=== PATIENT | female | born 2000 | race Caucasian/White ===

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

== ENCOUNTER 2022-07-09 21:12 | Emergency (ER) | payer MEDICAID, SELFPAY ==
--- NOTE | ~2022-07-09 | US_ITS ---
EXAMINATION: US OBSTETRICAL ULTRASOUND CLINICAL INFORMATION: Nausea/vomiting, COMPARISON: TECHNIQUE: Sonographic evaluation of the pelvis was performed transabdominally. FINDINGS: The uterus measures 9.5 x 7.9 x 8.5 cm. There is a single intrauterine gestational sac with visible yolk sac, embryo/fetus, and cardiac activity. There is no significant subchorionic hemorrhage or hematoma. HR: 179 beats per minute. CRL (crown rump length): 3.7 cm (10 weeks 5 days +/- 4 days). FLORENCE (estimated date of delivery): 01/30/2023 +/- 4 days. MATERNAL ADNEXA: The right maternal ovary measures 2.7 x 1.5 x 1.6 and appears unremarkable. The left maternal ovary measures 4.2 x 2.1 x 1.7 and appears unremarkable. There is no significant maternal adnexal mass. Trace pelvic free fluid noted. US/US OB <= 14 weeks fetus IMPRESSION: 1. Single intrauterine gestation with ultrasound gestational age of 10 weeks 5 days +/- 4 days. 2. Estimated date of delivery is 01/30/2023 +/- 4 days. 3. Trace pelvic free fluid.
[2022-07-09 21:45] VITALS: BP 119/76; PULSE 89; RESP 18; TEMP 36.2; O2SAT 99; BMI 40.0
--- NOTE | 2022-07-09 22:11 | MHC.EDTECH ---
pt blood drawn ,covid and flu swab collected and sent to lab .
[2022-07-09 22:12] LABS: MANUAL DIFF FLAG NO
[2022-07-09 22:16] LABS: Basophils Percent Auto 0.3 % (0-2); Eosinophils Absolute Auto 0.1 X10*3/uL (0.0-0.4); Eosinophils Percent Auto 1.1 % (0-4); Hematocrit 34.7 % (37.0-47.0); Hemoglobin 11.2 g/dl (12.0-16.0); Imm Gran Abs Auto 0.04 X10*3/uL (0.00-0.03); Imm Gran Pct Auto 0.3 % (0.0-0.4); Lymphocytes Absolute Auto 2.3 X10*3/uL (1.2-4.9); Lymphocytes Percent Auto 18.9 % (20-40); Mean Corpuscular HGB Conc 32.3 g/dl (31.0-35.0); Mean Corpuscular Hemoglobin 21.7 pg (27.0-33.0); Mean Corpuscular Volume 67.4 fL (80.0-98.0); Mean Platelet Volume 10.8 fL (9.4-12.3); Monocytes Absolute Auto 0.8 X10*3/uL (0.1-1.2); Monocytes Percent Auto 6.1 % (2-11); Neutrophils Absolute Auto 9.1 x10*3/uL (2.0-8.3); Neutrophils Percent Auto 73.3 % (45-73); Platelet Count 303 X10*3/uL (160-400); Red Blood Count 5.15 X10*6/uL (4.20-5.50); Red Cell Distribution Width 19.6 % (11.0-16.0); White Blood Count 12.4 X10*3/uL (4.8-10.8)
[2022-07-09 22:21] VITALS: O2SAT 100
[2022-07-09 22:36] LABS: Alanine Aminotransferase 15 U/L (0-31); Alkaline Phosphatase 58 U/L (39-117); Anion Gap 14 (12-20); Aspartate Amino Transferase 14 U/L (5-31); Bilirubin Total 0.4 mg/dL (0.0-1.0); Blood Urea Nitrogen 8 mg/dL (9-16); Calcium 9.4 mg/dL (8.4-10.2); Carbon Dioxide 22 mmol/L (22-29); Chloride 106 mmol/L (96-108); Creatinine Clr Calc Pharmacy 115.6; Estimated Glomerular Filt Rate > 60; Glucose Random 98 mg/dL (60-115); Potassium 4.2 mmol/L (3.3-5.1); Sodium 138 mmol/L (135-145); Total Protein 7.2 g/dL (6.5-8.0)
[2022-07-09 22:46] LABS: COVID-19 Test Negative (Negative); IDNOW Serial# 16C4AD1C; IDNOW Serial# BCCEAD1C; Influenza A Negative (Negative); Influenza B2 Negative (Negative)
[2022-07-09] MEDS: ondansetron HCL 4 MG/2 ML VIAL IVPUSH (22:49)
[2022-07-09] MEDS: 0.9 % Sodium Chloride 1,000 ML 999 ML IV (22:49)
[2022-07-09 22:55] LABS: HCG Quantitative 48602 mIU/mL
--- NOTE | 2022-07-09 23:28 | ED_ITS ---
HPI - Nausea/Vomiting/Diarrhea General Chief complaint: Syncope Stated complaint: Vomiting blood/headache/3 mos preg Time Seen by Provider: 07/09/22 22:16 Source: patient Mode of arrival: ambulatory History of Present Illness HPI Narrative: 22-year-old female without significant past medical history who presents reporting that she is 3 months and is currently being followed through the [facility] and is due to have her ultrasound on 07/14. Patient states that for the past few days she has had a ?pounding headache? with nausea and vomiting and states that the Zofran does not help and that she has tried to take 1-325 mg tablet of acetaminophen. Patient also reports taking Excedrin. Related Data Previous Rx's Medication Instructions Recorded ibuprofen 400 mg tablet 400 mg PO Q6H PRN pain #20 tabs 08/11/20 nitrofurantoin 100 mg PO Q12H 7 days #14 caps 07/10/22 monohydrate/macrocrystals 100 mg capsule (Macrobid) Allergies Allergy/AdvReac Type Severity Reaction Status Date / Time No Known Allergies Allergy Verified 08/11/20 00:35 Review of Systems Review of Systems: Pertinent positives and negatives as stated in HPI PMFSH Past Medical History Source: nursing notes reviewed Medical History No known health problems Social History Social History Alcohol intake: never Patient Tobacco Use Status: Never used Tobacco Smoked in Last 30 Days: No Use of substances other than those prescribed or required for medical reasons: No Advance Directives: No Advance Directives Information Provided: Yes Patient : Yes Physical Exam Vital Signs: Vital Signs: Last Vital Signs Temp 97.2 F 07/09/22 21:45 Pulse 89 07/09/22 21:45 Resp 18 07/09/22 21:45 BP 119/76 07/09/22 21:45 Pulse Ox 100 07/09/22 22:21 O2 Del Method 07/09/22 22:21 BMI result Body Mass Index 40.0 VITAL SIGNS: Reviewed. GENERAL: Well developed, well nourished, in no acute distress. HEAD: Normocephalic/atraumatic EYES: PERRLA, EOMI LUNGS: Normal breath sounds. No adventitious sounds or accessory muscle use. SpO2<100> CARDIOVASCULAR: Regular rate and rhythm without noted murmurs ABDOMEN: Soft, non-tender, non-distended with bowel sounds. MUSCULOSKELETAL: No tenderness, deformities, or effusions noted on gross inspection. EXTREMITIES: No cyanosis, clubbing or edema. SKIN: Inspection of the skin reveals no rashes NEUROLOGIC: Alert and oriented x 4. Strength and sensation to light touch were grossly intact x 4. Medications Administered Discontinued Medications Generic Name Dose Route Start Last Admin Trade Name Sudha PRN Reason Stop Dose Admin Acetaminophen 975 mg 07/09/22 23:28 07/09/22 23:58 Acetaminophen 325 Mg Tablet PO 07/09/22 23:29 975 mg ONCE ONE Administration Sodium Chloride 1,000 mls @ 999 mls/hr 07/09/22 22:30 07/09/22 22:49 Ns IV 07/09/22 23:30 999 mls/hr .Q1H1M AUTUMN Administration Ondansetron HCl 4 mg 07/09/22 22:16 07/09/22 22:49 Ondansetron Hcl 4 Mg/2 Ml Vial IVPUSH 07/09/22 22:17 4 mg ONCE ONE Administration Medical Decision Making Medical Decision Making [facility] Narrative: 22-year-old female who is and complains of headache, no evidence of hypertension and on review investigations there is no evidence liver enzyme derangements there are no noted edematous extremities and there are no visual changes. Viral testing is negative in a patient appears well and in no acute distress. Suspect a possible underlying UTI although she denies any urinary s ymptoms. Will proceed with OB ultrasound. Patient received antinausea medication, IV fluids. 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 To was reinforced and informed that she needed to call her lumber straightened in the morning. On re-evaluation, patient is feeling much better. Differential Diagnosis Differential Diagnoses: The differential diagnosis associated with the presentation includes Please see the discussion above Lab Data [facility] Lab Attestation statement: I reviewed the patient's lab results. Please see the discussion above 07/09/22 22:07 07/09/22 22:07 Labs: Lab Results 07/09/22 07/09/22 07/09/22 Range/Units 22:07 22:07 22:07 WBC 12.4 H (4.8-10.8) X10*3/uL RBC 5.15 (4.20-5.50) X10*6/uL Hgb 11.2 L (12.0-16.0) g/dl Hct 34.7 L (37.0-47.0) % MCV 67.4 L (80.0-98.0) fL MCH 21.7 L (27.0-33.0) pg MCHC 32.3 (31.0-35.0) g/dl RDW 19.6 H (11.0-16.0) % Plt Count 303 (160-400) X10*3/uL MPV 10.8 (9.4-12.3) fL Immature Gran % (Auto) 0.3 (0.0-0.4) % Neut % (Auto) 73.3 H (45-73) % Lymph % (Auto) 18.9 L (20-40) % Lucas % (Auto) 6.1 (2-11) % Eos % (Auto) 1.1 (0-4) % Baso % (Auto) 0.3 (0-2) % Lymph # (Auto) 2.3 (1.2-4.9) X10*3/uL Lucas # (Auto) 0.8 (0.1-1.2) X10*3/uL Eos # (Auto) 0.1 (0.0-0.4) X10*3/uL Baso # (Auto) 0.0 (0.0-0.2) X10*3/uL Abs Immat Gran (auto) 0.04 H (0.00-0.03) X10*3/uL Absolute Neuts (auto) 9.1 H (2.0-8.3) x10*3/uL Absolute Nucleated RBC 0.000 (0.0-0.012) X10*3/uL Nucleated RBC % (auto) 0.0 (0.0-0.2) /100WBC Sodium 138 (135-145) mmol/L Potassium 4.2 (3.3-5.1) mmol/L Chloride 106 (96-108) mmol/L Carbon Dioxide 22 (22-29) mmol/L Anion Gap 14 (12-20) BUN 8 L (9-16) mg/dL Creatinine 0.79 (0.5-1.4) mg/dL Estim Creat Clear Calc 115.6 Estimated GFR > 60 Random Glucose 98 (60-115) mg/dL Calcium 9.4 (8.4-10.2) mg/dL Total Bilirubin 0.4 (0.0-1.0) mg/dL AST 14 (5-31) U/L ALT 15 (0-31) U/L Alkaline Phosphatase 58 (39-117) U/L Total Protein 7.2 (6.5-8.0) g/dL Albumin 4.0 (3.5-5.0) g/dL Beta HCG, Quant 29284 mIU/mL Urine Color Urine Appearance Urine pH (5.0-9.0) Ur Specific [place] (1.005-1.025) Urine Protein (Neg-Trace) mg/dL Urine Glucose (UA) (Negative) mg/dL Urine Ketones (Negative) mg/dL Urine Blood (Negative) Urine Nitrite (Negative) Ur Leukocyte Esterase (Negative) Urine RBC (0-2) /HPF Urine WBC (0-5) /HPF Ur Squamous Epith Cells (0-2) /HPF Urine Bacteria (None Seen) Hyaline Casts (0-2) /LPF COVID-19 (NAHUN) (Negative) COVID-19 Clin Com Influenza Type A (SHAWN) Negative (Negative) Influenza Type B (SHAWN) Negative (Negative) Influenza A & B Note See Note 07/09/22 07/09/22 Range/Units 22:07 23:55 WBC (4.8-10.8) X10*3/uL RBC (4.20-5.50) X10*6/uL Hgb (12.0-16.0) g/dl Hct (37.0-47.0) % MCV (80.0-98.0) fL MCH (27.0-33.0) pg MCHC (31.0-35.0) g/dl RDW (11.0-16.0) % Plt Count (160-400) X10*3/uL MPV (9.4-12.3) fL Immature Gran % (Auto) (0.0-0.4) % Neut % (Auto) (45-73) % Lymph % (Auto) (20-40) % Lucas % (Auto) (2-11) % Eos % (Auto) (0-4) % Baso % (Auto) (0-2) % Lymph # (Auto) (1.2-4.9) X10*3/uL Lucas # (Auto) (0.1-1.2) X10*3/uL Eos # (Auto) (0.0-0.4) X10*3/uL Baso # (Auto) (0.0-0.2) X10*3/uL Abs Immat Gran (auto) (0.00-0.03) X10*3/uL Absolute Neuts (auto) (2.0-8.3) x10*3/uL Absolute Nucleated RBC (0.0-0.012) X10*3/uL Nucleated RBC % (auto) (0.0-0.2) /100WBC Sodium (135-145) mmol/L Potassium (3.3-5.1) mmol/L Chloride (96-108) mmol/L Carbon Dioxide (22-29) mmol/L Anion Gap (12-20) BUN (9-16) mg/dL Creatinine (0.5-1.4) mg/dL Estim Creat Clear Calc Estimated GFR Random Glucose (60-115) mg/dL Calcium (8.4-10.2) mg/dL Total Bilirubin (0.0-1.0) mg/dL AST (5-31) U/L ALT (0-31) U/L Alkaline Phosphatase (39-117) U/L Total Protein (6.5-8.0) g/dL Albumin (3.5-5.0) g/dL Beta HCG, Quant mIU/mL Urine Color Yellow Urine Appearance Cloudy Urine pH 6.0 (5.0-9.0) Ur Specific [place] 1.015 (1.005-1.025) Urine Protein Negative (Neg-Trace) mg/dL Urine Glucose (UA) Negative (Negative) mg/dL Urine Ketones 15 (Negative) mg/dL Urine Blood Negative (Negative) Urine Nitrite Negative (Negative) Ur Leukocyte Esterase Small (1+) H (Negative) Urine RBC 0-2 (0-2) /HPF Urine WBC 6-10 H (0-5) /HPF Ur Squamous Epith Cells 11-20 (0-2) /HPF Urine Bacteria 2+ (None Seen) Hyaline Casts 0-2 (0-2) /LPF COVID-19 (NAHUN) Negative (Negative) COVID-19 Clin Com See Note Influenza Type A (SHAWN) (Negative) Influenza Type B (SHAWN) (Negative) Influenza A & B Note Radiology Impression Radiologist Impression: My interpretation is in agreement with radiology's impression of the imaging study. External Record Review External record reviewed: Outpatient record and Prior outpatient labs Critical Care Time Critical Care Time Critical Care Time: Yes Total Critical Care Time: 30 Attestation: I personally attest to this time spent taking care of the patient. Discharge Plan Discharge Clinical Impression: , Dehydration, UTI (urinary tract infection) Patient Disposition: Home, Self-Care Instructions: (ED), Dehydration (ED), Urinary Tract Infection in (ED) Additional Instructions: 1. Continue to take vitamins, increase fluid hydration especially with water. 2. Complete the entire course of antibiotics as ordered. You have been prescribed an antinausea medication and should be taken as prescribed. 3. You need to call the office of your lumber straightened tomorrow and let them know that you were seen in the emergency room Return to the ER for any worsening symptoms. Prescriptions: New nitrofurantoin monohyd/m-cryst [Macrobid] 100 mg capsule 100 mg PO Q12H 7 Days Qty: 14 0RF Rx Instructions: must administer with a meal/food No Action ibuprofen 400 mg tablet 400 mg PO Q6H PRN (Reason: pain) Qty: 20 0RF Referrals: Saadia Guido FNP [Primary Care Provider] -
[2022-07-09] MEDS: Acetaminophen 325 MG TABLET 975 MG PO (23:58)
[2022-07-10 00:15] LABS: Appearance Urine Cloudy; Color Urine Yellow; Glucose Urine UA Negative (Negative); Leukocyte Esterase Urine Small (1+) (Negative); Nitrite Urine Negative (Negative); Specific Gravity - Urine 1.015 (1.005-1.025); UMIC TRIGGER UACC YES; Urine Blood Negative (Negative); Urine Ketones 15 mg/dL (Negative); Urine Protein Negative (Neg-Trace)
[2022-07-10 00:20] LABS: Bacteria Urine 2+ (None Seen); Hyaline Casts Urine 0-2 /LPF (0-2); RBC Urine 0-2 /HPF (0-2); UACC Culture Trigger YES
[2022-07-10 00:28] VITALS: BP 126/71; PULSE 71; RESP 14; TEMP 36.5; O2SAT 100
[2022-07-10 00:29] VITALS: BP 128/63; PULSE 67
[2022-07-10 00:30] VITALS: BP 139/81; PULSE 68
[2022-07-10 00:31] VITALS: BP 117/55; PULSE 73
[2022-07-10] MEDS: Nitrofurantoin Monohyd/M-Cryst 100 MG CAPSULE PO (01:02)
== END 2022-07-10 01:10 | disposition home or self-care (01) ==
PROVIDERS: Emergency Provider Student in an Organized Health Care Education/Training Program; PCP Registered Nurse
DX: O23.41 Unspecified infection of urinary tract in pregnancy, first trimester (principal); R55 Syncope and collapse; N39.0 Urinary tract infection, site not specified; Z3A.12 12 weeks gestation of pregnancy; Z20.822 Contact with and (suspected) exposure to COVID-19; Z20.828 Contact with and (suspected) exposure to other viral communicable diseases; Z79.899 Other long term (current) drug therapy
CPT/HCPCS: 36415; 76801; 80053; 81001; 84702; 85025; 87086; 87502; 87635; 99284; 99285; J2405

== ENCOUNTER 2022-09-23 18:51 | Emergency (ER) | payer MEDICAID, SELFPAY ==
[2022-09-23 19:07] VITALS: BP 145/70; PULSE 110; RESP 18; TEMP 36.6; O2SAT 100; BMI 39.6
--- NOTE | 2022-09-23 19:11 | ED.GENADULT ---
HPI - General Adult General Chief complaint: Fever Stated complaint: fever/tonsils hurt/ Source: patient, RN notes reviewed and old records reviewed Mode of arrival: ambulatory Limitations: no limitations History of Present Illness HPI narrative: 22-year-old female presents for evaluation of sore throat. She reports her symptoms started yesterday She reports associated fevers. She is able to swallow but states it is painful to swallow Patient reports that she is approximately 21 weeks . No other complaints or concerns at this time Related Data Previous Rx's Medication Instructions Recorded ibuprofen 400 mg tablet 400 mg PO Q6H PRN pain #20 tabs 08/11/20 nitrofurantoin 100 mg PO Q12H 7 days #14 caps 07/10/22 monohydrate/macrocrystals 100 mg capsule (Macrobid) Allergies Allergy/AdvReac Type Severity Reaction Status Date / Time No Known Allergies Allergy Verified 08/11/20 00:35 Review of Systems Constitutional: Constitutional: Reports chills, Reports fever(s) and Denies headache(s) ENT: Denies headache(s) and Reports sore throat Cardiovascular: Cardiovascular: Denies dyspnea Respiratory: Respiratory: Reports cough and Denies dyspnea Gastrointestinal: Gastrointestinal: Denies abdominal pain, Denies nausea and Denies vomiting Neurologic: Denies headache(s) [facility] Past Medical History Medical History No known health problems Social History Social History Alcohol intake: never Patient Tobacco Use Status: Never used Tobacco Physical Exam ED Vital Signs: Vital Signs - 24 hr 09/23/22 19:07 Temperature 98 F Pulse Rate 110 H Respiratory Rate 18 Blood Pressure 145/70 H Pulse Oximetry 100 Oxygen Delivery Method Room Air BMI result Body Mass Index 39.6 Const General: healthy appearing, comfortable, no acute distress, alert and awake Nutritional Appearance: well nourished Orientation/consciousness: patient oriented x3 HENMT Other: Mildly erythematous oropharynx without exudates. No tonsillar hypertrophy, no evidence of peritonsillar abscess. Head: Yes normocephalic and Yes atraumatic Resp Effort & Inspection: normal respiratory effort, able to speak in complete sentences, no audible wheezes and not labored Auscultation: clear to auscultation bilaterally Cardio Rate: regular rate Rhythm: regular rhythm Skin General skin exam: no rashes or lesions noted and elasticity normal Neuro General: patient oriented x3 Cranial nerves: Yes Bilaterally intact EOM present Cognition (Neuro): normal cognition Extrem Other: Moving all extremities well without any obvious deformities Course Course Course Narrative: 22 year old female who is 21 weeks presents for evaluation of sore throat and fever that started yesterday. Oropharynx is erythematous without exudates. No peritonsillar abscess. Will get rapid strep test. Medical Decision Making Medical Decision Making [facility] Narrative: A strep test was ordered as the patient is . This strep test was negative, therefore the etiology is likely viral. The patient will have symptomatic treatment. This was discussed with her Differential Diagnosis Pharyngitis Viral syndrome Strep pharyngitis Mononucleosis Lab Data Labs: Lab Results 09/23/22 Range/Units 19:11 S. pyogenes GrpA SHAWN Negative (Negative) Discharge Plan Discharge Clinical Impression: Pharyngitis Patient Disposition: Home, Self-Care Instructions: Pharyngitis (ED) Additional Instructions: Your strep test was negative. Your symptoms are likely caused by a virus. You may use Tylenol for your pain. You may also use salt water gargles. You may use [id number] Chloraseptic spray to help with the sore throat Prescriptions: No Action ibuprofen 400 mg tablet 400 mg PO Q6H PRN (Reason: pain) Qty: 20 0RF nitrofurantoin monohyd/m-cryst [Macrobid] 100 mg capsule 100 mg PO Q12H 7 Days Qty: 14 0RF Rx Instructions: must administer with a meal/food Stand Alone Forms: Work/School Release
[2022-09-23 19:34] LABS: IDNOW Serial# 6674DD1D; Strep A Nucleic Acid Negative (Negative)
== END 2022-09-23 20:24 | disposition home or self-care (01) ==
LOC: HO.ED 20:22
PROVIDERS: Physician Assistant; Emergency Provider Internal Medicine; PCP Registered Nurse
DX: O26.892 Other specified pregnancy related conditions, second trimester (principal); R50.9 Fever, unspecified; J02.9 Acute pharyngitis, unspecified; Z3A.21 21 weeks gestation of pregnancy
CPT/HCPCS: 87651; 99282; 99283

== ENCOUNTER 2022-10-04 20:49 | Emergency (ER) | payer MEDICAID, SELFPAY ==
[2022-10-04 21:05] VITALS: BP 136/85; PULSE 102; RESP 18; TEMP 36.6; O2SAT 99; BMI 41.0
--- NOTE | 2022-10-04 21:50 | ED_ITS ---
HPI - General Adult General Chief complaint: Dental/Oral Stated complaint: tonsils are swollen, here recently for same issue Time Seen by Provider: 10/04/22 21:50 Source: patient Mode of arrival: ambulatory Limitations: no limitations History of Present Illness HPI narrative: This is a 22-year-old female without significant medical history currently 26 weeks presenting to the emergency department for evaluation of sore throat, fatigue, malaise, dry cough for the past few weeks, patient tells me that since 09/23/2022 she has been having discomfort in her throat and just feeling unwell. She tells me she was seen urine discharged home without any medications. She reports her throat hurts particularly when she swallows she says when she looks in the mirror with she thinks her tonsils are red and swo llen. She reports subjective fevers and chills. Denies chest pain, shortness of breath, nausea, vomiting, abdominal pain, headache, vision changes, dizziness, weakness, vaginal bleeding or discharge. Related Data Previous Rx's Medication Instructions Recorded ibuprofen 400 mg tablet 400 mg PO Q6H PRN pain #20 tabs 08/11/20 nitrofurantoin 100 mg PO Q12H 7 days #14 caps 07/10/22 monohydrate/macrocrystals 100 mg capsule (Macrobid) clindamycin HCl 300 mg capsule 300 mg PO TID 10 days #30 caps 10/04/22 prednisone 20 mg tablet 40 mg PO DAILY 5 days #10 tabs 10/04/22 Allergies Allergy/AdvReac Type Severity Reaction Status Date / Time No Known Allergies Allergy Verified 08/11/20 00:35 Review of Systems Review of Systems: Constitutional : No Weight loss, + Fever, + Chills, + Fatigue, + Malaise ENT/Mouth : + sore throat, No Rhinorrhea Eyes: No Eye Pain, No Swelling, No Redness Cardiovascular : No Chest Pain, No SOB, No Dyspnea on Exertion, No Orthopnea, No Edema, No Palpitations Respiratory : No Cough, No Sputum, No Wheezing Gastrointestinal : No Nausea, No Vomiting, No Diarrhea, No Constipation, No abdominal Pain, No Hematochezia, No Melena Genitourinary : No Dysuria, No Urinary Frequency, No Hematuria, Musculoskeletal : No joint pain, No Myalgias, No Joint Swelling Skin : No Skin Lesions, No rash Neuro : No Weakness, No Numbness, No Dizziness, No Headache Psych : No Anxiety/Panic, No Depression All other systems reviewed and are negative Yes all other systems are reviewed and are negative [facility] Past Medical History Attestation statement: The following information was validated with the patient. Source: old records reviewed and nursing notes reviewed Medical History No known health problems Social History Social History Alcohol intake: never Patient Tobacco Use Status: Never used Tobacco Advance Directives: No Advance Directives Information Provided: Yes Physical Exam ED Vital Signs: Vital Signs - 24 hr 10/04/22 21:05 Temperature 98 F Pulse Rate 102 H Respiratory Rate 18 Blood Pressure 136/85 Pulse Oximetry 99 Oxygen Delivery Method Room Air BMI result Body Mass Index 41.0 vss Appearance: Alert.? Oriented X3.? No acute distress.? Head: Normocephalic, atraumatic, no step-offs or deformities Eyes: Pupils equal, round and reactive to light.? ENT: Bilateral tonsils appear erythematous, w/ some edema, no exudate. Uvula midline. + halitosis. Unable to visualize any retropharyngeal or peritonsillar abscess. Patient speaking in full sentences controlling secretions well. No palpable lymphadenopathy. Neck: Normal inspection.? Neck supple.? CVS: Normal heart rate and rhythm.? Pulses normal.? Respiratory: No respiratory distress.? Breath sounds normal.? Abdomen: Soft and nontender.? Skin: Skin warm and dry.? Normal skin color.? Normal skin turgor.? Extremities: No lower extremity edema.? No calf ttp. 5/5 strength to bilateral upper and lower extremities Neuro: Oriented X 3.? No motor deficit.? No sensory deficit. CN 2-12 intact Course Reevaluation(s) Reevaluation #1: Strep negative. [place] pending. Patient reports she was recently on amoxicillin for tooth extraction and this did not seem to help requesting a different antibiotic, discuss this with my attending who tells me that clindamycin is a good option as patient is . Will discharge with clindamycin and prednisone as I do have high suspicion for strep pharyngitis. Educated patient on diagnosis and treatment plan, answered all question, patient verbalizes understanding. At this time patient will be discharged home, advised to return with new or worsening symptoms. Educated on worrisome signs and symptoms and when to return. At this time I feel comfortable discharge home. Time: 22:01 Reevaluation #2: I did explain to patient that a potential side effect/ BB warning of clindamycin is C.diff I explained to her if diarrhea occurs she should seek medical attention immediately. Time: 22:04 Medical Decision Making Medical Decision Making [facility] Narrative: 773 22-year-old female presents with sore throat, fatigue, malaise, subjective fevers and chills, dry cough since 09/23/2022. Physical exam significant for Bilateral tonsils appear erythematous, w/ some edema, no exudate. + halitosis. Uvula midline. Unable to visualize any retropharyngeal or peritonsillar abscess. Patient speaking in full sentences co ntrolling secretions well. No palpable lymphadenopathy. Concerns for possible strep pharyngitis versus mononucleosis. Other differentials include viral illness. Lung sounds clear, unlikely that this is pneumonia. I do not suspect CHF, PE, ACS on this patient. No signs of retropharyngeal, peritonsillar abscess or epiglottitis. No signs of respiratory distress or airway compromise Plan viral testing. Differential Diagnosis Differential Diagnoses: The differential diagnosis associated with the presentation includes Concerns for possible strep pharyngitis versus mononucleosis. Other differentials include viral illness. Lung sounds clear, unlikely that this is pneumonia. I do not suspect CHF, PE, ACS on this patient. No signs of retropharyngeal, peritonsillar abscess or epiglottitis.No signs of respiratory distress or airway compromise Admission/Observation Consideration of admission/observation: Escalation of care including admission/observation considered Not indicated Lab Data [facility] Lab Attestation statement: I reviewed the patient's lab results. Labs: Lab Results 10/04/22 Range/Units 21:41 S. pyogenes GrpA SHAWN Negative (Negative) Core Measures AMI core measures followed: Yes Measure exclusions: not indicated Attestation Attending Attestation: No indication for chest x-ray wrists sounds clear, patient is saturating well on room air. Patient also risks outweigh benefits. Also no evidence of retropharyngeal, peritonsillar abscess no need for CT soft tissue neck to rule out abscess. Critical Care Time Critical Care Time Critical Care Time: No Discharge Plan Discharge Clinical Impression: Pharyngitis, URI (upper respiratory infection) Patient Disposition: Home, Self-Care Instructions: Pharyngitis (ED), Upper Respiratory Infection (DC) Additional Instructions: Take your medications as prescribed. If you were prescribed antibiotics today, it is important that you take your medication to their entirety, do not skip any doses, do not finish them early. Follow-up with your primary care provider this week. Return to the emergency department with new or worsening symptoms. Such as fevers, chills, chest pain, shortness of breath, nausea, vomiting, dizziness, headache, vision changes, lethargy In case of emergency call 911 As we discussed clindamycin has a black box warning of potential to cause C diff a type of infectious diarrhea if you get diarrhea please discontinue this medication and seek medical attention immediately. Prescriptions: New clindamycin HCl 300 mg capsule 300 mg PO TID 10 Days Qty: 30 0RF prednisone 20 mg tablet 40 mg PO DAILY 5 Days Qty: 10 0RF No Action ibuprofen 400 mg tablet 400 mg PO Q6H PRN (Reason: pain) Qty: 20 0RF nitrofurantoin monohyd/m-cryst [Macrobid] 100 mg capsule 100 mg PO Q12H 7 Days Qty: 14 0RF Rx Instructions: must administer with a meal/food Referrals: Saadia Guido FNP [Primary Care Provider] - 2 days Stand Alone Forms: Work/School Release
[2022-10-04 21:55] LABS: IDNOW Serial# 08D9AD1C; Strep A Nucleic Acid Negative (Negative)
[2022-10-04 23:01] LABS: Monotest Negative (Negative)
== END 2022-10-04 22:18 | disposition home or self-care (01) ==
PROVIDERS: Physician Assistant; Emergency Provider Internal Medicine; PCP Registered Nurse
DX: O98.512 Other viral diseases complicating pregnancy, second trimester (principal); J06.9 Acute upper respiratory infection, unspecified; J02.9 Acute pharyngitis, unspecified; Z3A.26 26 weeks gestation of pregnancy
CPT/HCPCS: 36415; 86308; 87651; 99282; 99283

== ENCOUNTER 2023-09-10 14:01 | Outpatient (REF) | payer MEDICAID, SELFPAY ==
[2023-09-10 16:37] LABS: Estimated Average Glucose 108 mg/dL; Hemoglobin A1c % 5.4 % (<6.0)
[2023-09-10 16:56] LABS: Red Cell Distribution Width 22.5 % (11.0-16.0)
[2023-09-10 16:58] LABS: Hematocrit 30.9 % (37.0-47.0); Hemoglobin 8.8 g/dl (12.0-16.0); Mean Corpuscular HGB Conc 28.5 g/dl (31.0-35.0); Mean Corpuscular Hemoglobin 16.4 pg (27.0-33.0); Platelet Count 351 X10*3/uL (160-400); Red Blood Count 5.38 X10*6/uL (4.20-5.50); White Blood Count 10.5 X10*3/uL (4.8-10.8)
[2023-09-10 17:14] LABS: Mean Corpuscular Volume 57.4 fL (80.0-98.0); PLT ABN DIST 1
[2023-09-10 17:19] LABS: Alanine Aminotransferase 10 U/L (0-31); Albumin Level 3.9 g/dL (3.5-5.0); Alkaline Phosphatase 77 U/L (39-117); Anion Gap 13 (12-20); Aspartate Amino Transferase 13 U/L (5-31); Bilirubin Total 0.3 mg/dL (0.0-1.0); Blood Urea Nitrogen 10 mg/dL (9-16); Calcium 9.3 mg/dL (8.4-10.2); Carbon Dioxide 23 mmol/L (22-29); Chloride 106 mmol/L (96-108); Cholesterol 148 mg/dL (<200); Estimated Glomerular Filt Rate > 60; Glucose Random 103 mg/dL (60-115); HDL Cholesterol 42 mg/dL (>40); Iron 17 mcg/dL (30-160); LDL Cholesterol Calculated 76 mg/dL (<100); Percent Iron Saturation 5 % (15-50); Potassium 4.1 mmol/L (3.3-5.1); Sodium 138 mmol/L (135-145); Total Iron Binding Capacity 376 mcg/dL (228-428); Total Protein 7.7 g/dL (6.5-8.0); Triglycerides 153 mg/dL (<150); Unsaturated Iron Binding 359 ug/dL
[2023-09-10 17:25] LABS: Ferritin 9 ng/mL (10-122); TSH reflex Free T4 1.27 uIU/mL (0.32-4.0); Vitamin D 25-OH Total 17.2 ng/mL (>30)
[2023-09-10 18:27] LABS: CT PCR NOT DETECTED (Not Detect.); NG PCR NOT DETECTED (Not Detect.)
[2023-09-11 08:53] LABS: Syphilis Screen Nonreactive (Nonreactive)
[2023-09-11 09:13] LABS: HBS Num1 0.57 mIU/mL (0-7.99); HBc Num1 0.09 S/CO (0.00-0.79); HBsAGNum1 0.51 S/CO (0.00-0.99); HIV AB/AG Nonreactive (Nonreactive); HIV Num 1 0.05 S/CO (0.00-0.99); Hepatitis B Core Antibody Nonreactive (Nonreactive); Hepatitis B Surface Antigen Negative (Negative); ~HepC Num1 0.16 S/CO (0.00-0.79); ~Hepatitis B Surface Antibody NONREACTIVE (Nonreactive); ~Hepatitis C Antibody Nonreactive (Nonreactive)
[2023-09-13 08:58] LABS: TSpotTB Invalid (Negative)
[2023-09-14 14:58] LABS: Hematocrit 31.2 % (35.0-45.0); Hemoglobin 8.8 g/dL (11.7-15.5); MCH 16.5 pg (27.0-33.0); MCV 58.4 fL (80.0-100.0); RBC 5.34 Million/uL (3.80-5.10); RDW 21.9 % (11.0-15.0)
== END 2023-09-10 14:02 | disposition home or self-care (01) ==
LOC: HO.HHCL 14:01
PROVIDERS: Visit Provider Student in an Organized Health Care Education/Training Program
DX: Z00.00 Encounter for general adult medical examination without abnormal findings (principal); D50.9 Iron deficiency anemia, unspecified
CPT/HCPCS: 0353U; 36415; 80053; 80061; 82306; 82728; 83020; 83036; 83540; 84443; 85014; 85018; 85027; 85041; 86481; 86704; 86706; 86780; 86803; 87340; 87389

== ENCOUNTER 2023-09-13 10:22 | Outpatient (REF) | payer MEDICAID, SELFPAY ==
[2023-09-16 00:23] LABS: TSpotTB Invalid (Negative)
== END 2023-09-13 10:23 | disposition home or self-care (01) ==
LOC: HO.HHCL 10:22
PROVIDERS: Visit Provider Student in an Organized Health Care Education/Training Program
DX: Z11.1 Encounter for screening for respiratory tuberculosis (principal)
CPT/HCPCS: 36415; 86481

== ENCOUNTER 2023-11-30 21:50 | Inpatient (IN) | payer MEDICAID, SELFPAY ==
--- NOTE | ~2023-11-30 | US_ITS ---
EXAMINATION: US PELVIS CLINICAL INFORMATION: Pelvic inflammatory disease. COMPARISON: CT imaging of the abdomen and pelvis from 11/30/2023. TECHNIQUE: Ultrasound of the pelvis is performed using both transabdominal and transvaginal transducers along with Doppler. Transvaginal imaging is performed due to inadequate visualization transabdominally. FINDINGS: The anteflexed, anteverted uterus has normal contour and echotexture. On the transabdominal images, the uterus measures approximately 9.7 x 3.7 x 5 cm (cervix to fundus x AP x transverse dimension). No uterine leiomyoma. The endometrial has normal echotexture and measures up to 0.5 cm AP. There is no endometrial fluid. The ovaries are seen on both transabdominal and transvaginal imaging. On the transabdominal images, the right ovary is 2.8 x 2 x 3.1 cm, volume of 9 mL and the left ovary is 3.8 x 2.4 x 2.8 cm, volume of 13.3 mL. Note that is difficult to acquire an accurate measurement of the right ovarian size on the transvaginal images. Normal sized follicles are present within each ovary. Color Doppler images show grossly normal arterial and venous flow within the ovaries. There is no evidence of an adnexal mass or abscess. Small, physiologic amount of simple appearing free fluid is present in the posterior cul-de-sac. US/US pelvic and transvaginal IMPRESSION: No acute sonographic abnormality in the pelvis. No evidence of adnexal abscess. No ovarian torsion. Small amount of simple-appearing free fluid is present in the posterior cul-de-sac.
--- NOTE | ~2023-11-30 | CT_ITS ---
EXAMINATION: CT ABDOMEN AND PELVIS WITH CONTRAST CLINICAL INFORMATION: Pelvic pain. COMPARISON: None available. TECHNIQUE: Multidetector volumetric images were obtained from the superior aspect of the liver through the pubic symphysis following administration 85 mL of Omnipaque 350 intravenous contrast. Sagittal and coronal reformatted images were obtained on the technologist's workstation. Oral contrast: No This CT examination was performed using dose optimization techniques as appropriate, variously including the following: *Automated exposure control *Adjustment of mA and/or kV according to patient size (this includes techniques or standardized protocols for targeted exams where dose is matched to indication/reason for exam; i.e. extremities or head) *Use of iterative reconstruction technique DLP: 1003 mGy-cm FINDINGS: LUNG BASES: The visualized lung bases are unremarkable. LIVER, GALLBLADDER, AND BILIARY TREE: The liver is normal in size, shape, and attenuation. No focal hepatic lesion or biliary ductal dilatation is present. The gallbladder is unremarkable with no evidence of radiopaque gallstones, gallbladder wall thickening, or obvious pericholecystic inflammatory changes. PANCREAS: Unremarkable. SPLEEN: Unremarkable. ADRENAL GLANDS: Unremarkable. KIDNEYS AND URETERS: The kidneys are normal in size, shape, and attenuation. No hydronephrosis, hydroureter, or calculi seen. No perinephric stranding. BLADDER: Unremarkable. GASTROINTESTINAL TRACT: The small and large bowel are unremarkable. The appendix is not seen. ABDOMINAL WALL: No significant hernia is appreciated. LYMPH NODES: Normal. VASCULAR: The pelvic viscera are unremarkable. There is mild infiltrative change along the distal left colon associated with some fatty densities. PELVIC VISCERA: Pelvic structures are unremarkable. There is a small amount of free fluid within the pelvis OSSEOUS STRUCTURES: Unremarkable. CT/CT abdomen pelvis w IV con IMPRESSION: 1. There is mild infiltrative change along the distal left colon associated with some fatty densities. This may represent epiploic appendagitis. A pelvic inflammatory process also a possibility. 2. There is a small amount of free fluid within the pelvis which may be physiologic. Fleischner guidelines were followed.
[2023-11-30 22:23] VITALS: BP 123/74; PULSE 99; RESP 16; TEMP 36.7; O2SAT 100; BMI 49.1
--- OUTSIDE RECORDS SUMMARY | 2023-11-30 22:38 | XMS_ITS | Continuity of Care Document ---
Author Organization [facility] Address [address] [place] [id number]- Care Team Providers Care Agricultural Extension Specialist Name Role Phone Saadia Guido NP Primary Care Physician [phone] Encounter [facility] Date(s): 08/21/22 - 09/21/22 [facility] [address] [address]- Attending Physician: Not on Staff, Attending MD Referring Physician: Edda Christianson CNM Allergies, Adverse Reactions, Alerts No Known Allergies Immunizations Given and Recorded Vaccine Date Status Refusal Reason SARS-CoV-2 (COVID-19) mRNA-1273 vaccine 07/27/21 R ecorded SARS-CoV-2 (COVID-19) mRNA-1273 vaccine 10/03/20 R ecorded Meningococcal Conjugate Vaccine 07/29/19 Recorded Meningococcal Conjugate Vaccine 07/07/14 Recorded influenza virus vaccine, inactivated 07/29/19 Elton rded Human Papillomavirus Vaccine 12/14/15 Recorded Human Papillomavirus Vaccine 07/07/14 Recorded Human Papillomavirus Vaccine 10/09/12 Recorded Hepatitis A Pediatric Vaccine 12/14/15 Recorded Hepatitis A Pediatric Vaccine 07/07/14 Recorded tetanus/diphtheria/pertussis, acel(Tdap) 07/07/14 Recorded Varicella Virus Vaccine 12/27/06 Recorded Varicella Virus Vaccine 06/02/03 Recorded Poliovirus Vaccine, Inactivated 12/27/06 Recorded Poliovirus Vaccine, Inactivated 01/27/03 Recorded Poliovirus Vaccine, Inactivated 02 Recorded Poliovirus Vaccine, Inactivated 02 Recorded Measles/Mumps/Rubella Virus Vaccine 12/27/06 Recor ded Measles/Mumps/Rubella Virus Vaccine 06/02/03 Recor ded hepatitis B pediatric vaccine 02 Recorded hepatitis B pediatric vaccine 02 Recorded hepatitis B pediatric vaccine 02 Recorded Medications aspirin 81 mg oral delayed release tablet 162 mg, 2, tablet, By Mouth, Daily, # 90 tablet, Refills 3, Tot. Refills 3, Maintenance, 07/25/22 10:07:00 EDT, Route to Pharmacy Electronically, [facility], Partial fill upon patient request if the prescription is for a schedule I... Start Date: 07/25/22 Status: Ordered ferrous sulfate 325 mg oral enteric coated tablet See Instructions, Take one tablet By Mouth every other day. Take with vitamin C to help absorption,# 45 tablet, Refills 4, Tot. Refills 4, Maintenance, 07/25/22 10:08:00 EDT, Instructions Replace Required Details, Route to Pharmacy Electronically, Ho... Start Date: 07/25/22 Status: Ordered Fioricet oral capsule 1 capsule, By Mouth, Every 4 hours, PRN as needed, May increase to 2 tablets q4hrs if pain unrelieved by 1 tablet. not to exceed 6 capsules/day. not to exceed 4000 mg acetaminophen per day. Use sparingly, # 30 capsule, 0 Refills, Maintenance, 07/29... Start Date: 07/29/22 Status: Ordered PNV Select oral tablet 1 tablet, By Mouth, Daily, Please prescribe PNVs that are covered by pt's insurance., # 30 tablet, 11 Refills, Maintenance, 06/19/22 10:25:00 EST, [facility], Partial fill upon patient request if the prescription is for a schedule... Start Date: 06/19/22 Stop Date: 06/14/23 Status: Ordered Unisom 25 mg oral tablet 1 tablet = 25 mg, By Mouth, Daily, PRN Insomnia, # 30 tablet, 0 Refills, Maintenance, 08/21/22 14:10:00 EDT, Tablet, [facility]/pharmacy #[id number], Partial fill upon patient request if the prescription is for aschedule II opioid drug., 153, cm, 08/21/22 13:54:0... Start Date: 08/21/22 Status: Ordered Vitamin B6 Daily, 0 Refills, Maintenance, 07/25/22 9:43:00 EDT, Partial fill upon patient request if the prescription is for a schedule II opioid drug. Start Date: 07/25/22 Status: Ordered Problem List Condition Confirmation Course Effective Dates Status Health St atus Informant Anxiety Confirmed Active History of depression Confirmed Active Insomnia Confirmed Active Migraine Confirmed Active Severe obesity Confirmed Active Social History Social History Type Response Smoking Status Never (less than 100 in lifetime) entered on: 06/29/22 Sex Patient Care team information Care Team Personnel Name: Saadia Guido NP Position: Reference Physician Member Role: PCP Address: Address: [address] [place] [address]- [place] Care Team Related Persons Name: LIBRADO HERNANDEZ Address: home [address] [place] [address] Name: DEWAYNE HERNANDEZ Address: [address] [place] [address] Name: ASNTY PEARSON Address: home [address] [place] [address] Name: SOL LACKEY Address: home [address] [place] [address]
--- OUTSIDE RECORDS SUMMARY | 2023-11-30 22:38 | XMS_ITS | Continuity of Care Document ---
Author Organization [facility] Address [address] [place] [address]- Care Team Providers Care Orthodontic Technician Name Role Phone Saadia Guido NP Primary Care Physician Encounter [facility] Date(s): 07/10/22 - 08/09/22 [facility] [address] [address]- Allergies, Adverse Reactions, Alerts No Known Allergies Medications aspirin 81 mg oral delayed release tablet 162 mg, 2, tablet, By Mouth, Daily, # 90 tablet, Refills 3, Tot. Refills 3, Maintenance, 07/25/22 10:07:00 EDT, Route to Pharmacy Electronically, [facility], Partial fill upon patient request [...] 30 tablet, 11 Refills, Maintenance, 06/19/22 10:25:00 [facility], [facility], Partial fill upon patient request if the prescription is for a schedule... Start Date: 06/19/22 Stop Date: 06/14/23 Status: Ordered Unisom = 25 mg, By Mouth, Daily, 0 Refills, Maintenance, 07/25/22 9:42:00 EDT, Partial fill upon patient request if the prescription is for a schedule II opioid drug. Start Date: 07/25/22 Status: Ordered Vitamin B6 Daily, 0 Refills, [...] Reference Physician Member Role: PCP Address: Address: [address] [place] [address]- [place] Care Team Related Persons Name: LIBRADO HERNANDEZ Address: [address] [place] [address] Name: DEWAYNE HERNANDEZ Address: [address] [place] [address] Name: SANTY PEARSON Address: [address] [place] [address] Name: SOL LACKEY Address: [address] [place] [address]
--- OUTSIDE RECORDS SUMMARY | 2023-11-30 22:38 | XMS_ITS | Continuity of Care Document ---
Author Organization [facility] Address [address] [place] [address]- Care Team Providers Care Pediatric Psychologist Name Role Phone Saadia Guido NP Primary Care Physician Encounter [facility] Date(s): 07/26/22 - 08/25/22 [facility] [address] [address]- Allergies, Adverse Reactions, Alerts No Known Allergies [...] 07/25/22 10:07:00 EDT, Route to Pharmacy Electronically, [facility], Partial fill upon patient request if [...] tablet, 11 Refills, Maintenance, 06/19/22 10:25:00 EST, [facility], Partial fill upon patient request if the prescription is for a schedule... Start Date: 06/19/22 Stop Date: 06/14/23 Status: Ordered Unisom 25 mg oral tablet 1 tablet = 25 mg, By Mouth, Daily, PRN Insomnia, # 30 tablet, 0 Refills, Maintenance, 08/21/22 14:10:00 EDT, Tablet, [facility]/pharmacy #[id number], Partial fill upon [...] Reference Physician Member Role: PCP Address: Address: [address] [place] [address]- [place] Care Team Related Persons Name: LIBRADO HERNANDEZ Address: home [address] [place] [address] Name: DEWAYNE HERNANDEZ Address: [address] [place] [address] Name: SANTY PEARSON Address: [address] [place] [address] Name: SOL LACKEY Address: home [address] [place] [address]
--- OUTSIDE RECORDS SUMMARY | 2023-11-30 22:38 | XMS_ITS | Continuity of Care Document ---
Author Organization [facility] Address [address] [place] [address]- Care Team Providers Care Consumer Marketing Specialist Name Role Phone Saadia Guido NP Primary Care Physician [phone] Encounter [facility] Date(s): 02/19/23 - 03/21/23 [facility] [address] [place] [id number] Allergies, Adverse Reactions, Alerts No Known Allergies Immunizations Given and Recorded Vaccine Date Status Refusal Reason tetanus/diphtheria/pertussis, acel(Tdap) 12/29/22 Given tetanus/diphtheria/pertussis, acel(Tdap) 07/07/14 Recorded SARS-CoV-2 (COVID-19) mRNA-1273 vaccine 07/27/21 R ecorded SARS-CoV-2 (COVID-19) mRNA-1273 vaccine 10/03/20 R ecorded Meningococcal Conjugate Vaccine 07/29/19 Recorded Meningococcal Conjugate Vaccine 07/07/14 Recorded influenza virus vaccine, inactivated 07/29/19 Elton rded Human Papillomavirus Vaccine 12/14/15 Recorded Human Papillomavirus Vaccine 07/07/14 Recorded Human Papillomavirus Vaccine 10/09/12 Recorded Hepatitis A Pediatric Vaccine 12/14/15 Recorded Hepatitis A Pediatric Vaccine 07/07/14 Recorded Varicella Virus Vaccine 12/27/06 Recorded Varicella Virus Vaccine 06/02/03 Recorded Poliovirus Vaccine, Inactivated 12/27/06 Recorded Poliovirus Vaccine, Inactivated 01/27/03 Recorded Poliovirus Vaccine, Inactivated 02 Recorded Poliovirus Vaccine, Inactivated 02 Recorded Measles/Mumps/Rubella Virus Vaccine 12/27/06 Recor ded Measles/Mumps/Rubella Virus Vaccine 06/02/03 Recor ded hepatitis B pediatric vaccine 02 Recorded hepatitis B pediatric vaccine 02 Recorded hepatitis B pediatric vaccine 02 Recorded Medications ferrous sulfate 325 mg oral enteric coated tablet See Instructions, Take one tablet By Mouth every other day. Take with vitamin C to help absorption,# 45 tablet, Refills 4, Tot. Refills 4, Maintenance, 03/12/23 13:42:00 EDT, Instructions Replace Required Details, Route to Pharmacy Electronically, Ho... Start Date: 03/12/23 Status: Ordered ibuprofen 800 mg oral tablet 800 mg, 1, tablet, By Mouth, Every 6 hours, # 9 tablet, Refills 0, Tot. Refills 0, Maintenance, 03/12/23 13:43:00 EDT, Route to Pharmacy Electronically, [facility], Partial fill upon patient request if the prescription is for a chris... Start Date: 03/12/23 Status: Ordered Vitamin C 250 mg oral tablet, chewable 1 tablet = 250 mg, Chew, Daily, every other day with iron supplement, # 45 tablet, 0 Refills, Maintenance, 03/12/23 13:44:00 EDT, Chew Tablet, [facility], Partial fill upon patient request if the prescription is for a schedule II o... Start Date: 03/12/23 Status: Ordered Problem List Condition Confirmation Course Effective Dates Status Health St atus Informant Anxiety Confirmed Active History of depression Confirmed Active Migraine Confirmed Active care following delivery Confirmed Active Gestational HTN Confirmed Active Severe obesity Confirmed Active Social History Social History Type Response Smoking Status Never (less than 100 in lifetime) entered on: 06/29/22 Sex Patient Care team information Care Team Personnel Name: Saadia Guido NP Position: Reference Physician Member Role: PCP Address: Address: [address] [place] [address]- Care Team Related Persons Name: LIBRADO HERNANDEZ Address: [address] [place] [address] Name: DEWAYNE HERNANDEZ Address: [address] [place], [place] Name: SANTY PEARSON Address: home [address] [place], [place] Name: NEIDA LACKEY Address: [id number] Address: [address] [place] [address] Name: SOL LACKEY Address: [address] [place] [address] Name: HORTENSIA LACKEY
--- OUTSIDE RECORDS SUMMARY | 2023-11-30 22:38 | XMS_ITS | Continuity of Care Document ---
Author Organization [facility] Address [address] [place] [address]- Care Team Providers Care Truss Builder Name Role Phone Saadia Guido NP Primary Care Physician [phone] [facility]23 - 08/19/23 [facility] [address] [address] Attending Physician: Rebeca Lopez Admitting Physician: Rebeca Lopez Referring Physician: AdmtrRebeca Allergies, Adverse Reactions, Alerts No Known Allergies [...] Vaccine, Inactivated 02 Recorded Measles/Mumps/Rubella Virus Vaccine 8/16/07 Recor ded Measles/Mumps/Rubella Virus Vaccine 06/02/03 Recor [...] 03/12/23 13:43:00 EDT, Route to Pharmacy Electronically, [facility], Partial fill upon patient request if the prescription is for a chris... Start Date: 03/12/23 Status: Ordered Mircette oral tablet 1 tablet, By Mouth, Daily, for heavy menstrual bleeding: take 3 tablets a day for 3 days, then 2 tablets a day for 2 days, then 1 tablet per day and continue 1 tablet daily for second pack, # 2 pack/packet, 0 Refills, Maintenance, 04/16/23 16:53:00 ES... Start Date: 04/16/23 Status: Ordered Vitamin C 250 mg oral tablet, chewable 1 tablet = 250 mg, Chew, Daily, every other day with iron supplement, # 45 tablet, 0 Refills, Maintenance, 03/12/23 13:44:00 EDT, Chew Tablet, [facility], Partial fill upon patient request if [...] Physician Member Role: PCP Address: Address: [address] [place] [address]- Care Team Related Persons Name: LIBRADO HERNANDEZ Address: home [address] [place] [address] Name: DEWAYNE HERNANDEZ Address: [address] [place] [address] Name: SANTY PEARSON Address: home [address] [place] [address] Name: NEIDA LACKEY Address: [address] Address: home [address] [place] [address] [place] Name: SOL LACKEY Address: home [address] [place] [address] Name: HORTENSIA LACKEY
--- OUTSIDE RECORDS SUMMARY | 2023-11-30 22:38 | XMS_ITS | Continuity of Care Document ---
Author Organization [facility] Ayden [facility] [facility] Address [address] [facility], 4t [place] [address]- Care Team Providers Care Director Of Strategic Sourcing Name Role Phone Saadia Guido NP Primary Care Physician Encounter [facility] Date(s): 09/18/22 - 10/18/22 [facility] Laiabhijit MorganAP[facility] [address], 4th [place] [address]- Attending Physician: Rebeca Lopez Admitting Physician: AdmRebeca aranda Referring Physician: AdmtrRebeca Allergies, Adverse Reactions, Alerts [...] hepatitis B pediatric vaccine 02 Recorded Medications acetaminophen/butalbital/caffeine 325 mg-50 mg-40 mg oral tablet 1 tablet, By Mouth, Every 4 hours, PRN NEEDED, MAY INCREASE TO 2 TABLETS EVERY 4 HOURS IF PAIN IS NOT RELIEVED BY 1 TABLET. USE SPARINGLY. DO NOT EXCEED 6 TABLETS PER DAY OR 4,000 MG OF acetaminophen PER DAY, # 10 tablet, 0 Refills, Maintenance, 05... Start Date: 10/11/22 Status: Ordered aspirin 81 mg oral delayed release tablet 162 mg, 2, tablet, By Mouth, Daily, # 90 tablet, Refills 3, Tot. Refills 3, Maintenance, 07/25/22 10:07:00 EDT, Route to Pharmacy Electronically, [facility], Partial fill upon patient request [...] Electronically, Ho... Start Date: 07/25/22 Status: Ordered PNV Select oral tablet 1 tablet, By Mouth, Daily, Please prescribe PNVs that are covered by pt's insurance., # 30 tablet, 11 Refills, Maintenance, 06/19/22 10:25:00 EST, [facility], Partial fill upon patient request if the prescription is for a schedule... Start Date: 06/19/22 Stop Date: 06/14/23 Status: Ordered Unisom 25 mg oral tablet 1 tablet = 25 mg, By Mouth, Daily, PRN Insomnia, # 30 tablet, 0 Refills, Maintenance, 08/21/22 14:10:00 EDT, Tablet, [facility]/pharmacy #[id number], Partial fill upon patient request if the [...] Reference Physician Member Role: PCP Address: Address: [address] [place] [address]- [place] Care Team Related Persons Name: LIBRADO HERNANDEZ Address: home [address] [place] [address] Name: DEWAYNE HERNANDEZ Address: [address] [place] [address] Name: SANTY PEARSON Address: home [address] [place] [address] Name: SOL LACKEY Address: home [address] [place] [address]
--- OUTSIDE RECORDS SUMMARY | 2023-11-30 22:38 | XMS_ITS | Continuity of Care Document ---
Author Organization [facility] Address [address] [address]- Care Team Providers Care Family Practice Physician Assistant Name Role Phone Saadia Guido NP Primary Care Physician [phone] [facility] 12/29/22 - [facility]/04/23 [facility] [address] [address]- Attending Physician: Tammy Ramirez CNM Admitting Physician: Tammy Ramirez CNM Referring Physician: Kortney Nuñez CNM Allergies, Adverse Reactions, Alerts No Known [...] hepatitis B pediatric vaccine 02 Recorded Medications acetaminophen 500 mg oral tablet 2 tablet = 1,000 mg, By Mouth, Every 6 hours, PRN as needed for pain, , 90 day supply notindicated., # 50 tablet, 0 Refills, Maintenance, 01/30/23 6:53:00 EDT, Tablet, [facility], Partial fill upon patient request if the... Start Date: 01/30/23 Status: Ordered acetaminophen/butalbital/caffeine 325 mg-50 mg-40 mg oral tablet 1 tablet, By Mouth, Every 4 hours, PRN NEEDED, MAY INCREASE TO 2 TABLETS EVERY 4 HOURS IF PAIN IS NOT RELIEVED BY 1 TABLET. USE SPARINGLY. DO NOT EXCEED 6 TABLETS PER DAY OR 4,000 MG OF acetaminophen PER DAY, # 10 tablet, 0 Refills, Maintenance, 09... Start Date: 02/08/23 Status: Ordered aspirin 81 mg oral delayed release tablet 162 mg, 2, tablet, By Mouth, Daily, # 90 tablet, Refills 3, Tot. Refills 3, Maintenance, 07/25/22 10:07:00 EDT, Route to Pharmacy Electronically, [facility], Partial fill upon patient request if [...] Electronically, Ho... Start Date: 07/25/22 Status: Ordered ibuprofen 600 mg oral tablet 600 mg, 1, tablet, By Mouth, 4 times a day, PRN, , 90 day supply not indicated., # 40 tablet, Refills 0, Tot. Refills 0, Maintenance, for pain, 01/30/23 6:54:00 EDT, Route to Pharmacy Electronically, [facility], Partial f... Start Date: 01/30/23 Status: Ordered mupirocin 2% topical ointment 1 application, Topically, 3 times a day, # 15 Gm, 0 Refills, Maintenance, 01/09/23 17:32:00 EDT, Ointment, [facility], Partial fill upon patient request if the prescription is fora schedule II opioid drug., 1 application Topically... Start Date: 01/09/23 Status: Ordered oxyCODONE 5 mg oral tablet 5 mg, 1, tablet, By Mouth, Every 6 hours, PRN, , 90 day supply not indicated., # 10 tablet, Refills 0, Tot. Refills 0, Maintenance, for pain, 01/30/23 6:54:00 EDT, Route to Pharmacy Electronically, [facility], Partial kelsy... Start Date: 01/30/23 Status: Ordered PNV Select oral tablet 1 tablet, By Mouth, Daily, for 30 days, Please prescribe PNVs that are covered by pt's insurance., # 30 tablet, 11 Refills, Hard Stop 06/14/23 10:25:00 EST, 06/19/22 10:25:00 EST, [facility], Partial fill upon patient request if th... Start Date: 06/19/22 Stop Date: 06/14/23 Status: Ordered PNV Select oral tablet 1 tablet, By Mouth, Daily, Please prescribe PNVs that are covered by pt's insurance., # 30 tablet, 11 Refills, Maintenance, 06/14/23 10:25:00 EST, [facility], Partial fill upon patient request if the prescription is for a schedule... Start Date: 06/14/23 Stop Date: 06/08/24 Status: Ordered senna - oral tablet 2 tablet, By Mouth, Daily at bedtime, PRN for constipation, , 90 day supply not indicated., # 60 tablet, 0 Refills, Maintenance, 01/30/23 6:54:00 EDT, Tablet, [facility], Partial fill upon patient request if the prescript... Start Date: 01/30/23 Status: Ordered Unisom 25 mg oral tablet 1 tablet = 25 mg, By Mouth, Daily, PRN Insomnia, # 30 tablet, 0 Refills, Maintenance, 08/21/22 14:10:00 EDT, Tablet, [id number], Partial fill upon patient request if [...] delivery Confirmed Active Gestational HTN Confirmed Active Social History Social History Type Response Smoking Status Never (less than 100 in lifetime) entered on: 06/29/22 Sex Patient Care team information Care Team Personnel Name: Saadia Guido NP Position: Reference Physician Member Role: PCP Address: Address: [address] [place] [address]- Care Team Related Persons Name: LIBRADO HERNANDEZ Address: [address] [place] [address] Name: DEWAYNE HERNANDEZ Address: [address] [place] [address] Name: SANTY PEARSON Address: [address] [place] [address] Name: NEIDA LACKEY Address: [address] Address: [address] [place] [address] Name: SOL LACKEY Address: [address] [place] [address] Name: HORTENSIA LACKEY
--- OUTSIDE RECORDS SUMMARY | 2023-11-30 22:38 | XMS_ITS | Continuity of Care Document ---
Author Organization [facility] Address [address] [place] [address]- Care Team Providers Care Ship Rigger Name Role Phone Saadia Guido NP Primary Care Physician [facility] Date[facility]s): 07/25/22 - 08/24/22 [facility] [address] [address]- Allergies, Adverse Reactions, Alerts No Known Allergies [...] 07/25/22 10:07:00 EDT, Route to Pharmacy Electronically, [facility], Partial fill upon patient request if [...] tablet, 11 Refills, Maintenance, 06/19/22 10:25:00 EST, [facility], Partial fill upon patient request if the prescription is for a schedule... Start Date: 06/19/22 Stop Date: 06/14/23 Status: Ordered Unisom 25 mg oral tablet 1 tablet = 25 mg, By Mouth, Daily, PRN Insomnia, # 30 tablet, 0 Refills, Maintenance, 08/21/22 14:10:00 EDT, Tablet, [facility]/pharmacy #[id number], Partial fill upon patient request if [...] Reference Physician Member Role: PCP Address: Address: [address] [place] [address]- [place] Care Team Related Persons Name: LIBRADO HERNANDEZ Address: home [address] [place] [address] Name: DEWAYNE HERNANDEZ Address: [address] [place] [address] Name: SANTY PEARSON Address: [address] [place] [address] Name: SOL LACKEY Address: [address] [place] [address]
--- OUTSIDE RECORDS SUMMARY | 2023-11-30 22:38 | XMS_ITS | Continuity of Care Document ---
Author Organization [facility] Ayden [employer] [facility] Address [address] [place] [address], [address] [place] [address]- Care Team Providers Care Back Winder Name Role Phone Hay VOGT, Saadia Primary Care Physician Encounter [facility] Date(s): 07/25/22 - 08/01/22 [facility] [address] [facility], 4th [place] [address]- Attending Physician: Kenya Noble MD Referring Physician: Britt Bateman CNM Allergies, Adverse Reactions, Alerts No Known Allergies Medications aspirin 81 mg oral delayed release tablet 162 mg, 2, tablet, By Mouth, Daily, # 90 tablet, Refills 3, Tot. Refills 3, Maintenance, 07/25/22 10:07:00 EDT, Route to Pharmacy Electronically, [facility], Partial fill upon patient request [...] tablet, 11 Refills, Maintenance, 06/19/22 10:25:00 EST, [facility], Partial fill upon patient request [...] 100 in lifetime) entered on: 06/29/22 Sex Note * Event Display: PDC Nuchal Transluscency * Event Display: PDC Nuchal Transluscency Authored Date: [id number] OBSTETRICS REPORT PATIENT INFO: CMRN: [id number] BMRN: [id number] : [birth year] (22 yrs)(F) Name: CHAZ LACKEY Visit Date: 07/25/2022 10:10 am PERFORMED BY: Performed By: Tiffani Cabrera RDMS Attending: Paola Mohan MD Referred By: JUNIE Bateman CNM Location: [address] INDICATIONS: M - BMI O99.21_ E66.01 First Trimester NT Screening Z36.82 VITAL SIGNS: Weight (lb): 241 Height: 5' BMI: 47.06 EVALUATION: Num Of Fetuses: 1 Gest. Sac: Seen in the intrauterine cavity Yolk Sac: Not visualized Pole: Visualized Heart Rate(bpm): 160 Cardiac Activity: Present Presentation: Variable Placenta: Posterior Amniotic Fluid ABRAHAM FV: Within normal limits BIOMETRY: GESTATIONAL AGE: LMP: 12w 6d Date: 04/26/22 [place]: 01/31/23 Best: 12w 6d Det. By: LMP (04/26/22) [place]: 01/31/23 1ST TRIMESTER GENETIC SONOGRAM SCREENING: CRL: 67.7 mm G.Age: 13w 0d [place]: 01/30/23 Nuc Trans: 1.2 mm ANATOMY: Choroid Plexus: SEEN Heart: SEEN Stomach: NOT WELL SEEN Abdominal Wall: SEEN Bladder: SEEN Upper Extremities: SEEN Lower Extremities: SEEN CERVIX UTERUS ADNEXA: Cervix Appears closed Adnexa Not well seen. COMMENTS: The exam was limited due to maternal habitus. The nuchal translucency portion of the first trimester screen was done, and the patient was sent to the lab for the biochemical markers portion of the test. The results should be sent by the lab to your office. Paola Mohan MD Electronically Signed Final Report 07/25/2022 12:16 pm * Event Display: PDC Nuchal Transluscency Authored Date: [id number] Please click on pdf link to open report Patient Care team information Care Team Personnel Name: Saadia Guido NP Position: Reference Physician Member Role: PCP Address: Address: [address] [place] [address]- Care Team Related Persons Name: LIBRADO HERNANDEZ Address: home [address] [place] [address] Name: DEWAYNE HERNANDEZ Address: [address] [place] [address] Name: SANTY PEARSON Address: [address] [place] [address] Name: SOL LACKEY Address: home [address] [place] [address]
--- OUTSIDE RECORDS SUMMARY | 2023-11-30 22:38 | XMS_ITS | Continuity of Care Document ---
Author Organization [facility] Address [address] [address]- Care Team Providers Care Information Systems Professor Name Role Phone Saadia Guido NP Primary Care Physician [facility]): 06/14/23 - 07/25/23 [facility] [address] [address]- Attending Physician: Erica Walker MD Admitting Physician: Erica Walker MD Referring Physician: Saadia Guido NP Allergies, Adverse Reactions, Alerts No Known Allergies [...] 03/12/23 13:43:00 EDT, Route to Pharmacy Electronically, [facility], Partial fill upon patient request [...] Refills, Maintenance, 03/12/23 13:44:00 EDT, Chew Tablet, [facility], Partial fill upon patient request [...] Physician Member Role: PCP Address: Address: [address] [place], [place] [address] Care Team Related Persons Name: LIBRADO HERNANDEZ Address: [address] [place] [address] Name: DEWAYNE HERNANDEZ Address: [address] [place] [address] Name: SANTY PEARSON Address: home [address] [place] [address] Name: NEIDA LACKEY Address: [address] Address: [address] [place] [address] [place] Name: SOL LACKEY Address: [address] [place] [address] Name: HORTENSIA LACKEY
--- OUTSIDE RECORDS SUMMARY | 2023-11-30 22:38 | XMS_ITS | Continuity of Care Document ---
Author Organization [facility] Address [address] [address]- Care Team Providers Care Community Sports Coordinator Name Role Phone Saadia Guido NP Primary Care Physician [facility]s): 11/23/22 - 01/11/23 [facility] [address] [address]- Attending Physician: Not on Staff, Attending MD Referring Physician: Alicia Poe CNM Allergies, Adverse Reactions, Alerts No Known [...] OF acetaminophen PER DAY, # 10 tablet, 1 Refills, Maintenance, 08... Start Date: 12/29/22 Status: Ordered aspirin 81 mg oral delayed release tablet 162 mg, 2, tablet, By Mouth, Daily, # 90 tablet, Refills 3, Tot. Refills 3, Maintenance, 07/25/22 10:07:00 EDT, Route to Pharmacy Electronically, [facility], Partial fill upon patient request if [...] Electronically, Ho... Start Date: 07/25/22 Status: Ordered mupirocin 2% topical ointment 1 application, Topically, 3 times a day, # 15 Gm, 0 Refills, Maintenance, 01/09/23 17:32:00 EDT, Ointment, [facility], Partial fill upon patient request if the prescription is fora schedule II opioid drug., 1 application Topically... Start Date: 01/09/23 Status: Ordered PNV Select oral tablet 1 tablet, By Mouth, Daily, for 30 days, Please prescribe PNVs that are covered by pt's insurance., # 30 tablet, 11 Refills, Hard Stop 06/14/23 10:25:00 EST, 06/19/22 10:25:00 EST, [facility], Partial fill upon patient request if th... Start Date: 06/19/22 Stop Date: 06/14/23 Status: Ordered PNV Select oral tablet 1 tablet, By Mouth, Daily, Please prescribe PNVs that are covered by pt's insurance., # 30 tablet, 11 Refills, Maintenance, 06/14/23 10:25:00 EST, [facility], Partial fill upon patient request if the prescription is for a schedule... Start Date: 06/14/23 Stop Date: 06/08/24 Status: Ordered Unisom 25 mg oral tablet [...] Effective Dates Status Health St atus Informant Abnormal glucose tolerance test Confirmed Active Anemia Confirmed Active Anemia in Confirmed Active Anxiety Confirmed Active Hip pain, left Confirmed Active History of inadequate care Confirmed Active History of depression Confirmed Active Insomnia Confirmed Active Migraine Confirmed Active Obesity in Confirmed Active Confirmed Active Severe obesity Confirmed Active Social History Social History Type Response Smoking Status Never (less than 100 in lifetime) entered on: 06/29/22 Sex Patient Care team information Care Team Personnel Name: Saadia Guido NP Position: Reference Physician Member Role: PCP Address: Address: [address] [place] [address]- Care Team Related Persons Name: LIBRADO HERNANDEZ Address: home [address] [place], [place] Name: DEWAYNE HERNANDEZ Address: [address] [place], [place] Name: SANTY PEARSON Address: [address] [place], [place] Name: SOL LACKEY Address: [address] [place], [place]
--- OUTSIDE RECORDS SUMMARY | 2023-11-30 22:38 | XMS_ITS | Continuity of Care Document ---
Author Organization [facility] Address [address] [place] [address]- Care Team Providers Care Final Inspector Movement Assembly Name Role Phone Saadia Guido NP Primary Care Physician [facility]s): 01/18/23 - 02/17/23 [facility] [address] [place] [address]- Allergies, Adverse Reactions, Alerts No Known Allergies [...] 0 Refills, Maintenance, 01/30/23 6:53:00 EDT, Tablet, [facility], Partial fill upon patient request if [...] 07/25/22 10:07:00 EDT, Route to Pharmacy Electronically, [facility], Partial fill upon patient request if [...] 01/30/23 6:54:00 EDT, Route to Pharmacy Electronically, [facility], Partial f... Start Date: 01/30/23 Status: Ordered mupirocin 2% topical ointment 1 application, Topically, 3 times a day, # 15 Gm, 0 Refills, Maintenance, 01/09/23 17:32:00 EDT, Ointment, [facility], Partial fill upon patient request if the prescription is fora schedule II opioid drug., 1 application Topically... Start Date: 01/09/23 Status: Ordered oxyCODONE 5 mg oral tablet 5 mg, 1, tablet, By Mouth, Every 6 hours, PRN, , 90 day supply not indicated., # 10 tablet, Refills 0, Tot. Refills 0, Maintenance, for pain, 01/30/23 6:54:00 EDT, Route to Pharmacy Electronically, [facility], Partial kelsy... Start Date: 01/30/23 Status: Ordered PNV Select oral tablet 1 tablet, By Mouth, Daily, for 30 days, Please prescribe PNVs that are covered by pt's insurance., # 30 tablet, 11 Refills, Hard Stop 06/14/23 10:25:00 EST, 06/19/22 10:25:00 EST, [facility], Partial fill upon patient request if th... Start Date: 06/19/22 Stop Date: 06/14/23 Status: Ordered PNV Select oral tablet 1 tablet, By Mouth, Daily, Please prescribe PNVs that are covered by pt's insurance., # 30 tablet, 11 Refills, Maintenance, 06/14/23 10:25:00 EST, [facility], Partial fill upon patient request if the prescription is for a schedule... Start Date: 06/14/23 Stop Date: 06/08/24 Status: Ordered senna - oral tablet 2 tablet, By Mouth, Daily at bedtime, PRN for constipation, , 90 day supply not indicated., # 60 tablet, 0 Refills, Maintenance, 01/30/23 6:54:00 EDT, Tablet, [facility], Partial fill upon patient request if the prescript... Start Date: 01/30/23 Status: Ordered Unisom 25 mg oral tablet 1 tablet = 25 mg, By Mouth, Daily, PRN Insomnia, # 30 tablet, 0 Refills, Maintenance, 08/21/22 14:10:00 EDT, Tablet, [facility]/pharmacy #[id number], Partial fill upon patient request if the [...] Reference Physician Member Role: PCP Address: Address: [address] [place] [address]- Care Team Related Persons Name: LIBRADO HERNANDEZ Address: [address] [place] [address] Name: DEWAYNE HERNANDEZ Address: [address] [place] [address] Name: SANTY PEARSON Address: [address] [place] [address] Name: NEIDA LACKEY Address: [address] Address: [address] [place] [address] Name: SOL LACKEY Address: [address] [place] [address] Name: HORTENSIA LACKEY
--- OUTSIDE RECORDS SUMMARY | 2023-11-30 22:38 | XMS_ITS | Continuity of Care Document ---
Author Organization [facility] Address [address] [place] [address]- Care Team Providers Care Expedition Supervisor Name Role Phone Saadia Guido NP Primary Care Physician [phone] [facility]): 08[facility]31[facility]22 - 09/30/22 [facility] [address] [address]- Allergies, Adverse Reactions, Alerts No Known Allergies [...] 07/25/22 10:07:00 EDT, Route to Pharmacy Electronically, [facility], Partial fill upon patient request [...] tablet, 11 Refills, Maintenance, 06/19/22 10:25:00 EST, [facility], Partial fill upon patient request if the prescription is for a schedule... Start Date: 06/19/22 Stop Date: 06/14/23 Status: Ordered Unisom 25 mg oral tablet 1 tablet = 25 mg, By Mouth, Daily, PRN Insomnia, # 30 tablet, 0 Refills, Maintenance, 08/21/22 14:10:00 EDT, Tablet, [facility]acy #[id number], Partial fill upon patient request if [...] Reference Physician Member Role: PCP Address: Address: [address] [place] [address]- Care Team Related Persons Name: LIBRADO HERNANDEZ Address: [address] [place] [address] Name: DEWAYNE HERNANDEZ Address: [address] [place] [address] Name: SANTY PEARSON Address: [address] [place] [address] Name: SOL LACKEY Address: [address] [place] [address]
--- OUTSIDE RECORDS SUMMARY | 2023-11-30 22:38 | XMS_ITS | Continuity of Care Document ---
Author Organization [facility] Address [address] [place] [address]- Care Team Providers Care [employer] Social Worker Name Role Phone Saadia Guido NP Primary Care Physician [facility]): 03[facility]12[facility]23 - 04/26/23 [facility] [address] [address]- Attending Physician: Not on Staff, Attending MD Referring Physician: Stella Go CNM Allergies, Adverse Reactions, Alerts No Known [...] 03/12/23 13:43:00 EDT, Route to Pharmacy Electronically, [facility], Partial fill upon patient request [...] Refills, Maintenance, 03/12/23 13:44:00 EDT, Chew Tablet, [facility], Partial fill upon patient request [...] Reference Physician Member Role: PCP Address: Address: [address] [place] [address]- Care Team Related Persons Name: LIBRADO HERNANDEZ Address: home [address] [place] [address] Name: DEWAYNE HERNANDEZ Address: home [address] [place] [address] Name: SANTY PEARSON Address: home [address] [place] [address] Name: NEIDA LACKEY Address: [id number] Address: home [address] [place] [address] Name: SOL LACKEY Address: home [address] [place] [address] Name: HORTENSIA LACKEY
--- OUTSIDE RECORDS SUMMARY | 2023-11-30 22:38 | XMS_ITS | Continuity of Care Document ---
Author Organization [facility] Address [address] [place] [address]- Care Team Providers Care Supervisor Residential Name Role Phone Saadia Guido NP Primary Care Physician [facility]): 10/26/22 - 12/09/22 [facility] [address] [address]- Attending Physician: Not on Staff, Attending MD [...] 07/25/22 10:07:00 EDT, Route to Pharmacy Electronically, [facility], Partial fill upon patient request [...] tablet, 11 Refills, Maintenance, 06/19/22 10:25:00 EST, [facility], Partial fill upon patient request if the prescription is for a schedule... Start Date: 06/19/22 Stop Date: 06/14/23 Status: Ordered Unisom 25 mg oral tablet 1 tablet = 25 mg, By Mouth, Daily, PRN Insomnia, # 30 tablet, 0 Refills, Maintenance, 08/21/22 14:10:00 EDT, Tablet, [facility] #[id number], Partial fill upon patient request if the [...] Reference Physician Member Role: PCP Address: Address: [address] [place] [address]- Care Team Related Persons Name: LIBRADO HERNANDEZ Address: home [address] [place] [address] Name: DEWAYNE HERNANDEZ Address: [address] [place] [address] Name: SANTY PEARSON Address: home [address] [place] [id number] Name: SOL LACKEY Address: home [address] [place] [address]
--- OUTSIDE RECORDS SUMMARY | 2023-11-30 22:38 | XMS_ITS | Continuity of Care Document ---
Author Organization [facility] Address [address] [address]- Care Team Providers Care Bible Worker Name Role Phone Saadia Guido NP Primary Care Physician [phone] [facility]s): 06/13/23 - 07/13/23 [facility] [address] [address] Allergies, Adverse Reactions, Alerts No Known [...] 03/12/23 13:43:00 EDT, Route to Pharmacy Electronically, [facility], Partial fill upon patient request [...] Refills, Maintenance, 03/12/23 13:44:00 EDT, Chew Tablet, [facility], Partial fill upon patient request [...] Reference Physician Member Role: PCP Address: Address: [address] [place] [address]- Care Team Related Persons Name: LIBRADO HERNANDEZ Address: home [address] [place] [address] Name: DEWAYNE HERNANDEZ Address: home [address] [place] [address] Name: SANTY PEARSON Address: home [address] [place] [address] Name: NEIDA LACKEY Address: [address] Address: home [address] [place] [address] Name: SOL LACKEY Address: home [address] [place] [address] Name: HORTENSIA LACKEY
--- OUTSIDE RECORDS SUMMARY | 2023-11-30 22:38 | XMS_ITS | Continuity of Care Document ---
Author Organization [facility] Address [address] [place] [address]- Care Team Providers Care Slasher Name Role Phone Saadia Guido NP Primary Care Physician [phone] [facility]): 01/29/23 - 03/07/23 [facility] [address] [address]- Attending Physician: Not on Staff, Attending MD Referring Physician: Jason MORGAN, Sandie Ochoa Head Allergies, Adverse Reactions, Alerts No Known Allergies [...] 0 Refills, Maintenance, 01/30/23 6:53:00 EDT, Tablet, [facility], Partial fill upon [...] 07/25/22 10:07:00 EDT, Route to Pharmacy Electronically, [facility], Partial fill upon [...] 01/30/23 6:54:00 EDT, Route to Pharmacy Electronically, [facility], Partial f... Start Date: 01/30/23 Status: Ordered mupirocin 2% topical ointment 1 application, Topically, 3 times a day, # 15 Gm, 0 Refills, Maintenance, 01/09/23 17:32:00 EDT, Ointment, [facility], Partial fill upon [...] 01/30/23 6:54:00 EDT, Route to Pharmacy Electronically, [facility], Partial kelsy... Start Date: 01/30/23 Status: Ordered PNV Select oral tablet 1 tablet, By Mouth, Daily, for 30 days, Please prescribe PNVs that are covered by pt's insurance., # 30 tablet, 11 Refills, Hard Stop 06/14/23 10:25:00 EST, 06/19/22 10:25:00 EST, [facility], Partial fill upon patient request if th... Start Date: 06/19/22 Stop Date: 06/14/23 Status: Ordered PNV Select oral tablet 1 tablet, By Mouth, Daily, Please prescribe PNVs that are covered by pt's insurance., # 30 tablet, 11 Refills, Maintenance, 06/14/23 10:25:00 EST, [facility], Partial fill upon patient request if the prescription is for a schedule... Start Date: 06/14/23 Stop Date: 06/08/24 Status: Ordered senna - oral tablet 2 tablet, By Mouth, Daily at bedtime, PRN for constipation, , 90 day supply not indicated., # 60 tablet, 0 Refills, Maintenance, 01/30/23 6:54:00 EDT, Tablet, [facility], Partial fill upon patient request if the prescript... Start Date: 01/30/23 Status: Ordered Unisom 25 mg oral tablet 1 tablet = 25 mg, By Mouth, Daily, PRN Insomnia, # 30 tablet, 0 Refills, Maintenance, 08/21/22 14:10:00 EDT, Tablet, [id number], Partial fill upon patient request if the [...] Physician Member Role: PCP Address: Address: [address] [place] [address]- Care Team Related Persons Name: LIBRADO HERNANDEZ Address: home [address] [place] [address] Name: DEWAYNE HERNANDEZ Address: [address] [place] [address] Name: SANTY PEARSON Address: home [address] [place] [address] Name: NEIDA LACKEY Address: [address] Address: home [address] [place] [address] Name: SOL LACKEY Address: [address] [place] [address] Name: HORTENSIA LACKEY
--- OUTSIDE RECORDS SUMMARY | 2023-11-30 22:38 | XMS_ITS | Continuity of Care Document ---
Author Organization [facility] Address [address] [place] [address]- Care Team Providers Care Collator Name Role Phone Saadia Guido NP Primary Care Physician [facility] 02/07/23 - 03/09/23 [facility] [address] [place] [address] Allergies, Adverse Reactions, Alerts No Known Allergies [...] 0 Refills, Maintenance, 01/30/23 6:53:00 EDT, Tablet, [facility], Partial fill upon patient request [...] 07/25/22 10:07:00 EDT, Route to Pharmacy Electronically, [facility], Partial fill upon patient request [...] 01/30/23 6:54:00 EDT, Route to Pharmacy Electronically, [facility], Partial f... Start Date: 01/30/23 Status: Ordered mupirocin 2% topical ointment 1 application, Topically, 3 times a day, # 15 Gm, 0 Refills, Maintenance, 01/09/23 17:32:00 EDT, Ointment, [facility], Partial fill upon patient request if the prescription is fora schedule II opioid drug., 1 application Topically... Start Date: 01/09/23 Status: Ordered oxyCODONE 5 mg oral tablet 5 mg, 1, tablet, By Mouth, Every 6 hours, PRN, , 90 day supply not indicated., # 10 tablet, Refills 0, Tot. Refills 0, Maintenance, for pain, 01/30/23 6:54:00 EDT, Route to Pharmacy Electronically, [facility], Partial kelsy... Start Date: 01/30/23 Status: Ordered PNV Select oral tablet 1 tablet, By Mouth, Daily, for 30 days, Please prescribe PNVs that are covered by pt's insurance., # 30 tablet, 11 Refills, Hard Stop 06/14/23 10:25:00 EST, 06/19/22 10:25:00 EST, [facility], Partial fill upon patient request if th... Start Date: 06/19/22 Stop Date: 06/14/23 Status: Ordered PNV Select oral tablet 1 tablet, By Mouth, Daily, Please prescribe PNVs that are covered by pt's insurance., # 30 tablet, 11 Refills, Maintenance, 06/14/23 10:25:00 EST, [facility], Partial fill upon patient request if the prescription is for a schedule... Start Date: 06/14/23 Stop Date: 06/08/24 Status: Ordered senna - oral tablet 2 tablet, By Mouth, Daily at bedtime, PRN for constipation, , 90 day supply not indicated., # 60 tablet, 0 Refills, Maintenance, 01/30/23 6:54:00 EDT, Tablet, [facility], Partial fill upon patient request if the prescript... Start Date: 01/30/23 Status: Ordered Unisom 25 mg oral tablet 1 tablet = 25 mg, By Mouth, Daily, PRN Insomnia, # 30 tablet, 0 Refills, Maintenance, 08/21/22 14:10:00 EDT, Tablet, [facility]/pharm[facility] #[id number], Partial fill upon patient request if the [...] Reference Physician Member Role: PCP Address: Address: [address] [place] [address]- Care Team Related Persons Name: LIBRADO HERNANDEZ Address: [address] [place] [address] Name: DEWAYNE HERNANDEZ Address: [address] [place] [address] Name: SANTY PEARSON Address: [address] [place] [address] Name: NEIDA LACKEY Address: [address] Address: [address] [place] [address] Name: SOL LACKEY Address: [address] [place] [address] Name: HORTENSIA LACKEY
--- OUTSIDE RECORDS SUMMARY | 2023-11-30 22:38 | XMS_ITS | Continuity of Care Document ---
Author Organization [facility] ter Address [address] [place] [id number] Care Team Providers Care Documentation Supervisor Name Role Phone Saadia Guido NP Primary Care Physician Encounter [facility] Date(s): 01/26/23 - 01/30/[address] [id number] Discharge Disposition: A-D/C Home Attending Physician: Lia Kramer MD Admitting Physician: Lia Kramer MD Referring Physician: Lia Kramer MD Allergies, Adverse Reactions, Alerts No Known Allergies [...] 0 Refills, Maintenance, 01/30/23 6:53:00 EDT, Tablet, [facility], Partial fill upon patient request if the... Start Date: 01/30/23 Status: Ordered Acetaminophen Tablet 650 mg, Tablet, By Mouth, (1-3), may give 325mg per patient preference and re- dose with 325mg within 4 hours, if needed. Patient should only receive a total of 650mg of Acetaminophen every 4 hours., 01/30/23 10:00:00 EDT Start Date: 01/30/23 Stop Date: 01/30/23 Status: Completed acetaminophen/butalbital/caffeine 325 mg-50 mg-40 mg oral tablet 1 tablet, By Mouth, Every 4 hours, PRN NEEDED, MAY INCREASE TO 2 TABLETS EVERY 4 HOURS IF PAIN IS NOT RELIEVED BY 1 TABLET. USE SPARINGLY. DO NOT EXCEED 6 TABLETS PER DAY OR 4,000 MG OF acetaminophen PER DAY, # 10 tablet, 0 Refills, Maintenance, ... Start Date: 01/22/23 Status: Ordered aspirin 81 mg oral delayed release tablet 162 mg, 2, tablet, By Mouth, Daily, # 90 tablet, Refills 3, Tot. Refills 3, Maintenance, 07/25/22 10:07:00 EDT, Route to Pharmacy Electronically, [facility], Partial fill upon patient request [...] 01/30/23 6:54:00 EDT, Route to Pharmacy Electronically, [facility], Partial f... Start Date: 01/30/23 Status: Ordered Ibuprofen Tablet 800 mg, Tablet, By Mouth, (4-6), may give 400mg per patient preference and re- dose with 400mg within 8 hours, if needed. Patient should only receive a total of 800mg of Ibuprofen every 8 hours., 01/29/23 23:00:00 EDT Start Date: 01/29/23 Stop Date: 01/30/23 Status: Completed mupirocin 2% topical ointment 1 application, Topically, 3 times a day, # 15 Gm, 0 Refills, Maintenance, 01/09/23 17:32:00 EDT, Ointment, [facility], Partial fill upon patient request if the prescription is fora schedule II opioid drug., 1 application Topically... Start Date: 01/09/23 Status: Ordered oxyCODONE 5 mg oral tablet 5 mg, 1, tablet, By Mouth, Every 6 hours, PRN, , 90 day supply not indicated., # 10 tablet, Refills 0, Tot. Refills 0, Maintenance, for pain, 01/30/23 6:54:00 EDT, Route to Pharmacy Electronically, [facility], Partial kelsy... Start Date: 01/30/23 Status: Ordered PNV Select oral tablet 1 tablet, By Mouth, Daily, for 30 days, Please prescribe PNVs that are covered by pt's insurance., # 30 tablet, 11 Refills, Hard Stop 06/14/23 10:25:00 EST, 06/19/22 10:25:00 EST, [facility], Partial fill upon patient request if th... Start Date: 06/19/22 Stop Date: 06/14/23 Status: Ordered PNV Select oral tablet 1 tablet, By Mouth, Daily, Please prescribe PNVs that are covered by pt's insurance., # 30 tablet, 11 Refills, Maintenance, 06/14/23 10:25:00 EST, [facility], Partial fill upon patient request if the prescription is for a schedule... Start Date: 06/14/23 Stop Date: 06/08/24 Status: Ordered senna - oral tablet 2 tablet, By Mouth, Daily at bedtime, PRN for constipation, , 90 day supply not indicated., # 60 tablet, 0 Refills, Maintenance, 01/30/23 6:54:00 EDT, Tablet, [facility], Partial fill upon patient request if the prescript... Start Date: 01/30/23 Status: Ordered Unisom 25 mg oral tablet 1 tablet = 25 mg, By Mouth, Daily, PRN Insomnia, # 30 tablet, 0 Refills, Maintenance, 08/21/22 14:10:00 EDT, Tablet, [facility]/pharmacy #[id number], Partial fill upon patient request [...] delivery Confirmed Active Gestational HTN Confirmed Active Procedures Procedure Date Related Diagnosis Body Site Status delivery only; 01/28/23 C ompleted Vital Signs Most recent to oldest [Reference Range]: 1 2 3 Height 153 cm (01/30/23 9:16 AM) 153 cm (01/30/23 4:09 AM) 153 cm (01/30/23 12:04 AM) Weight 111.8 kg (01/26/23 6:40 PM) Oxygen Saturation [94-100 %] 99 % (01/30/23 9:16 AM) 100 % (01/30/23 4:09 AM) 98 % (01/30/23 12:04 AM) Pulse Rate [55-90 bpm] 86 bpm (01/30/23 9:16 AM) 82 bpm (01/30/23 4:09 AM) 94 bpm *H* (01/30/23 12:04 AM) Body Mass Index [18.5-24.99 kg/m2] 47.76 kg/m2 *>HHI* (01/26/23 6:40 PM) Blood Pressure [90-138/55-84 mm Hg] 126/70mm Hg (01/30/23 9:16 AM) 118/59mm Hg (01/30/23 4:09 AM) 107/72mm Hg (01/30/23 12:04 AM) Respiratory Rate [16-30 br/min] 18 br/min (01/30/23 11:12 AM) 16 br/min (01/30/23 9:16 AM) 18 br/min (01/30/23 6:20 AM) Temperature [96.8-100.4 DegF] 97.8 DegF (01/30/23 9:16 AM) 97.6 DegF (01/30/23 4:09 AM) 97.9 DegF (01/30/23 12:04 AM) Mode of Delivery (Oxygen) Room air (01/30/23 9:16 AM) Room air (01/30/23 4:09 AM) Room air (01/30/23 12:04 AM) Blood pressure sites Arm, right (01/30/23 9:16 AM) Arm, left (01/30/23 4:09 AM) Arm, right (01/30/23 12:04 AM) Temperature Route Oral (01/30/23 9:16 AM) Oral (01/30/23 4:09 AM) Oral (01/30/23 12:04 AM) Dry Weight 111.8 kg (01/26/23 6:40 PM) Social History Social History Type Response Smoking Status Never (less than 100 in lifetime) entered on: 06/29/22 Sex History and physical note * Dee Acevedo CNM: PERFORM Event Display: History and Physical Hospital Authored Date: [id number] Patient: ??CHAZ LACKEY ? Age:??22 Years?Sex:??Female?:??2000?? OB Reason for Admission OB Reason for Admission Reason for admission: Induction of labor Reason for Induction: Gestational hypertension LMP/EGA/FLORENCE Gestational Age (EGA) and FLORENCE? * Note: EGA calculated as of 01/26/2023 ?? FLORENCE:??02/01/2023?EGA*:??39 weeks 1 day ? History?(0,0,0,0)?Method:??Last Menstrual Period??(04/27/2022) History of Present Illness 22 year old at 39w1d sent from the office with mild range blood pressure elevation and a headache. She has a history of migraines with a few exacerbations this . Headaches are mostly well managed by Fioricet, but this headache has not gone away with usual dosing. Headache 6/10 when Tylenol given She denies any visual changes or RUQ pain Good movement Review of Systems General: No fevers or chills Neuro: Headache as in HPI, no visual changes CV: No chest pain Pulmonary: no shortness of breath GI: No N/V or RUQ pain : No leaking fluid or bleeding Ext: No swelling, or redness of the legs Physical Exam Vitals & Measurements HR:??118??(Monitored)?? RR:??19?? BP:??124/66?? SpO2:??100%?? Constitutional?? Appearance: Normal affect.? Heart Normal. RRR. Lungs Normal. CTA Lymphatic?? Lymphatic: Normal exam. ? Skin?? Skin: Normal exam. ? Neurological/Psychiatric?? Orientation: Time, Place, Person. ? Affect: Normal. ? No headaches, no visual disturbances Abdomen/GI?? gravid - 39 week size Not Tender. ? No Masses. ? Gynecologic?? External Genitalia: no lesions Urethral meatus: Normal exam. ? Urethra: normal to palpation.? Vagina: Normal exam, normal support, no lesions, no discharge.? OB Assessment Baby A Baseline:140 Baseline Description:Normal, 110-160 bpm Baseline Variability:Moderate variability Accelerations:Present 2 or more Deceleration:None Activity:Present Assessment/Plan Encounter for induction of labor (Z34.90):??Admission for induction of labor based on new diagnosisof gHTN Overall reassuring maternal and status Plan SVE upon arrival on Pod C cEFM PPH risk medium Pain management: undecided Support: FOB and her mother Team aware of new diagnosis, current headache and plan for admission ?? Gestational HTN (O13.9):??Meets criteria today with mild range BP elevations 4 hours apart TPCR and baseline HELLP labs pending One isolated severe range BP Headache in setting of hx of migraine. Not alleviated by Fioricet, pending response to Tylenol. ?? Anemia in (O99.019):??Admission H/H 9.5/31.0 PPH Risk Medium given BMI ?? History of depression (Z86.59):??No current medication or therapy No exacerbation in Be aware for increased risk ?? History of inadequate care (O09.30):??UDS in negative Transportation issues ?? Migraine (G43.909):??Few exacerbations in Well controlled with Fioricet Headache on admission not alleviated by Fioricet at home Tylenol 975mg given Plan Benadryl/Reglan if not improved ?? Obesity in (O99.210):??Pre BMI 40 TWG 18# Current BMI 52 PPH Risk Medium ?? OB History History?(0,0,0,0)?No previous pregnancies history have been recorded Labs Labs Labs & Tests Antibody Screen: Negative (07/10/22) Blood Type: B Positive (07/10/22) Chlamydia Trachomatis Amplified Probe: NEGATIVE (12/29/22) Creatinine-Blood: 0.7 mg/dL (01/26/23) Down Syndrome Age Risk FTS: Age Risk: (07/25/22) Down Syndrome Scrn Risk FTS: Screening Risk: (07/25/22) Glucose 3hr Gest Vic, +120 minutes: 143 mg/dL (01/03/23) Glucose 3hr Gest Vic, +180 minutes: 108 mg/dL (01/03/23) Glucose 3hr Gest Vic, +60 minutes: 168 mg/dL (01/03/23) Glucose 50 Gm, +60 Minutes:??141 mg/dL??High (12/12/22) Glucose Tolerance, Fasting:??98 mg/dL??High (01/03/23) Hct:??31 %??Low (01/26/23) Hepatitis C Ab: NEGATIVE (07/10/22) Hgb:??9.5 Gm/dL??Low (01/26/23) HIV 4th Generation Ab-Ag Result: NEGATIVE (07/10/22) RPR Titer Result: NOT INDICATED (12/12/22) Rubella IgG Ab: POSITIVE (07/10/22) Syphilis Screen by MABEL: NEGATIVE (12/12/22) Trisomy 18 Scrn Risk FTS: Screening Risk: (07/25/22) Urine Culture: Urine Culture (07/25/22) Problem List Active Active Problem List Anemia: (Medical) Anemia in : (Medical) Anxiety: (Medical) History of depression: (Medical) History of inadequate care: (Medical) Migraine: (Medical) Obesity in : (Medical) : (Obstetric) (04/27/22) : (Medical) Severe obesity: (Medical) Procedure/Surgical History Laparoscopic appendectomy: 10/15/11 Home Medications Acetaminophen/Butalbital/Caffeine: 1 tablet, By Mouth, Every 4 hours, PRN ( NEEDED), MAY INCREASETO 2 TABLETS EVERY 4 HOURS IF PAIN IS NOT RELIEVED BY 1 TABLET. USE SPARINGLY. DO NOT EXCEED 6 TABLETS PER DAY OR 4,000 MG OF acetaminophen PER DAY Aspirin: 162 mg = 2 tablet, By Mouth, Daily Doxylamine: 25 mg = 1 tablet, By Mouth, Daily, PRN (Insomnia) Ferrous Sulfate: See Instructions, Take one tablet By Mouth every other day. Take with vitamin C tohelp absorption Multivitamin, : 1 tablet, By Mouth, Daily, Please prescribe PNVs that are covered by pt's insurance. Multivitamin, : 1 tablet, By Mouth, Daily, Please prescribe PNVs that are covered by pt's insurance. Mupirocin Topical: 1 application, Topically, 3 times a day Pyridoxine: Daily Allergies NKA Social History Alcohol Use: Never. Electronic Cigarette/Vaping Electronic Cigarette Use: Never. Employment/School Status: Employed, Student. 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 Exercise Self assessment: Good condition. Home/Environment Living situation: Home/Independent. Lives with: Father, Mother, Siblings. Other: 3 dogs. Nutrition/Health Diet: Regular. Sexual Sexually involved in last 6 months: Yes. Gender identity: Identifies as female. Self described orientation: Straight or heterosexual. Preferred pronoun: She/her. Substance Abuse Use: Past. Type: Marijuana. Tobacco Use: Never (less than 100 in lifetime). Family History Mother: Migraine Sister: Cancer of colon Mat. Grandmother: Diabetes mellitus Plan OB Plan Circumcision Plan: None (01/26/23) Contraceptives: Nexplanon (01/26/23) Feeding Plan: Breast milk & Formula (01/26/23) Labor Coping Mechanisms: Epidural (01/26/23) Patient Requests: It's a girlHer mom and FOB in labor (01/26/23) Lab Results Test Name Test Result Date/Time Hgb 9.5 Gm/dL 01/26/2023 13:55 EDT Hct 31.0 % 01/26/2023 13:55 EDT Platelet Count 252 k/mm3 01/26/2023 13:55 EDT GBS PCR Result Not detected 12/29/2022 16:08 EDT Hospital Progress note * Gaby Sandy RN: PERFORM, SIGN, VERIFY Event Display: Progress Note Hospital Authored Date: [id number] Patient: CHAZ LACKEY Age: 22 years Sex: Female : 2000 Associated Diagnoses: None Author: Gaby Sandy RN Patient discharged home. Discharge instructions given, patient verbalized understanding. * Gaby Sandy RN: PERFORM, SIGN, VERIFY Event Display: Progress Note Hospital Authored Date: [id number] Patient: CHAZ LACKEY Age: 22 years Sex: Female : 2000 Associated Diagnoses: None Author: Gaby Sandy RN Patient 2 days s/p c/s. Abdomen soft. Patient voiding, passing gas, BM 01/29. Fundus firm, -1. Mild flow. Incision well approximated, no drainage noted, steri strips in place. Anticipating d/c Findings Problem Related to Alteration in Comfort : Alteration in Comfort/new 01/30/2023 7:00 EDT Alteration in Comfort Related to Other: s/p c/s Goals & Outcomes: Comfort Pt will report acceptable level of comfort & pain control, Pt will state importance of adhering to pain strategy regime, Pt will demonstrate necessary skills to manage pain, Non-verbal indicators will indicate comfort/pain control Interventions Implemented: Comfort Assess pain using appropriate pain scale/tools, Assess aggravating factors & prevent them accordingly, Assess alleviating factors & promote them accordingly BH Goals/Interventions, Comfort Yes Comfort, Problem Start 01/29/2023 9:53 Reviewed plan with, Comfort Patient Patient Progression, Comfort Pt progressing according to plan Comfort, Problem Ongoing Yes . * Sandie Gomez CNM Head: PERFORM Event Display: Progress Note Hospital Authored Date: [id number] Patient: ??CHAZ LACKEY ? Age:??22 Years?Sex:??Female?:??2000?? Subjective In to see Chaz on POD #2. She is in good spirits, and so happy labor and delivery are over! Expresses gratitude for the care she received while here and states?? I'm so happy I came here, you guystake really good care of me .??Thrilled with baby [address], can't believe how small she is. Pain is well-controlled with Tylenol and Motrin, has only rarely needed oxycodone. Moving around well, learning to care for baby. Tried a few times, but feels like baby wasn't getting much to eat, and had always planned to feed with breast milk and formula. Thinks she will probably just do formula, and feels good about this. Very excited to get her Nexplanon inserted this morning, calling it my new best friend . Has had one in the past and was happy with it once she got unscheduled bleeding under control with COCs. Planning to go home today and will have support from her mom, BELKIS Love, and her sister. Review of Systems Risk Assessment Delivered??01/28/2023 ?? Post-insertion counseling Reviewed reasons to call back?? Patient encouraged to continue annual gyne exams. ?? Implant removal and??insertion consent documentation We discussed the procedure. ??Patient counseled regarding insertion process, application of soap, administration of anesthetic, and post-procedure care. ??Pt aware that the implant is a method of contraception (Tier 1) with <1% risk of . Pt is aware of the risks of insertion including infection at the site of insertion, bleeding, damage to surrounding structures, and difficulty in jp danny. ??Pt is also aware that this method will change her bleeding pattern. ??Pt understands that approximately 20% of people become amenorrheic, the remaining will have regular menses or irregular bleeding. Pt understands that in 20% of women this irregular bleeding does not go away and is the mostcommon reason for early removal of the device. ??Pt understands we recommend waiting at least 3-6 months after insertion before removing it for irregular bleeding as often this will become better or resolve over this time period. ??Pt understands that arm soreness and bruising at the insertion siteis common and usually resolves within 7 days. ??Pt understands to still use condoms for STI prevention. ??Pt understands she can request removal at any time. ??Pt understands that device lasts for??5years??according to the most recent research studies on extended use of the device.??Pt is NOT any medications that would interfere with contraceptive effectiveness. Physical Exam Vitals & Measurements T:??97.6?F?? HR:??82??(Peripheral)?? RR:??18?? BP:??118/59?? SpO2:??100%?? HT:??153??cm?? WT:??111.8??kg?? BMI:??47.76?? The site of insertion was marked 8-10 cm medial to the epicondyle and at least 3cm below the bicipital groove according to the updated newcomer hostess guidelines. The site was prepped with betadine, and5cc 1% lidocaine with epinephrine and??sodium bicarb??was injected along the planned insertion path. ?? The implant device was confirmed to be within the trocar.?? It was inserted sub- dermally as per newcomer hostess's instruction using the recently created incision from removal. ?? After insertion, implant was palpated by provider and patient.? The area was hemostatic Band-Aid applied, followed by pressure dressing.?? Pt instructed to leave??Band-Aid in place x48 hours without getting it wet. Pressure dressing may remain in place up to 24 hours.? Lot: [id number] Exp: 09/2024 Assessment/Plan Nexplanon insertion (Z30.017):? Pt tolerated procedure well. Warning signs to report reviewed, as well as anticipatory guidance ?? care following delivery (Z39.2):? Medical care per OB team; discharge planned for today F/u appointments scheduled with [facility] ?? OB Summary : 1 . Baby A - Weight: 3.152 kg Baby A - Date, Time of : 01/28/23 21:32:00 Baby A - Gender: Female Baby A - Complications: Suspected infection EGA at Documented Date, Time: 39W 3D Weight at Delivery Baby A - Delivery Type: , low transverse Delivery Complications: None OB History History?(0,0,0,0)?No previous pregnancies history have been recorded Active Problem List Active Problem List Anxiety: (Medical) Gestational HTN: (Medical) History of depression: (Medical) Migraine: (Medical) care following delivery: (Medical) : (Obstetric) (04/27/22) Home Medications Acetaminophen: 1,000 mg = 2 tablet, By Mouth, Every 6 hours, PRN (as needed for pain), , 90 day supply not indicated. Acetaminophen/Butalbital/Caffeine: 1 tablet, By Mouth, Every 4 hours, PRN ( NEEDED), MAY INCREASETO 2 TABLETS EVERY 4 HOURS IF PAIN IS NOT RELIEVED BY 1 TABLET. USE SPARINGLY. DO NOT EXCEED 6 TABLETS PER DAY OR 4,000 MG OF acetaminophen PER DAY Aspirin: 162 mg = 2 tablet, By Mouth, Daily Doxylamine: 25 mg = 1 tablet, By Mouth, Daily, PRN (Insomnia) Ferrous Sulfate: See Instructions, Take one tablet By Mouth every other day. Take with vitamin C tohelp absorption Ibuprofen: 600 mg = 1 tablet, By Mouth, 4 times a day, PRN (for pain), , 90 day supply not indicated. Multivitamin, : 1 tablet, By Mouth, Daily, Please prescribe PNVs that are covered by pt's insurance. Multivitamin, : 1 tablet, By Mouth, Daily, Please prescribe PNVs that are covered by pt's insurance. Mupirocin Topical: 1 application, Topically, 3 times a day Oxycodone: 5 mg = 1 tablet, By Mouth, Every 6 hours, PRN (for pain), , 90 day supply not indicated. Pyridoxine: Daily Senna: 2 tablet, By Mouth, Daily at bedtime, PRN (for constipation), , 90 day supply not indicated. Medications Medications (21) Active SCHEDULED: (8) Acetaminophen 325 mg Tablet (acetaminophen 325 mg oral tablet) ??975 mg, By Mouth, Every 6 hours Acetaminophen 325 mg Tablet (Acetaminophen Tablet) ??650 mg, By Mouth, Every 4 hours Ampicillin 2 Gm Inj (Ampicillin IVPB) ??2 Gm, IVPB, Every 6 hours Docusate Sodium 100 mg Capsule (Docusate Sodium Capsule) ??100 mg 1 capsule, By Mouth, 2 times a day Etonogestrel 68 mg Implant (Nexplanon 68mg SQ Implant) ??68 mg 1 each, Intradermal, weight caller to Procedure Famotidine 20 mg Tablet (Famotidine Tablet) ??20 mg, By Mouth, 2 times a day Gentamicin 40mg/mL IVPB (Gentamicin PETER IVPB) ??360 mg 9 mL, IVPB, Every 24 hours Ibuprofen 800 mg Tablet (Ibuprofen Tablet) ??800 mg, By Mouth, Every 8 hours CONTINUOUS: (2) Lactated Ringers (1000 mL) Cont IV 1,000 mL (LR 1,000 mL) ??1,000 mL, IV Infusion, 50 mL/hr Lactated Ringers (1000 mL) Cont IV 1,000 mL (Lactated Ringers 1,000 mL) ??1,000 mL, IV Infusion, 125 mL/hr PRN: (11) Acetaminophen 325 mg Tablet (Tylenol 325 mg oral tablet) ??975 mg, By Mouth, Every 6 hours Acetaminophen 325 mg Tablet (Acetaminophen Tablet) ??650 mg, By Mouth, Once diphenhydrAMINE 25 mg Tablet (DiphenhydrAMINE Tablet) ??25 mg, By Mouth, Every 4 hours diphenhydrAMINE 50 mg/mL Inj (DiphenhydrAMINE Inj) ??25 mg 0.5 mL, IV Push, Once Metoclopramide 5 mg/mL Inj (2 mL) (Metoclopramide Inj) ??10 mg, IV Push, Every 6 hours nalOXONE ??400mcg/mL Inj (nalOXONE Inj) ??0.1 mg 0.25 mL, IV Push Slowly, Every 15 minutes Ondansetron 2mg/mL Inj (2mL Vial) (Zofran Inj) ??4 mg, IV Push, Every 6 hours Ondansetron 2mg/mL Inj (2mL Vial) (Ondansetron Inj) ??4 mg, IV Push, Once Ondansetron 2mg/mL Inj (2mL Vial) (Ondansetron Inj) ??4 mg, IV Push Slowly, Once OxyCODONE 5 mg IR Tablet (OxyCODONE IR Tablet) ??5 mg, By Mouth, Every 3 hours Simethicone 80 mg Chewable Tablet (Simethicone Tablet) ??80 mg, Chew, 3 times a day Note * Dilcia Barker RN: PERFORM Event Display: Care Team Progress Note Authored Date: [id number] Patient: ??CHAZ LACKEY ? Age:??22 Years?Sex:??Female?:??2000?? Subjective Chaz tells me that she could like to bottle feed formula. She does not want to pump to provide breast milk. Assessment/Plan Mom was given support in her decision and given basic education to monitor her breast for milk progression and given basics education to prevent her milk from coming in if she were to notice this. OB Summary : 1 . Baby A - Weight: 3.152 kg Baby A - Date, Time of : 01/28/23 21:32:00 Baby A - Gender: Female Baby A - Complications: Suspected infection EGA at Documented Date, Time: 39W 3D Weight at Delivery Baby A - Delivery Type: , low transverse Delivery Complications: None OB History History?(0,0,0,0)?No previous pregnancies history have been recorded Active Problem List Active Problem List Anxiety: (Medical) Gestational HTN: (Medical) History of depression: (Medical) Migraine: (Medical) care following delivery: (Medical) : (Obstetric) (04/27/22) Home Medications Acetaminophen: 1,000 mg = 2 tablet, By Mouth, Every 6 hours, PRN (as needed for pain), , 90 day supply not indicated. Acetaminophen/Butalbital/Caffeine: 1 tablet, By Mouth, Every 4 hours, PRN ( NEEDED), MAY INCREASETO 2 TABLETS EVERY 4 HOURS IF PAIN IS NOT RELIEVED BY 1 TABLET. USE SPARINGLY. DO NOT EXCEED 6 TABLETS PER DAY OR 4,000 MG OF acetaminophen PER DAY Aspirin: 162 mg = 2 tablet, By Mouth, Daily Doxylamine: 25 mg = 1 tablet, By Mouth, Daily, PRN (Insomnia) Ferrous Sulfate: See Instructions, Take one tablet By Mouth every other day. Take with vitamin C tohelp absorption Ibuprofen: 600 mg = 1 tablet, By Mouth, 4 times a day, PRN (for pain), , 90 day supply not indicated. Multivitamin, : 1 tablet, By Mouth, Daily, Please prescribe PNVs that are covered by pt's insurance. Multivitamin, : 1 tablet, By Mouth, Daily, Please prescribe PNVs that are covered by pt's insurance. Mupirocin Topical: 1 application, Topically, 3 times a day Oxycodone: 5 mg = 1 tablet, By Mouth, Every 6 hours, PRN (for pain), , 90 day supply not indicated. Pyridoxine: Daily Senna: 2 tablet, By Mouth, Daily at bedtime, PRN (for constipation), , 90 day supply not indicated. Medications Medications (21) Active SCHEDULED: (8) Acetaminophen 325 mg Tablet (acetaminophen 325 mg oral tablet) ??975 mg, By Mouth, Every 6 hours Acetaminophen 325 mg Tablet (Acetaminophen Tablet) ??650 mg, By Mouth, Every 4 hours Ampicillin 2 Gm Inj (Ampicillin IVPB) ??2 Gm, IVPB, Every 6 hours Docusate Sodium 100 mg Capsule (Docusate Sodium Capsule) ??100 mg 1 capsule, By Mouth, 2 times a day Etonogestrel 68 mg Implant (Nexplanon 68mg SQ Implant) ??68 mg 1 each, Intradermal, weight caller to Procedure Famotidine 20 mg Tablet (Famotidine Tablet) ??20 mg, By Mouth, 2 times a day Gentamicin 40mg/mL IVPB (Gentamicin PETER IVPB) ??360 mg 9 mL, IVPB, Every 24 hours Ibuprofen 800 mg Tablet (Ibuprofen Tablet) ??800 mg, By Mouth, Every 8 hours CONTINUOUS: (2) Lactated Ringers (1000 mL) Cont IV 1,000 mL (LR 1,000 mL) ??1,000 mL, IV Infusion, 50 mL/hr Lactated Ringers (1000 mL) Cont IV 1,000 mL (Lactated Ringers 1,000 mL) ??1,000 mL, IV Infusion, 125 mL/hr PRN: (11) Acetaminophen 325 mg Tablet (Tylenol 325 mg oral tablet) ??975 mg, By Mouth, Every 6 hours Acetaminophen 325 mg Tablet (Acetaminophen Tablet) ??650 mg, By Mouth, Once diphenhydrAMINE 25 mg Tablet (DiphenhydrAMINE Tablet) ??25 mg, By Mouth, Every 4 hours diphenhydrAMINE 50 mg/mL Inj (DiphenhydrAMINE Inj) ??25 mg 0.5 mL, IV Push, Once Metoclopramide 5 mg/mL Inj (2 mL) (Metoclopramide Inj) ??10 mg, IV Push, Every 6 hours nalOXONE ??400mcg/mL Inj (nalOXONE Inj) ??0.1 mg 0.25 mL, IV Push Slowly, Every 15 minutes Ondansetron 2mg/mL Inj (2mL Vial) (Zofran Inj) ??4 mg, IV Push, Every 6 hours Ondansetron 2mg/mL Inj (2mL Vial) (Ondansetron Inj) ??4 mg, IV Push, Once Ondansetron 2mg/mL Inj (2mL Vial) (Ondansetron Inj) ??4 mg, IV Push Slowly, Once OxyCODONE 5 mg IR Tablet (OxyCODONE IR Tablet) ??5 mg, By Mouth, Every 3 hours Simethicone 80 mg Chewable Tablet (Simethicone Tablet) ??80 mg, Chew, 3 times a day * Gaby Sandy RN: PERFORM Event Display: Discharge/Transfer Note Hospital Authored Date: [id number] Nursing Discharge Note Entered On: 01/30/2023 12:59 EDT Performed On: 01/30/2023 12:59 EDT by Gaby Sandy RN Nursing Discharge Note 2 Discharge Time : 01/30/2023 12:59 EDT Discharge Level of Care at Discharge : Home/Residential/Foster Care Patient Left Unit Via : Ambulatory Patient Accompanied Off Unit with : Significant other DC Instructions Provided & Signed by Pt : Yes Patient Understands D/C Instructions : Yes Verbalized Understanding of D/C Plan By : Patient Patient Instructions Discharge Signed : Yes Did Pt have Specialty Bed or Wound Vac : No Gaby Sandy RN - 01/30/2023 12:59 EDT * Teresa French MD: PERFORM, MODIFY Event Display: Discharge/Transfer Note Hospital Authored Date: [id number] Patient: ??CHAZ LACKEY ? Age:??22 Years?Sex:??Female?:??2000?? Admit Date Admission Date: 01/26/2023 Discharge Date 01/30/2023 OB Reason for Admission OB Reason for Admission Reason for admission: Induction of labor Reason for Induction: Gestational hypertension [facility] Chaz is a 22 year old [id number] at 39 weeks 3 days for induction of labor for category 2 heart rate tracing. She went on to elect for a section, in the setting of suspected intra-amniotic infection.??She??is now s/p primary section on 01/28. She has been afebrile since delivery. ?? Patient is feeling well and would like to be discharged today. States her pain is well controlled with routine medications. Her lochia is light. She is ambulating, voiding spontaneously s/p soria, tolerating regular diet and passing flatus. She has no concerns at this time. ?? Discussed self care, and depression. Patient was counseled on warning signs for calling or returning to care including but not limited to fever of 100.4 or greater, heavy vaginal bleeding, foul-smelling vaginal discharge, difficulty or burning with urination, nausea and vomiting with inability to tolerate food, pain not controlled by medications, shortness of breath or chest pain, and depression. Patient verbalized understanding.?? Objective/Physical Exam on Day of Discharge Vitals & Measurements T:??97.6?F?? HR:??82??(Peripheral)?? RR:??20?? BP:??118/59?? SpO2:??100%?? HT:??153??cm?? WT:??111.8??kg?? BMI:??47.76?? Constitutional: No acute distress, resting comfortably. Respiratory: Normal work of breathing. Abdomen/GI: Soft, non-distended, no guarding, no rebound tenderness. Fundus firm at umbilicus with mild tenderness. Low transverse incision covered with steri strips, appears clean, dry and intact. Gynecologic: Minimal lochia. Extremities: No calf tenderness or edema. Skin: No rash or jaundice. Neurological/Psychiatric: Mood and affect congruent and stable. Assessment/Plan/Discharge Diagnosis Assessment:??Chaz is a 22 year old [id number] at 39 weeks 3 days for induction of labor for category 2 heart rate tracing. She went on to elect for a section, in the setting of suspected intra-amniotic infection.??She??is now s/p primary section on 01/28. She has been afebr ile since delivery.??She is meeting post-op milestones. Nexplanon placed this morning by CATHY Gomez. Appropriate for discharge home at this time. ?? Gestational HTN (O13.9):? HELLP labs wnl normotensive overnight (x) discharge with babyscripts ?? Chorioamnionitis (O41.1290):? s/p Ampicillin and Gentamicin in labor Received Clindamycin intraoperatively s/p 1??additional dose of Gentamicin and Clindamycin Afebrile since delivery ?? History of depression (Z86.59):? No current medication or therapy No exacerbation in Be aware for increased risk ?? History of inadequate care (O09.30):? UDS in negative Transportation issues ?? care following delivery (Z39.2):? Continue routine & postoperative care Pain Management: continue Ibuprofen & Tylenol, oxy as needed (x) Rx on discharge Incision: remove pressure dressing Infant feeding: breast and formula Soria: removed, voiding spontaneously VTE prophylaxis: SCDs while in bed, encourage ambulation Contraception: plans for Nexplanon (x) Follow-up: routine with [facility] ?? Future Appointments Sunday 1:00 PM EDT ?? Where: [facility] [place] [address]- Status: Pending Sunday 1:10 PM EDT ?? With: Dee Acevedo CNM Where: [facility] [address] [address]- Status: Pending Sunday 10:40 AM EDT ?? With: Lima Velez CNM Where: [facility] [address] [address]- Status: Pending Sunday 1:10 PM EDT ?? With: Stella Go CNM Where: [facility] [address] [address]- Status: Pending Delivery Summary Delivery Summary Maternal Information ??Labor Information ?Baby A ?Labor Onset Methods: ??Induced ?Induction Methods: ??Amniotomy, Cervical Soria Inpatient, Misoprostol, Pitocin ??Delivery Information ?Gestational Age at Delivery: ??39W 3D ?Anesthesia OB: ??Epidural ??01/28/23 19:36:50, Epidural ??01/28/23 19:36:50, Epidural ??01/28/23 19:36:50, Epidural ??01/27/23 13:11:04 ?Delivery Complications: ??None ?Blood Loss - Quantitative: ??976 mL (Modified) ? Baby A ??Delivery Information ?Delivery Type: ??, low transverse ?Reason for : ??Elective primary (Modified) ? Priority: ??Non scheduled ?Decision for : ??01/28/23 18:34:00 ?Incision Time for : ??01/28/23 21:27:00 ?Decision to Incision time: ??173 min ?Date, Time of : ??01/28/23 21:32:00 ?Delayed Cord Clamping: ??Yes ?Placenta Delivery Date/Time: ??01/28/23 21:35:00 ?Placenta Delivery Method: ??Expressed ?Placenta Appearance: ??Normal ?Placenta to Pathology: ??Yes ??Care Team ?Time NICU Team Called: ??01/28/23 21:32:00 ??Labor Information ?ROM Date, Time: ??01/28/23 03:40:00 ?ROM to Delivery Total Time: ??1072 min ?3rd Stage, Length of Labor: ??3 min ? monitoring: ??External monitor ?? Information ? Outcome: ??Live ? Position: ??Left occiput posterior ? Weight: ??3.152 kg ? Score 1 minute: ??8 ? Score 5 minute: ??9 ? Score 10 minute: ??9 ?Transferred To: ?? Care area with Family ?Umbilical Cord Description: ??3 vessel cord ? Complications: ??None ?Gender: ??Female ? Discharge Medications ???Acetaminophen (acetaminophen 500 mg oral tablet)???Acetaminophen/Butalbital/Caffeine (acetaminophen/butalbital/caffeine 325 mg-50 mg-40 mg oral tablet)???Aspirin (aspirin 81 mg oral delayed release tablet)???Doxylamine (Unisom 25 mg oral tablet)???Ferrous Sulfate (ferrous sulfate 325 mg oral enteric coated tablet)???Ibuprofen (ibuprofen 600 mg oral tablet)???Multivitamin, (PNV Select oral tablet)???Multivitamin, (PNV Select oral tablet)???Mupirocin Topical (mupirocin 2% topical ointment)???Oxycodone (oxyCODONE 5 mg oral tablet)???Pyridoxine (Vitamin B6)???Senna (senna - oral tablet) Immunizations during Hospitalization Vaccine Date Status tetanus/diphtheria/pertussis, acel(Tdap) 12/29/2022 Given SARS-CoV-2 (COVID-19) mRNA-1273 vaccine 07/27/2021 Recorded SARS-CoV-2 (COVID-19) mRNA-1273 vaccine 10/03/2020 Recorded Meningococcal Conjugate Vaccine 07/29/2019 Recorded influenza virus vaccine, inactivated 07/29/2019 Recorded Human Papillomavirus Vaccine 12/14/2015 Recorded Hepatitis A Pediatric Vaccine 12/14/2015 Recorded Meningococcal Conjugate Vaccine 07/07/2014 Recorded Human Papillomavirus Vaccine 07/07/2014 Recorded Hepatitis A Pediatric Vaccine 07/07/2014 Recorded tetanus/diphtheria/pertussis, acel(Tdap) 07/07/2014 Recorded Human Papillomavirus Vaccine 10/09/2012 Recorded Varicella Virus Vaccine 12/27/2006 Recorded Poliovirus Vaccine, Inactivated 12/27/2006 Recorded Measles/Mumps/Rubella Virus Vaccine 12/27/2006 Recorded Varicella Virus Vaccine 06/02/2003 Recorded Measles/Mumps/Rubella Virus Vaccine 06/02/2003 Recorded Poliovirus Vaccine, Inactivated 01/27/2003 Recorded hepatitis B pediatric vaccine 2002 Recorded Poliovirus Vaccine, Inactivated 2002 Recorded Poliovirus Vaccine, Inactivated 2002 Recorded hepatitis B pediatric vaccine 2002 Recorded hepatitis B pediatric vaccine 2002 Recorded Feeding Method Feeding Method: (01/28/23 22:45:00) Patient Instructions Discharge:??Home ?? Please call the office with any concerns including:?? Heavy vaginal bleeding?? Fever of 100.4 or greater Foul-smelling vaginal discharge Difficulty or burning with urination Nausea and vomiting with inability to tolerate food Pain not controlled by the medications listed below Shortness of breath or chest pain. Swelling of the extremities. ?? General Instructions: - Avoid lifting anything 15 lbs or greater until cleared by doctor. - Limit stairs to once per day the first day. - Stairs are OK but avoid multiple trips/ skipping steps and go slowly. - Walk as often as you are able. - Do not put anything in the vagina. No intercourse, tampons, or douching - Continue using stool softeners as needed??(examples: colace/docusate, senna, miralax) - Shower as usual, do NOT scrub incision. Avoid tubs / soaking / pools. - Remove steri strips 5-7 days after surgery if they have not fallen off on their own. ?? Pain Control Instructions: Continue Tylenol and ibuprofen scheduled and only take opiates as prescribed??for breakthrough painin the first few days after you get home.??You may fill less than the prescribed amount, and you should store them in a safe location in a childproof prescription bottle.??Any unused opiates should be returned to a prescription drop-box, such as the one at the [facility]. No one other than you should take your opiates, and you should not use them for anything other than your postoperative pain. You should not drive while taking opiates. ?? Please call the office with pain that is not controlled with this regimen. ?? Thank you for allowing us to be part of your care team. * Jn COOPER [OB], Trisha R: PERFORM Event Display: Discharge/Transfer Note Hospital Authored Date: [id number] ?Attending Attestation:??I have seen and evaluated this patient. ??I have discussed the caseand its management with the resident and agree with the findings and plan as documented above in the resident???s note. ? * Gaby Sandy RN: PERFORM Event Display: Patient Education/Instruction Authored Date: Inpatient Adult Discharge Instructions [address] [address] Name: CHAZ LACKEY : 2000 Visit: 01/26/2023 16:24:00 Current Date: 01/30/2023 12:27 Account: [id number] Inpatient Adult Discharge Instructions We would like to thank you for allowing us to assist you with your healthcare needs. The following includes patient education materials and information regarding your injury/illness. Our entire staffstrives to provide an excellent experience for our patients and their families. PLEASE ENSURE YOU FOLLOW-UP PER THE INSTRUCTIONS BELOW! ?? YOUR OPINION IS IMPORTANT TO US! Please complete the survey you may receive by mail or email. Your feedback will be used to make improvements to the healthcare experiences of our patients and their families. Surveys are administered by [employer]. ?? If further treatment with your primary care physician or another doctor is recommended, it is important for you to keep the appointment. Call your primary care physician or return to the Emergency Department immediately if your condition worsens, fails to improve, or new symptoms develop. If you need to find a doctor, you can call [facility] Link for a referral at [phone] or toll free at [phone]) or log in to [email or web address] ?? [facility], in keeping with [facility] guidance, no longer requires face masks for staff, patientsor visitors in most situations. Similiar to time spent indoors at other locations, there is the chance that you were exposed to repiratory viruses during your time with us (such as flu or COVID-19). If you develop symptoms concerning for a viral respiratory infection, please seek testing (and treatment if indicated) from your medical provider or home test kit. ?? You can view and manage your care through the patient portal or by using a health care destiny of your choosing. [employer] is a website that allows you to securely view your medical information including your hospital discharge summary, office visit summaries, medications and follow-up visits. You can also request appointments, renew medications, and request access to your medical information using a health care destiny of your choosing, or just ask a question. You can enroll at [email or web address] or register during your next office visit. You have been discharged from [facility], Patient Care Unit: WIN2. If you have any questions regarding these instructions after you leave, please call us and we will be happy to assist you. [facility] Your Care Team Attending Physician Jonathan COOPER, Carlos; Lia Kramer MD Consulting Providers Bradley CASTILLO, Luz Discharging Providers Gillian COOPER, Teresa Reason for Admission Induction of labor Your Diagnosis History of depression Migraine Gestational HTN care following delivery Nexplanon insertion Tests Performed Below is a partial list of the tests performed during your hospitalization. You may have had other tests and procedures not included in this list. Please discuss all test results with your provider. ALT AST CBC COVID-19 (2019 Novel Coronavirus) PCR?-- Results Pending -- Creatinine Hepatitis B Surface Antigen Urine Protein/Creatinine Ratio You will be contacted within 72 hours with your results. Primary Care Provider Saadia Guido NP Advance Directive Health Care Proxy on File Yes - Health Care Proxy Discharge Vitals Temperature: 97.8 DegF Height: 153 cm Pulse Rate: 86 bpm Weight: 111.8 kg Respiratory Rate: 18 br/min Body Mass Index:??47.76 kg/m2??Critical Systolic Blood Pressure: 126 mm Hg Body surface area: 2.18 Diastolic Blood Pressure: 70 mm Hg ?? Oxygen Saturation: 99 % ?? Studies Pending All tests and labs ordered during this hospital stay have been completed unless listed below. Please discuss all pending results with your provider listed above in these instructions. ?? COVID-19 (2019 Novel Coronavirus) PCR Hold Lavender Tube (BB) Pathology Tissue Request () Type and Screen, Use Hold Lavender What to do next Instructions From Your Doctor Discharge:??Home ?? Please call the office with any concerns including:?? Heavy vaginal bleeding?? Fever of 100.4 or greater Foul-smelling vaginal discharge Difficulty or burning with urination Nausea and vomiting with inability to tolerate food Pain not controlled by the medications listed below Shortness of breath or chest pain. Swelling of the extremities. ?? General Instructions: - Avoid lifting anything 15 lbs or greater until cleared by doctor. - Limit stairs to once per day the first day. - Stairs are OK but avoid multiple trips/ skipping steps and go slowly. - Walk as often as you are able. - Do not put anything in the vagina. No intercourse, tampons, or douching - Continue using stool softeners as needed??(examples: colace/docusate, senna, miralax) - Shower as usual, do NOT scrub incision. Avoid tubs / soaking / pools. - Remove steri strips 5-7 days after surgery if they have not fallen off on their own. ?? Pain Control Instructions: Continue Tylenol and ibuprofen scheduled and only take opiates as prescribed??for breakthrough painin the first few days after you get home.??You may fill less than the prescribed amount, and you should store them in a safe location in a childproof prescription bottle.??Any unused opiates should be returned to a prescription drop-box, such as the one at the [facility]. No one other than you should take your opiates, and you should not use them for anything other than your postoperative pain. You should not drive while taking opiates. ?? Please call the office with pain that is not controlled with this regimen. ?? Thank you for allowing us to be part of your care team. Discharge Orders Scheduled Follow-Up Appointments Sunday 1:00 PM EDT ?? Where: [facility] [address] [address]- Status: Pending Sunday 1:10 PM EDT ?? With: Dee Acevedo CNM Where: [facility] [address] [address]- Status: Pending Sunday 10:40 AM EDT ?? With: Lima Velez CNM Where: [facility] [address] [address]- Status: Pending Sunday 1:10 PM EDT ?? With: Stella Go CNM Where: [facility] [address] [address]- Status: Pending You Need to Schedule the Following Appointments Follow Up with??Keep your scheduled appointments Discharge Medications CHAZ LACKEY :2000 Visit Date:01/26/2023 Medications: Please continue your medications until treatment is completed or stopped by your provider. Medications not listed below should be discontinued. Discuss any questions related to medications with your provider. What How Much When Instructions Next Dose New Acetaminophen (acetaminophen 500 mg oral tablet) 2 tab(s) Oral Every 6 hours as needed for as needed for pain , 90 day supply not indicated. ?? Pickup at [facility] today 4pm New Ibuprofen (ibuprofen 600 mg oral tablet) 1 tab(s) Oral 4 times a day as needed for for pain , 90 day supply not indicated. ?? Pickup at [facility] today 2pm New Oxycodone (oxyCODONE 5 mg oral tablet) 1 tab(s) Oral Every 6 hours as needed for for pain , 90 day supply not indicated. ?? Pickup at [facility] anytime New Senna (senna - oral tablet) 2 tab(s) Oral Daily at Bedtime as needed for for constipation , 90 day supply not indicated. ?? Pickup at [facility] today 9pm Unchanged Acetaminophen/ Butalbital/ Caffeine (acetaminophen/ butalbital/ caffeine 325 mg-50 mg-40 mg oral tablet) 1 tab(s) Oral Every 4 hours as needed for NEEDED MAY INCREASE TO 2 TABLETS EVERY 4 HOURS IF PAIN IS NOT RELIEVED BY 1 TABLET. USE SPARINGLY. DO NOT EXCEED 6 TABLETS PER DAY OR 4,000 MG OF acetaminophen PER DAY ?? Unchanged Aspirin (aspirin 81 mg oral delayed release tablet) 2 tab(s) Oral Daily Unchanged Doxylamine (Unisom 25 mg oral tablet) 1 tab(s) Oral Daily as needed for Insomnia Unchanged Ferrous Sulfate (ferrous sulfate 325 mg oral enteric coated tablet) See instructions Take one tablet By Mouth every other day. Take with vitamin C to help absorption ?? Unchanged Multivitamin, (PNV Select oral tablet) 1 tab(s) Oral Daily Duration: 30 Days Please prescribe PNVs that are covered by pt's insurance. ?? Unchanged Multivitamin, (PNV Select oral tablet) 1 tab(s) Oral Daily Duration: 30 Days Please prescribe PNVs that are covered by pt's insurance. ?? Unchanged Mupirocin Topical (mupirocin 2% topical ointment) 1 destiny Topically 3 times a day Unchanged Pyridoxine (Vitamin B6) Daily Pharmacy Information [facility]: [address] [place] [address] [phone] Test Results Below is a partial list of the most recent Laboratory test results done prior to this discharge. You may have had other tests and procedures not included in this list. Please discuss all test resultswith your provider. Antibody Screen - Negative (01/26/2023) Blood Type - B Positive (01/26/2023) Est Creatinine Clearance - 93.18 mL/min (01/26/2023) RBC Available - RE (01/28/2023) RBC Unit ID - [id number] (01/28/2023) ALT (01/26/2023) ???ALT (SGPT) - 10 units/L AST (01/26/2023) ???AST (SGOT) - 15 units/L CBC (01/26/2023) ???WBC - 11.4 k/mm3???RBC - 4.88 m/mm3???Hgb - 9.5 Gm/dL???Hct - 31.0 %???MCV - 63.5 femtoliters???MCH - 19.5 pg???MCHC - 30.6 g/dL???Platelet Count - 252 k/mm3???RDW-SD - 43.4 femtoliters???MPV - NOT MEASURED???Nucleated RBC (Automated) - 0.0 #/100 WBC'S???Abs. NRBC - 0.0 k/mm3 Creatinine (01/26/2023) ???Creatinine-Blood - 0.7 mg/dL???Estimated GFR Creatinine - 129 ML/MIN/1.73 M2 Hepatitis B Surface Antigen (01/29/2023) ???Hepatitis B Surface Antigen - NEGATIVE Urine Protein/Creatinine Ratio (01/26/2023) ???Protein, Total Urine Random - 11 mg/dL???TP/Cr Ratio - 0.10???Creatinine, Urine - 103.4 mg/dL Allergies (NKA means No Known Allergies) NKA Problems Active Problems??(6) Anxiety?? Gestational HTN?? History of depression?? Migraine?? care following delivery? Education Materials Below is the list of Educational Leaflet Providered with your Discharge Instructions. Valuables and Belongings I fully understand and agree that [facility] accepts no responsibility for all my personal property including clothing, toilet articles, radios, jewelry, dentures, hearing aids, rings, money, or any other property that is in my possession or is brought to me after admission. I understand certain valuables may be placed in a hospital safe for a short period of time. I understand that the hospital is not liable for loss or damage due to accident, fire, or other natural occurrence while said property is in the safe. I accept full responsibility for any personal property that I keep with me, and will not hold the hospital responsible in case of loss or disappearance. I acknowledge that i have been encouraged to send valuables and belongings home. ?? Date for Pt to Sign Valuables/Belongings: 01/26/23 18:55:00 ?? Other Discharge Information ? Pulmonary Rehab Status?? Pulmonary Rehab Discharge Status?? Respiratory Rate: 18 br/min ? Common Emergency Awareness Tips IS IT A STROKE? Act FAST and Check for these signs: FACE Does the face look uneven? ARM Does one arm drift down? SPEECH Does their speech sound strange? TIME Call at any sign of stroke ?? Heart Attack Signs Chest discomfort: Most heart attacks involve discomfort in the center of the chest and lasts more than a few minutes, or goes away and comes back. It can feel like uncomfortable pressure, squeezing, fullness or pain. Discomfort in upper body: Symptoms can include pain or discomfort in one or both arms, back, neck, jaw or stomach. Shortness of breath: With or without discomfort. Other signs: Breaking out in a cold sweat, nausea, or lightheaded. Remember, MINUTES DO MATTER. If you experience any of these heart attack warning signs, call to get immediate medical attention! ?? Smoking can increase your chances of developing chronic health problems and can cause harmful effects to other family members in your house. If you smoke, you are strongly encouraged to quit. Please call [employer] at [phone] or 8-229-184-EPDCLZ (2021) or log in to [email or web address] for referrals to smoking cessation programs. ?? 406 Suicide & Crisis Lifeline is available 04/12 if you or someone you know needs to find a reason to keep living. By calling 908 you'll be connected to a skilled, trained counselor at a crisis center in your area. INPATIENT DISCHARGE INSTRUCTIONS SIGNATURE PAGE CHAZ LACKEY Location:[facility] Registration Date and Time:01/26/2023 16:24 EDT Primary Care Physician: Saadia Guido NP, Attending Physician: Nia COOPER, Lia Dejesus, Jonathan COOPER, Carlos, I CHAZ LACKEY, have received the above patient education materials/instructions and have verbalized understanding. If ambulance or transport services are being used I further acknowledge being given a choice of service. ?? If you need to contact me, please call me at this number: . Patient/Vehicle Damage Appraiser Name: Patient/Vehicle Damage Appraiser Signature: Relationship to Patient: Witness Name/Signature: Date: * Gaby Sandy RN: PERFORM, SIGN, VERIFY Event Display: Patient Education Handout Authored Date: [id number] * Gaby Sandy RN: PERFORM Event Display: Patient Education Leaflets Authored Date: [id number] [facility]- Discharge Instructions ?? 209 Discharge Care Instructions for the New Mom and Baby Please take a few moments to read through these helpful instructions before you leave the hospital.?? Your nurse will be glad to answer any questions you may have.?? You can also find this and more information throughout the purple Becoming a Family booklet, [facility] New Beginnings Guide and the Consultation Services Guide given to you after the of your baby.?? You may also phone our nurses stations if you have further questions.?? [facility]:?? First Floor ([phone]), Second Floor ([phone]).?? Please call your provider if you have any questions or concerns?? before your next appointment. For ongoing support please ???Like?? us on our Facebook page ???[facility] New Beginnings?? andsign up for our email newsletter at [email or web address].?? News and information will besent to you until your baby???s third birthday. Instructions for the New Mother Activity: For the next 2 weeks at home ??? no heavy lifting, avoid unnecessary stair climbing, and no driving(especially if you are taking medicine that may make you sleepy or feel that you are sleep deprived).?? For the next 4-6 weeks - no tampons, no douches, no sexual intercourse. Use your alfonso bottle to rinse your perineum until your vaginal flow stops.?? If you have stitches in your bottom, they generally dissolve within 7-10 days.?? Apply Tucks/witch frida pads until your soreness subsides.?? Use your bathroom at home every 3 to 4 hours, rinse, and change your pads. Warm showers feel great on achy muscles, sore backs and sore bottoms. Exercise: Walking is the best form of exercise.?? Wait until your follow up appointment with your provider in4-6 weeks before engaging in more strenuous activity. Diet: Drink plenty of fluids to avoid constipation and to help support your recovery. Eat plenty of iron rich foods such as red meat, iron fortified cereals like Total and Cream of Wheat, raisins, prunes, greens and spinach.?? These will help to build your blood count back up as all women lose some blood after delivery.?? Also add foods rich in Vitamin C such as strawberries, oranges, papayas, kale and north peppers. Continue to take your vitamins if you are .?? If you are not follow the instructions of your provider.?? If you were prescribed iron supplements such as ferrous sulfate, it is important to continue these until your doctor or welding production supervisor tells you to stop. Breast Care for Nursing Mothers: Wear a comfortable fitting, supportive nursing bra.?? An underwire bra is not recommended. Express drops of breast milk and rub over your nipples and areola (brown area) before and after each feeding to protect and heal sensitive skin and then air dry your nipples.?? If you are experiencing any soreness, you may purchase nipple cream such as TenderCare or Lansinoh.?? Use it in the following manner:?? finish your feeding or pumping session, self-express colostrum onto your nipple and air dry, apply the nipple cream to the nipple and areola.?? Use only small amounts for best results. If you are having difficulty getting the baby to latch onto the breast due to swelling of the areola, try applying pressure with your fingers for a couple of minutes above and below your nipple and walk your fingers outward softening the area and pushing the swelling away.?? This technique is knownas reverse pressure softening.?? For demonstrations of this and other techniques such as the Latty Hand Expression technique, please refer to the resources section of the Consultation Services Guide that you received from services. When your milk first comes in, usually within 3 to 5 days after delivery, you may experience engorgement.?? Your breasts may become swollen and very tender.?? Cold compresses work great to help with discomfort and reduce swelling. It will get better in a couple of days.?? Continue to nurse your baby frequently.?? Call [facility]???s Consultation Service at [phone], press 1 to schedule an outpatient appointment or press 3 and a senior erp consultant will return your call that day or the next if you call after 3pm. Breast Care for Bottle Feeding Mothers: Engorgement may occur within the first week after delivery.?? Your breasts may become hard and verytender.?? A cool compress of cleaned raw green cabbage leaves applied to the breast and changed as leaves wilt has been proven helpful for many women.?? Ice packs or frozen bags of peas also work nicely to ease the discomfort.?? The soreness will only last a couple of days. Keep your back turned to the water while showering to decrease breast stimulation. Wear a snug fitting bra such as a sports bra. Incision Care Following Tubal or Section: You may shower as directed by your doctor or welding production supervisor.?? Pat your incision dry with a clean towel.??You will not need a bandage after the first day. Call your doctor or welding production supervisor with any signs of infection such as a hard, hot swollen tender incision, especially if the skin around the incision looks pink or red.?? Yellow drainage with an odor may also be a sign of infection to report. Call your doctor or welding production supervisor if the incision begins to separate. If you have steri-strips on the incision, they will likely fall off in the first week.?? If they have not fallen off by 10 days after delivery, you may remove them. Control: Your doctor or welding production supervisor will discuss control methods with you when you are discharged from thespital or at your checkup.?? Be sure to let your provider know if you are . You had a Paragard IUD placed on .?? This control method is effective for 10 years. You had a Liletta placed on .?? This control method is effective for up to 5 years. You had a Nexplanon placed on .?? This control method is effective for up to 3 years. You received a Depo Provera injection on .?? This control method is effective as longas you repeat it every 3 months.?? Schedule your next dose before . You have a prescription for control pills .?? It is important to take a pill everyday at around the same time of day for effective control protection.?? Pain Management: Cramping after is common and increases in strength with each baby you have.?? If you experience painful cramps, and have no allergies to acetaminophen (Tylenol) or ibuprofen (Motrin), you may continue to take these medications as you did in the hospital.?? Ibuprofen is also helpful with back aches following epidurals, perineal pain following a vaginal delivery, and moderate incisional pain after a section or a tubal ligation.?? If you experience gas distention, especially after surgery, you may take an over the counter medication called simethicone.?? Take these chewable tablets 4 times a day as needed and directed on the package.?? Keep moving.?? Walking or rocking in a chair, will help to move the gas along.?? Mayito tea made with heated mayito gerhard (instead of water) and a tea bag, stirred to dissolve carbonation (bubbles) is a helpful drink to soothe a gassy stomach. Warning Signs of a Problem to Notify Your Doctor or Maint Mechanic of: Heavy vaginal bleeding ??? which is soaking a pad every hour with bright red blood. Passing blood clots the size of an egg or larger. An incision that is not healing. A temperature greater than or equal to 100.4 especially if accompanied by any of the following symptoms ??? painful, frequent urination; extreme back or flank pain; lower belly pain with a foul smellto your vaginal flow; a red hard hot area on your breast.?? Severe headache that does not go away after taking acetaminophen or ibuprofen.?? A headache that changes your vision, including seeing spots or blurring. Right sided upper abdominal pain along the rib cage area. Pain in your legs that is warm and tender to the touch. depression signs may include ??? loss of interest in your baby, weepiness, difficulty focusing, weight loss with no appetite, exhaustion, feeling overwhelmed or anxious, feelings of despair, or thoughts of harming yourself or your baby.?? These symptoms are important and should be discussed with your doctor or welding production supervisor. depression may develop over a period of time and needs prompt medical attention.?? Do not suffer in silence.?? In both the Becoming a Family booklet and [facility] there is a screening tool used to identify women at risk, called the Wever Scale which you have taken in the office prior to delivery and again during your hospital s trinh.?? Three to four weeks after your delivery, and before your check with your provider, take this test and share your results with your provider.?? Be sure to mention any score of 10 or more.?? Many women, and even some partners, may experience the ???baby blues?? .?? This is a state of feeling overwhelmed and weepy.?? Discomfort from childbirth, hormonal changes, exhaustion, changes to your body and lifestyle are a few of the things that contribute to the highs and lows new parents go through.?? Don???t be afraid to ask your partner or family and friends for some help at home so you can get some rest and a few minutes to yourself.?? The blues will quickly pass. Personal Safety: Every person has the right to feel safe at home and live free from physical or emotional harm.?? Ifyou have suffered mental or physical abuse at home, you are not alone.?? There is help.?? Please call HOTLINE or the [facility] Program at [phone]. CARE Bathing: Give your baby a sponge bath until the cord falls off in about 1-3 weeks.?? It is not necessary to bathe your baby every day, usually every few days is sufficient. ??Keep the cord area dry.?? Some baby girls will have a small bloody vaginal discharge. No need to worry as this is normal. It is not necessary to use lotions on the baby???s skin.?? Powders and oils are not recommended.?? Babies often get rash on their skin which comes and goes quickly and does not require any special care.?? Diaper rash can be treated with a zinc oxide preparation such as Desitin or Balmex diaper cream. Circumcision Care: Your nurse will teach you how to care for your baby???s circumcision depending on the type of circumcision your doctor or welding production supervisor performed.?? Most circumcisions require A&D ointment for about 4-5 days.?? Be generous with the amount of A&D used as this will prevent the diaper from sticking when you go to change it. If a plastibell circumcision was done, the plastic ring around the penis will fall off in a week orso. Diapers: After the 1st??few days, the baby will start wetting more often.?? A breast fed baby will wet about6-8 times a day once mom???s milk comes in ??? usually day 4 or 5.?? This is a good sign that the baby is getting plenty to eat.?? You may notice an orangey-pink stain in the diaper which is normal for the first few days. The baby???s first bowel movements are sticky, black and tarry.?? As the baby starts to feed more often over the next couple of days, the stool will change to a seedy yellowish green color and eventually a loose mustard like stool for a breast fed baby and a more formed yellow stool for a bottle fed baby. your Baby: ??Congratulations on deciding to breastfeed your baby! You are providing your baby with the most nourishing food source on the planet, your breast milk.?? Cues such as rooting, suckling, licking and fussing may be telling you that your baby is ready to eat ??? and it is time to offer your breasts. The first weeks following the are a time for you and your baby to learn.?? The baby may be sleepy the first day after with 8 to 12 attempts ??? including 2 to 4 good feedings.?? Over the next couple of days the baby will become more wakeful, feed 8 to 12 times a day and have more wet and poopy diapers.?? Cluster feeding, especially during the evening/night time, is normal. ?? Listen for swallowing sounds and watch the baby as they become more relaxed at the breast ??? both good signs that the baby is getting a good amount of milk.?? Refrain from smoking or eating edible marijuana while you are . Even though marijuana is legal in the state of [place],??it is harmful for your baby.??It stays in breast milk for along period of time and THC can be found in the baby's urine for up to 3 weeks. Second hand smoke can also increase the risk??of Sudden Infant Syndrome / SIDS. ?? Nursing is wonderful but many moms and babies have some degree of difficulty with at first. Don???t give up!?? There are many resources available to help you overcome these temporary problems. Your prescription clerk wants to hear from you if you are having difficulties and can offermany helpful suggestions.?? Some offices have consultants on staff. [facility]???s Consultation Service is available 7 days a week, 8am to 3pm at [phone].?? Press 1 to schedule an outpatient appointment.?? Press 3 to leave a message for the telesales consultant, a senior erp consultant will return your call that day or the next if you call after 3pm. Support Groups ??? [facility] offers free gatherings for moms and babies weekly.?? All groups meet at the [facility]???s 2nd??floor, typically in the [facility] Conference Room, Sunday???s 1 to 2 pm.?? [employer] is a worldwide organization with local community support, mother to mother support.?? Information can be found at https://www.lllusa.org Formula Feeding your Baby: Formula fed babies should eat every 3 to 4 hours.?? Look for cues that your baby is ready ??? such as rooting and sucking, licking and fussing.?? At the baby???s stomach is small and may take 10-15ml of formula.?? Over the next few days the baby will become more wakeful and feed more frequently, gradually increasing the amounts of formula taken at a feeding.?? Your prescription clerk will provideinstructions on how to increase the amount.?? Refer to packaging for formula preparation directions, depending on the type of formula you purchase ??? powder, concentrate or ready to feed. Infant Safety: ALWAYS REMEMBER - BACK TO SLEEP! Babies sleep safest on their backs.?? Every sleep.?? Every time.?? Every nap. Babies need a firm sleep surface with a tight fitting bottom sheet.?? NO loose bedding.?? NO pillows.?? NO bumper pads or rolls.?? NO heavy or fluffy blankets. NO stuffed toys. It is not safe for your baby to sleep in your bed, in a chair, or on a sofa.?? Your baby should notsleep with you or anyone else. Car Seat: Always place your baby in a rear facing car seat in the backseat of the car. Car seat inserts that come with the car seat can be used as they are crash tested with the seat.?? You should not buy additional inserts.?? Dress the baby in a weather appropriate outfit.?? Avoid bulky clothing such as snowsuits or jackets as the baby may squirm in the seat, loosening the shoulder straps and come out of the top of the harness if you need to brake hard or are in an accident.?? Once the baby issecured in the seat you can cover your little one with a blanket if needed.?? If your baby was bornprematurely, follow the directions given to you.?? If you have not already done so, check to make sure your car seat is installed correctly. Check with your local Fire and Police Department to see if they offer car seat inspections at a location close to you. Babies Can Move: ?? Never leave your baby unattended on any surface, raised or flat, or while bathing.?? They can squirm, fall or hurt themselves.?? Always fasten the safety belt when using an infantseat or swing ??? as they may lean forward and fall. Good Handwashing is the number one way you can protect the baby from too?? many germs and prevent infection.?? When family and friends visit ask that they wash their hands before holding your baby.??Also avoid crowds the first month of your baby???s life to protect from colds and flus. Shaking a baby out of frustration can cause severe and lasting damage, even to a baby.?? If you feel you are becoming angry or overwhelmed, place the baby in a safe place and walk away.?? Call a friend or family member.?? If they are not able to offer immediate help call the Parental Stress Hotline at?? , an anonymous 04/12 source of help. Warning Signs to notify your prescription clerk of: Most babies develop a small amount of jaundice (a yellowish skin color) in the face and upper chest, by about 3 days of age.?? If the yellow color extends below the baby???s belly or if the baby is very sleepy and not feeding well, call your prescription clerk. A rectal temperature of 100.4F as it could be a sign of infection. Projectile vomiting that continues with each feeding could indicate reflux or a problem with the formula. Extreme sleepiness or very fussy. Cold symptoms with nasal stuffiness, especially if the baby is having difficulty feeding. Constipation with hard stools. Blue or dusky color, call 911. If Your Baby Needs to Remain in the Hospital: Please leave your baby???s ID bracelets on if your baby needs to remain in the hospital after you are discharged home. The phone number to NICU is [phone]. The phone number to [facility] is [phone]. The phone number to [facility] is [phone]. moms should pump every 2-3 hours or 8-12 times in 24 hours.?? If unable to place the baby to breast, if you are having difficulty getting the baby to latch on, or if the baby remains inthe hospital after you are discharged ??? bring the pumped milk to the hospital, labeled with name,date and time.?? Carry it in a small cooler or diaper bag with an ice pack and bring it the next time you visit your baby.?? Consultation Services is available if you need to rent or purchase a pump or products.?? Call and leave a message at [phone] ??? press 3 and a senior erp consultant will return your call that day or the next if you call after 3pm. ? * Gaby Sandy RN: PERFORM Event Display: Patient Education Leaflets Authored Date: [id number] Hyperbilirubinemia in a ?? [id number] Hyperbilirubinemia in the What is hyperbilirubinemia in a ? Hyperbilirubinemia happens when there is too much bilirubin in your baby???s blood. Bilirubin is made by the breakdown of red blood cells. It???s hard for babies to get rid of bilirubin??at first. It can build up in their blood, tissues, and fluids. Bilirubin has a color. It makes a baby???s skin, eyes, and other tissues??turn yellow (jaundice). Jaundice may first appear when your baby is born. Or it may also show up any time after . How to say it [id number] ? What causes hyperbilirubinemia in a ? During , the placenta removes bilirubin from your baby???s blood. When a baby is born, thebaby's liver takes over this job. Your baby may have too much bilirubin for many reasons. Physiologic jaundice During the first few days of life, babies aren???t able to get rid of much bilirubin. This??normal??type of jaundice happens as a response to a baby???s reduced ability to remove bilirubin.??But it may be hard at first to tell if jaundice is being caused by another problem. ?? Suboptimal intake jaundice Some??babies don???t feed well at first. This is common in breastfed babies, especially if it is the parent's first time . Not feeding well makes your baby dehydrated. It also causes your baby to urinate less. This makes bilirubin build up in your baby???s body. Babies born between 34 to 36 weeks of are more likely to get this problem. These babies often don???t have the coordination and strength to breastfeed well. But this condition is also common in??early-term newborns??(37 to 38 weeks).??It can also happen in any newborns who have had a difficult start, especially if they were from their parent and unable to feed often. It usually gets better once a baby learns how to breastfeed well. ?? Breastmilk jaundice About 1 in 50 breastfed babies get jaundiced for a prolonged period of time. This happens later in??their first week of life. It peaks at about 2 weeks of age. It can last 3 to 12 weeks.??It is not dangerous, but tests may need to be done to rule out other problems that are dangerous. This issue may be caused by a substance in breastmilk. This substance may increase how much bilirubin the baby's body can reabsorb. ?? Jaundice from hemolysis If your baby has Rh or ABO incompatibility, they may get this type of jaundice. This condition refers to hemolytic diseases of the caused by a baby having a different blood type from the parent. This issue can also be from having too many broken down red blood cells from a condition like an infection. Or it may be caused by rare problems where the red blood cells are more fragile than normal.??Hemolysis is the word for the process in which the red blood??cells??break down and release bilirubin. ?? Jaundice caused by poor liver function Jaundice can happen if your baby???s liver doesn???t work well. This may be because of an infectionor other factors.??The liver is the part of the body most responsible for getting rid of bilirubin.A problem with the liver can cause higher levels of bilirubin. ? Which newborns are at risk for hyperbilirubinemia? About 3 in 50 full-term newborns become jaundiced. So do 4 in 5 premature babies. Babies born to a parent with diabetes or Rh disease are more likely to have this condition. Babies who underwent a difficult birthing process that resulted in significant bruising or bleeding under the scalp arealso at risk for hyperbilirubinemia. ?? What are the symptoms of hyperbilirubinemia in a ? Symptoms can occur a bit differently in each child. They can include: ??? Yellowing of your baby???s skin and the whites of their eyes. This often starts on a baby???s face and moves down their body. ??? Poor feeding ??? Lack of energy The symptoms of this health problem may be similar to symptoms of other conditions. Make sure your child sees a healthcare provider for a diagnosis. ?? How is hyperbilirubinemia in a diagnosed? The timing of when your child???s jaundice first starts matters. It may help their healthcare provider make a diagnosis. ??? First 24 hours. This type of jaundice is often serious. Your child will likely need treatment right away. ??? Second or third day. ??This is often physiologic jaundice. Sometimes it can be a moreserious type of jaundice. It's important to be sure the baby is getting enough milk at this point. ??? Toward the end of the first week. This type of jaundice may be from??breastmilk jaundice but maybe due to??an infection??or other rare, serious problems. ??? In the second week.??This is often caused by breastmilk jaundice??but may be caused by rare liver problems. Your child???s healthcare provider may do these tests to confirm the diagnosis: ??? Direct and indirect bilirubin levels. These levels show if bilirubin is bound with other substances by your child???s liver. Normal physiologic jaundice has indirect bilirubin. Jaundice due to more serious problems can have high levels of either type of bilirubin. ??? Red blood cell counts ??? Blood type and testing for Rh incompatibility (Alen test) ?? How is hyperbilirubinemia in a treated? Treatment will depend on your child???s symptoms, age, and general health. It will also depend on how bad the condition is. Phototherapy Bilirubin absorbs light. High bilirubin levels often decrease when a baby is put under special bluespectrum lights. This is called phototherapy. Your child may get this treatment in the day and night. It may take several hours for it to start working. During light treatment, your baby???s eyes will be protected. Your baby???s healthcare provider will check your baby???s temperature. They will also test your baby???s bilirubin levels. This will tell if phototherapy is working. ?? Fiber optic blanket A fiber optic blanket is another form of phototherapy. The blanket is usually put under your baby. It may be used alone or with regular phototherapy. ?? Exchange transfusion This??treatment??removes your baby???s blood that has a high bilirubin level. It replaces it with fresh blood that has a normal bilirubin level. This raises your baby???s red blood cell count. It also lowers their bilirubin level.??During the procedure,??your baby will switch between giving and getting small amounts of blood. This will be done through a vein or artery??in the baby's umbilical cord.??It is only done in an intensive care nursery when bilirubin levels are extremely high. Your babymay need to have this procedure again if their bilirubin levels stay high. ?? Feeding with breastmilk The [place] [employer] says that you should keep a baby with jaundice.??If your baby has not been getting enough milk at the breast,??you may need to supplement with pumped breastmilk or formula. ?? Treating any underlying cause of the condition This may include treating an infection. ? What are possible complications of hyperbilirubinemia in a ? High levels of bilirubin can travel to your baby???s brain. This can cause seizures and brain damage. This is called kernicterus. ?? What can I do to prevent hyperbilirubinemia in my ? This condition can???t really be prevented??except in the case of suboptimal intake jaundice.??Feedings should start within the first hour of life and continue at least every 2 or 3 hours, or sooner if the baby shows signs of wanting to eat.??The more premature??the baby, the more likely they are to need supplements of expressed milk or formula at first.??For all babies, diagnosing jaundice earlyand getting treatment right away are wagner. This can stop your baby???s bilirubin levels from rising to dangerous levels. ?? Wagner points about hyperbilirubinemia in the ??? Hyperbilirubinemia happens when there is toomuch bilirubin in your baby???s blood. ??? About 3 in 5 full-term newborns and 4 in 5 premature babies become jaundiced. ??? The most common symptom is yellowing of your baby???s skin and the whites of their eyes. ??? The timing of when your child???s jaundice first starts matters. It can help their healthcare provider make a diagnosis. ??? Make sure you feed your baby early and often. ??? Diagnosing jaundice early and getting treatment right away are wagner. This can stop your child???s bilirubinfrom rising to dangerous levels. ?? Next steps Tips to help you get the most from a visit to your child???s healthcare provider: ??? The name of the test or procedure ??? The reason your child is having the test or procedure ??? What results to expect and what they mean ??? The risks and benefits of the test or procedure ??? When and where yourchild is to have the test or procedure ??? Who will do the procedure and what that person???s qualifications are ??? What would happen if your child did not have the test or procedure ??? Any alternative tests or procedures to think about ??? When and how you will get the results ??? Who to call after the test or procedure if you have questions or your child has problems ??? How much you will have to pay for the test or procedure ?? Last Reviewed Date: 2022 ?? The [employer]. All rights reserved. This information is not intended as a substitute for professional medical care. Always follow your healthcare professional's instructions. ?? * Mj GRIMES, Dilcia: PERFORM Event Display: Care Team Progress Note Authored Date: Patient: ??CHAZ LACKEY ? Age:??22 Years?Sex:??Female?:??2000?? Subjective Mom says she has been charging her home pump here because she decided she would like to pump to give breast milk that way because the baby would not latch and she has gotten about 60 ml of formula a few times and has been sleeping. Assessment/Plan ?? Gave Chaz a symphony pump to use while she is inpatient and explained the difference in pumps, and educated that her home pump parts are not sterile out of the box, and should not be used until they are sterilized. She was educated on how to support a milk supply when exclusively pumping and wasencouraged to begin pumping as soon as possible and maintain a consistent pumping schedule. ?? She did not want to pump while I was there consulting, as she had a visitor. She was encouraged to call if needing help with the pump after she was explained how to use it. ? Symphony pump use demonstrated.?Initiation/maintenance mode explained.?Educated on: Frequency and duration of pumping Hands on pumping Adding hand expression to increase milk yield Correct flange size Cleaning of pump parts Labeling of breast milk Milk storage Transport of breast milk. Flange size not yet evaluated. ? OB Summary : 1 . Baby A - Weight: 3.152 kg Baby A - Date, Time of : 01/28/23 21:32:00 Baby A - Gender: Female Baby A - Complications: Suspected infection EGA at Documented Date, Time: 39W 3D Weight at Delivery Baby A - Delivery Type: , low transverse Delivery Complications: None OB History History?(0,0,0,0)?No previous pregnancies history have been recorded Active Problem List Active Problem List Anemia in : (Medical) Anxiety: (Medical) Encounter for induction of labor: (Medical) Gestational HTN: (Medical) History of depression: (Medical) History of inadequate care: (Medical) Maternal fever affecting labor: (Medical) Migraine: (Medical) Obesity in : (Medical) : (Obstetric) (04/27/22) : (Medical) Home Medications Acetaminophen/Butalbital/Caffeine: 1 tablet, By Mouth, Every 4 hours, PRN ( NEEDED), MAY INCREASETO 2 TABLETS EVERY 4 HOURS IF PAIN IS NOT RELIEVED BY 1 TABLET. USE SPARINGLY. DO NOT EXCEED 6 TABLETS PER DAY OR 4,000 MG OF acetaminophen PER DAY Aspirin: 162 mg = 2 tablet, By Mouth, Daily Doxylamine: 25 mg = 1 tablet, By Mouth, Daily, PRN (Insomnia) Ferrous Sulfate: See Instructions, Take one tablet By Mouth every other day. Take with vitamin C tohelp absorption Multivitamin, : 1 tablet, By Mouth, Daily, Please prescribe PNVs that are covered by pt's insurance. Multivitamin, : 1 tablet, By Mouth, Daily, Please prescribe PNVs that are covered by pt's insurance. Mupirocin Topical: 1 application, Topically, 3 times a day Pyridoxine: Daily Medications Medications (24) Active SCHEDULED: (9) Acetaminophen 325 mg Tablet (acetaminophen 325 mg oral tablet) ??975 mg, By Mouth, Every 6 hours Acetaminophen 325 mg Tablet (Acetaminophen Tablet) ??650 mg, By Mouth, Every 4 hours Ampicillin 2 Gm Inj (Ampicillin IVPB) ??2 Gm, IVPB, Every 6 hours Docusate Sodium 100 mg Capsule (Docusate Sodium Capsule) ??100 mg 1 capsule, By Mouth, 2 times a day Famotidine 20 mg Tablet (Famotidine Tablet) ??20 mg, By Mouth, 2 times a day Gentamicin 40mg/mL IVPB (Gentamicin PETER IVPB) ??360 mg 9 mL, IVPB, Every 24 hours Gentamicin 40mg/mL IVPB (Gentamicin PETER IVPB) ??360 mg 9 mL, IVPB, Once Ibuprofen 800 mg Tablet (Ibuprofen Tablet) ??800 mg, By Mouth, Every 8 hours Ketorolac 30 mg/mL Inj (Ketorolac Inj) ??15 mg 0.5 mL, IV Push Slowly, Every 6 hours CONTINUOUS: (2) Lactated Ringers (1000 mL) Cont IV 1,000 mL (LR 1,000 mL) ??1,000 mL, IV Infusion, 50 mL/hr Lactated Ringers (1000 mL) Cont IV 1,000 mL (Lactated Ringers 1,000 mL) ??1,000 mL, IV Infusion, 125 mL/hr PRN: (13) Acetaminophen 325 mg Tablet (Tylenol 325 mg oral tablet) ??975 mg, By Mouth, Every 6 hours Acetaminophen 325 mg Tablet (Acetaminophen Tablet) ??650 mg, By Mouth, Once diphenhydrAMINE 25 mg Tablet (DiphenhydrAMINE Tablet) ??25 mg, By Mouth, Every 4 hours diphenhydrAMINE 50 mg/mL Inj (DiphenhydrAMINE Inj) ??25 mg 0.5 mL, IV Push, Once Metoclopramide 5 mg/mL Inj (2 mL) (Metoclopramide Inj) ??10 mg, IV Push, Every 6 hours nalOXONE ??400mcg/mL Inj (nalOXONE Inj) ??0.1 mg 0.25 mL, IV Push Slowly, Every 15 minutes Ondansetron 2mg/mL Inj (2mL Vial) (Zofran Inj) ??4 mg, IV Push, Every 6 hours Ondansetron 2mg/mL Inj (2mL Vial) (Ondansetron Inj) ??4 mg, IV Push, Once Ondansetron 2mg/mL Inj (2mL Vial) (Ondansetron Inj) ??4 mg, IV Push Slowly, Once OxyCODONE 5 mg IR Tablet (OxyCODONE IR Tablet) ??5 mg, By Mouth, Every 3 hours OxyCODONE 5 mg IR Tablet (OxyCODONE IR Tablet) ??10 mg, By Mouth, Every 3 hours OxyCODONE 5 mg IR Tablet (OxyCODONE IR Tablet) ??5 mg, By Mouth, Every 3 hours Simethicone 80 mg Chewable Tablet (Simethicone Tablet) ??80 mg, Chew, 3 times a day Patient Care team information Care Team Personnel Name: Saadia Guido NP Position: Reference Physician Member Role: PCP Address: Address: [address] [place] [address]- Name: Gaby Sandy RN Position: S OB RN Member Role: Patient Care Provider Care Team Related Persons Name: SHIMA HERNANDEZLIAN Address: home [address] [place] [address] Name: DEWAYNE HERNANDEZ Address: home [address] [place] [address] Name: SANTY PEARSON Address: home [address] [place] [address] Name: DARYA MORMISBAH GIRL Address: [address] Address: home [address] [place] [address] [place] Name: SOL LACKEY Address: home [address] [place] [address] Name: HORTENSIA LACKEY
--- OUTSIDE RECORDS SUMMARY | 2023-11-30 22:38 | XMS_ITS | Continuity of Care Document ---
Author Organization [facility] Address [address] [place] [address]- Care Team Providers Care Pneumatic Press Hand Name Role Phone Aftab Chahal MD Primary Care Physician Encounter [facility] Date(s): 06/22/22 - 07/22/22 [facility] and [address] [address]- Allergies, Adverse Reactions, Alerts No Known Allergies Medications PNV Select oral tablet 1 tablet, By Mouth, Daily, Please prescribe PNVs that are covered by pt's insurance., # 30 tablet, 11 Refills, Maintenance, 06/19/22 10:25:00 [facility], Partial fill upon patient request if the prescription is for a schedule... Start Date: 06/19/22 Stop Date: 06/14/23 Status: Ordered Problem List Condition Confirmation Course Effective Dates Status Health St [facility] Informant Anxiety Confirmed Active History of depression Confirmed Active Insomnia Confirmed Active Migraine Confirmed Active Severe obesity Confirmed Active Social History Social History Type Response Smoking Status Never (less than 100 in lifetime) entered on: 06/29/22 Sex Patient Care team information Care Team Personnel Name: Aftab Chahal MD Position: [facility] Outreach Member Role: PCP Address: Address: [address] [place] [address]- Care Team Related Persons Name: LIBRADO HERNANDEZ Address: home [address] [place] [address] Name: DEWAYNE HERNANDEZ Address: home [address] [place] [address] Name: SANTY PEARSON Address: home [address] [place] [address] Name: SOL LACKEY Address: home [address] [place], [place]
--- OUTSIDE RECORDS SUMMARY | 2023-11-30 22:38 | XMS_ITS | Continuity of Care Document ---
Author Organization [facility] Address [address] [place] [address]- Care Team Providers Care Professional Driver Name Role Phone Saadia Guido NP Primary Care Physician [facility]23 - 04/13/23 [facility] [address] [place] [address]- Allergies, Adverse Reactions, Alerts No Known Allergies [...] 03/12/23 13:43:00 EDT, Route to Pharmacy Electronically, [facility], Partial fill upon patient request if the prescription is for a chris... Start Date: 03/12/23 Status: Ordered Vitamin C 250 mg oral tablet, chewable 1 tablet = 250 mg, Chew, Daily, every other day with iron supplement, # 45 tablet, 0 Refills, Maintenance, 03/12/23 13:44:00 EDT, Chew Tablet, [facility], Partial fill upon patient [...] Physician Member Role: PCP Address: Address: [address] [place] [address]- Care Team Related Persons Name: LIBRADO HERNANDEZ Address: home [address] [place], [place] Name: DEWAYNE HERNANDEZ Address: [address] [place] Name: SANTY PEARSON Address: home [address] [place], [place] Name: NEIDA LACKEY Address: [id number] Address: home [address] [place], [place] Name: SOL LACKEY Address: home [address] [place] [address] Name: HORTENSIA LACKEY
--- OUTSIDE RECORDS SUMMARY | 2023-11-30 22:38 | XMS_ITS | Continuity of Care Document ---
Author Organization [facility] Address [address] [address]- Care Team Providers Care Distributor Publications Name Role Phone Saadia Guido NP Primary Care Physician [facility] 04/21/23 - 08/19/23 [facility] [address] [address]- Attending Physician: Not on Staff, Attending MD Admitting Physician: Tammy Ramirez CNM Referring Physician: Not on Staff, Referring MD Allergies, Adverse Reactions, Alerts No Known [...] 03/12/23 13:43:00 EDT, Route to Pharmacy Electronically, [facility], Partial fill upon patient request [...] Refills, Maintenance, 03/12/23 13:44:00 EDT, Chew Tablet, [facility], Partial fill upon patient request [...] Physician Member Role: PCP Address: Address: [address] [place], [place] [address] Care Team Related Persons Name: LIBRADO HERNANDEZ Address: home [address] [place] [address] Name: DEWAYNE HERNANDEZ Address: home [address] [place] [address] Name: SANTY PEARSON Address: home [address] [place] [address] Name: NEIDA LACKEY Address: [address] Address: home [address] [place] [address] [place] Name: SOL LACKEY Address: home [address] [place] [address] Name: HORTENSIA LACKEY
--- OUTSIDE RECORDS SUMMARY | 2023-11-30 22:38 | XMS_ITS | Continuity of Care Document ---
Author Organization [facility] Address [address] [place] [address]- Care Team Providers Care Sql Engineer Name Role Phone Saadia Guido NP Primary Care Physician [facility]): 12/29/22 - 03/11/23 [facility] [address] [address]- Attending Physician: Not on Staff, Attending MD Referring Physician: Kortney Nuñez CNM Allergies, Adverse [...] 0 Refills, Maintenance, 01/30/23 6:53:00 EDT, Tablet, [facility], Partial fill upon patient [...] 07/25/22 10:07:00 EDT, Route to Pharmacy Electronically, [facility], Partial fill upon patient [...] 01/30/23 6:54:00 EDT, Route to Pharmacy Electronically, [facility], Partial f... Start Date: 01/30/23 Status: Ordered mupirocin 2% topical ointment 1 application, Topically, 3 times a day, # 15 Gm, 0 Refills, Maintenance, 01/09/23 17:32:00 EDT, Ointment, [facility], Partial fill upon patient [...] 01/30/23 6:54:00 EDT, Route to Pharmacy Electronically, [facility], Partial kelsy... Start Date: 01/30/23 Status: Ordered PNV Select oral tablet 1 tablet, By Mouth, Daily, for 30 days, Please prescribe PNVs that are covered by pt's insurance., # 30 tablet, 11 Refills, Hard Stop 06/14/23 10:25:00 EST, 06/19/22 10:25:00 EST, [facility], Partial fill upon patient request if th... Start Date: 06/19/22 Stop Date: 06/14/23 Status: Ordered PNV Select oral tablet 1 tablet, By Mouth, Daily, Please prescribe PNVs that are covered by pt's insurance., # 30 tablet, 11 Refills, Maintenance, 06/14/23 10:25:00 EST, [facility], Partial fill upon patient request if the prescription is for a schedule... Start Date: 06/14/23 Stop Date: 06/08/24 Status: Ordered senna - oral tablet 2 tablet, By Mouth, Daily at bedtime, PRN for constipation, , 90 day supply not indicated., # 60 tablet, 0 Refills, Maintenance, 01/30/23 6:54:00 EDT, Tablet, [facility], Partial fill upon patient request if the prescript... Start Date: 01/30/23 Status: Ordered Unisom 25 mg oral tablet 1 tablet = 25 mg, By Mouth, Daily, PRN Insomnia, # 30 tablet, 0 Refills, Maintenance, 08/21/22 14:10:00 EDT, Tablet, [id number], Partial fill upon patient request if the [...] Reference Physician Member Role: PCP Address: Address: [address] [place] [address]- Care Team Related Persons Name: LIBRADO HERNANDEZ Address: home [address] [place] [address] Name: DEWAYNE HERNANDEZ Address: home [address] [place] [address] Name: SANTY PEARSON Address: home [address] [place] [address] Name: NEIDA LACKEY Address: [address] Address: home [address] [place] [address] Name: SOL LACKEY Address: home [address] [place] [address] Name: HORTENSIA LACKEY
--- OUTSIDE RECORDS SUMMARY | 2023-11-30 22:39 | XMS_ITS | Continuity of Care Document ---
Author Organization [facility] Address [address] [place] [address]- Care Team Providers Care Automotive Parts Counter Assistant Name Role Phone Saadia Guido NP Primary Care Physician [facility] 10[facility]25[facility]22 - [facility] [address] [address]- Allergies, Adverse Reactions, Alerts No Known Allergies [...] 07/25/22 10:07:00 EDT, Route to Pharmacy Electronically, [facility], Partial fill upon patient request [...] tablet, 11 Refills, Maintenance, 06/19/22 10:25:00 EST, [facility], Partial fill upon patient request if the prescription is for a schedule... Start Date: 06/19/22 Stop Date: 06/14/23 Status: Ordered Unisom 25 mg oral tablet 1 tablet = 25 mg, By Mouth, Daily, PRN Insomnia, # 30 tablet, 0 Refills, Maintenance, 08/21/22 14:10:00 EDT, Tablet, [id number], Partial fill upon patient [...] Reference Physician Member Role: PCP Address: Address: [address] [place] [address]- Care Team Related Persons Name: LIBRADO HERNANDEZ Address: home [address] [place] [address] Name: DEWAYNE HERNANDEZ Address: [address] [place] [address] Name: SANTY PEARSON Address: [address] [place] [address] Name: SOL LACKEY Address: home [address] [place] [address]
--- OUTSIDE RECORDS SUMMARY | 2023-11-30 22:39 | XMS_ITS | Continuity of Care Document ---
Author Organization [facility] [employer] [facility] Address [address] [facility] [place] [address]- Care Team Providers Care Bulb Brander Name Role Phone Hay VOGT, Saadia Primary Care Physician Encounter [facility] Date(s): 01/11/23 - 01/18/23 [facility] [employer] [employer] [facility] [address] [facility], 4th [place] [address]- Attending Physician: Kenya Noble MD Referring Physician: Kortney Nuñez CNM Allergies, [...] 07/25/22 10:07:00 EDT, Route to Pharmacy Electronically, [facility], Partial fill upon patient request [...] 0 Refills, Maintenance, 01/09/23 17:32:00 EDT, Ointment, [facility], Partial fill upon patient request if the prescription is fora schedule II opioid drug., 1 application Topically... Start Date: 01/09/23 Status: Ordered PNV Select oral tablet 1 tablet, By Mouth, Daily, for 30 days, Please prescribe PNVs that are covered by pt's insurance., # 30 tablet, 11 Refills, Hard Stop 06/14/23 10:25:00 EST, 06/19/22 10:25:00 EST, [facility], Partial fill upon patient request if th... Start Date: 06/19/22 Stop Date: 06/14/23 Status: Ordered PNV Select oral tablet 1 tablet, By Mouth, Daily, Please prescribe PNVs that are covered by pt's insurance., # 30 tablet, 11 Refills, Maintenance, 06/14/23 10:25:00 EST, [facility], Partial fill upon patient request if the prescription is for a schedule... Start Date: 06/14/23 Stop Date: 06/08/24 Status: Ordered Unisom 25 mg oral tablet 1 tablet = 25 mg, By Mouth, Daily, PRN Insomnia, # 30 tablet, 0 Refills, Maintenance, 08/21/22 14:10:00 EDT, Tablet, [id number], Partial fill upon patient request if [...] 100 in lifetime) entered on: 06/29/22 Sex Radiology * Event Display: PDC Follow up Growth * Event Display: PDC Follow up Growth Authored Date: [id number] OBSTETRICS REPORT PATIENT INFO: CMRN: [id number] BMRN: [id number] : [birth year] (22 yrs)(F) Name: CHAZ LACKEY Visit Date: 01/11/2023 10:51 am PERFORMED BY: Performed By: Tiffani Cabrera RDMS Attending: Trisha Howard MD Referred By: Kortney Nuñez CNM Location: [address] INDICATIONS: History of inadequate care O09.30 M - BMI O99.21_ E66.01 VITAL SIGNS: Height: 5' EVALUATION: Num Of Fetuses: 1 Heart Rate(bpm): 135 Cardiac Activity: Present Presentation: Cephalic Placenta: Posterior Amniotic Fluid ABRAHAM FV: Within normal limits ABRAHAM Sum(cm) Largest Pocket(cm) 19.1 6.7 RUQ(cm) RLQ(cm) LUQ(cm) LLQ(cm) 4 4.5 6.7 3.9 BIOMETRY: BPD: 86.7 mm G.Age: 35w 0d 12 % HC: 333.7 mm G.Age: 38w 1d 49 % AC: 319.8 mm G.Age: 35w 6d 29 % FL: 71.7 mm G.Age: 36w 5d 38 % CI: 68.89 % 70 - 86 FL/HC: 21.5 % 20.8 - 22.6 HC/AC: 1.04 0.92 - 1.05 FL/BPD: 82.7 % - 87 FL/AC: 22.4 % 20 - 24 Est. FW: 2889 gm 6 lb 6 oz 33 % GESTATIONAL AGE: LMP: 37w 1d Date: 04/26/22 [place]: 01/31/23 / Today: 36w 3d [place]: 02/05/23 Best: 37w 1d Det. By: LMP (04/26/22) [place]: 01/31/23 CERVIX UTERUS ADNEXA: Cervix Not well seen COMMENTS: The estimated weight is within normal limits. Trisha Howard MD Electronically Signed Final Report 01/11/2023 11:04 am * Event Display: PDC Follow up Growth Authored Date: [id number] Please click on pdf link to open report Patient Care team information Care Team Personnel Name: Saadia Guido NP Position: Reference Physician Member Role: PCP Address: Address: [address] [place] [address]- [place] Care Team Related Persons Name: LIBRADO HERNANDEZ Address: home [address] [place] [address] Name: DEWAYNE HERNANDEZ Address: [address] [place] [address] Name: SANTY PEARSON Address: home [address] [place] [address] Name: SOL LACKEY Address: home [address] [place] [address]
--- OUTSIDE RECORDS SUMMARY | 2023-11-30 22:39 | XMS_ITS | Continuity of Care Document ---
Author Organization [facility] Address [address] [place] [address]- Care Team Providers Care Adult Secondary Education Instructor Name Role Phone Saadia Guido NP Primary Care Physician [phone] [facility] 08[facility]23[facility]22 - [facility]26/22 [facility] [address] [address]- Attending Physician: Not on Staff, Attending MD [...] 07/25/22 10:07:00 EDT, Route to Pharmacy Electronically, [facility], Partial fill upon patient request [...] tablet, 11 Refills, Maintenance, 06/19/22 10:25:00 EST, [facility], Partial fill upon patient request if the prescription is for a schedule... Start Date: 06/19/22 Stop Date: 06/14/23 Status: Ordered Unisom 25 mg oral tablet 1 tablet = 25 mg, By Mouth, Daily, PRN Insomnia, # 30 tablet, 0 Refills, Maintenance, 08/21/22 14:10:00 EDT, Tablet, [facility] #[id number], Partial fill upon patient request if the [...] Reference Physician Member Role: PCP Address: Address: [address] [place] [address]- Care Team Related Persons Name: LIBRADO HERNANDEZ Address: home [address] [place] [address] Name: DEWAYNE HERNANDEZ Address: [address] [place] [address] Name: SANTY PEARSON Address: home [address] [place] [id number] Name: SOL LACKEY Address: home [address] [place] [address]
--- OUTSIDE RECORDS SUMMARY | 2023-11-30 22:39 | XMS_ITS | Continuity of Care Document ---
Author Organization [facility] Address [address] [place] [address]- Care Team Providers Care Candy Feeder Name Role Phone Saadia Guido NP Primary Care Physician [facility]22 - 01/21/23 [facility] [address] [place] [address]- Allergies, Adverse Reactions, Alerts No Known Allergies [...] 30 tablet, 11 Refills, Maintenance, 06/14/23 10:25:00 [facility], [facility], Partial fill upon [...] Physician Member Role: PCP Address: Address: [address] [place] [address]- Care Team Related Persons Name: LIBRADO HERNANDEZ Address: home [address] [place], [place] Name: DEWAYNE HERNANDEZ Address: [address] [place] [address] Name: SANTY PEARSON Address: home [address] [place] [address] Name: SOL LACKEY Address: [address] [place] [address]
--- OUTSIDE RECORDS SUMMARY | 2023-11-30 22:39 | XMS_ITS | Continuity of Care Document ---
Author Organization [facility] Address [address] [place] [address]- Care Team Providers Care Parent Educator Name Role Phone Saadia Guido NP Primary Care Physician [facility] Date(s): 04/16/23 - 05/16/23 [facility] [address] [place] [id number] Allergies, Adverse Reactions, Alerts No [...] 03/12/23 13:43:00 EDT, Route to Pharmacy Electronically, [facility], Partial fill upon patient [...] Refills, Maintenance, 03/12/23 13:44:00 EDT, Chew Tablet, [facility], Partial fill upon patient [...] Physician Member Role: PCP Address: Address: [address] [place] [address]- Care Team Related Persons Name: LIBRADO HERNANDEZ Address: home [address] [place] [address] Name: DEWAYNE HERNANDEZ Address: [address] [place] [address] Name: SANTY PEARSON Address: home [address] [place] [address] Name: NEIDA LACKEY Address: [address] Address: home [address] [place] [address] [place] Name: SOL LACKEY Address: [address] [place] [address] Name: HORTENSIA LACKEY
--- OUTSIDE RECORDS SUMMARY | 2023-11-30 22:39 | XMS_ITS | Continuity of Care Document ---
Author Organization [facility] Address [address] [place] [address]- Care Team Providers Care [employer] Scout Name Role Phone Saadia Guido NP Primary Care Physician [facility]s): 12/29/22 - 01/28/23 [facility] [address] [place] [address]- Allergies, Adverse Reactions, Alerts No Known Allergies [...] tablet, 0 Refills, Maintenance, 09... Start Date: 01/22/23 Status: Ordered aspirin 81 mg oral delayed release tablet 162 mg, 2, tablet, By Mouth, Daily, # 90 tablet, Refills 3, Tot. Refills 3, Maintenance, 07/25/22 10:07:00 EDT, Route to Pharmacy Electronically, [facility], Partial fill upon patient request [...] 0 Refills, Maintenance, 01/09/23 17:32:00 EDT, Ointment, [facility], Partial fill upon patient request if the prescription is fora schedule II opioid drug., 1 application Topically... Start Date: 01/09/23 Status: Ordered PNV Select oral tablet 1 tablet, By Mouth, Daily, for 30 days, Please prescribe PNVs that are covered by pt's insurance., # 30 tablet, 11 Refills, Hard Stop 06/14/23 10:25:00 EST, 06/19/22 10:25:00 EST, [facility], Partial fill upon patient request if th... Start Date: 06/19/22 Stop Date: 06/14/23 Status: Ordered PNV Select oral tablet 1 tablet, By Mouth, Daily, Please prescribe PNVs that are covered by pt's insurance., # 30 tablet, 11 Refills, Maintenance, 06/14/23 10:25:00 [facility], [facility], Partial fill upon patient request [...] Effective Dates Status Health St atus Informant Anemia in Confirmed Active Anxiety Confirmed Active History of inadequate care Confirmed Active History of depression Confirmed Active Maternal fever affecting labor Confirmed Active Migraine Confirmed Active Obesity in Confirmed Active Encounter for induction of labor Confirmed Active Confirmed Active Gestational HTN Confirmed Active Social History Social History Type Response Smoking Status Never (less than 100 in lifetime) entered on: 06/29/22 Sex Patient Care team information Care Team Personnel Name: Saadia Guido NP Position: Reference Physician Member Role: PCP Address: Address: [address] [place] [address]- Care Team Related Persons Name: LIBRADO HERNANDEZ Address: [address] [place] [address] Name: DEWAYNE HERNANDEZ Address: [address] [place] [address] Name: SANTY PEARSON Address: [address] [place] [address] Name: CHAZ LACKEY GIRL Address: [address] Address: [address] [place] [address] Name: SOL LACKEY Address: [address] [place] [address]
--- OUTSIDE RECORDS SUMMARY | 2023-11-30 22:39 | XMS_ITS | Continuity of Care Document ---
Author Organization [facility] Address [address] [place] [address]- Care Team Providers Care Regional Office Coordinator Name Role Phone Saadia Guido NP Primary Care Physician [facility] 01/29/23 - 03/02/23 [facility] [address] [address]- Attending Physician: Not on Staff, Attending MD [...] 0 Refills, Maintenance, 01/30/23 6:53:00 EDT, Tablet, [facility], Partial fill upon patient [...] 07/25/22 10:07:00 EDT, Route to Pharmacy Electronically, [facility], Partial fill upon patient [...] 01/30/23 6:54:00 EDT, Route to Pharmacy Electronically, [facility], Partial f... Start Date: 01/30/23 Status: Ordered mupirocin 2% topical ointment 1 application, Topically, 3 times a day, # 15 Gm, 0 Refills, Maintenance, 01/09/23 17:32:00 EDT, Ointment, [facility], Partial fill upon patient [...] 01/30/23 6:54:00 EDT, Route to Pharmacy Electronically, [facility], Partial kelsy... Start Date: 01/30/23 Status: Ordered PNV Select oral tablet 1 tablet, By Mouth, Daily, for 30 days, Please prescribe PNVs that are covered by pt's insurance., # 30 tablet, 11 Refills, Hard Stop 06/14/23 10:25:00 EST, 06/19/22 10:25:00 EST, [facility], Partial fill upon patient request if th... Start Date: 06/19/22 Stop Date: 06/14/23 Status: Ordered PNV Select oral tablet 1 tablet, By Mouth, Daily, Please prescribe PNVs that are covered by pt's insurance., # 30 tablet, 11 Refills, Maintenance, 06/14/23 10:25:00 EST, [facility], Partial fill upon patient request if the prescription is for a schedule... Start Date: 06/14/23 Stop Date: 06/08/24 Status: Ordered senna - oral tablet 2 tablet, By Mouth, Daily at bedtime, PRN for constipation, , 90 day supply not indicated., # 60 tablet, 0 Refills, Maintenance, 01/30/23 6:54:00 EDT, Tablet, [facility], Partial fill upon patient request if the prescript... Start Date: 01/30/23 Status: Ordered Unisom 25 mg oral tablet 1 tablet = 25 mg, By Mouth, Daily, PRN Insomnia, # 30 tablet, 0 Refills, Maintenance, 08/21/22 14:10:00 EDT, Tablet, [id number], Partial fill upon patient request if the [...] Reference Physician Member Role: PCP Address: Address: [address] [place] [address]- Care Team Related Persons Name: LIBRADO HERNANDEZ Address: [address] [place] [address] Name: DEWAYNE HERNANDEZ Address: home [address] [place] [address] Name: SANTY PEARSON Address: [address] [place] [address] Name: NEIDA LACKEY Address: [address] Address: [address] [place] [address] Name: SOL LACKEY Address: [address] [place] [address] Name: HORTENSIA LACKEY
--- OUTSIDE RECORDS SUMMARY | 2023-11-30 22:39 | XMS_ITS | Continuity of Care Document ---
Author Organization [facility] Address [address] [place] [address], [address] [place] [address]- Care Team Providers Care Securities And Real Estate Director Name Role Phone Saadia Guido NP Primary Care Physician [phone] Encounter [facility] Date(s): 09/18/22 - 09/25/22 [facility] [address] [facility], [address] [place] [address]- Attending Physician: Edda Christianson CNM Allergies, Adverse Reactions, [...] 07/25/22 10:07:00 EDT, Route to Pharmacy Electronically, [facility], Partial fill upon patient request [...] tablet, 11 Refills, Maintenance, 06/19/22 10:25:00 EST, [facility], Partial fill upon patient request if the prescription is for a schedule... Start Date: 06/19/22 Stop Date: 06/14/23 Status: Ordered Unisom 25 mg oral tablet 1 tablet = 25 mg, By Mouth, Daily, PRN Insomnia, # 30 tablet, 0 Refills, Maintenance, 08/21/22 14:10:00 EDT, Tablet, [id number], Partial fill upon patient request [...] on: 06/29/22 Sex Radiology * Event Display: [facility] Detailed Anatomy Survey, Lvl 2 * Event Display: [facility] Detailed Anatomy Survey, Lvl 2 Authored Date: [id number] OBSTETRICS REPORT PATIENT INFO: CMRN: [id number] BMRN: [id number] : [birth year] (22 yrs)(F) Name: CHAZ LACKEY Visit Date: 09/18/2022 08:29 am PERFORMED BY: Performed By: Betsy Harding [facility] Attending: Trisha Howard MD Referred By: JUNIE Christianson CNM Location: [address] INDICATIONS: Obesity in O99.210 VITAL SIGNS: Height: 5' EVALUATION: Num Of Fetuses: 1 Heart Rate(bpm): 155 Cardiac Activity: Present Presentation: Cephalic Placenta: Posterior P. Cord Insertion: Normal Amniotic Fluid ABRAHAM FV: Within normal limits BIOMETRY: BPD: 47.7 mm G.Age: 20w 3d HC: 174.3 mm G.Age: 20w 0d AC: 139.7 mm G.Age: 19w 3d FL: 34.9 mm G.Age: 21w 0d HUM: 32.4 mm G.Age: 20w 6d CER: 20.6 mm G.Age: 19w 4d NFT: 3.7 mm LV: 5.8 mm CM: 4.8 mm CI: 75.33 % 70 - 86 FL/HC: 20.0 % 15.9 - 20.3 HC/AC: 1.25 1.06 - 1.25 FL/BPD: 73.2 % FL/AC: 25.0 % 20 - 24 Est. FW: 334 gm 0 lb 12 oz GESTATIONAL AGE: LMP: 20w 5d Date: 04/26/22 FOLRENCE: 01/31/23 U/S Today: 20w 2d FLORENCE: 02/03/23 Best: 20w 5d Det. By: LMP (04/26/22) FLORENCE: 01/31/23 TARGETED ANATOMY: Central Nervous System Calvarium/Cranial V.: No anomalies seen Intracranial Helen: No anomalies seen Cavum: No anomalies seen Lateral Ventricles: No anomalies seen Choroid Plexus: No anomalies seen Cereb./Vermis: No anomalies seen Cisterna Magna: No anomalies seen Midline Falx: No anomalies seen Spine Cervical: No anomalies seen Thoracic: No anomalies seen Lumbar: No anomalies seen Sacral: No anomalies seen Head/Neck Lips: Intact upper lip Neck: No anomalies seen Nuchal Fold: No anomalies seen Palate: No anomalies seen Profile: No anomalies seen Orbits/Eyes: Both lenses seen Thorax Lungs: No anomalies seen 4 Chamber View: No anomalies seen Cardiac Rhythm: No anomalies seen Rt Outflow Tract: No anomalies seen Lt Outflow Tract: Echogenic focus Aortic Arch: No anomalies seen Ductal Arch: No anomalies seen SVC: No anomalies seen Cardiac [place]: No anomalies seen Diaphragm: No anomalies seen 3 Vessel View: No anomalies seen IVC: No anomalies seen Abdomen Ventral Wall: No anomalies seen Cord Insertion: No anomalies seen (into placenta) Stomach: No anomalies seen Liver: No anomalies seen Lt Kidney: No anomalies seen Rt Kidney: No anomalies seen Bladder: No anomalies seen Bowel: No anomalies seen Extremities Lt Humerus: No anomalies seen Rt Humerus: No anomalies seen Lt Forearm: No anomalies seen Rt Forearm: No anomalies seen Lt Hand: No anomalies seen Rt Hand: No anomalies seen Lt Femur: No anomalies seen Rt Femur: No anomalies seen Lt Lower Leg: No anomalies seen Rt Lower Leg: No anomalies seen Lt Foot: No anomalies seen Rt Foot: No anomalies seen Other Umbilical Cord: 3-vessel CERVIX UTERUS ADNEXA: Cervix Length: 4.4 cm. Appears closed Adnexa No anomalies noted COMMENTS: The exam was limited due to maternal habitus. The patient had a low-risk genetic screen (Trisomy 21 risk <1:10,000) An echogenic focus seen in left cardiac ventricle. This aneuploidy marker is seen in about 3-4% of all studies and has a weak association with chromosomal anomalies. No cardiac structure anomalies seen on standard anatomical survey. Otherwise, unremarkable anatomy as noted above. Due to this ultrasound being performed off site I was not able to head counselor the patient personally on the above findings nor the limits of aneuploidy detection with ultrasound. National recommendations for this finding include detailed anatomy survey (Level II - done today) and offering genetic screening if not previously done (already done, low risk). In the setting of low risk screening and when isolated, this is a normal variant and no follow up is required. Trisha Howard MD Electronically Signed Final Report 09/18/2022 10:30 am * Event Display: [facility] Detailed Anatomy Survey, Lvl 2 Authored Date: Please click on pdf link to open report Patient Care team information Care Team Personnel Name: Saadia Guido NP Position: Reference Physician Member Role: PCP Address: Address: [address] [place] [address]- [place] Care Team Related Persons Name: LIBRADO HERNANDEZ Address: [address] [place] [address] Name: DEWAYNE HERNANDEZ Address: [address] [place] [address] Name: SANTY PEARSON Address: [address] [place] [address] Name: SOL LACKEY Address: [address] [place] [address]
--- OUTSIDE RECORDS SUMMARY | 2023-11-30 22:39 | XMS_ITS | Continuity of Care Document ---
Author Organization [facility] Address [address] [place] [address]- Care Team Providers Care Knitted Garment Finisher Name Role Phone Saadia Guido NP Primary Care Physician [phone] [facility] 09/15/22 - 10/15/22 [facility] [address] [address] Allergies, Adverse Reactions, Alerts No [...] 07/25/22 10:07:00 EDT, Route to Pharmacy Electronically, [facility], Partial fill upon patient [...] tablet, 11 Refills, Maintenance, 06/19/22 10:25:00 EST, [facility], Partial fill upon patient request if the prescription is for a schedule... Start Date: 06/19/22 Stop Date: 06/14/23 Status: Ordered Unisom 25 mg oral tablet 1 tablet = 25 mg, By Mouth, Daily, PRN Insomnia, # 30 tablet, 0 Refills, Maintenance, 08/21/22 14:10:00 EDT, Tablet, [facility] #[id number], Partial fill upon patient request [...] Reference Physician Member Role: PCP Address: Address: [address] [place] [address]- Care Team Related Persons Name: LIBRADO HERNANDEZ Address: [address] [place] [address] Name: DEWAYNE HERNANDEZ Address: [address] [place] [address] Name: SANTY PEARSON Address: [address] [place] [address] Name: SOL LACKEY Address: [address] [place] [address]
--- OUTSIDE RECORDS SUMMARY | 2023-11-30 22:39 | XMS_ITS | Continuity of Care Document ---
Author Organization [facility] Address [address] [facility], [address] [place] [address]- Care Team Providers Care Supervisor Phosphatic Fertilizer Name Role Phone Saadia Guido NP Primary Care Physician [place] [facility] [place]s): 01/11/23 - 02[facility]10[facility] [address] [facility], [address] [place], [place] [address] Attending Physician: Rebeca Lopez Admitting Physician: AdmRebeca [...] 0 Refills, Maintenance, 01/30/23 6:53:00 EDT, Tablet, [facility], Partial fill upon patient [...] 07/25/22 10:07:00 EDT, Route to Pharmacy Electronically, [facility], Partial fill upon patient [...] 01/30/23 6:54:00 EDT, Route to Pharmacy Electronically, [facility], Partial f... Start Date: 01/30/23 Status: Ordered mupirocin 2% topical ointment 1 application, Topically, 3 times a day, # 15 Gm, 0 Refills, Maintenance, 01/09/23 17:32:00 EDT, Ointment, [facility], Partial fill upon patient [...] 01/30/23 6:54:00 EDT, Route to Pharmacy Electronically, [facility], Partial kelsy... Start Date: 01/30/23 Status: Ordered PNV Select oral tablet 1 tablet, By Mouth, Daily, for 30 days, Please prescribe PNVs that are covered by pt's insurance., # 30 tablet, 11 Refills, Hard Stop 06/14/23 10:25:00 EST, 06/19/22 10:25:00 EST, [facility], Partial fill upon patient request if th... Start Date: 06/19/22 Stop Date: 06/14/23 Status: Ordered PNV Select oral tablet 1 tablet, By Mouth, Daily, Please prescribe PNVs that are covered by pt's insurance., # 30 tablet, 11 Refills, Maintenance, 06/14/23 10:25:00 EST, [facility], Partial fill upon patient request if the prescription is for a schedule... Start Date: 06/14/23 Stop Date: 06/08/24 Status: Ordered senna - oral tablet 2 tablet, By Mouth, Daily at bedtime, PRN for constipation, , 90 day supply not indicated., # 60 tablet, 0 Refills, Maintenance, 01/30/23 6:54:00 EDT, Tablet, [facility], Partial fill upon patient [...] Reference Physician Member Role: PCP Address: Address: [address] [place] [address]- Care Team Related Persons Name: LIBRADO HERNANDEZ Address: [address] [place] [address] Name: DEWAYNE HERNANDEZ Address: [address] [place] [address] Name: SANTY PEARSON Address: [address] [place] [address] Name: NEIDA LACKEY Address: [address] Address: [address] [place] [address] Name: SOL LACKEY Address: [address] [place] [address] Name: HORTENSIA LACKEY
--- OUTSIDE RECORDS SUMMARY | 2023-11-30 22:39 | XMS_ITS | Continuity of Care Document ---
Author Organization [facility] Address [address] [address]- Care Team Providers Care Dope Worker Name Role Phone Tirso COOPER, Aftab Perez Primary Care Physician Encounter [facility] Date(s): 06/15/22 - 07/15/22 [facility] [address] [address] Allergies, Adverse Reactions, Alerts No Known Allergies Medications doxylamine 25 mg oral tablet 0.5 tablet = 12.5 mg, By Mouth, Daily at bedtime, PRN Nausea & Vomiting, for 30 days, # 30 tablet, 0 Refills, Acute 07/22/22 19:07:00 EST, 06/22/22 19:07:00 EST, Tablet, [facility], Partial fill upon patient request if the prescrip... Start Date: 06/22/22 Stop Date: 07/22/22 Status: Ordered PNV Select oral tablet 1 tablet, By Mouth, Daily, Please prescribe PNVs that are covered by pt's insurance., # 30 tablet, 11 Refills, Maintenance, 06/19/22 10:25:00 EST, [facility], Partial fill upon patient request if the prescription is for a schedule... Start Date: 06/19/22 Stop Date: 06/14/23 Status: Ordered pyridoxine 25 mg oral tablet 1 tablet = 25 mg, By Mouth, 3 times a day, PRN Nausea & Vomiting, for 30 days, # 90 tablet, 0 Refills, Acute 07/22/22 19:07:00 EST, 06/22/22 19:07:00 EST, Tablet, [facility], Partial fill upon patient request if the prescription is... Start Date: 06/22/22 Stop Date: 07/22/22 Status: Ordered Problem List Condition Confirmation Course Effective Dates Status Health St atus Informant Anxiety Confirmed Active History of depression Confirmed Active Insomnia Confirmed Active Migraine Confirmed Active Severe obesity Confirmed Active Social History Social History Type Response Smoking Status Never (less than 100 in lifetime) entered on: 06/29/22 Sex Patient Care team information Care Team Personnel Name: Aftab Chahal MD Position: [facility] Outreach Member Role: PCP Address: Address: [address] [place] [address]- Care Team Related Persons Name: LIBRADO HERNANDEZ Address: [address] [place] [address] Name: DEWAYNE HERNANDEZ Address: [address] [place] [address] Name: SANTY PEARSON Address: [address] [place] [address] Name: SOL LACKEY Address: [address] [place] [address]
--- OUTSIDE RECORDS SUMMARY | 2023-11-30 22:39 | XMS_ITS | Continuity of Care Document ---
Author Organization [facility] ter Address [address] [place] [id number]- Care Team Providers Care Reactor Operator Name Role Phone Aftab Chahal MD Primary Care Physician Encounter [facility] Date(s): 07/10/22 - 07/11/[address] [address] Discharge Disposition: A-D/C Home Attending Physician: Angeli Bearden MD Admitting Physician: Angeli Bearden MD Referring Physician: Angeli Bearden MD Allergies, Adverse Reactions, Alerts No Known Allergies Medications doxylamine 25 mg oral tablet 0.5 tablet = 12.5 mg, By Mouth, Daily at bedtime, PRN Nausea & Vomiting, for 30 days, # 30 tablet, 0 Refills, Acute 07/22/22 19:07:00 EST, 06/22/22 19:07:00 EST, Tablet, [facility], Partial fill upon patient request if the prescrip... Start Date: 06/22/22 Stop Date: 07/22/22 Status: Ordered PNV Select oral tablet 1 tablet, By Mouth, Daily, Please prescribe PNVs that are covered by pt's insurance., # 30 tablet, 11 Refills, Maintenance, 06/19/22 10:25:00 EST, [facility], Partial fill upon patient request if the prescription is for a schedule... Start Date: 06/19/22 Stop Date: 06/14/23 Status: Ordered pyridoxine 25 mg oral tablet 1 tablet = 25 mg, By Mouth, 3 times a day, PRN Nausea & Vomiting, for 30 days, # 90 tablet, 0 Refills, Acute 07/22/22 19:07:00 EST, 06/22/22 19:07:00 EST, Tablet, [facility], Partial fill upon patient request if the prescription is... Start Date: 06/22/22 Stop Date: 07/22/22 Status: Ordered Tylenol 325 mg oral tablet 975 mg, Tablet, By Mouth, Every 6 hours, PRN for Headache, Routine, 07/10/22 22:58:00 EST Start Date: 07/10/22 Stop Date: 07/11/22 Status: Discontinued Problem List Condition Confirmation Course Effective Dates Status Health St atus Informant Anxiety Confirmed Active History of depression Confirmed Active Insomnia Confirmed Active Migraine Confirmed Active Severe obesity Confirmed Active Vital Signs Most recent to oldest [Reference Range]: 1 2 3 Oxygen Saturation [94-100 %] 100 % (07/10/22 11:12 PM) 100 % (07/10/22 6:03 PM) Blood Pressure [90-138/55-84 mm Hg] 115/56mm Hg (07/10/22 11:12 PM) 125/67mm Hg (07/10/22 6:03 PM) Respiratory Rate [16-30 br/min] 18 br/min (07/10/22 11:34 PM) 18 br/min (07/10/22 11:12 PM) 18 br/min (07/10/22 6:03 PM) Temperature [96.8-100.4 DegF] 97.9 DegF (07/10/22 11:12 PM) 98.1 DegF (07/10/22 6:03 PM) Mode of Delivery (Oxygen) Room air (07/10/22 11:12 PM) Room air (07/10/22 6:03 PM) Blood pressure sites Arm, right (07/10/22 11:12 PM) Arm, right (07/10/22 6:03 PM) Temperature Route Oral (07/10/22 11:12 PM) Oral (07/10/22 6:03 PM) Dry Weight 110.2 kg (07/10/22 6:03 PM) Dry Weight Obtained Via Standing scale (07/10/22 6:03 PM) Social History Social History Type Response Smoking Status Never (less than 100 in lifetime) entered on: 06/29/22 Sex History and physical note * Dee Acevedo CNM: PERFORM Event Display: History and Physical Hospital Authored Date: [id number] Patient: ??CHAZ LACKEY ? Age:??22 Years?Sex:??Female?:??2000?? OB Reason for Admission OB Reason for Admission?? No qualifying data available. LMP/EGA/FLORENCE Gestational Age (EGA) and FLORENCE? * Note: EGA calculated as of 07/11/2022 ?? FLORENCE:??02/01/2023?EGA*:??10 weeks 5 days ? History?(0,0,0,0)?Method:??Last Menstrual Period??(04/27/2022) History of Present Illness 22yo woman at 10w5d by LMP reports nausea, vomiting and headache for 5 days. She reports she was seen in [place] ED last night and had IUP confirmed. She reports she was given IV hydration and told she had a UTI but she has not picked antibiotics up. She denies any urinary symptoms No bleeding or discharge Biggest concern is headache Review of Systems Constitutional?? Headache No Fever. ? Urinary?? Negative. ? No Hematuria. ? No Dysuria. ? No Urinary urgency. ? No Urinary frequency. ? Gynecology?? Symptoms: No vaginal discharge, no itching, no genital lesion, no malodor? Gastrointestinal?? Nausea and vomiting as in HPI No Abdominal pain. ? Psychiatric?? Negative. ? Physical Exam Vitals & Measurements T:??97.9?F ?? HR:??67(Monitored)?? RR:??18?? BP:??115/56?? SpO2:??100%?? Constitutional?? Appearance: Normal affect.? Heart Normal. RRR. Lungs Normal. CTA Lymphatic?? Lymphatic: Normal exam. ? Skin?? Skin: Normal exam. ? Neurological/Psychiatric?? Orientation: Time, Place, Person. ? Affect: Normal. ? No headaches, no visual disturbances Abdomen/GI?? Not Tender. ? No Masses. ? Gynecologic?? Deferred Assessment/Plan Headache in (O26.899):??First trimester Normotensive Resolved with IV hydration,??acetaminophen,??IV Reglan and IV Benadryl ?? Nausea and vomiting in (O21.9):??No vomiting in [facility] Trace ketones Improved same regime given for headache Encouraged to continue doxyalamine and pyridoxine regime at home Comfort measures reviewed ? Has US and New OB visit scheduled 07/25 with [facility] OB History History?(0,0,0,0)?No previous pregnancies history have been recorded Labs Labs Labs & Tests Antibody Screen: Negative (07/10/22) Blood Type: B Positive (07/10/22) Hct:??33.3 %??Low (07/10/22) Hgb:??10.5 Gm/dL??Low (07/10/22) Problem List Active Active Problem List Anxiety: (Medical) History of depression: (Medical) Insomnia: (Medical) Migraine: (Medical) : (Obstetric) (04/27/22) Severe obesity: (Medical) Procedure/Surgical History Laparoscopic appendectomy: 10/15/11 Home Medications Doxylamine: 12.5 mg = 0.5 tablet, By Mouth, Daily at bedtime, PRN (Nausea & Vomiting) Multivitamin, : 1 tablet, By Mouth, Daily, Please prescribe PNVs that are covered by pt's insurance. Pyridoxine: 25 mg = 1 tablet, By Mouth, 3 times a day, PRN (Nausea & Vomiting) Allergies NKA Social History Alcohol Use: Never., 06/29/2022 Use: Never., 03/31/2022 Electronic Cigarette/Vaping Electronic Cigarette Use: Never., 06/29/2022 Electronic Cigarette Use: Never., 03/31/2022 Employment/School Status: Employed, Student. 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 Lives with: Father, Mother, Siblings. Other: 3 dogs., 06/29/2022 Nutrition/Health Diet: Regular., 06/29/2022 Sexual Sexually involved in last 6 months: Yes. Gender identity: Identifies as female. Self described orientation: Straight or heterosexual. Preferred pronoun: She/her., 06/29/2022 Substance Abuse Use: Past. Type: Marijuana., 06/29/2022 Use: Current. Type: Marijuana., 03/31/2022 Tobacco Use: Never (less than 100 in lifetime)., 06/29/2022 Use: Never (less than 100 in lifetime)., 03/31/2022 Family History Mother: Migraine Sister: Cancer of colon Mat. Grandmother: Diabetes mellitus Plan No Data Found Lab Results Test Name Test Result Date/TimeHgb 10.5 Gm/dL (Low) 07/10/2022 20:21 EST Hct 33.3 % (Low) 07/10/2022 20:21 EST Platelet Count 302 k/mm3 07/10/2022 20:21 EST Nitrite, Urine NEGATIVE 07/10/2022 23:15 EST Leukocyte, Urine NEGATIVE 07/10/2022 23:15 EST Note * Luz Arevalo RN: PERFORM Event Display: Discharge/Transfer Note Hospital Authored Date: [id number] Nursing Discharge Note Entered On: 07/11/2022 0:59 EST Performed On: 07/11/2022 0:58 EST by Luz Arevalo RN Nursing Discharge Note 2 Discharge Time : 07/11/2022 0:55 EST Discharge Level of Care at Discharge : Home/Correction/Foster Care Patient Left Unit Via : Ambulatory Patient Accompanied Off Unit with : Significant other DC Instructions Provided & Signed by Pt : Yes Patient Understands D/C Instructions : Yes Patient Instructions Discharge Signed : Yes Did Pt have Specialty Bed or Wound Vac : No Luz Arevalo RN - 07/11/2022 0:58 EST * Event Display: Discharge/Transfer Note Hospital Authored Date: [id number] * Luz Arevalo RN: PERFORM Event Display: Patient Education/Instruction Authored Date: [id number] Inpatient Adult Discharge Instructions [address] [address] Name: CHAZ LACKEY : 2000 Visit: 07/10/2022 16:49:00 Current Date: 07/11/2022 00:43 Account: [id number] Inpatient Adult Discharge Instructions We would like [...] and their families. Surveys are administered by [employer] ?? If further treatment with your primary care physician or another doctor is recommended, it is important for you to keep the appointment. Call your primary care physician or return to the Emergency Department immediately if your condition worsens, fails to improve, or new symptoms develop. If you need to find a doctor, you can call [facility] indeni for a referral at [phone] or toll free at [phone] or log in to [email or web address].. ?? You can view and manage your care through the patient portal or by using a health care destiny of your choosing. [email or web address] is a website that allows you to securely view your medical information including your hospital discharge summary, office visit summaries, medications and follow-up visits. You can also request appointments, renew medications, and request access to your medical information using a health care destiny of your choosing, or just ask a question. You can enroll at [email or web address] or register during your next office visit. You have been discharged from [facility], Patient Care Unit: [facility]. If you have any questions regarding these instructions after you leave, please call us and we will be happy to assist you. [facility] Your Care Team Attending Physician Angeli Bearden MD Mary Tests Performed Below is a partial list of the tests performed during your hospitalization. You may have had other tests and procedures not included in this list. Please discuss all test results with your provider. CBC Complete Urinalysis Type and Screen Urine Culture?-- Results Pending -- ? You will be contacted within 72 hours with your results. Primary Care Provider Tirso COOPER, Aftab Chris Advance Directive Health Care Proxy on File No Discharge Vitals Temperature: 97.9 DegF Respiratory Rate: 18 br/min Systolic Blood Pressure: 115 mm Hg Diastolic Blood Pressure: 56 mm Hg Oxygen Saturation: 100 % Studies Pending All tests and labs ordered during this hospital stay have been completed unless listed below. Please discuss all pending results with your provider listed above in these instructions. ?? HIV Ab-Ag 4th Generation Hepatitis C Ab Rubella (Mongolian Measles) IgG Syphilis Testing formerly ordered as RPR Urine Culture What to do next Instructions From Your Doctor Discharge Orders Scheduled Follow-Up Appointments Sunday 10:00 AM EDT ?? With: Where: [facility] [employer] [address] [place] [id number]- Sunday 10:40 AM EDT ?? With: Britt Bateman CNM Where: [facility] [address] [place] [address]- You Need to Schedule the Following Appointments Follow Up with??Please follow up as scheduled for routine OB visit When?? Discharge Medications CHAZ LACKEY :2000 Visit Date:07/10/2022 Medications: Please continue your medications until treatment is completed or stopped by your provider. Medications not listed below should be discontinued. Discuss any questions related to medications with your provider. What How Much When Instructions Next Dose Unchanged Doxylamine (doxylamine 25 mg oral tablet) 0.5 tab(s) Oral Daily at Bedtime as needed for Nausea & Vomiting Duration: 30 Days Unchanged Ibuprofen (ibuprofen 400 mg oral tablet) 1 tab(s) Oral Every 6 hours as needed for as needed for fever Unchanged Multivitamin, (PNV Select oral tablet) 1 tab(s) Oral Daily Duration: 30 Days Please prescribe PNVs that are covered by pt's insurance. ?? Unchanged Pyridoxine (pyridoxine 25 mg oral tablet) 1 tab(s) Oral 3 times a day as needed for Nausea & Vomiting Duration: 30 Days Test Results Below is a partial list of the most recent Laboratory test results done prior to this discharge. You may have had other tests and procedures not included in this list. Please discuss all test resultswith your provider. CBC (07/10/2022) ???WBC - 9.6 k/mm3???RBC - 4.83 m/mm3???Hgb - 10.5 Gm/dL???Hct - 33.3 %???MCV - 68.9 femtoliters???MCH - 21.7 pg???MCHC - 31.5 g/dL???Platelet Count - 302 k/mm3???RDW-SD - 47.1 femtoliters???MPV - NOT MEASURED???Nucleated RBC (Automated) - 0.0 #/100 WBC'S???Abs. NRBC - 0.0 k/mm3 Complete Urinalysis (07/10/2022) ???Appear/Color, Urine - LIGHT YELLOW???Specific [place], Urine - 1.010???pH, Urine - 6.0???Albumin, Urine - NEGATIVE???Glucose, Urine - NEGATIVE???Ketones, Urine - NEGATIVE???Bilirubin, Urine - NEGATIVE???Hemoglobin, Urine - NEGATIVE???Nitrite, Urine - NEGATIVE???Leukocyte, Urine - NEGATIVE???Urobi linogen - NORMAL???WBC's, Urine - 2 /HPF???RBC's, Urine - 2 /HPF???Squamous Epith - 3 /HPF???Mucus - SLIGHT Type and Screen (07/10/2022) ???Blood Type - B Positive???Antibody Screen - Negative Allergies (NKA means No Known Allergies) NKA Problems Active Problems??(6) Anxiety?? History of depression?? Insomnia?? Migraine? Severe obesity?? Education Materials Below is the list of Educational Leaflet Providered with your Discharge Instructions. Migraine Headache?? Common Discomforts During ?? Comfort Tips During ?? Adapting to : First Trimester?? Valuables and Belongings I fully understand and agree that [facility] accepts no responsibility for all my personal [...] encouraged to send valuables and belongings home. ? Other Discharge Information ? Pulmonary Rehab Status?? [...] are strongly encouraged to quit. Please call [employer] [facility] Link at [phone] or [phone]) or log in to [email or web address] for referrals to smoking cessation programs. ?? The National Suicide Prevention Hotline is available 04/12 if you or someone you know needs to find a reason to keep living. By calling 2-714-431-talk (3858) you'll be connected to a skilled, trained counselor at a crisis center in your area. INPATIENT DISCHARGE INSTRUCTIONS SIGNATURE PAGE CHAZ LACKEY [facility]:[id number] Location:[facility] Registration Date and Time:07/10/2022 16:49 EST Primary Care Physician: Aftab Chahal MD, I CHAZ LACKEY, have received the above patient education materials/instructions and have verbalized understanding. If ambulance or transport services are being used I further acknowledge being given a choice of service. ?? If you need to contact me, please call me at this number: . Patient/Firmware Architect Name: Patient/Firmware Architect Signature: Relationship to Patient: Witness Name/Signature: Date: * Luz Arevalo RN: PERFORM, SIGN, VERIFY Event Display: Patient Education Handout Authored Date: [id number] * Luz Arevalo RN: PERFORM Event Display: Patient Education Leaflets Authored Date: [id number] Migraine Headache ?? [id number] Migraine Headache A migraine headache is an often severe type of headache. It's different from other types of headaches in that symptoms other than pain occur with it. For instance, a classic migraine headache means visual symptoms (or aura) such as flashes of light, blind spots, or other vision changes, warn you a headache is coming on. Nausea and vomiting, lightheadedness, sensitivity to light or sound, and other visual disturbances are common migraine symptoms.??The pain may last from a few hours to several days. It's not clear why migraines occur, but certain factors called triggers can raise the risk of having a migraine attack.??A migraine may be triggered by emotional stress??or depression, or by hormone changes during the menstrual cycle. Other triggers include certain control pills, overuse of migraine medicines, alcohol or caffeine, and foods with tyramine, such as aged cheese and wine. Eyestrain, weather changes, missed meals,??or too little or too much sleep can also trigger a migraine. Home care Follow these tips when taking care of yourself at home: ??? Don???t drive yourself home if you weregiven pain medicine for your headache or are having visual symptoms. Instead, have someone else drive you home. Try to sleep when you get home. You should feel much better when you wake up. ??? Cold can help ease migraine symptoms. Put an ice pack wrapped in a thin towel on your forehead or at the base of your skull. Put heat on the back of your neck to help ease any neck spasm. ??? Drink only clear liquids or eat a light diet until your symptoms get better. This will help you prevent nausea and vomiting. ?? How to prevent migraines Pay attention to what seems to trigger your headache. Try to stay away from the triggers when you can. If you have headaches often, consider keeping a headache diary. In it, write down what you were doing, feeling, or eating in the hours before each headache. Show this to your healthcare provider to help find the cause of your headaches. If stress seems to be a trigger for your headaches, figure out what is causing stress in your life.Learn new ways to handle your stress. Ideas include regular exercise, biofeedback, self-hypnosis, yoga, and meditation. Talk with your provider to find out more information about managing stress. Many books and digital media are also available on this subject. Tyramine is a substance found in many foods. It can trigger a migraine in some people. These foods contain tyramine: ??? Chocolate ??? Yogurt ??? All cheeses, but especially aged cheeses ??? Smoked or pickled fish and meat, including wilkerson, caviar, bologna, pepperoni, and salami ??? Liver ??? Avocados ??? Bananas??? Figs ??? Raisins ??? Red wine Try staying away from these foods for 1 to 2 months to see if you have fewer headaches. ?? How to treat future headaches ??? Take time out at the first sign of a headache, if possible. Find a quiet, dark, comfortable place to sit or lie down. Let yourself relax or sleep. ??? Put an ice pack wrapped in a thin towel on your forehead or on the area of greatest pain. A heating pad and massage may help if you are having a muscle spasm and tightness in your neck. ??? If you have been prescribed a medicine to stop a migraine headache, use this at the first warning sign of the headache for best results. First signs may be an aura or pain. ??? If you have been prescribed a medicine to prevent the headaches, it's important to take the medicine as directed. Many of these medicines may take a few weeks to start preventing headaches, so it's important to not give up on them right away. If you continue to have just as many headaches after taking these medicines for a while, talk with your healthcare provider to see if the dose needs to be changed or if a different medicine is advised. ??? If you need to take medicine often for your migraine, talk with your provider about other ways to prevent your headaches. ?? Follow-up care Follow up with your healthcare provider, or as advised. Talk with your provider if you have frequent headaches. They can figure out a treatment plan. Ask if you can have medicine to take at home the next time you get a bad headache. This may keep you from having to visit the emergency department inthe future. You may need to see a headache specialist (neurologist) if you continue to have headache s. ?? When to get medical care Call your healthcare provider right away??if any of these occur: ??? Your head pain gets worse, or doesn???t get better within 24 hours ??? You can???t keep liquids down (repeated vomiting) ??? Pain in your sinuses, ears, or throat ??? Fever of 100.4?? F (38?? C) or higher, or as advised by your provider ??? Stiff neck ??? Extreme drowsiness, confusion, or fainting ??? Dizziness, or dizziness with spinning sensation (vertigo) ??? Weakness or trouble feeling in an arm or leg, or on one side of your face ??? Trouble talking or seeing ?? Last Reviewed Date: 2021 ?? The [employer]. All rights reserved. This information is not intended as a substitute for professional medical care. Always follow your healthcare professional's instructions. ?? * Luz Arevalo RN: PERFORM Event Display: Patient Education Leaflets Authored Date: [id number] Common Discomforts During ?? [id number] Common Discomforts During Symptoms of discomfort due to vary from person to person. Below are some common discomforts. But each [id number] may have different symptoms or none at all: ??? Nausea and vomiting. Abouthalf of all people have nausea and sometimes vomiting in the first trimester. This is alsocalled morning sickness. That's because symptoms are most severe in the morning. Some people may have nausea and vomiting throughout the .??Morning sickness may be due to the changes in hormone levels during . Morning sickness seems to be??made worse??by stress, traveling, and certain foods, like spicy or fatty foods. Eating small meals several times a day may help lessen the symptoms. A diet high in protein and complex carbohydrates (like whole-wheat bread, pasta, bananas, and green, leafy vegetables) may also help reduce the severity of the nausea. If vomiting is severe, causing you to lose fluids and weight, it may??be a sign of??a condition called hyperemesis gravidarum. Hyperemesis can lead to dehydration and may need a hospital stay for intravenous fluids and nutrition. Call your healthcare provider or kiss setter hand if you are having constant or severe nausea and vomiting. ??? Fatigue. As the body works overtime to provide a nourishing environment for the fetus, it is no wonder a person often feels tired. In the first trimester, their blood volume and other fluids increase as their body adjusts to the . Sometimes anemia is the underlying cause of the fatigue. Anemia is a drop in the ability of red blood cells to carry oxygen. It is often due to low iron levels. A simple blood test done at a visit will check for anemia. ??? Hemorrhoids. Hemorrhoids are common in late . That's because of the increased pressure on the rectum and perineum, the increased blood volume, and the increased likelihood of becoming constipated as the progresses. Preventing constipation and straining may help to prevent hemorrhoids. Always check with your healthcare provider or kiss setter hand before using any medicine to treat this condition.??? Varicose veins. Varicose veins???swollen, purple veins???are common in the legs and around the vaginal opening during late . In most cases, varicose veins are caused by the increased pressure on the legs and the pelvic veins. It is also caused by the increased blood volume. ??? Heartburn and indigestion. Heartburn and indigestion is caused by pressure on the intestines and stomach (which, in turn, pushes stomach contents back up into the esophagus). It can be prevented or reduced by eating smaller meals throughout the day and by not lying down shortly after eating. ??? Bleeding gums. Gums may become more spongy as blood flow increases during . This causes them to bleedeasily. A person should continue to take care of her teeth and gums and go to the dentist for regular checkups. This symptom usually disappears after . ??? Pica. Pica is a rare craving to eat substances other than food, like dirt, dede, or coal. The craving may be a sign of a nutritional deficiency. ??? Swelling or fluid retention. Mild swelling is common during . But se apolinar swelling that??lasts may??be a sign of??preeclampsia (abnormal condition marked by high blood pressure). Lying on the left side, elevating the legs, and wearing support hose and comfortable shoes may help to relieve the swelling. Be sure to notify your??healthcare provider??or kiss setter hand about sudden swelling, especially in the hands or face, or rapid weight gain. ??? Skin changes. Because of changes in hormone levels, including hormones that stimulate pigmentation of the skin, brown, blotchypatches may??happen on the face, forehead, or cheeks. This is often called the mask of , or chloasma. It often disappears soon after delivery. Using sunscreen when outside can reduce the amount of darkening that happens.?? Pigmentation may also increase in the skin surrounding the nipples,called the areola. A dark line??also often appears down the middle of the stomach. Freckles may darken, and moles may grow. ??? Stretch nickerson. Pinkish stretch nickerson may appear on the stomach, breasts, thighs, or buttocks. Stretch nickerson are generally caused by a rapid increase in weight. The nickerson us ually fade after . ??? Yeast infections. Due to hormone changes and increased vaginal discharge, also called leukorrhea, a person is more prone to yeast infections. Yeast infectionscause a thick, whitish discharge from the vagina and itching. Yeast infections are highly treatable. Always talk with your healthcare provider or kiss setter hand before taking any medicine for this condition.? Congested or bloody nose. During , the lining of the respiratory tract receives more blood, often making it more congested. This congestion can also cause stuffiness in the nose or nosebleeds. Small blood vessels in the nose are also easily damaged due to the increased blood volume, causing nosebleeds. ??? Constipation. Increased pressure from the on the rectum and intestines can interfere with digestion and bowel movements. Hormone changes may also slow down the food being processed by the body. Increasing fluids, exercising regularly, and increasing the fiber in your diet are some of the ways to prevent constipation. Always check with your healthcare provider or kiss setter hand before taking any medicine for this condition.? Backache. As a person's weight increases, their balance changes. Their center of gravity is pulled forward,??straining the back. Pelvic joints that begin to loosen in preparation for childbirth also contribute to this back strain. Correct posture and correct lifting methods throughout the can help reduce the strain on the back.??? Dizziness. Dizziness during is a common symptom. It may be caused by: o Low blood pressure due to the uterus compressing major arteries o Low blood sugar o Low iron o Quickly moving from a sitting position to a standing position o Dehydration To prevent injury from falling during episodes of dizziness, a person should stand up slowly and hold on to the welch and other stable structures for support and balance. ??? Headaches. Hormonal changes may be the cause of headaches during , especially during the first trimester. Rest, correct nutrition, and adequate fluidintake may help??ease headache symptoms. Always talk with your healthcare provider or kiss setter hand??before taking any medicine for this condition. If you have a severe headache or a headache that does notgo away, call your healthcare provider. It may be a sign of preeclampsia.?? Last Reviewed Date: 2022 ?? [employer]. All rights reserved. This information is not intended as a substitute for professional medical care. Always follow your healthcare professional's instructions. ?? * Luz Arevalo RN: PERFORM Event Display: Patient Education Leaflets Authored Date: [id number] Comfort Tips During ?? 89842 Comfort Tips During can bring discomfort of different kinds. Below are tips for ways to feel better.??Talk with your??healthcare provider before using pain-relieving medicine at any time during your . First trimester tips Easing nausea ??? Get up slowly. Eat a few unsalted crackers before you get out of bed. ??? Avoid smells that bother you. ??? Eat small,??bland, low-fat, high-protein meals at frequent intervals. ??? Sip on water,weak??tea, or clear soft drinks, like mayito gerhard.??Eat ice chips. ??? Try taking vitamin B6. Coping with fatigue ??? Take catnaps when you can. ??? Get regular exercise. ??? Accept help from others. ??? Practice good sleep habits, like going to bed and getting up at the same time each day. Use your bed only forsleep and sex. Calming mood swings ??? Talk about your feelings with others, including other mothers. ??? Limit sugar, chocolate, and caffeine. ??? Eat a healthy diet. Don???t skip meals. ??? Get regular exercise. Soothing headaches ??? Get fresh air and exercise. ??? Relax and get enough rest. ??? Check with your healthcare provider before taking any pain medicines. ?? Second trimester tips ??? To limit ankle swelling, sit with your feet raised or wear support hose. ??? If you have pain in your groin and stomach??(round ligament pain), don't make sudden twisting movements with your body. ??? For leg cramps, flexing your foot often brings immediate relief. Also try massaging your calf in long, downward strokes, or stretching your legs before going to bed. Get enough exercise and wear shoes with flexible soles. Eat foods rich in calcium. ?? Third trimester tips Reducing heartburn ??? Eat small, light meals throughout the day rather than 3 large ones. ??? Sleep with your upper body raised 6 inches. Don???t lie down until 2 hours after you eat. ??? Don't eat greasy, fried, or spicy foods. ??? Don't have citrus fruits or juices. Treating constipation ??? Eat foods high in fiber, such as whole-grain foods, and fresh fruit and vegetables). ??? Drink plenty of water. ??? Get regular exercise. ??? Ask about your healthcare provider about medicines that have docusate or psyllium. Taking care of your breasts ??? Don't use harsh soaps or alcohol, which can make your skin too dry. ??? Wear nursing bras. Theyprovide more support than regular bras and can be used after if you breastfeed. Getting a good night???s sleep ??? Take a warm shower before bed. ??? Sleep on a firm mattress. ???Lie on your side with 1 leg crossed over the other. ??? Use pillows to support your arms, legs, andbelly. ?? Last Reviewed Date: 2019 ?? 0868-8100 [employer]. All rights reserved. This information is not intended as a substitute for professional medical care. Always follow your healthcare professional's instructions. ?? Patient Care team information Care Team Personnel Name: Aftab Chahal MD Position: [facility] Outreach Member Role: PCP Address: Address: [address] [place] [address]- Care Team Related Persons Name: LIBRADO HERNANDEZ Address: home [address] [place] [address] Name: DEWAYNE HERNANDEZ Address: home [address] [place] [address] Name: SANTY PEARSON Address: home [address] [place] [address] Name: SOL LACKEY Address: home [address] [place] [address]
--- OUTSIDE RECORDS SUMMARY | 2023-11-30 22:39 | XMS_ITS | Continuity of Care Document ---
Author Organization 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, Partial fill upon patient [...] 07/25/22 10:07:00 EDT, Route to Pharmacy Electronically, [facility], Partial fill upon patient [...] 01/30/23 6:54:00 EDT, Route to Pharmacy Electronically, [facility], Partial f... Start Date: 01/30/23 Status: Ordered mupirocin 2% topical ointment 1 application, Topically, 3 times a day, # 15 Gm, 0 Refills, Maintenance, 01/09/23 17:32:00 EDT, Ointment, [facility], Partial fill upon patient [...] 01/30/23 6:54:00 EDT, Route to Pharmacy Electronically, [facility], Partial kelsy... Start Date: 01/30/23 Status: Ordered PNV Select oral tablet 1 tablet, By Mouth, Daily, for 30 days, Please prescribe PNVs that are covered by pt's insurance., # 30 tablet, 11 Refills, Hard Stop 06/14/23 10:25:00 EST, 06/19/22 10:25:00 EST, [facility], Partial fill upon patient request if th... Start Date: 06/19/22 Stop Date: 06/14/23 Status: Ordered PNV Select oral tablet 1 tablet, By Mouth, Daily, Please prescribe PNVs that are covered by pt's insurance., # 30 tablet, 11 Refills, Maintenance, 06/14/23 10:25:00 EST, [facility], Partial fill upon patient request if the prescription is for a schedule... Start Date: 06/14/23 Stop Date: 06/08/24 Status: Ordered senna - oral tablet 2 tablet, By Mouth, Daily at bedtime, PRN for constipation, , 90 day supply not indicated., # 60 tablet, 0 Refills, Maintenance, 01/30/23 6:54:00 EDT, Tablet, [facility], Partial fill upon patient request if the prescript... Start Date: 01/30/23 Status: Ordered Unisom 25 mg oral tablet 1 tablet = 25 mg, By Mouth, Daily, PRN Insomnia, # 30 tablet, 0 Refills, Maintenance, 08/21/22 14:10:00 EDT, Tablet, [facility]/pharmacy #[id number], Partial fill upon patient request if the [...] Physician Member Role: PCP Address: Address: [address] [place] [address]- Care Team Related Persons Name: LIBRADO HERNANDEZ Address: home [address] [place] [address] Name: DEWAYNE HERNANDEZ Address: home [address] [place] [address] Name: SANTY PEARSON Address: home [address] [place] [address] Name: NEIDA LACKEY Address: [id number] Address: [address] Name: SOL LACKEY Address: [address] [place] [address] Name: HORTENSIA LACKEY
--- OUTSIDE RECORDS SUMMARY | 2023-11-30 22:39 | XMS_ITS | Continuity of Care Document ---
Author Organization [facility] Address [address] [place] [address]- Care Team Providers Care Iron Guardrail Installer Name Role Phone Saadia Guido NP Primary Care Physician [phone] [facility] 02[facility]23 - [facility]03[facility] [address] [place] [address] Allergies, Adverse Reactions, Alerts No Known Allergies [...] Refills, Maintenance, 01/30/23 6:53:00 EDT, Tablet, [facility], Partial fill upon patient request [...] 10:07:00 EDT, Route to Pharmacy Electronically, [facility], Partial fill upon patient request [...] 6:54:00 EDT, Route to Pharmacy Electronically, [facility], Partial f... Start Date: 01/30/23 Status: Ordered mupirocin 2% topical ointment 1 application, Topically, 3 times a day, # 15 Gm, 0 Refills, Maintenance, 01/09/23 17:32:00 EDT, Ointment, [facility], Partial fill upon patient request [...] 6:54:00 EDT, Route to Pharmacy Electronically, [facility], Partial kelsy... Start Date: 01/30/23 Status: Ordered PNV Select oral tablet 1 tablet, By Mouth, Daily, for 30 days, Please prescribe PNVs that are covered by pt's insurance., # 30 tablet, 11 Refills, Hard Stop 06/14/23 10:25:00 EST, 06/19/22 10:25:00 EST, [facility], Partial fill upon patient request if th... Start Date: 06/19/22 Stop Date: 06/14/23 Status: Ordered PNV Select oral tablet 1 tablet, By Mouth, Daily, Please prescribe PNVs that are covered by pt's insurance., # 30 tablet, 11 Refills, Maintenance, 06/14/23 10:25:00 EST, [facility], Partial fill upon patient request if the prescription is for a schedule... Start Date: 06/14/23 Stop Date: 06/08/24 Status: Ordered senna - oral tablet 2 tablet, By Mouth, Daily at bedtime, PRN for constipation, , 90 day supply not indicated., # 60 tablet, 0 Refills, Maintenance, 01/30/23 6:54:00 EDT, Tablet, [facility], Partial fill upon patient request if the prescript... Start Date: 01/30/23 Status: Ordered Unisom 25 mg oral tablet 1 tablet = 25 mg, By Mouth, Daily, PRN Insomnia, # 30 tablet, 0 Refills, Maintenance, 08/21/22 14:10:00 EDT, Tablet, [facility]/pharmacy #[id number], Partial fill upon patient request if the [...] Reference Physician Member Role: PCP Address: Address: [address] [place] [address]- Care Team Related Persons Name: LIBRADO HERNANDEZ Address: home [address] [place] [address] Name: DEWAYNE HERNANDEZ Address: home [address] [place] [address] Name: SANTY PEARSON Address: home [address] [place] [address] Name: NEIDA LACKEY Address: [id number] Address: home [address] [place] [address] Name: SOL LACKEY Address: home [address] [place] [address] Name: HORTENSIA LACKEY
--- OUTSIDE RECORDS SUMMARY | 2023-11-30 22:39 | XMS_ITS | Continuity of Care Document ---
Author Organization [facility] Address [address] [place] [address]- Care Team Providers Care Night Time Nanny Name Role Phone Saadia Guido NP Primary Care Physician [phone] [facility] 01[facility]29[facility]23 - [facility]21/[facility] [address] [address]- Attending Physician: Not on Staff, Attending MD [...] 03/12/23 13:43:00 EDT, Route to Pharmacy Electronically, [facility], Partial fill upon patient request if the prescription is for a chris... Start Date: 03/12/23 Status: Ordered Vitamin C 250 mg oral tablet, chewable 1 tablet = 250 mg, Chew, Daily, every other day with iron supplement, # 45 tablet, 0 Refills, Maintenance, 03/12/23 13:44:00 EDT, Chew Tablet, [facility], Partial fill upon patient request [...] Reference Physician Member Role: PCP Address: Address: [address] [place] [address]- [place] Care Team Related Persons Name: LIBRADO HERNANDEZ Address: home [address] [place], [place] Name: DEWAYNE HERNANDEZ Address: home [address] [place], [place] Name: SANTY PEARSON Address: home [address] [place] [address] Name: NEIDA LACKEY Address: [id number] Address: home [address] [place] [address] [place] Name: SOL LACKEY Address: home [address] [place] [address] Name: HORTENSIA LACKEY
--- OUTSIDE RECORDS SUMMARY | 2023-11-30 22:39 | XMS_ITS | Continuity of Care Document ---
Author Organization [facility] Address [address] [place] [address]- Care Team Providers Care Paper Baler Name Role Phone Saadia Guido NP Primary Care Physician [facility] 08/14/22 - 09/13/22 [facility] and [facility] [address] [address] Allergies, Adverse Reactions, Alerts No Known [...] 07/25/22 10:07:00 EDT, Route to Pharmacy Electronically, [facility], Partial fill upon patient request [...] tablet, 11 Refills, Maintenance, 06/19/22 10:25:00 EST, [facility], Partial fill upon patient request if the prescription is for a schedule... Start Date: 06/19/22 Stop Date: 06/14/23 Status: Ordered Unisom 25 mg oral tablet 1 tablet = 25 mg, By Mouth, Daily, PRN Insomnia, # 30 tablet, 0 Refills, Maintenance, 08/21/22 14:10:00 EDT, Tablet, [facility]/pharmacy #[id number], Partial fill upon patient [...] Reference Physician Member Role: PCP Address: Address: [address] [place] [address]- [place] Care Team Related Persons Name: LIBRADO HERNANDEZ Address: [address] [place] [address] Name: DEWAYNE HERNANDEZ Address: [address] [place] [address] Name: SANTY PEARSON Address: home [address] [place] [address] Name: SOL LACKEY Address: home [address] [place] [address]
--- OUTSIDE RECORDS SUMMARY | 2023-11-30 22:39 | XMS_ITS | Continuity of Care Document ---
Author Organization [facility] Address [address] [place] [address]- Care Team Providers Care Interior Design Coordinator Name Role Phone Saadia Guido NP Primary Care Physician [facility]): 09/27/22 - 11/24/22 [facility] [address] [address]- Attending Physician: Not on Staff, Attending MD Referring Physician: Saadia Guido NP Allergies, [...] 07/25/22 10:07:00 EDT, Route to Pharmacy Electronically, [facility], Partial fill upon patient [...] tablet, 11 Refills, Maintenance, 06/19/22 10:25:00 EST, [facility], Partial fill upon patient request if the prescription is for a schedule... Start Date: 06/19/22 Stop Date: 06/14/23 Status: Ordered Unisom 25 mg oral tablet 1 tablet = 25 mg, By Mouth, Daily, PRN Insomnia, # 30 tablet, 0 Refills, Maintenance, 08/21/22 14:10:00 EDT, Tablet, [facility]/pharmacy #[id number], Partial fill upon patient request if the [...] Reference Physician Member Role: PCP Address: Address: [address] [place] [address]- Care Team Related Persons Name: LIBRADO HERNANDEZ Address: home [address] [place] [address] Name: DEWAYNE HERNANDEZ Address: [address] [place] [address] Name: SANTY PEARSON Address: [address] [place] [address] Name: SOL LACKEY Address: home [address] [place] [address]
--- OUTSIDE RECORDS SUMMARY | 2023-11-30 22:39 | XMS_ITS | Continuity of Care Document ---
Author Organization [facility] Address [address] [place] [address]- Care Team Providers Care Solar Sales Representative Name Role Phone Saadia Guido NP Primary Care Physician [facility]): 02/05/23 - 03/07/23 [facility] [address] [place] [address] Allergies, Adverse Reactions, Alerts No Known [...] 0 Refills, Maintenance, 01/30/23 6:53:00 EDT, Tablet, [facility], Partial fill upon patient request [...] 07/25/22 10:07:00 EDT, Route to Pharmacy Electronically, [facility], Partial fill upon patient request [...] 01/30/23 6:54:00 EDT, Route to Pharmacy Electronically, [facility], Partial f... Start Date: 01/30/23 Status: Ordered mupirocin 2% topical ointment 1 application, Topically, 3 times a day, # 15 Gm, 0 Refills, Maintenance, 01/09/23 17:32:00 EDT, Ointment, [facility], Partial fill upon patient request if the prescription is fora schedule II opioid drug., 1 application Topically... Start Date: 01/09/23 Status: Ordered oxyCODONE 5 mg oral tablet 5 mg, 1, tablet, By Mouth, Every 6 hours, PRN, , 90 day supply not indicated., # 10 tablet, Refills 0, Tot. Refills 0, Maintenance, for pain, 01/30/23 6:54:00 EDT, Route to Pharmacy Electronically, [facility], Partial kelsy... Start Date: 01/30/23 Status: Ordered PNV Select oral tablet 1 tablet, By Mouth, Daily, for 30 days, Please prescribe PNVs that are covered by pt's insurance., # 30 tablet, 11 Refills, Hard Stop 06/14/23 10:25:00 EST, 06/19/22 10:25:00 EST, [facility], Partial fill upon patient request if th... Start Date: 06/19/22 Stop Date: 06/14/23 Status: Ordered PNV Select oral tablet 1 tablet, By Mouth, Daily, Please prescribe PNVs that are covered by pt's insurance., # 30 tablet, 11 Refills, Maintenance, 06/14/23 10:25:00 EST, [facility], Partial fill upon patient request if the prescription is for a schedule... Start Date: 06/14/23 Stop Date: 06/08/24 Status: Ordered senna - oral tablet 2 tablet, By Mouth, Daily at bedtime, PRN for constipation, , 90 day supply not indicated., # 60 tablet, 0 Refills, Maintenance, 01/30/23 6:54:00 EDT, Tablet, [facility], Partial fill upon patient request if the prescript... Start Date: 01/30/23 Status: Ordered Unisom 25 mg oral tablet 1 tablet = 25 mg, By Mouth, Daily, PRN Insomnia, # 30 tablet, 0 Refills, Maintenance, 08/21/22 14:10:00 EDT, Tablet, [facility]/pharmacy #[id number], Partial fill upon patient request if the [...] Reference Physician Member Role: PCP Address: Address: [address] [place] [address]- Care Team Related Persons Name: LIBRADO HERNANDEZ Address: [address] [place] [address] Name: DEWAYNE HERNANDEZ Address: [address] [place] [address] Name: SANTY PEARSON Address: [address] [place] [address] Name: NEIDA LACKEY Address: [id number] Address: [address] [place] [address] Name: SOL LACKEY Address: [address] [place] [address] Name: HORTENSIA LACKEY
[2023-11-30 22:44] LABS: MANUAL DIFF FLAG NO
[2023-11-30 22:47] LABS: Appearance Urine Cloudy; Color Urine Yellow; Glucose Urine UA Negative (Negative); Leukocyte Esterase Urine Moderate (2+) (Negative); Nitrite Urine Negative (Negative); PH 5.5 (5.0-9.0); UMIC TRIGGER UACC YES; UPreg QC Valid YES; Urine Blood Large (3+) (Negative); Urine Ketones Negative (Negative); Urine Pregnancy NEGATIVE (NEGATIVE); Urine Protein Negative (Neg-Trace)
[2023-11-30 22:48] LABS: Basophils Absolute Auto 0.1 X10*3/uL (0.0-0.2); Basophils Percent Auto 0.3 % (0-2); Eosinophils Absolute Auto 0.2 X10*3/uL (0.0-0.4); Eosinophils Percent Auto 1.3 % (0-4); Hemoglobin 8.8 g/dl (12.0-16.0); Imm Gran Abs Auto 0.06 X10*3/uL (0.00-0.03); Imm Gran Pct Auto 0.4 % (0.0-0.4); Lymphocytes Absolute Auto 2.5 X10*3/uL (1.2-4.9); Lymphocytes Percent Auto 15.9 % (20-40); Mean Corpuscular HGB Conc 29.3 g/dl (31.0-35.0); Mean Corpuscular Hemoglobin 16.7 pg (27.0-33.0); Monocytes Absolute Auto 0.9 X10*3/uL (0.1-1.2); Monocytes Percent Auto 5.8 % (2-11); Neutrophils Absolute Auto 12.2 x10*3/uL (2.0-8.3); Neutrophils Percent Auto 76.3 % (45-73); Platelet Count 413 X10*3/uL (160-400); Red Blood Count 5.27 X10*6/uL (4.20-5.50)
[2023-11-30 22:52] LABS: Mean Corpuscular Volume 56.9 fL (80.0-98.0)
[2023-11-30 22:59] LABS: Bacteria Urine 1+ (None Seen); Hyaline Casts Urine 0-2 /LPF (0-2); RBC Urine 0-2 /HPF (0-2); UACC Culture Trigger YES; WBC Urine >50 /HPF (0-5)
[2023-11-30 23:03] LABS: Alanine Aminotransferase 12 U/L (0-31); Albumin Level 4.1 g/dL (3.5-5.0); Alkaline Phosphatase 81 U/L (39-117); Anion Gap 14 (12-20); Aspartate Amino Transferase 14 U/L (5-31); Bilirubin Total 0.5 mg/dL (0.0-1.0); Blood Urea Nitrogen 11 mg/dL (9-16); Calcium 9.2 mg/dL (8.4-10.2); Carbon Dioxide 21 mmol/L (22-29); Chloride 108 mmol/L (96-108); Creatinine Clr Calc Pharmacy 128.4; Estimated Glomerular Filt Rate > 60; Glucose Random 108 mg/dL (60-115); Potassium 4.2 mmol/L (3.3-5.1); Sodium 139 mmol/L (135-145)
--- NOTE | 2023-11-30 23:04 | ED.ABDPAIN ---
HPI - Abdominal Pain General Chief Complaint: Abdominal Pain Stated Complaint: Pain in stomach , Previous C section 10 lulu ago Time Seen by Provider: 11/30/23 23:04 Source: patient Mode of arrival: ambulatory Limitations: no limitations History of Present Illness ED Provider: SUSAN SOLER PA-C HPI narrative: 23-year-old female, , 10 months s/p c section, s/p appendectomy, presents to the ED today for evaluation of lower abdominal pain, nausea without vomiting and chills x3 days. Reports pain at her scar that has been constant since onset. Admits to nausea without vomiting along with vaginal bleeding which began 2 days ago. Initially heavy bleeding with small clots, now spotting. LMP 2 weeks ago. Denies chance of . States she is not sexually active. Denies concern for STDs. Denies fever, flank pain, dysuria, hematuria. Related Data Previous Rx's ?Medication ?Instructions ?Recorded ibuprofen 400 mg tablet 400 mg PO Q6H PRN pain #20 tabs 08/11/20 nitrofurantoin 100 mg PO Q12H 7 days #14 caps 07/10/22 monohydrate/macrocrystals 100 mg capsule (Macrobid) clindamycin HCl 300 mg capsule 300 mg PO TID 10 days #30 caps 10/04/22 prednisone 20 mg tablet 40 mg (2 x 20 mg) PO DAILY 5 days 10/04/22 #10 tabs Allergies Allergy/AdvReac Type Severity Reaction Status Date / Time No Known Allergies Allergy Verified 11/30/23 22:24 Review of Systems Review of Systems Constitutional: No fever, chills, fatigue, night sweats, weight changes ENT/Mouth: No ear pain, hearing loss, nasal congestion, sinus pain, rhinorrhea, sore throat Eyes: No eye pain, swelling, redness, vision changes, discharge Cardio: No chest pain, palpitations, CUNHA, orthopnea, peripheral edema Pulm: No SOB, cough, sputum, wheezing, dyspnea, hemoptysis GI: No nausea, vomiting, hematemesis, abdominal pain, diarrhea, constipation, hematochezia, melena : No irregular bleeding, dysuria, frequency, urgency, hesitancy, hematuria, flank pain, urinary flow changes, urinary incontinence or retention, +pelvic pain, +vaginal bleeding MSK: No back pain, neck pain, joint pain, myalgias Skin: No lesions, rashes Neuro: No weakness, numbness, paresthesias, LOC, dizziness, headache Psych: No anxiety/panic, depression, SI/HI, AH/VH All other systems reviewed and are negative. [facility], LATER [facility] Past Medical History Attestation statement: The following information was validated with the patient. Source: old records reviewed and nursing notes reviewed Medical History No known health problems Social History Social History Alcohol intake: never Patient Tobacco Use Status: Never used Tobacco Smoked in Last 30 Days: No Use of substances other than those prescribed or required for medical reasons: No Advance Directives: No Advance Directives Information Provided: No Do you have a plan to hurt others: No Plan Physical Exam ED Vital Signs: Vital Signs - 24 hr 11/30/23 22:23 11/30/23 23:22 11/30/23 23:50 Temperature 98.1 F 99.4 F Pulse Rate 99 86 Respiratory Rate 16 18 16 Blood Pressure 123/74 110/52 L Pulse Oximetry 100 99 Oxygen Delivery Method Room Air Room Air 12/01/23 00:22 12/01/23 01:04 Temperature Pulse Rate 71 Respiratory Rate 16 14 Blood Pressure Pulse Oximetry Oxygen Delivery Method BMI result Body Mass Index 49.1 Vital signs stable, afebrile Const Other: Patient uncomfortable appearing. General: cooperative, healthy appearing and no acute distress Orientation/consciousness: patient oriented x3 Limitations: no limitations [facility] Head: Yes normal to inspection, Yes No palpable skull fracture present, Yes normocephalic and Yes atraumatic Eyes General: appearance normal, both eyes and all related structures Pupils: Equal, round and reactive pupils present Neck Neck: Yes normal visual inspection, Yes full ROM and Yes no lymphadenopathy Resp Effort & Inspection: normal respiratory effort and able to speak in complete sentences Auscultation: clear to auscultation bilaterally Cardio Rate: regular rate Rhythm: regular rhythm GI Other: Obese abdomen, nondistended, soft, exquisitely tender to palpation of suprapubic region around scar. scar well healed. No surrounding erythema. No noted drainage. 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 External genitalia is normal in appearance without lesions, swelling, masses or tenderness. Vaginal canal is pink, moist, with blood and small amount of clots. Cervix is non-tender without lesions or erosions. Patient unable to tolerate bimanual exam due to pain. Neuro General: patient oriented x3 Cranial nerves: Yes Equal, round and reactive pupils present Course Course Course Narrative: 2336-- CBC showing leukocytosis to 16.8 with 12% bands. Hemoglobin 8.8, hematocrit 30. This appears to be around patient's baseline when compared to priors. Chemistry without acute electrolyte abnormality requiring intervention. Normal renal function. Normal liver function. Urine showing large amount of blood, negative nitrite, moderate amount of leukocyte esterase, over 50 WBCs, 3-5 squamous epithelial cells and 1+ bacteria. Urine negative. > patient receiving IV fluids and morphine for pain control > CT abdomen pending 128-- CT scan showing mild infiltrative change along distal left colon associated with some fatty densities which may represent epiploic appendagitis however pelvic inflammatory process is also a possibility. There is also free fluid within the pelvis which may be physiologic. > on re-evaluation, patient reports continued pain despite treatment with IV morphine and IV Dilaudid > I suspect pelvic inflammatory disease. IV ceftriaxone, doxy and Flagyl ordered for empiric treatment. Blood cultures ordered. Patient receiving IV fluids. > given patient's intractable pain secondary to suspected PID, I discussed case with hospitalist who has accepted patient for admission to medicine. Medical Decision Making Medical Decision Making [facility] Narrative: 23-year-old female, , 10 months s/p c section presents to the ED today for evaluation of lower abdominal pain, nausea without vomiting and chills x3 days. Vital signs stable, afebrile. She is nontoxic-appearing and in no acute distress. On exam, obese abdomen, nondistended, soft, exquisitely tender to palpation of suprapubic region around scar. scar well healed. No surrounding erythema. No noted drainage. External genitalia is normal in appearance without lesions, swelling, masses or tenderness. Vaginal canal is pink, moist, with blood and small amount of clots. Cervix is non-tender without lesions or erosions. Patient unable to tolerate bimanual exam due to pain. Differential diagnosis includes ovarian cyst, PID, pyelonephritis, UTI, TOA, IUP, ectopic Plan for labs, UA, CT/NG, BV, trich, CT abd/pelvis, IVF, pain control, and re-evaluation. Differential Diagnosis Differential Diagnoses: The differential diagnosis associated with the presentation includes as above. Admission/Observation Consideration of admission/observation: Escalation of care including admission/observation considered Patient to be admitted to medicine for treatment of intractable pain Consult Healthcare Provider Management of the patient was discussed with: Hospitalist (Dr. Stevens) Lab Data MDM Lab Attestation statement: I reviewed the patient's lab results. as above. 11/30/23 22:37 11/30/23 22:37 Labs: Lab Results 11/30/23 Range/Units 22:37 WBC 16.0 H (4.8-10.8) X10*3/uL RBC 5.27 (4.20-5.50) X10*6/uL Hgb 8.8 L (12.0-16.0) g/dl Hct 30.0 L (37.0-47.0) % MCV 56.9 L (80.0-98.0) fL MCH 16.7 L (27.0-33.0) pg MCHC 29.3 L (31.0-35.0) g/dl RDW 23.0 H (11.0-16.0) % Plt Count 413 H (160-400) X10*3/uL MPV TNP Immature Gran % (Auto) 0.4 (0.0-0.4) % Neut % (Auto) 76.3 H (45-73) % Lymph % (Auto) 15.9 L (20-40) % [place] % (Auto) 5.8 (2-11) % Eos % (Auto) 1.3 (0-4) % Baso % (Auto) 0.3 (0-2) % Lymph # (Auto) 2.5 (1.2-4.9) X10*3/uL [place] # (Auto) 0.9 (0.1-1.2) X10*3/uL Eos # (Auto) 0.2 (0.0-0.4) X10*3/uL Baso # (Auto) 0.1 (0.0-0.2) X10*3/uL Abs Immat Gran (auto) 0.06 H (0.00-0.03) X10*3/uL Absolute Neuts (auto) 12.2 H (2.0-8.3) x10*3/uL Absolute Nucleated RBC 0.000 (0.0-0.012) X10*3/uL Nucleated RBC % (auto) 0.0 (0.0-0.2) /100WBC Sodium 139 (135-145) mmol/L Potassium 4.2 (3.3-5.1) mmol/L Chloride 108 (96-108) mmol/L Carbon Dioxide 21 L (22-29) mmol/L Anion Gap 14 (12-20) BUN 11 (9-16) mg/dL Creatinine 0.83 (0.5-1.4) mg/dL Estim Creat Clear Calc 128.4 Estimated GFR > 60 Random Glucose 108 (60-115) mg/dL Calcium 9.2 (8.4-10.2) mg/dL Total Bilirubin 0.5 (0.0-1.0) mg/dL AST 14 (5-31) U/L ALT 12 (0-31) U/L Alkaline Phosphatase 81 (39-117) U/L Total Protein 8.0 (6.5-8.0) g/dL Albumin 4.1 (3.5-5.0) g/dL Urine Color Yellow Urine Appearance Cloudy Urine pH 5.5 (5.0-9.0) Ur Specific [place] 1.020 (1.005-1.025) Urine Protein Negative (Neg-Trace) mg/dL Urine Glucose (UA) Negative (Negative) mg/dL Urine Ketones Negative (Negative) mg/dL Urine Blood Large (3+) H (Negative) Urine Nitrite Negative (Negative) Ur Leukocyte Esterase Moderate (2+) H (Negative) Urine RBC 0-2 (0-2) /HPF Urine WBC >50 H (0-5) /HPF Ur Squamous Epith Cells 3-5 (0-2) /HPF Urine Bacteria 1+ (None Seen) Hyaline Casts 0-2 (0-2) /LPF Urine Test NEGATIVE (NEGATIVE) Independent Interpretation I performed an independent interpretation of an: CT Scan Interpretation: CT abdomen/pelvis with inflammatory changes noted to left colon, agree with radiologist's interpretation. Radiology Impression Discussion of test interpretation with radiology: I have reviewed the radiologist's reading. Radiologist Impression: EXAMINATION: CT ABDOMEN AND PELVIS WITH CONTRAST CLINICAL INFORMATION: Pelvic pain. COMPARISON: None available. TECHNIQUE: Multidetector volumetric images were obtained from the superior aspect of the liver through the pubic symphysis following administration 85 mL of Omnipaque 350 intravenous contrast. Sagittal and coronal reformatted images were obtained on the technologist's workstation. Oral contrast: No This CT examination was performed using dose optimization techniques as appropriate, variously including the following: *Automated exposure control *Adjustment of mA and/or kV according to patient size (this includes techniques or standardized protocols for targeted exams where dose is matched to indication/reason for exam; i.e. extremities or head) *Use of iterative reconstruction technique DLP: 1003 mGy-cm FINDINGS: LUNG BASES: The visualized lung bases are unremarkable. LIVER, GALLBLADDER, AND BILIARY TREE: The liver is normal in size, shape, and attenuation. No focal hepatic lesion or biliary ductal dilatation is present. The gallbladder is unremarkable with no evidence of radiopaque gallstones, gallbladder wall thickening, or obvious pericholecystic inflammatory changes. PANCREAS: Unremarkable. SPLEEN: Unremarkable. ADRENAL GLANDS: Unremarkable. KIDNEYS AND URETERS: The kidneys are normal in size, shape, and attenuation. No hydronephrosis, hydroureter, or calculi seen. No perinephric stranding. BLADDER: Unremarkable. GASTROINTESTINAL TRACT: The small and large bowel are unremarkable. The appendix is not seen. ABDOMINAL WALL: No significant hernia is appreciated. LYMPH NODES: Normal. VASCULAR: The pelvic viscera are unremarkable. There is mild infiltrative change along the distal left colon associated with some fatty densities. PELVIC VISCERA: Pelvic structures are unremarkable. There is a small amount of free fluid within the pelvis OSSEOUS STRUCTURES: Unremarkable. CT/CT abdomen pelvis w IV con IMPRESSION: 1. There is mild infiltrative change along the distal left colon associated with some fatty densities. This may represent epiploic appendagitis. A pelvic inflammatory process also a possibility. 2. There is a small amount of free fluid within the pelvis which may be physiologic. Fleischner guidelines were followed. External Record Review External record reviewed: Inpatient record Prescription Management I considered prescription management with: Pain Medication and Antibiotic (Ceftriaxone, doxy, Metronidazole) Social Determinants Patient?s care significantly limited by Social Determinants of Health including: Other Social Determinant of Health Medications Administered Generic Name Dose Route Start Last Admin Trade Name Sudha PRN Reason Stop Dose Admin Doxycycline Hyclate 100 mg/ 250 mls @ 166.67 mls/hr 12/01/23 00:24 12/01/23 01:11 Sodium Chloride IV 12/01/23 01:53 166.67 mls/hr ONCE ONE Administration Discontinued Medications Generic Name Dose Route Start Last Admin Trade Name Sudha PRN Reason Stop Dose Admin Hydromorphone HCl 0.5 mg 12/01/23 01:00 12/01/23 01:04 Hydromorphone Hcl 0.5 Mg/0.5 Ml Syringe IVPUSH 12/01/23 01:01 0.5 mg ONCE ONE Administration Protocol Sodium Chloride 1,000 mls @ 999 mls/hr 11/30/23 23:15 12/01/23 00:15 Ns IV 12/01/23 00:15 999 mls/hr .Q1H1M AUTUMN Administration Ceftriaxone Sodium 1 gm/ 50 mls @ 100 mls/hr 12/01/23 00:24 12/01/23 01:05 Sodium Chloride IV 12/01/23 00:53 100 mls/hr ONCE ONE Administration Metronidazole 500 mg in 100 mls @ 100 mls/hr 12/01/23 00:24 12/01/23 01:18 Flagyl IV 12/01/23 01:23 100 mls/hr ONCE ONE Administration Iohexol 85 ml 11/30/23 23:40 11/30/23 23:41 Iohexol 350 Mg/Ml 100 Ml Infus..Btl IV 11/30/23 23:41 85 ml ONCE ONE Administration Morphine Sulfate 4 mg 11/30/23 23:14 11/30/23 23:22 Morphine Sulfate 4 Mg/Ml Cartridge IVPUSH 11/30/23 23:15 4 mg ONCE ONE Administration Protocol Critical Care Time Critical Care Time Critical Care Time: Yes Total Critical Care Time: 42 Attestation: Critical care time in the amount of 42 minutes has been provided to the patient in terms of direct patient care, frequent reevaluation on IV morphine and dilaudid, consultation with hospitalist, review and interpretation of medical data and results, and management of potentially life-threatening conditions. This is all outside of any medical procedures. Discharge Plan Discharge Clinical Impression: Acute pelvic inflammatory disease, Intractable pain Patient Disposition: Admitted As Inpatient Print Language: American
[2023-11-30 23:22] VITALS: RESP 18
[2023-11-30] MEDS: Morphine Sulfate 4 MG/ML CARTRIDGE IVPUSH (23:22)
--- NOTE | 2023-11-30 23:25 | PC.NURSE ---
Pt ca&ox4, no signs of distress. Pt reporting 8/10 abd pain. Pt medicated per jul. Plan of care ongoing.
[2023-11-30] MEDS: iohexoL 350 MG/ML 100 ML INFUS..BTL 85 ML IV (23:41)
[2023-11-30 23:50] VITALS: BP 110/52; PULSE 86; RESP 16; TEMP 37.4; O2SAT 99
--- NOTE | 2023-11-30 23:53 | MHC.EDTECH ---
This pct set up and [employer] Provider during Patient Vaginal exam ,Sample collected and sent to lab ,0000 ,rounding and vitals taken ,Patient resting ,call north within Patient reach .
[2023-12-01] VITALS (10 sets, daily range): BP systolic 92–114; BP diastolic 45–62; PULSE 71–92; RESP 14–18; TEMP 36.1–37.2; O2SAT 98–100; BMI 49.1
[2023-12-01] MEDS: 0.9 % Sodium Chloride 1,000 ML 999 ML IV ×2 (00:15→06:34)
--- NOTE | 2023-12-01 00:54 | PC.NURSE ---
Pt ca&ox4, no signs of distress. Plan of care ongoing.
[2023-12-01] MEDS: HYDROmorphone HCl 0.5 MG/0.5 ML SYRINGE IVPUSH (01:04)
[2023-12-01] MEDS: cefTRIAXone sodium 1 GM in 0.9 % Sodium Chloride 50 ML IV (01:05)
[2023-12-01] MEDS: Doxycycline Hyclate 100 MG in 0.9 % Sodium Chloride 250 ML 166.67 MG IV ×3 (01:11→14:18)
[2023-12-01] MEDS: metroNIDAZOLE/NS 500 MG/100 ML PIGGYBACK 100 MG IV ×3 (01:18→16:17)
--- NOTE | 2023-12-01 01:42 | MHC.EDTECH ---
Both sets of blood culture drawn and sent to lab ,0200 vitals taken .NO apparent distress noted at this time ,Patient talking on the Phone ,Plan of care continue .
--- NOTE | 2023-12-01 02:02 | PM.IMHP ---
History of Present Illness Date of Service: 12/01/23 Chief Complaint: Abdominal Pain This is a 23-year-old female with no pertinent past medical history and not on prescription medications, past surgical history of admits ago and history of appendicectomy who presents to the emergency department for evaluation of abdominal pain. Patient states that she started having lower abdominal pain 2 days prior to presentation. Initially it was intermittent but progressed to be constant, nonradiating and without any relieving factors. Patient tried [id number] pain medications but no relief. No fever, chills. Admits nausea but no vomiting. She had a 10 months ago. Has been having intermittent bloody vaginal discharge. Denies dysuria but states it hurts when she uses the restroom. Her last menstrual cycle was 2 weeks ago. States she is not sexually active and no concern for STIs. No chest discomfort, palpitations, shortness breath, changes in bowel habits. In the emergency department, patient requiring multiple IV opioids for intractable pain and could not tolerate bimanual pelvic exam due to the pain. Imaging concerning for pelvic inflammatory process. Review of Systems Constitutional: Constitutional: Reports no additional constitutional complaints Cardiovascular: Cardiovascular: Reports no additional cardiovascular complaints Respiratory: Respiratory: Reports no additional respiratory complaints Gastrointestinal: Gastrointestinal: Reports abdominal pain and Reports nausea Musculoskeletal: Musculoskeletal: Reports no additional musculoskeletal complaints [facility] Medical History No known health problems Pertinent family history: No family history of early CAD Surgical History History of appendectomy History of Social History Alcohol intake: never Patient Tobacco Use Status: Never used Tobacco Smoked in Last 30 Days: No Use of substances other than those prescribed or required for medical reasons: No Advance Directives: No Advance Directives Information Provided: No Do you have a plan to hurt others: No Plan Meds Allergies Allergy/AdvReac Type Severity Reaction Status Date / Time No Known Allergies Allergy Verified 11/30/23 22:24 Physical Exam Vital Signs and Narrative: Vital Signs: Last Vital Signs Temp 98.8 F 12/01/23 01:39 Pulse 89 12/01/23 01:39 Resp 14 12/01/23 01:44 BP 104/55 L 12/01/23 01:39 Pulse Ox 99 12/01/23 01:39 O2 Del Method Room Air 12/01/23 01:39 BMI result Body Mass Index 49.1 Young female lying in bed in no distress Neck supple, no JVD Regular rate and rhythm, S1-S2 heard Regular breath sounds bilaterally, no wheezing or crackles appreciated Abdomen with tenderness to palpation of suprapubic region, no rigidity, no rebound tenderness Patient is awake, alert and oriented to self, place, time and person ; no focal motor deficit Psych: Normal mood No pedal edema Results Labs 11/30/23 22:37 11/30/23 22:37 Labs: Laboratory Results - last 24 hr 11/30/23 22:37 MCV 56.9 L MCH 16.7 L MCHC 29.3 L RDW 23.0 H Plt Count 413 H MPV TNP Immature Gran % (Auto) 0.4 Neut % (Auto) 76.3 H Lymph % (Auto) 15.9 L [place] % (Auto) 5.8 Eos % (Auto) 1.3 Baso % (Auto) 0.3 Lymph # (Auto) 2.5 [place] # (Auto) 0.9 Eos # (Auto) 0.2 Baso # (Auto) 0.1 Abs Immat Gran (auto) 0.06 H Absolute Neuts (auto) 12.2 H Absolute Nucleated RBC 0.000 Nucleated RBC % (auto) 0.0 Anion Gap 14 Estim Creat Clear Calc 128.4 Estimated GFR > 60 Random Glucose 108 Calcium 9.2 Total Bilirubin 0.5 AST 14 ALT 12 Alkaline Phosphatase 81 Total Protein 8.0 Albumin 4.1 Urine Color Yellow Urine Appearance Cloudy Urine pH 5.5 Ur Specific [place] 1.020 Urine Protein Negative Urine Glucose (UA) Negative Urine Ketones Negative Urine Blood Large (3+) H Urine Nitrite Negative Ur Leukocyte Esterase Moderate (2+) H Urine RBC 0-2 Urine WBC >50 H Ur Squamous Epith Cells 3-5 Urine Bacteria 1+ Hyaline Casts 0-2 Urine Test NEGATIVE Imaging Radiologist's Impressions: Impressions Abdomen/Pelvis CT 11/30/23 23:35 IMPRESSION: 1. There is mild infiltrative change along the distal left colon associated with some fatty densities. This may represent epiploic appendagitis. A pelvic inflammatory process also a possibility. 2. There is a small amount of free fluid within the pelvis which may be physiologic. Fleischner guidelines were followed. Assessment and Plan (1) Intractable pain: Status: Acute (2) Acute pelvic inflammatory disease: Status: Acute Plan This is a 23-year-old female with no pertinent past medical history and not on prescription medications, past surgical history of admits ago and history of appendicectomy who presents to the emergency department for evaluation of abdominal pain. #. Intractable abdominal pain, likely due to pelvic inflammatory disease: Will admit patient with empiric IV ceftriaxone, doxycycline and metronidazole. Leukocytosis present. Patient unable to tolerate bimanual pelvic exam by ER provider due to pain. Imaging concerning for pelvic inflammatory process. Consulting gynecology services. Analgesia p.r.n. Chlamydia/gonorrhea pending. Also urine with more than 50 WBC DVT prophylaxis: Lovenox Full code Admit as inpatient and will require two night minimum hospital stay for IV antibiotics (as above), which is not possible in a lesser acute setting. Specialist consult pending Quality Stroke Does the patient have a stroke diagnosis?: No VTE Prior VTE?: No VTE Risk Level:: Medical - moderate - high VTE Device Contraindication: Treatment Not Indicated VTE Drug Contraindication: N/A - Med Ordered
[2023-12-01] MEDS: Enoxaparin Sodium 40 MG/0.4 ML SYRINGE SUBCUT (03:00)
[2023-12-01 05:13] LABS: Basophils Percent Auto 0.3 % (0-2); Imm Gran Abs Auto 0.04 X10*3/uL (0.00-0.03); Imm Gran Pct Auto 0.3 % (0.0-0.4); MANUAL DIFF FLAG SCAN; Mean Corpuscular Hemoglobin 17.1 pg (27.0-33.0); Red Cell Distribution Width 22.5 % (11.0-16.0); SCAN SMEAR FLAG 1
[2023-12-01 05:15] LABS: Eosinophils Absolute Auto 0.2 X10*3/uL (0.0-0.4); Eosinophils Percent Auto 1.6 % (0-4); Hematocrit 25.6 % (37.0-47.0); Hemoglobin 7.7 g/dl (12.0-16.0); Lymphocytes Absolute Auto 3.1 X10*3/uL (1.2-4.9); Lymphocytes Percent Auto 25.7 % (20-40); Mean Corpuscular HGB Conc 30.1 g/dl (31.0-35.0); Monocytes Absolute Auto 0.8 X10*3/uL (0.1-1.2); Neutrophils Absolute Auto 7.8 x10*3/uL (2.0-8.3); Neutrophils Percent Auto 65.1 % (45-73); PLT ABN DIST 1; Platelet Count 325 X10*3/uL (160-400); Red Blood Count 4.49 X10*6/uL (4.20-5.50); White Blood Count 11.9 X10*3/uL (4.8-10.8)
[2023-12-01 05:24] LABS: Anion Gap 12 (12-20); Blood Urea Nitrogen 9 mg/dL (9-16); Calcium 8.6 mg/dL (8.4-10.2); Carbon Dioxide 22 mmol/L (22-29); Chloride 110 mmol/L (96-108); Creatinine Clr Calc Pharmacy 140.3; Estimated Glomerular Filt Rate > 60; Glucose Random 91 mg/dL (60-115); Potassium 3.7 mmol/L (3.3-5.1); Sodium 140 mmol/L (135-145)
[2023-12-01 05:34] LABS: SLIDE REVIEW VERIFIED
[2023-12-01 05:38] LABS: CT PCR NOT DETECTED (Not Detect.); NG PCR DETECTED (Not Detect.)
[2023-12-01] MEDS: Morphine Sulfate 4 MG/ML CARTRIDGE IVPUSH ×2 (06:02→17:21)
--- NOTE | 2023-12-01 06:05 | PC.NURSE ---
Pt reporting 7/10 abd pain. Pt medicated per mar. Plan of care ongoing.
--- NOTE | 2023-12-01 07:49 | P.CONOB_ITS ---
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 Review of the chart showed the followin23 year old female presented to the emergency department with abdominal pain for 2 days prior to presentation associated with intermittent vaginal bloody discharge, nausea with no vomiting, the pain was intermittent but progressed to be constant, it is nonradiating and without any relieving factors. The Patient tried [id number] pain medications but no relief, no associated fever, chills. Her last menstrual cycle was 2 weeks ago. In the emergency department, patient requiring multiple IV opioids for intractable pain and could not tolerate bimanual pelvic exam due to the pain. Urine test was negative. Gonorrhea positive, chlamydia negative, Trichomonas, BV panel and Keena are still pending. The patient was not seen nor examined per her request declining to see him a welfare specialist cc:: CC: Altagracia Castañeda NP OB PMF Past Medical History Medical History No known health problems Surgical History Surgical History History of appendectomy History of Social History Social History Alcohol intake: never Patient Tobacco Use Status: Never used Tobacco Meds Allergies Allergy/AdvReac Type Severity Reaction Status Date / Time No Known Allergies Allergy Verified 11/30/23 22:24 Active Medications: Current Medications Acetaminophen (Acetaminophen 325 Mg Tablet) 650 mg PO Q6H PRN PRN Reason: Pain, Mild (Pain Scale 1-3), fever or headache Calcium Carbonate (Calcium Carbonate 750 Mg Tab.Chew) 750 mg PO Q4H PRN PRN Reason: Heartburn Enoxaparin Sodium (Enoxaparin Sodium 40 Mg/0.4 Ml Syringe) 40 mg SUBCUT Q24H AUTUMN Last Admin: 12/01/23 03:00 Dose: 40 mg Ceftriaxone Sodium 1 gm/ (Sodium Chloride) 50 mls @ 100 mls/hr IV Q24H [facility]UM[facility] Doxycycline Hyclate 100 mg/ (Sodium Chloride) 250 mls @ 166.67 mls/hr IV Q12H [facility] Last Infusion: 12/01/23 05:00 Dose: Infused Metronidazole (Flagyl) 500 mg in 100 mls @ 100 mls/hr IV Q8H [facility]UM[employer] Magnesium Hydroxide (Milk Of Magnesia 30 Ml Oral.Susp) 30 ml PO DAILY PRN PRN Reason: Constipation Melatonin (Melatonin 3 Mg Tablet) 6 mg PO BEDTIME PRN PRN Reason: Insomnia Morphine Sulfate (Morphine Sulfate 4 Mg/Ml Cartridge) 4 mg IVPUSH Q4H PRN; Protocol PRN Reason: Pain, Severe (Pain Scale 7-10) Last Admin: 12/01/23 06:02 Dose: 4 mg Ondansetron HCl (Ondansetron Hcl 4 Mg/2 Ml Vial) 4 mg IVPUSH Q8H PRN PRN Reason: Nausea and Vomiting Sodium Chloride (0.9 % Sodium Chloride Flush 3 Ml Syringe) 3 ml IVFLUSH QSHIFT [facility] Home Medications ?Medication ?Instructions ?Recorded ?Confirmed ?Last Taken ?Type ascorbic acid (vitamin C) 250 mg 250 mg PO DAILY 12/01/23 12/01/23 Unknown History tablet cholecalciferol (vitamin D3) 50 50 mcg PO DAILY 12/01/23 12/01/23 Unknown History mcg (2,000 unit) tablet (Vitamin D3) ferrous sulfate 325 mg (65 mg 325 mg PO DAILY 12/01/23 12/01/23 Unknown History iron) tablet MACHINERY MECHANIC Physical Exam Vitals Vital signs: Temp Pulse Resp BP Pulse Ox O2 Del Method 97 F 92 16 112/62 100 Room Air 12/01/23 07:38 12/01/23 07:38 12/01/23 07:38 12/01/23 07:38 12/01/23 07:38 12/01/23 07:38 BMI result Body Mass Index 49.1 MACHINERY MECHANIC - Results Labs 12/01/23 05:01 12/01/23 05:01 Labs: Short CBC 11/30/23 12/01/23 Range/Units 22:37 05:01 WBC 16.0 H 11.9 H (4.8-10.8) X10*3/uL Hgb 8.8 L 7.7 L (12.0-16.0) g/dl Hct 30.0 L 25.6 L (37.0-47.0) % Plt Count 413 H 325 (160-400) X10*3/uL BMP 11/30/23 12/01/23 22:37 05:01 Sodium 139 140 Potassium 4.2 3.7 Chloride 108 110 H Carbon Dioxide 21 L 22 BUN 11 9 Creatinine 0.83 0.76 Calcium 9.2 8.6 D Liver Function 11/30/23 Range/Units 22:37 Total Bilirubin 0.5 (0.0-1.0) mg/dL AST 14 (5-31) U/L ALT 12 (0-31) U/L Alkaline Phosphatase 81 (39-117) U/L Albumin 4.1 (3.5-5.0) g/dL Urine 11/30/23 Range/Units 22:37 Urine Color Yellow Urine Appearance Cloudy Urine pH 5.5 (5.0-9.0) Ur Specific [place] 1.020 (1.005-1.025) Urine Protein Negative (Neg-Trace) mg/dL Urine Glucose (UA) Negative (Negative) mg/dL Urine Test NEGATIVE (NEGATIVE) Imaging CT scan - abdomen: Radiologist's impression: ITS Impressions Abdomen/Pelvis CT 11/30/23 23:35 IMPRESSION: 1. There is mild infiltrative change along the distal left colon associated with some fatty densities. This may represent epiploic appendagitis. A pelvic inflammatory process also a possibility. 2. There is a small amount of free fluid within the pelvis which may be physiologic. Fleischner guidelines were followed. Assessment and Plan (1) Acute pelvic inflammatory disease: Status: Acute GC /chlamydia taken, GC+/CT neg; BV panel, Keena and Trichomonas results pending. Recommend the following: Pelvic ultrasound to rule out TOA, STD screen to be ordered including HIV, hepatitis-B surface antigen, Hepatitis-C antibody and RPR, orders placed. Check pendning BV panel, Keena and Trichomonas and treat accordingly. Treat with CDC parenteral regimen, IV antibiotics with Ceftriaxone 1 g Q 24, doxycycline 100 mg p.o. or IV q.12, metronidazole 500 mg IV or p.o. q.12 till clinical improvement for 48-72 hours, then discharge home on doxycycline 100 mg p.o. b.i.d. with Flagyl 500 mg p.o. b.i.d. for a total of 14 days, to be followed up as an outpatient within 2 weeks. (2) Anemia: Status: Acute Recommend to check if the patient is having heavy menstrual cycles if so active vaginal bleeding history evaluated and possible treatment, will defer the management of the anemia to the hospitalists team. (3) Gonorrhea: Status: Acute the pt is on ceftriaxone. I spent a total of 20 minute reviewing the chart, communicating to the provider and documenting in the medical This note was generated with a voice recognition program. Some errors may have been overlooked during the review of this note. Sometimes these errors may affect the content or meaning of a given sentence.
--- NOTE | 2023-12-01 07:53 | PHA.MEDREC ---
Pharmacy Consult ? Medication Reconciliation Pharmacy has completed the medication reconciliation. Spoke to patient, med rec complete. Patient states she takes the vit c and iron daily even though instructions on pharmacy order state every other day.
[2023-12-01 08:21] LABS: Iron 13 mcg/dL (30-160); Percent Iron Saturation 4 % (15-50); Total Iron Binding Capacity 292 mcg/dL (228-428); Unsaturated Iron Binding 279 ug/dL
[2023-12-01 09:31] LABS: HIV AB/AG Nonreactive (Nonreactive); HIV Num 1 0.42 S/CO (0.00-0.99); Hepatitis B Surface Antigen Negative (Negative); Syphilis Screen Nonreactive (Nonreactive); ~HepC Num1 0.23 S/CO (0.00-0.79); ~Hepatitis C Antibody Nonreactive (Nonreactive)
[2023-12-01 09:36] LABS: Bacterial Vaginosis PCR POSITIVE (Negative); Candida Group PCR NOT DETECTED (Not Detect); Candida glab krusei PCR NOT DETECTED (Not Detect); Trichomonas vaginalis PCR NOT DETECTED (Not Detect)
[2023-12-01] MEDS: 0.9 % Sodium Chloride Flush 3 ML SYRINGE IVFLUSH ×2 (09:58→16:19)
--- NOTE | 2023-12-01 10:05 | PM.EVENT ---
Event Note Date of Service: 12/01/23 Event Note: This is a 23-year-old female with no pertinent past medical history and not on prescription medications, past surgical history of admits ago and history of appendicectomy who presents to the emergency department for evaluation of abdominal pain. Intractable abdominal pain with positive gonorrhea and bacterial vaginosis empiric IV ceftriaxone, doxycycline and metronidazole. 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 plan for o/p tx doxycycline 100 mg b.i.d. with Flagyl 500 mg b.i.d. for total 14 days and follow-up with bridge attacher in 2 weeks transvaginal us negative Acute on chronic iron deficiency anemia likely secondary to menorrhagia Patient reports soaking through at least 5 overnight pads every day during her periods, lasting at least 7 days iron 13/TIBC 292/%4 start iron supplement follow CBC should follow up with hematology o/p DVT prophylaxis: Lovenox Attending Dr. Root Full code Admit as inpatient and will require two night minimum hospital stay for IV antibiotics (as above), which is not possible in a lesser acute setting. Specialist consult pending Time Spent With Patient Time: Total time managing care of this patient today ____ minutes.
[2023-12-01] MEDS: Acetaminophen 325 MG TABLET 650 MG PO (10:09)
--- NOTE | 2023-12-01 10:54 | MHC.CM.PN ---
PT REPORTS SHE LIVES WITH HER AUNT AND IS INDEPENDENT WITH CARE SHE HAS NO DME AND NO HOME SERVICES, SHE DOES HAVE MENTAL HEALTH SERVICES PT DECLINES TO COMPLETE A HCP PCP: SANYA LUDWIG DCP: HOME NO SERVICES VIA SELF-TRANSPORT
[2023-12-01] MEDS: Ferrous Sulfate 324 MG TABLET.DR PO (11:07)
[2023-12-01] MEDS: ondansetron HCL 4 MG/2 ML VIAL IVPUSH (17:28)
[2023-12-02] MEDS: cefTRIAXone sodium 1 GM in 0.9 % Sodium Chloride 50 ML IV (00:04)
[2023-12-02] MEDS: Acetaminophen 325 MG TABLET 650 MG PO (00:11)
[2023-12-02] MEDS: metroNIDAZOLE/NS 500 MG/100 ML PIGGYBACK 100 MG IV ×2 (00:55→09:02)
[2023-12-02] MEDS: Doxycycline Hyclate 100 MG in 0.9 % Sodium Chloride 250 ML 166.67 MG IV (02:02)
[2023-12-02] MEDS: Enoxaparin Sodium 40 MG/0.4 ML SYRINGE SUBCUT (02:05)
[2023-12-02 03:21] VITALS: BP 122/73; PULSE 90; RESP 16; TEMP 36.3; O2SAT 99
[2023-12-02 07:06] LABS: Hemoglobin 7.8 g/dl (12.0-16.0)
[2023-12-02 07:08] LABS: Hematocrit 26.9 % (37.0-47.0); Mean Corpuscular Hemoglobin 16.8 pg (27.0-33.0); Platelet Count 340 X10*3/uL (160-400); Red Blood Count 4.64 X10*6/uL (4.20-5.50); Red Cell Distribution Width 22.6 % (11.0-16.0); White Blood Count 10.8 X10*3/uL (4.8-10.8)
[2023-12-02 07:17] VITALS: BP 152/70; PULSE 80; RESP 16; TEMP 36; O2SAT 97
[2023-12-02 07:18] LABS: PLT ABN DIST 1
--- NOTE | 2023-12-02 07:24 | PM.DS ---
DS: Providers Provider Date of Service: 12/02/23 Date of admission: 12/01/23 01:59 Primary care physician: Elaina Pan NP Consults: 12/01/23 02:33 Consult to Obstetrics / Gynecology Routine Consulting Provider: Jeison Gomes Reason for consultation: ?Pelvic inflammatory disease DS: Diagnosis Discharge Diagnosis (1) Acute pelvic inflammatory disease: Status: Acute (2) Anemia: Status: Acute (3) Gonorrhea: Status: Acute DS: Summary Hospital Course Hospital Course: History and physical as per admitting provider. This is a 23-year-old female with no pertinent past medical history and not on prescription medications, past surgical history of admits ago and history of appendicectomy who presents to the emergency department for evaluation of abdominal pain. Patient states that she started having lower abdominal pain 2 days prior to presentation. Initially it was intermittent but progressed to be constant, nonradiating and without any relieving factors. Patient tried [id number] pain medications but no relief. No fever, chills. Admits nausea but no vomiting. She had a 10 months ago. Has been having intermittent bloody vaginal discharge. Denies dysuria but states it hurts when she uses the restroom. Her last menstrual cycle was 2 weeks ago. States she is not sexually active and no concern for STIs. No chest discomfort, palpitations, shortness breath, changes in bowel habits. In the emergency department, patient requiring multiple IV opioids for intractable pain and could not tolerate bimanual pelvic exam due to the pain. Imaging concerning for pelvic inflammatory process. 23-year-old woman treated for abdominal pain likely secondary to STD, gonorrhea and bacterial vaginosis. Patient was started on doxycycline, Flagyl and ceftriaxone. Transvaginal ultrasound was negative for abscess or any other abnormality. She was seen by medical malpractice paralegal provider but declined because she wanted a female provider and there is not available at this time. Patient will be discharged with Cefuroxime, doxycycline and Flagyl for total of 14 days. She was told to report her diagnosis to her significant other or other sexual partners she has so they could obtain treatment. She was also treated for acute on chronic iron-deficiency anemia which may likely be secondary to menorrhagia. She reports soaking through at least 5 overnight pads every day during her periods lasting about 7 days. Her iron is 13/TIBC 292/% 4. She was started on iron supplementation which she takes daily. She did not require blood transfusion. She should follow-up with OBGYN or Hematology for further workup of this anemia. She should come back to the ER if she feels any dizziness, weakness or loss of consciousness. Time Attestation Discharge Coordination Time (in mins): 35 Quality: Safe Use of Opioids Does Pt have an Active Cancer Diagnosis on the Problem List?: No Quality: Stroke Does the patient have a stroke diagnosis?: No Physical Exam Vital Signs: Vital Signs: Last Vital Signs Temp 96.8 F 12/02/23 07:17 Pulse 80 12/02/23 07:17 Resp 16 12/02/23 07:17 BP 152/70 H 12/02/23 07:17 Pulse Ox 97 12/02/23 07:17 O2 Del Method Room Air 12/02/23 07:17 BMI result Body Mass Index 49.1 Appearing in no acute distress head is normocephalic atraumatic eyes pupils are PERRLA sclera is anicteric mouth throat mucous membranes are intact and moist neck is supple no lymphadenopathy, no JVD noted lung sounds are clear to auscultation heart regular rate rhythm, clear S1, S2 positive bowel sounds, abdomen is soft, nontender neuro patient is alert x3, no focal deficits DS: Data Data Completed and Pending Labs on day of discharge: Laboratory Results - last 24 hr 11/30/23 12/01/23 12/01/23 23:52 05:01 08:39 WBC RBC Hgb Hct MCV MCH MCHC RDW Plt Count MPV Absolute Nucleated RBC Nucleated RBC % (auto) Iron 13 L TIBC 292 % Saturation 4 L Unsat Iron Binding 279 T.pallidum Ab (EIA) Nonreactive Hep Bs Antigen Negative Hepatitis C Ab (EIA) Nonreactive HIV 1&2 Ab/P24 Ag 4thGn Nonreactive T. vaginalis (PCR) NOT DETECTED Bact Vaginosis (PCR) POSITIVE A C. krusei/glabrata (PCR) NOT DETECTED Keena group (PCR) NOT DETECTED 12/02/23 06:36 WBC 10.8 RBC 4.64 Hgb 7.8 L Hct 26.9 L MCV 58.0 L MCH 16.8 L MCHC 29.0 L RDW 22.6 H Plt Count 340 MPV Not Reportable Absolute Nucleated RBC 0.000 Nucleated RBC % (auto) 0.0 Iron TIBC % Saturation Unsat Iron Binding T.pallidum Ab (EIA) Hep Bs Antigen Hepatitis C Ab (EIA) HIV 1&2 Ab/P24 Ag 4thGn T. vaginalis (PCR) Bact Vaginosis (PCR) C. krusei/glabrata (PCR) Keena group (PCR) Preliminary micro results at discharge 12/01/23 01:37 Blood Culture - Preliminary Blood - Venous No growth after 24 hours. 12/01/23 01:32 Blood Culture - Preliminary Blood - Venous No growth after 24 hours. Discharge Plan Discharge Anticipated Discharge Date/Time: 12/02/23 07:24 Patient Disposition: Home, Self-Care Discharge Diagnosis: Intractable abdominal pain Gonorrhea Bacterial vaginosis Acute on chronic iron deficiency anemia Referrals: Erica Ayala MD [Physician] - None Elaina Pna NP [Primary Care Provider] - 1 Week Jeison Gomes MD [Physician] - None Discharge Medications: New doxycycline hyclate 100 mg tablet 100 mg PO BID Qty: 28 0RF metronidazole 500 mg tablet 500 mg PO BID Qty: 28 0RF cefuroxime axetil 500 mg tablet 500 mg PO BID 14 Days Qty: 28 0RF Continued cholecalciferol (vitamin D3) [Vitamin D3] 50 mcg (2,000 unit) Tablet 50 mcg PO DAILY ascorbic acid (vitamin C) 250 mg Tablet 250 mg PO DAILY ferrous sulfate 325 mg (65 mg iron) Tablet 325 mg PO DAILY Discharge Orders: Discharge Order (Routine); Ordered 12/02/23 Ordered By: Altagracia Castañeda Diet: Advance to usual diet Activity on Discharge: As tolerated Stand Alone Forms: Patient Portal Discharge page, Work/School Release Print Language: Slovak Care Plan Goals: Complete all treatment as prescribed Continue taking iron supplementation for anemia Health Concerns: Intractable abdominal pain Gonorrhea Bacterial vaginosis Acute on chronic iron deficiency anemia Plan of Treatment: Follow-up with primary care provider as needed Follow-up with OBGYN regarding iron-deficiency anemia likely secondary to menorrhagia Consider following up with a roller coaster operator for further evaluation of anemia Assessment: See discharge summary Discharge Date/Time: 12/02/23 12:02
[2023-12-02] MEDS: Ferrous Sulfate 324 MG TABLET.DR PO (09:01)
[2023-12-02] MEDS: 0.9 % Sodium Chloride Flush 3 ML SYRINGE IVFLUSH (09:05)
--- NOTE | 2023-12-02 11:12 | MHC.CM.PN ---
PT WILL DC HOME TODAY WITH NO SERVICES VIA SELF-TRANSPORT
== END 2023-12-02 12:02 | disposition home or self-care (01) | DRG 531 ==
LOC: HO.ED 12-01 01:33 → HO.EDOVER 12-01 02:05 → HO.S3 12-01 05:49
PROVIDERS: Obstetrics & Gynecology; Physician Assistant Medical; Admitting Provider Student in an Organized Health Care Education/Training Program; Emergency Provider Emergency Medicine; PCP Nurse Practitioner Primary Care; Visit Provider Nurse Practitioner Acute Care
DX: A54.24 Gonococcal female pelvic inflammatory disease (principal); D50.9 Iron deficiency anemia, unspecified; N76.0 Acute vaginitis; N92.0 Excessive and frequent menstruation with regular cycle; Z79.899 Other long term (current) drug therapy
CPT/HCPCS: 0352U; 36415; 74177; 76830; 76856; 80048; 80053; 81001; 81025; 83540; 85025; 85027; 86780; 86803; 87040; 87086; 87340; 87389; 87491; 87591; 96361; 96365; 96366; 96367; 96368; 96372; 96375; 96376; 99221; 99285; J0696; J1170; J1650; J1836; J2270; J2405; Q9967

== ENCOUNTER → 2023-12-01 01:59 | Outpatient (BNV) | payer MEDICAID, SELFPAY | PROVIDERS: Admitting Provider Student in an Organized Health Care Education/Training Program; Emergency Provider Emergency Medicine; PCP Nurse Practitioner Primary Care; Visit Provider Student in an Organized Health Care Education/Training Program | DX: N73.0 Acute parametritis and pelvic cellulitis (principal); R52 Pain, unspecified | CPT/HCPCS: 99222; 99239; 99499 ==

== ENCOUNTER → 2023-12-01 01:59 | Outpatient (BNV) | payer MEDICAID, SELFPAY | PROVIDERS: Admitting Provider Student in an Organized Health Care Education/Training Program; Emergency Provider Emergency Medicine; PCP Nurse Practitioner Primary Care; Visit Provider Obstetrics & Gynecology | DX: N73.0 Acute parametritis and pelvic cellulitis (principal); D64.9 Anemia, unspecified; A54.9 Gonococcal infection, unspecified | CPT/HCPCS: 99499 ==

== ENCOUNTER 2023-12-18 13:37 | Outpatient (AMB) | payer MEDICAID, SELFPAY ==
[2023-12-18 13:45] VITALS: BP 116/68; BMI 48.7
--- NOTE | 2023-12-18 13:45 | A.OFFVIS_ITS ---
Vital Signs 12/18/23 13:45 Height 5 ft 1 in Weight 258 lb BMI 48.7 BP 116/68 Intake Visit Reasons: PID follow up Double Corner Cutter Services: Double Corner Cutter Present Information Interpreted: clinical only Ore Charger: Ore Charger Present Allergies No Known Allergies Allergy (Verified 12/18/23 13:46) Medication List - Last Reconciled 12/18/23 by Kortney Zapata CNM ascorbic acid (vitamin C) 250 mg PO DAILY cholecalciferol (vitamin D3) (Vitamin D3) 50 mcg PO DAILY etonogestrel (Nexplanon) subdermal ferrous sulfate 325 mg PO DAILY Is last menstrual period known: Yes (Normally gets monthly, not too heavy,but her last 1 was heavy) Last menstrual period: 11/16/23 HPI HPI PID follow up: Details: Patient is here at the [facility] for an emergency room hospitalization follow-up visit. She was seen in the emergency room for severe abdominal pain at the end of November and was hospitalized for [address] she was treated as acute PID and gonorrhea was diagnosed she also took 2 weeks of the antibiotics and says she never missed a dose when she went home. She is now feeling much better she broke up with the father of her baby who when she told him about the gonorrhea, she says he told her it was her problem. 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 She says she has always been anemic and her is anemic and gets IV transfusions of iron from Dr. Anguiano and it runs in her family. She says she is very busy during the day and does not get a chance to eat and then eats dinner night. She has a Nexplanon in which was inserted at [facility] and she says it has made her gain a lot of weight She says she still gets her regular periods and they are normally not too heavy and okay though when she went to the hospital with pain she is having a lot of heavy bleeding as well. She says she is taking her iron twice a day and she is taking MiraLax so she does not get constipated She does not eat red meat and she does not really like the texture of eggs, But she likes vegetables. [facility] Medical History (Updated 12/18/23 @ 14:32 by Kortney Zapata CNM) Acute pelvic inflammatory disease No known health problems Surgical History (Updated 12/18/23 @ 14:28 by Kortney Zapata CNM) History of appendectomy History of Social History Household Members: Family Housing: Apartment Do you presently have visiting nurse or other home services: No Alcohol intake: never Patient Tobacco Use Status: Never used Tobacco service: No Female Reproductive History Menstrual Age of Menarche: 12 Duration of menses: 3-5 days Date of last menstrual period: 11/16/23 control method: none and implanted Total pregnancies: 1 Full term: 1 Physical Exam Vital Signs: Last Vital Signs BP 116/68 12/18/23 13:45 BMI result Body Mass Index 48.7 Other: Gentle speculum exam done patient was able to relax during the exam. Vagina pink and moist cervix appeared nulliparous pink smooth though difficult to visualize completely secondary to adipose and some guarding Cervix long close thick mobile nontender uterus difficult to palpate but nontender non enlarged adnexa nontender good tone w Kegel External Female Exam: normal external appearance Speculum Exam - Vagina: normal appearance of the vagina and normal vaginal discharge Speculum Exam - Cervix: normal appearance of the cervix Bimanual exam- vagina & uterus: normal bimanual exam, uterine size normal, consistency normal, uterine mobility normal, uterine shape normal and non-tender Bimanual Exam- Adnexa, other: normal adnexae, no masses and No adnexal tenderness Results Reviewed Results Reviewed: Name: Keke Jimenez Age/Sex: 23/F : 2000 Unit#: [id number] Attend Dr: Altagracia Castañeda NP Re12/01/23 Status: DIS IN Location: [facility] 387-1 Disch: 12/02/23 SPEC : [id number] BECKA: 12/02/23 STATUS: COMP REQ : [id number] RECD: 12/02/[address]: Altagracia Castañeda NP COMP: 12/02/23 ENTERED: 12/02/[address]: SANYA LUDWIG PATTERN PAINTER ORDERED: CBC No Diff Test Result Flag Reference WBC 10.8 4.8-10.8 X10*3/uL RBC 4.64 4.20-5.50 X10*6/uL HGB 7.8 L 12.0-16.0 g/dl HCT 26.9 L 37.0-47.0 % MCV 58.0 L 80.0-98.0 fL MCH 16.8 L 27.0-33.0 pg MCHC 29.0 L 31.0-35.0 g/dl RDW 22.6 H 11.0-16.0 % PLT 340 160-400 X10*3/uL NRBC Pct Auto 0.0 0.0-0.2 /100WBC NRBC Abs Auto 0.000 0.0-0.012 X10*3/uL UN: 12/18/23 1353 PAGE 1 [facility] [address] [place] [id number] Delivery Driver/Supervisor: Carlos Jarvis M.D. Specimen Inquiry Name: Keke Jimenez Age/Sex: 23/F : 2000 Unit#: [id number] Attend Dr: Altagracia Castañeda PATTERN PAINTER Re12/01/23 Status: DIS IN Location: [facility] 387-1 Disch: 12/02/23 SPEC : [id number] BECKA: 11/30/23 STATUS: COMP REQ : [id number] RECD: 12/01/23-[address]: Na Jacobs COMP: 12/01/2338 ENTERED: 11/30/[address]: SANYA LUDWIG PATTERN PAINTER ORDERED: CT NG by PCR QUERIES: CT NG Source: Vaginal Test Result Flag Reference CT PCR NOT DETECTED Not Detect. A not detected test result does not exclude the possibility of infection because test results can be affected by improper specimen collection, concurrent antibiotic therapy, or the number of organisms in the specimen which may be below the sensitivity of the test. As with many diagnostic tests, results from the Xpert CT/NG assay should be interpreted in conjunction with other laboratory and clinical data available to the clinician. Xpert CT/NG performance has not been evaluated in patients less than 14 years of age. The assay should not be used for the evaluation of suspected sexual abuse or for other medico-legal indications. Additional testing is recommended in any circumstance when false positive or false negative results could lead to adverse medical, social or psychological consequences. NG PCR DETECTED A Not Detect. As with many diagnostic tests, results from the Xpert CT/NG assay should be interpreted in conjunction with other laboratory and clinical data available to the clinici an. Xpert CT/NG performance has not been evaluated in patients less than 14 years of age. The assay should not be used for the evaluation of suspected sexual abuse or for other medico-legal indications. Additional testing is recommended in any circumstance when false positive or false negative results could lead to adverse medical, social or psychological consequences. These results must be reported by the ordering clinician or clinical facility to the [facility] as required by state law. Assessment & Plan Assessment & Plan (1) History of : Comment: States she had 3 day labor re counted many exams and providers, secondary to FHT issues, discharge day 3 Code(s): Z98.891 - History of uterine scar from previous surgery Category: Surgical (2) History of appendectomy: Code(s): Z90.49 - Acquired absence of other specified parts of digestive tract Category: Surgical (3) Gonorrhea: Code(s): A54.9 - Gonococcal infection, unspecified Category: Medical (4) Anemia: Comment: states mother has severe anemia as well and gets IV transfusions Code(s): D64.9 - Anemia, unspecified Category: Medical (5) Acute pelvic inflammatory disease: Comment: admitted via ER 12/01/23, see notes, rx'd for gonorrhea, Code(s): N73.0 - Acute parametritis and pelvic cellulitis Category: Medical (6) Uses control: Comment: Has Nexplanon that was inserted at [facility] after primary 11 months ago, getting regular periods has gained weight on it. Code(s): Z78.9 - Other specified health status Category: Social Hx (7) Cervical cancer screening: Comment: Discussed Pap smears; reschedul 1st Pap and annual this year... Code(s): Z12.4 - Encounter for screening for malignant neoplasm of cervix Category: Medical (8) Obesity, morbid, BMI 40.0-49.9: Code(s): E66.01 - Morbid (severe) obesity due to excess calories Category: Medical Plan Reviewed her hospital course reviewed how she is feeling so much better. Joanna sted blood work for screening for STIs possibly again in 3-6 months because of the gonorrhea. She is not planning to be with anybody at this time she is planning to work and take care of her [id number] and she is in school. I am placing a referral to Hematology because of her severe anemia. She is continuing on the iron b.i.d. with MiraLax She used to come to [facility], Dr. Aftab Chahal, and now she has a primary care provider here at [facility] as well Dr. Sanya ludwig, and she brings her baby here to Dr. Abdi. Reviewed that right now would not be a good time to decide what to do about the Nexplanon while it has contribute did probably to weight gain so it is working all day going to school being busy new mother and not eating regular healthy meals and only eating late at night. Discussed trying to eat healthier and discussed iron rich foods. She says she was given a list of iron rich foods from the hospital. We will see her later in this year for an annual exam and 1st Pap smear She tolerated pelvic exam very well once she relaxed. Orders: Referrals Hematology & Oncology Referral A54.9 - Gonococcal infection, unspecified, D64.9 - Anemia, unspecified Medications: Discontinued doxycycline hyclate Discontinued Reason: Patient Completed Course 100 mg PO BID 28 tabs 0RF metronidazole Discontinued Reason: Patient Completed Course 500 mg PO BID 28 tabs 0RF cefuroxime axetil Discontinued Reason: Patient Completed Course 500 mg PO BID 14 days 28 tabs 0RF Coding Level of Care Code New Pt Level 4 (41540) Diagnoses History of Z98.891 History of appendectomy Z90.49 Gonorrhea A54.9 Anemia D64.9 Acute pelvic inflammatory disease N73.0 Uses control Z78.9 Cervical cancer screening Z12.4 Obesity, morbid, BMI 40.0-49.9 E66.01
== END 2023-12-18 14:27 | disposition home or self-care (01) ==
LOC: HO.HWSM 13:37
PROVIDERS: PCP Nurse Practitioner Primary Care; Visit Provider Advanced Practice Midwife
DX: Z98.891 History of uterine scar from previous surgery (principal); Z90.49 Acquired absence of other specified parts of digestive tract; A54.9 Gonococcal infection, unspecified; D64.9 Anemia, unspecified; N73.0 Acute parametritis and pelvic cellulitis; Z78.9 Other specified health status; Z12.4 Encounter for screening for malignant neoplasm of cervix; E66.01 Morbid (severe) obesity due to excess calories
CPT/HCPCS: 99204

== ENCOUNTER 2023-12-18 13:37 | Outpatient (REF) | payer MEDICAID, SELFPAY ==
[2023-12-19 03:46] LABS: CT PCR NOT DETECTED (Not Detect.); NG PCR NOT DETECTED (Not Detect.)
[2023-12-19 11:30] LABS: Bacterial Vaginosis PCR NEGATIVE (Negative); Candida Group PCR DETECTED (Not Detect); Candida glab krusei PCR NOT DETECTED (Not Detect); Trichomonas vaginalis PCR NOT DETECTED (Not Detect)
== END 2023-12-18 13:38 | disposition home or self-care (01) ==
LOC: HO.LAB 13:37
PROVIDERS: PCP Nurse Practitioner Primary Care; Visit Provider Advanced Practice Midwife
DX: N89.8 Other specified noninflammatory disorders of vagina (principal); R10.2 Pelvic and perineal pain; A54.9 Gonococcal infection, unspecified; D64.9 Anemia, unspecified; N73.0 Acute parametritis and pelvic cellulitis; E66.01 Morbid (severe) obesity due to excess calories; Z90.49 Acquired absence of other specified parts of digestive tract; Z78.9 Other specified health status; Z98.891 History of uterine scar from previous surgery; Z20.2 Contact with and (suspected) exposure to infections with a predominantly sexual mode of transmission
CPT/HCPCS: 0352U; 87086; 87491; 87591; 99212

== ENCOUNTER 2024-02-05 07:58 | Emergency (ER) | payer MEDICAID, SELFPAY ==
--- NOTE | ~2024-02-05 | XR_ITS ---
EXAMINATION: XR CHEST CLINICAL INFORMATION: Cough, shortness of breath, patient states cough and shortness breath breath for a couple of days COMPARISON: None available. TECHNIQUE: 2 views of the chest were obtained. FINDINGS: Lung volumes are low. Cardiac silhouette is enlarged. There is no gross pneumothorax. No pleural effusion. No focal consolidation. XR/XR chest 2V IMPRESSION: Enlarged cardiac silhouette, although lung volumes are low, limiting evaluation. This study was presented today, February 05, 2024, for interpretation. Stat results provided at this time as requested by referring provider. Electronically signed by: Nancy Small MD 02/05/2024 10:18 AM EDT
[2024-02-05 08:24] VITALS: BP 122/74; PULSE 92; RESP 18; TEMP 36.9; O2SAT 99; BMI 49.4
--- NOTE | 2024-02-05 08:30 | ED_ITS ---
HPI - SOB/Dyspnea General Chief Complaint: Upper Respiratory Symptoms Stated Complaint: SOB, cough 2 weeks Time Seen by Provider: 02/05/24 08:29 Source: patient Mode of arrival: ambulatory Limitations: no limitations History of Present Illness ED Provider: Magdy Harding PA-C HPI Narrative: 23 yo female with history of anemia presents to the ER for evaluation of worsening cough for the last 2 weeks, now productive of yellow phlegm. She reports bilateral lower rib pain whenever she coughs. She also reports a headache and she started developing fevers up to 103 at home the last 2 or 3 da ys. She reports feeling fatigued, body aches, poor appetite. No known sick contacts. She is not taking any medications at home for symptoms. MD elicited complaint: cough Onset (ago): week(s) (2) Context: recent illness Timing: progressively worsening Severity: moderate Exacerbating factors: coughing Relieving factors: nothing Associated symptoms: fever, cough and chest congestion Treatment prior to arrival: none Related Data Home oxygen amount: none Home Medications ?Medication ?Instructions ?Recorded ?Confirmed ascorbic acid (vitamin C) 250 mg 250 mg PO DAILY 12/01/23 12/18/23 tablet cholecalciferol (vitamin D3) 50 50 mcg PO DAILY 12/01/23 12/18/23 mcg (2,000 unit) tablet (Vitamin D3) ferrous sulfate 325 mg (65 mg 325 mg PO DAILY 12/01/23 12/18/23 iron) tablet etonogestrel 68 mg subdermal subdermal 12/18/23 12/18/23 implant (Nexplanon) Previous Rx's ?Medication ?Instructions ?Recorded azithromycin 250 mg tablet See Rx Instructions PO .COMPLEX #6 02/05/24 (Zithromax Z-Eamon) tabs prednisone 20 mg tablet 40 mg (2 x 20 mg) PO DAILY #10 tabs 02/05/24 Allergies Allergy/AdvReac Type Severity Reaction Status Date / Time No Known Allergies Allergy Verified 02/05/24 08:26 Review of Systems Review of Systems: Yes all other systems are reviewed and are negative [facility] Past Medical History Medical History (Updated 02/05/24 @ 11:28 by PATRICK Goodwin) Acute pelvic inflammatory disease No known health problems Surgical History (Updated 12/18/23 @ 14:28 by Kortney Zapata CNM) History of appendectomy History of Social History Social History (Reviewed 12/18/23 @ 13:48 by Edouard Christine [facility]) Household Members: Family Housing: Apartment Do you presently have visiting nurse or other home services: No Alcohol intake: never Patient Tobacco Use Status: Never used Tobacco Advance Directives: No Advance Directives Information Provided: Yes service: No Physical Exam Vital Signs: Vital Signs: Last Vital Signs Temp 98.2 F 02/05/24 11:44 Pulse 76 02/05/24 11:44 Resp 16 02/05/24 11:44 BP 123/65 02/05/24 11:44 Pulse Ox 98 02/05/24 11:44 O2 Del Method Room Air 02/05/24 11:44 BMI result Body Mass Index 49.4 Appearance: Alert. Oriented X3. No acute distress, appears ill Head: normocephalic, atraumatic. Eyes: Pupils equal, round and reactive to light. ENT: Pharynx normal. No tonsillar swelling or exudate. Neck: Normal inspection. Neck supple. CVS: Normal heart rate and rhythm. Pulses normal. Respiratory: No respiratory distress. Breath sounds normal. Abdomen: Obese, Soft and nontender. +BS x4 Skin: Skin warm and dry. Normal skin color. Normal skin turgor. No rashes. Extremities: No lower extremity edema. No joint swelling. Neuro/psych: Oriented X 3. No motor deficit. No sensory deficit. CN II-XII intact. Normal speech and cognition. Medications Administered Discontinued Medications Generic Name Dose Route Start Last Admin Trade Name Freq PRN Reason Stop Dose Admin Guaifenesin/Codeine Phosphate 5 ml 02/05/24 08:34 02/05/24 09:19 Guaifen/Codeine Sf 200/20/10ml 10 Ml Liquid PO 02/05/24 08:35 5 ml ONCE ONE Administration Ibuprofen 600 mg 02/05/24 08:33 02/05/24 09:19 Ibuprofen 600 Mg Tablet PO 02/05/24 08:34 600 mg ONCE ONE Administration Medical Decision Making Medical Decision Making MDM Narrative: 23-year-old female with history of obesity, anemia presents to the ER for evaluation of shortness of breath, cough yellow phlegm and fevers up to 103 at home. She also reports shortness of breath, headache, body aches. She has rib pain from coughing. Her vital signs are stable her lungs are clear, slightly diminished at the bases. No respiratory distress. She is oxygenating well. She was tested for COVID, flu, RSV were all of which were negative. Her chest x-ray is clear. Given duration of symptoms and lung sounds, will treat for acute bronchitis with prednisone and azithromycin. Symptomatic care/supportive care was also discussed with the patient, [id number] recommendations made, stable for discharge home. Differential Diagnosis Differential Diagnoses: The differential diagnosis associated with the presentation includes strep, covid, flu, rsv, other viral syndrome, bronchitis, pneumonia, pericarditis, myocarditis Lab Data MDM Lab Attestation statement: I reviewed the patient's lab results. Negative viral studies Labs: Lab Results 02/05/24 Range/Units 08:26 Influenza Type A (PCR) NEGATIVE (Negative) Influenza Type B (PCR) NEGATIVE (Negative) RSV RNA Qual (PCR) NEGATIVE (Negative) SARS-CoV-2 RNA (RT-PCR) NEGATIVE (Negative) Independent Interpretation I performed an independent interpretation of an: Plain X-Ray Interpretation: Chest x-ray is clear without any focal infiltrate or effusion, mild cardiomegaly. reviewed by Dr. Schmidt as well, low suspicion for pericardial effusion Radiology Impression Discussion of test interpretation with radiology: I have reviewed the radiologist's reading. External Record Review External record reviewed: Outpatient record, Prior outpatient labs and Prior outpatient radiology Prescription Management I considered prescription management with: Pain Medication and Antibiotic Discharge Plan Discharge Clinical Impression: Bronchitis Patient Disposition: Home, Self-Care Instructions: Acute Bronchitis (ED) Additional Instructions: Your chest x-ray was normal. You tested negative for COVID, flu, RSV. Take the prescribed antibiotics as directed along with the prednisone to help with the inflammation in your lungs. Continue Tylenol and Motrin as needed for fevers. Rest and drink plenty of fluids. Recommend [id number] cough medicine and Mucinex. Follow-up with your doctor. If you develop new or worsening symptoms call 911 or come back to the ER for further evaluation. Prescriptions: New prednisone 20 mg tablet 40 mg PO DAILY Qty: 10 0RF azithromycin [Zithromax Z-Eamon] 250 mg tablet See Rx Instructions PO .COMPLEX Qty: 6 0RF Rx Instructions: take 500 mg today (day 1), then 250 mg for 4 days (days 2-5) No Action cholecalciferol (vitamin D3) [Vitamin D3] 50 mcg (2,000 unit) Tablet 50 mcg PO DAILY ascorbic acid (vitamin C) 250 mg Tablet 250 mg PO DAILY ferrous sulfate 325 mg (65 mg iron) Tablet 325 mg PO DAILY Nexplanon 68 mg implant subdermal Referrals: Elaina Pan, SENIOR SECURITY ENGINEER [Primary Care Provider] - Stand Alone Forms: Work/School Release Interventions: ED Discharge Assessment Last Done: 02/05/24 11:44 Discharge Date/Time: 02/05/24 11:45 Print Language: Chadian
[2024-02-05 09:08] LABS: Influenza A PCR NEGATIVE (Negative); Influenza B PCR NEGATIVE (Negative); Resp Syncy Virus RNA Qual PCR NEGATIVE (Negative); SARS COV2 PCR INHOUSE NEGATIVE (Negative)
[2024-02-05] MEDS: Ibuprofen 600 MG TABLET PO (09:19)
[2024-02-05] MEDS: guaiFEN/Codeine SF 200/20/10ML 10 ML LIQUID 5 ML PO (09:19)
[2024-02-05 11:44] VITALS: BP 123/65; PULSE 76; RESP 16; TEMP 36.8; O2SAT 98
== END 2024-02-05 11:45 | disposition home or self-care (01) ==
PROVIDERS: Emergency Provider Emergency Medicine; PCP Nurse Practitioner Primary Care
DX: J40 Bronchitis, not specified as acute or chronic (principal); R06.02 Shortness of breath; R05.9 Cough, unspecified; R07.81 Pleurodynia; Z03.818 Encounter for observation for suspected exposure to other biological agents ruled out; Z79.899 Other long term (current) drug therapy
CPT/HCPCS: 0241U; 71046; 99283

== ENCOUNTER → 2024-03-10 09:00 | Outpatient (BNV) | payer MEDICAID, SELFPAY | PROVIDERS: PCP Nurse Practitioner Primary Care; Visit Provider Internal Medicine Medical Oncology | DX: D50.9 Iron deficiency anemia, unspecified (principal) | CPT/HCPCS: 99214 ==

== ENCOUNTER 2024-04-01 10:13 | Outpatient (REF) | payer MEDICAID, SELFPAY ==
--- NOTE | ~2024-04-01 | IR_ITS ---
CLINICAL HISTORY: Poor IV access. Needs IV access for IV iron therapy PROCEDURES: 1. Real-time ultrasound-guided access into the right basilic vein after documentation of selected vessel patency, and permanent imaging storing in the patient record. 2. Placement of a 5 fr 40 cm, single lumen PASV PICC CLINICIANS: Jono Lee PA-C MEDICATIONS: -Lidocaine 1% 10 mL SQ. -Antibiotics: None. Complications: None. Estimated blood loss: <5 ml Specimens: None. Contrast: None. Fluoroscopy time: 0.8 min Procedure note: The procedure, risks, benefits, and alternatives were carefully explained to the patient and written informed consent was obtained. The patient was placed supine on the fluoroscopy table. A timeout was performed. The right arm was prepped and draped in usual sterile fashion. Using ultrasound and fluoroscopic guidance, venous access was achieved into the basilic vein with a micropuncture set. A peel-away sheath was advanced over the wire. The 0.018 inch wire was advanced into the right atrium. A 5 fr, 40 cm, single lumen PASV power PICC was advanced over the wire, with its tip in the the right atrium. The wire was removed. The catheter was tested and secured with a 3-0 Ethilon suture. A permanent ultrasound image and chest fluoroscopic image was saved to PACS. The patient was stable after the procedure and discharged home. FINDINGS: 1. Patent right basilic vein 2. Placement of a 5 fr 40 cm, single lumen PASV PICC IR/IR cvc insert peripheral IMPRESSION: Placement of a 5 fr 40 cm, single lumen PASV PICC PLAN: -The catheter may be used immediately. This procedure was performed by Jono Lee PA-C, and directly supervised by Dr. Parks Electronically signed by: Rm Perales MD 04/03/2024 03:04 PM [facility]
--- NOTE | 2024-04-02 12:42 | PM.PROC ---
Brief Operative Note Date of procedure: 04/01/24 Pre-op diagnosis: Poor iv acces. Needs 6-8 weeks of iron replacement therapy Post-op diagnosis: same Procedure: Right basilic 40 cm SL PASV PICC placed using US and FL. Tip at cavoatrial junction. Ok for use. No immediate complications.
== END 2024-04-01 10:14 | disposition home or self-care (01) ==
LOC: HO.RADIR 10:13
PROVIDERS: PCP Nurse Practitioner Primary Care; Visit Provider Internal Medicine Medical Oncology
DX: Z45.2 Encounter for adjustment and management of vascular access device (principal); D50.9 Iron deficiency anemia, unspecified
CPT/HCPCS: 36573; C1751; J2003

== ENCOUNTER → 2024-04-01 10:13 | Outpatient (BNV) | payer MEDICAID, SELFPAY | PROVIDERS: PCP Nurse Practitioner Primary Care; Visit Provider Physician Assistant Surgical | DX: D50.9 Iron deficiency anemia, unspecified (principal) | CPT/HCPCS: 36573 ==

== ENCOUNTER 2024-04-03 15:17 | Emergency (ER) | payer MEDICAID, SELFPAY ==
--- NOTE | ~2024-04-03 | US_ITS ---
EXAMINATION: US TRIPLEX UPPER EXTREMITY, RIGHT CLINICAL INFORMATION: PICC line. Pain. Question DVT. COMPARISON: None available. TECHNIQUE: Color-flow triplex imaging with spectral analysis and compression Doppler was performed on the right upper extremity. FINDINGS: The right internal jugular, subclavian, and axillary veins are patent and free of thrombus. The imaged segment of the right brachiocephalic vein is patent. Spectral doppler waveforms are normal. The brachial, basilic, cephalic, radial, and ulnar veins are patent and compressible. US/US venous duplex UE RT IMPRESSION: No evidence of deep venous thrombosis involving the right upper extremity. Electronically signed by: Say Persaud MD 04/03/2024 07:48 PM EST
--- NOTE | ~2024-04-03 | XR_ITS ---
EXAMINATION: XR CHEST CLINICAL INFORMATION: RIght sided chest pain COMPARISON: 02/05/2024 TECHNIQUE: Frontal view of the chest was obtained. FINDINGS: A right upper extremity PICC line extends to the cavoatrial junction. No significant abnormality is noted involving the heart, lungs, mediastinum, bony thorax or soft tissues. XR/XR chest 1V IMPRESSION: No acute disease Electronically signed by: Steve Hays MD 04/03/2024 06:52 PM EST
[2024-04-03 15:35] VITALS: BP 142/73; PULSE 92; RESP 18; TEMP 36.7; O2SAT 100; BMI 50.4
--- NOTE | 2024-04-03 16:08 | ED.GENADULT ---
HPI - General Adult General Chief complaint: General Medical Stated complaint: sent fr UC/pic line placed/need x-rays History of Present Illness HPI narrative: Patient left before completion of treatment by ED provider. Related Data Home Medications ?Medication ?Instructions ?Recorded ?Confirmed ferrous sulfate 325 mg (65 mg 325 mg PO BID 12/01/23 03/10/24 iron) tablet etonogestrel 68 mg subdermal subdermal 12/18/23 12/18/23 implant (Nexplanon) Allergies Allergy/AdvReac Type Severity Reaction Status Date / Time No Known Allergies Allergy Verified 04/03/24 15:37 [facility] Past Medical History Medical History (Updated 04/04/24 @ 10:44 by PATRICK Dumont) Acute pelvic inflammatory disease No known health problems Surgical History (Updated 03/10/24 @ 09:28 by Kermit Anguiano MD) History of appendectomy History of Social History Social History Household Members: Family Housing: Apartment Do you presently have visiting nurse or other home services: No Alcohol intake: never Patient Tobacco Use Status: Never used Tobacco Advance Directives: No Advance Directives Information Provided: Yes Do you have a plan to hurt others: No Plan service: No Physical Exam ED Vital Signs: Vital Signs - 24 hr 04/03/24 15:35 Temperature 98.0 F Pulse Rate 92 Respiratory Rate 18 Blood Pressure 142/73 H Pulse Oximetry 100 Oxygen Delivery Method Room Air BMI result Body Mass Index 50.4 Course Course Course Narrative: RME: 23-year-old female presents to ED for right-sided chest pain shortness of breath since having right arm PICC line placed. PICC line placed for iron infusions due to anemia. Slight ecchymosis around PICC line insertion. Labs EKG chest x-ray ordered. Discharge Plan Discharge Clinical Impression: Chest pain Patient Disposition: Left W/O Completing Treatment Prescriptions: No Action ferrous sulfate 325 mg (65 mg iron) Tablet 325 mg PO BID Nexplanon 68 mg implant subdermal Discharge Date/Time: 04/03/24 19:51
--- NOTE | 2024-04-03 16:10 | ECG_ITS ---
Test Reason : CHEST PAIN Blood Pressure : / mmHG Vent. Rate : 090 BPM Atrial Rate : 090 BPM P-R Int : 138 ms QRS Dur : 078 ms QT Int : 362 ms P-R-T Axes : -01 009 -07 degrees QTc Int : 442 ms Normal sinus rhythm Minimal voltage criteria for LVH, may be normal variant ( R in aVL ) Nonspecific T wave abnormality Abnormal ECG No previous ECGs available Referred By: Kana Tam Electronically Signed By:NANCY PEREZ MD
== END 2024-04-03 19:51 | disposition left against medical advice (07) ==
PROVIDERS: Emergency Provider Internal Medicine; PCP Nurse Practitioner Primary Care
DX: R07.89 Other chest pain (principal); R60.0 Localized edema; R94.31 Abnormal electrocardiogram [ECG] [EKG]
CPT/HCPCS: 71045; 93005; 93971; 99283; 99284

== ENCOUNTER → 2024-04-03 16:10 | Outpatient (BNV) | payer MEDICAID, SELFPAY | PROVIDERS: Emergency Provider Internal Medicine; PCP Nurse Practitioner Primary Care; Visit Provider Internal Medicine Cardiovascular Disease | DX: R94.31 Abnormal electrocardiogram [ECG] [EKG] (principal) | CPT/HCPCS: 93010 ==

== ENCOUNTER 2024-04-14 09:07 | Inpatient (IN) | payer MEDICAID, SELFPAY ==
--- NOTE | ~2024-04-14 | US_ITS ---
EXAMINATION: US TRIPLEX UPPER EXTREMITY, RIGHT CLINICAL INFORMATION: Right upper extremity swelling, history of PICC line COMPARISON: 04/03/2024 TECHNIQUE: Color-flow triplex imaging with spectral analysis and compression Doppler was performed on the right upper extremity. FINDINGS: The right internal jugular, subclavian, and axillary veins are patent and free of thrombus. The imaged segment of the right brachiocephalic vein is patent. Spectral doppler waveforms are normal. The brachial, basilic, cephalic, radial, and ulnar veins are patent and compressible. PICC line catheter within the lumen of the basilic vein, axillary vein and subclavian vein. No evidence of surrounding thrombus US/US venous duplex UE RT IMPRESSION: No evidence of deep venous thrombosis involving the right upper extremity. Electronically signed by: Mil Rehman MD 04/14/2024 01:15 PM [facility]
[2024-04-14 09:11] VITALS: BP 110/81; PULSE 98; RESP 16; TEMP 36.4; O2SAT 93; BMI 52.1
--- NOTE | 2024-04-14 10:04 | ED.GENADULT ---
HPI - General Adult General Chief complaint: General Medical Stated complaint: pic line leaking lump in arm Time Seen by Provider: 04/14/24 10:03 Source: patient Mode of arrival: ambulatory Limitations: no limitations History of Present Illness ED Provider: Missy Gutierres PA-C HPI narrative: 23-year-old female with a past medical history of pelvic inflammatory disease and anemia seen in the ED for concerns regarding discharge and discomfort near her PICC line. States it was placed on 04/02/2024 and symptoms began 2 days ago. Reporting erythema, firmness, discharge, warmth at the site of the PICC line and the surrounding area. Reports chills and shortness of breath but denies fever, chest pain, weakness, SALDIVAR, or any numbness/tingling of the extremities. Onset (ago): day(s) (2) Location: upper extremity Radiation: proximal Pain Consistency: constant Relieving factors: none Exacerbating factors: movement Associated symptoms: fever/chills (chills) and shortness of breath Related Data Home Medications ?Medication ?Instructions ?Recorded ?Confirmed No Known Home Meds 04/14/24 04/14/24 Allergies Allergy/AdvReac Type Severity Reaction Status Date / Time vancomycin AdvReac Unknown Flushing Verified 04/14/24 15:33 Review of Systems Review of Systems: Yes all other systems are reviewed and are negative Constitutional: Constitutional: Reports as per HPI, Reports no additional constitutional complaints, Reports chills, Denies fever(s), Denies headache(s), Denies lethargy and Denies night sweats Eyes: Eyes: Reports no additional eye complaints, Denies blurry vision, Denies change in vision, Denies diplopia, Denies eye discharge, Denies loss of vision and Denies eye pain ENT: Reports as per HPI, Reports Normal hearing present, Denies dysphagia, Denies dizziness, Denies headache(s), Denies hearing loss, Denies lip swelling and Denies epistaxis Cardiovascular: Cardiovascular: Reports no additional cardiovascular complaints, Denies chest pain, Denies lightheadedness, Denies Loss of Consciousness and Reports dyspnea Respiratory: Respiratory: Reports as per HPI, Reports no additional respiratory complaints, Denies cough, Denies hemoptysis, Denies pain on inspiration and Reports dyspnea Gastrointestinal: Gastrointestinal: Reports as per HPI, Reports no additional gastrointestinal complaints, Denies abdominal pain, Denies melena, Denies hematochezia, Denies change in bowel habits, Denies change in stool character and Denies dysphagia Genitourinary: Genitourinary: Denies hematuria, Denies urinary frequency, Denies dysuria, Denies urinary incontinence, Denies urinary hesitancy and Denies urinary urgency Musculoskeletal: Musculoskeletal: Reports no additional musculoskeletal complaints, Reports as per HPI, Denies numbness and Denies tingling Comments: brachial region of the right arm: erythema, warmth, tenderness at site of PICC line Integumentary/Breasts: Skin/Breast: Reports as per HPI Comments: brachial region of the right arm: erythema, warmth, tenderness at site of PICC line Neurologic: Reports as per HPI, Reports Normal hearing present, Denies dizziness, Denies headache(s), Denies loss of vision, Denies numbness and Denies tingling Psychiatric: Psychiatric: Reports no additional psychiatric complaints Endocrine: Endocrine: Reports no additional endocrine complaints Hematologic/Lymphatic: Hematologic/Lymphatic: Reports no additional hematologic/lymphatic complaints Allergic/Immunologic: Allergic/Immunologic: Reports no additional allergic/immunologic complaints and Denies lip swelling PMFSH Past Medical History Attestation statement: The following information was validated with the patient. Source: old records reviewed and nursing notes reviewed Medical History (Updated 04/14/24 @ 15:47 by PATRICK Goncalves) Obesity, morbid, BMI 40.0-49.9 Gonorrhea Anemia Uses control Cervical cancer screening Acute pelvic inflammatory disease No known health problems Surgical History (Updated 04/14/24 @ 15:47 by PATRICK Goncalves) History of History of appendectomy Social History Social History Household Members: Family Housing: Apartment Do you presently have visiting nurse or other home services: No Alcohol intake: current Alcohol intake frequency: holidays/special occasions only Patient Tobacco Use Status: Never used Tobacco Smoked in Last 30 Days: No Use of substances other than those prescribed or required for medical reasons: Yes Substance Use Type: Marijuana Substance Use Frequency: Daily Advance Directives: No Advance Directives Information Provided: No Patient : No service: No Physical Exam ED Vital Signs: Vital Signs - 24 hr 04/14/24 09:11 04/14/24 12:26 Temperature 97.5 F 98.2 F Pulse Rate 98 82 Respiratory Rate 16 20 Blood Pressure 110/81 151/91 H Pulse Oximetry 93 99 Oxygen Delivery Method Room Air Room Air BMI result Body Mass Index 52.1 Const General: cooperative, no acute distress, alert and awake Nutritional Appearance: well nourished Orientation/consciousness: patient oriented x3 Limitations: no limitations HENMT Head: Yes normal to inspection, Yes normocephalic and Yes atraumatic Ears: hearing grossly normal bilaterally and external ears normal General nose exam: Normal external nose present, no nasal discharge noted and no epistaxis Face and sinus: Yes normal facial exam, No abrasion and No laceration Mouth: Normal oral and palatal mucosa present, no drooling and no muffled voice Eyes General: appearance normal, both eyes and all related structures Periorbital: periorbital findings normal Eyelids: Yes eyelids normal Conjunctivae: conjunctivae normal Pupils: Equal, round and reactive pupils present EOM: EOMs intact bilaterally Neck Neck: Yes normal visual inspection, Yes full ROM and Yes no lymphadenopathy Chest Chest palpation & inspection: normal inspection of the chest Resp Effort & Inspection: normal respiratory effort, able to speak in complete sentences, no audible wheezes and no cough Auscultation: clear to auscultation bilaterally, no crackles, no rales, no rhonchi and no wheezes Cardio Rate: regular rate Rhythm: regular rhythm GI Inspection: Yes normal to inspection Skin Other: brachial region of the right arm: erythema, warmth, tenderness at site of PICC line Neuro General: patient oriented x3 and moves all extremities Cranial nerves: Yes Equal, round and reactive pupils present and Yes Normal hearing present Cognition (Neuro): normal cognition Extrem Other: General: Yes full ROM and Yes capillary refill normal Psych Appearance: grossly normal Mental Status: mental status grossly normal Affect: normal affect Attitude: cooperative Thought process: Normal thought process present Thought content: Normal thought content present Insight: Good insight present (Psych) Medications Administered Discontinued Medications Generic Name Dose Route Start Last Admin Trade Name Freq PRN Reason Stop Dose Admin Diphenhydramine HCl 50 mg 04/14/24 13:21 04/14/24 13:34 Diphenhydramine Hcl 50 Mg/Ml Vial IVPUSH 04/14/24 13:22 50 mg ONCE ONE Administration Piperacillin Sod/Tazobactam 50 mls @ 100 mls/hr 04/14/24 10:51 04/14/24 11:52 Sod 3.375 gm/ Sodium Chloride IV 04/14/24 11:20 Infused ONCE ONE Infusion Vancomycin HCl 2,000 mg in 500 mls @ 250 mls/hr 04/14/24 11:15 04/14/24 13:28 Vancomycin/Ns IV 04/14/24 13:14 0 mls/hr ONCE ONE Infusion Methylprednisolone Sodium Succinate 60 mg 04/14/24 13:21 04/14/24 13:34 Methylprednisolone Sod Succ 125 Mg/2 Ml Vial IVPUSH 04/14/24 13:22 60 mg ONCE ONE Administration Medical Decision Making Medical Decision Making MDM Narrative: Patient is a 23 year old assigned female at with a history of anemia requiring iron infusions for which she follows with Dr. Anguiano at [facility] presenting to the emergency department today with concerns of right PICC line infection. Patient's physical exam was as noted in the physical exam portion of this note. Patient's blood work showed an elevated WBC count of 11.5, ESR of 23, CRP of 1.34, and initial lactic of 2.1. Patient's RUE US showed no acute process. Patient's PICC line was obviously infected. PICC line was removed without incident and a routine culture of the site was obtained as well as the tip of the PICC catheter sent down to the lab for additional testing. Patient's clinical presentation is not consistent with sepsis (@1335). I spoke to the hospitalist team who agreed to admission. Patient was given IV vancomycin and zosyn. During her vancomycin infusion, she began to have itching present to her scalp. The infusion was stopped and the patient was given benadryl and solu-medrol. I also reported this incident to the admitting team. I explained my physical exam findings as well as all test results to the patient. I answered all questions asked by the patient. Patient verbalized agreement and understanding with this treatment plan and admission. Differential Diagnosis Differential Diagnoses: The differential diagnosis associated with the presentation includes PICC line infection Cellulitis Admission/Observation Consideration of admission/observation: Escalation of care including admission/observation considered Patient admitted. Consult Healthcare Provider Management of the patient was discussed with: Hospitalist (agreed to admission as noted in the MDM Rationale portion of this note.) Lab Data [facility] Lab Attestation statement: I reviewed the patient's lab results. My interpretation of these results are in the MDM Rationale portion of this note. 04/14/24 10:48 04/14/24 10:48 Labs: Lab Results 04/14/24 04/14/24 04/14/24 Range/Units 10:48 11:01 13:33 WBC 11.5 H (4.8-10.8) X10*3/uL RBC 5.37 (4.20-5.50) X10*6/uL Hgb 9.3 L (12.0-16.0) g/dl Hct 31.7 L (37.0-47.0) % MCV 59.0 L (80.0-98.0) fL MCH 17.3 L (27.0-33.0) pg MCHC 29.3 L (31.0-35.0) g/dl RDW 21.8 H (11.0-16.0) % Plt Count 351 (160-400) X10*3/uL MPV Not Reportable Immature Gran % (Auto) 0.3 (0.0-0.4) % Neut % (Auto) 62.6 (45-73) % Lymph % (Auto) 26.7 (20-40) % [place] % (Auto) 6.7 (2-11) % Eos % (Auto) 3.3 (0-4) % Baso % (Auto) 0.4 (0-2) % Lymph # (Auto) 3.1 (1.2-4.9) X10*3/uL [place] # (Auto) 0.8 (0.1-1.2) X10*3/uL Eos # (Auto) 0.4 (0.0-0.4) X10*3/uL Baso # (Auto) 0.1 (0.0-0.2) X10*3/uL Abs Immat Gran (auto) 0.03 (0.00-0.03) X10*3/uL Absolute Neuts (auto) 7.2 (2.0-8.3) x10*3/uL Absolute Nucleated RBC 0.000 (0.0-0.012) X10*3/uL Nucleated RBC % (auto) 0.0 (0.0-0.2) /100WBC ESR 23 H (0-20) MM/HR PT 13.0 H (10.9-12.4) SEC INR 1.1 (0.9-1.1) APTT 32.2 (26.0-36.8) SEC Sodium 138 (135-145) mmol/L Potassium 4.0 (3.3-5.1) mmol/L Chloride 106 (96-108) mmol/L Carbon Dioxide 27 (22-29) mmol/L Anion Gap 9 L (12-20) BUN 11 (9-16) mg/dL Creatinine 0.78 (0.5-1.4) mg/dL Estim Creat Clear Calc 136.3 Estimated GFR > 60 Random Glucose 94 (60-115) mg/dL Lactic Acid 2.1 H* (0.5-2.0) mmol/L Lactic Acid F/U @ 2Hr 1.4 (0.5-2.0) mmol/L Calcium 9.0 (8.4-10.2) mg/dL Magnesium 2.0 (1.6-2.6) mg/dL Total Bilirubin 0.4 (0.0-1.0) mg/dL AST 17 (5-31) U/L ALT 14 (0-31) U/L Alkaline Phosphatase 81 (39-117) U/L C-Reactive Protein 1.34 H (< or = 0.50) mg/dL Total Protein 7.6 (6.5-8.0) g/dL Albumin 3.8 (3.5-5.0) g/dL Independent Interpretation I performed an independent interpretation of an: Ultrasound Interpretation: My interpretation is in agreement with the radiologist's impression of this imaging study. EXAMINATION: US TRIPLEX UPPER EXTREMITY, RIGHT CLINICAL INFORMATION: Right upper extremity swelling, history of PICC line COMPARISON: 04/03/2024 TECHNIQUE: Color-flow triplex imaging with spectral analysis and compression. Doppler was performed on the right upper extremity. FINDINGS: The right internal jugular, subclavian, and axillary veins are patent and free of thrombus. The imaged segment of the right brachiocephalic vein is patent. Spectral doppler waveforms are normal. The brachial, basilic, cephalic, radial, and ulnar veins are patent and compressible. PICC line catheter within the lumen of the basilic vein, axillary vein and subclavian vein. No evidence of surrounding thrombus US/US venous duplex UE RT IMPRESSION: No evidence of deep venous thrombosis involving the right upper extremity. Electronically signed by: Mil Rehman MD 04/14/2024 01:15 PM [facility] Dictated By: Mil Rehman MD Signed By: Electronically signed by Mil Rehman MD 04/14/24 1315 Radiology Impression Discussion of test interpretation with radiology: I have reviewed the radiologist's reading. Critical Care Time Critical Care Time Critical Care Time: Yes Total Critical Care Time: 48 Attestation: I spent 48 minutes of Critical Care Time with this patient. This does not include time spent on separately reported billable procedures. Discharge Plan Discharge Clinical Impression: PICC line infection Patient Disposition: Admitted As Inpatient
[2024-04-14 10:53] LABS: MANUAL DIFF FLAG NO
[2024-04-14 10:57] LABS: Basophils Absolute Auto 0.1 X10*3/uL (0.0-0.2); Basophils Percent Auto 0.4 % (0-2); Eosinophils Absolute Auto 0.4 X10*3/uL (0.0-0.4); Eosinophils Percent Auto 3.3 % (0-4); Hematocrit 31.7 % (37.0-47.0); Hemoglobin 9.3 g/dl (12.0-16.0); Imm Gran Abs Auto 0.03 X10*3/uL (0.00-0.03); Imm Gran Pct Auto 0.3 % (0.0-0.4); Lymphocytes Absolute Auto 3.1 X10*3/uL (1.2-4.9); Lymphocytes Percent Auto 26.7 % (20-40); Mean Corpuscular HGB Conc 29.3 g/dl (31.0-35.0); Mean Corpuscular Hemoglobin 17.3 pg (27.0-33.0); Monocytes Absolute Auto 0.8 X10*3/uL (0.1-1.2); Monocytes Percent Auto 6.7 % (2-11); Neutrophils Absolute Auto 7.2 x10*3/uL (2.0-8.3); Neutrophils Percent Auto 62.6 % (45-73); Platelet Count 351 X10*3/uL (160-400); Red Blood Count 5.37 X10*6/uL (4.20-5.50); Red Cell Distribution Width 21.8 % (11.0-16.0); White Blood Count 11.5 X10*3/uL (4.8-10.8)
[2024-04-14 11:03] LABS: INTERNATIONAL NORM RATIO 1.1 (0.9-1.1)
[2024-04-14 11:06] LABS: Partial Thromboplastin Time 32.2 SEC (26.0-36.8)
[2024-04-14 11:14] LABS: Alanine Aminotransferase 14 U/L (0-31); Albumin Level 3.8 g/dL (3.5-5.0); Alkaline Phosphatase 81 U/L (39-117); Anion Gap 9 (12-20); Aspartate Amino Transferase 17 U/L (5-31); Bilirubin Total 0.4 mg/dL (0.0-1.0); Blood Urea Nitrogen 11 mg/dL (9-16); C Reactive Protein 1.34 mg/dL (< or = 0.50); Carbon Dioxide 27 mmol/L (22-29); Chloride 106 mmol/L (96-108); Creatinine Clr Calc Pharmacy 136.3; Estimated Glomerular Filt Rate > 60; Glucose Random 94 mg/dL (60-115); Sodium 138 mmol/L (135-145); Total Protein 7.6 g/dL (6.5-8.0)
[2024-04-14] MEDS: Piperacillin Sodium/Tazobactam 3.375 GM in 0.9 % Sodium Chloride 50 ML IV ×2 (11:18→22:02)
[2024-04-14 11:29] LABS: Lactic Acid 2.1 mmol/L (0.5-2.0)
[2024-04-14 11:35] LABS: Erythrocyte Sedimentation Rate 23 MM/HR (0-20)
[2024-04-14 12:26] VITALS: BP 151/91; PULSE 82; RESP 20; TEMP 36.8; O2SAT 99
[2024-04-14] MEDS: vancomycin/NS 2,000 MG/500 ML PLAST..BAG 250 MG IV (12:53)
[2024-04-14 13:04] LABS: Reflex Lactate? Lactic Acid Added
[2024-04-14] MEDS: methylPREDNISolone Sod Succ 125 MG/2 ML VIAL 60 MG IVPUSH (13:34)
[2024-04-14] MEDS: diphenhydrAMINE HCL 50 MG/ML VIAL IVPUSH (13:34)
[2024-04-14 14:02] LABS: ~Lactic Acid-LAB USE ONLY 1.4 mmol/L (0.5-2.0)
--- NOTE | 2024-04-14 14:03 | PHA.MEDREC ---
Addendum entered by Isabela Jennings RPh 04/14/24 15:20: Reviewed by [facility] Original Note: Pharmacy Consult ? Medication Reconciliation Pharmacy has completed the medication reconciliation. Patient states she is not on any home medications.
--- NOTE | 2024-04-14 15:08 | P.HPHOSP_ITS ---
History of Present Illness Date of Service: 04/14/24 Chief Complaint: redness, discharge, and pain at PICC line site 23 yo female with PMH of anemia who had a PICC line placed on 04/01 for IV iron supplementation who is presenting for redness, discharge and pain at the PICC line site. She denies any fever, chills, N/V, reports she has figured it would resolve on its own with time. The symptoms persisted so she came in to ED on 04/03 , however left AMA because she had her daughter. Decided to come back in today because the redness and pain had not resolved and felt it was looking infected due to having discharge and thought maybe it could be getting worse. Review of Systems 2 Constitutional: Comments: Reports overall fatigue, and weight gain but unsure amount- she relates this gain to her nexplanon implant, denies fever, chills, N/V/D. Reports fatigue but difficult to sleep. Eyes: Comments: denies changes to vision ENT: Comments: Endorses headache, denies changes to hearing, and denies vertigo, congestion, rhinorrhea, or sore throat. Cardiovascular: Comments: denies palpitations, lightheadedness, diaphoresis, orthopnea, edema, or CP Respiratory: Comments: Denies cough, sputum, hemoptysis, dyspnea, wheeze, or pleuritic pain Gastrointestinal: Comments: denies N/V/D, denies bowel changes or constipation, no changes to appetite, and denies any bleeding Genitourinary: Comments: denies any urinary changes or difficulties, denies frequency, urgency, retention, pain/burning, or hematuria Musculoskeletal: Comments: denies back pain, or swelling of any joints, denies any recent falls Integumentary/Breasts: Comments: denies any rashes, itching, dryness, color changes, wounds, denies any noted breast abnormalities Neurologic: Comments: Denies seizures, denies dizziness, syncope/fainting, numbness/tingling or tremors Psychiatric: Comments: reports chronic anxiety, and depression, denies any changes to memory Endocrine: Comments: denies temperature intolerances, sweating, polyuria/dipsia, or bleeding. Hematologic/Lymphatic: Comments: reports anemia Allergic/Immunologic: Comments: denies [facility] Medical History (Updated 04/14/24 @ 15:47 by PATRICK Goncalves) Obesity, morbid, BMI 40.0-49.9 Gonorrhea Anemia Uses control Cervical cancer screening Acute pelvic inflammatory disease No known health problems Date of last menstrual period: 01/13/24 Pertinent family history: mother: anemia, anxiety, depression sister: colon cancer, alive and in remission Surgical History (Updated 04/14/24 @ 15:47 by PATRICK Goncalves) History of History of appendectomy Social History Household Members: Family Housing: Apartment Do you presently have visiting nurse or other home services: No Alcohol intake: current Alcohol intake frequency: holidays/special occasions only Patient Tobacco Use Status: Never used Tobacco Smoked in Last 30 Days: No Use of substances other than those prescribed or required for medical reasons: Yes Substance Use Type: Marijuana Substance Use Frequency: Daily Advance Directives: No Advance Directives Information Provided: No Nutrition Risks: No Nutritional Risk Patient : No service: No Meds Allergies Allergy/AdvReac Type Severity Reaction Status Date / Time vancomycin AdvReac Unknown Flushing Verified 04/14/24 15:33 Home Medications ?Medication ?Instructions ?Recorded ?Confirmed ?Last Taken ?Type No Known Home Meds 04/14/24 04/14/24 Unknown History Physical Exam 2 Vital Signs and Narrative: Vital Signs: Last Vital Signs Temp 98.2 F 04/14/24 12:26 Pulse 82 04/14/24 12:26 Resp 20 04/14/24 12:26 BP 151/91 H 04/14/24 12:26 Pulse Ox 99 04/14/24 12:26 O2 Del Method Room Air 04/14/24 12:26 BMI result Body Mass Index 52.1 Const: General: cooperative, healthy appearing, no acute distress, well developed, alert and awake Nutritional Appearance: overweight O rientation/consciousness: patient oriented x3 Limitations: no limitations HEENT: Head: Yes normocephalic and Yes atraumatic Ears: hearing grossly normal bilaterally General nose exam: Normal external nose present Face and sinus: Yes normal facial exam Mouth: Normal oral and palatal mucosa present Eyes: General: appearance normal, both eyes and all related structures C onjunctivae: conjunctivae normal Sclerae: sclerae normal Pupils: Equal, round and reactive pupils present EOM: EOMs intact bilaterally Neck: Yes normal visual inspection, Yes full ROM and Yes no lymphadenopathy Resp: Effort & Inspection: normal respiratory effort and able to speak in complete sentences Auscultation: clear to auscultation bilaterally Cardio: Jugular venous distension: no JVD Rate: regular rate Rhythm: r egular rhythm Heart sounds: S1 normal heart sound present and S2 normal heart sound present GI: Inspection: Yes normal to inspection Palpation (GI): Soft to palpation Percussion: Yes normal to percussion Auscultation: normal bowel sounds : General: Yes no CVA tenderness Back/Spine/Pelvis: Back: no CVA tenderness Skin: General skin exam: no rashes or lesions noted, elasticity normal and turgor normal Hair: normal Nails: normal Neuro: General: patient oriented x3 Cranial nerves: Yes CN's II-XII intact bilaterally and Yes Equal, round and reactive pupils present Cognition (Neuro): normal cognition Gait exam (Neuro): Normal gait present Motor exam (neuro): 5/5 motor strength present throughout Extrem: General: Yes normal to inspection, Yes full ROM, Yes capillary refill normal, Yes no pedal edema, Yes no calf tenderness and Yes normal gait Psych: Appearance: grossly normal and well kempt Mental Status: mental status grossly normal Speech and movement: Normal speech and movement present Affect: normal affect Attitude: cooperative Thought process: Normal thought process present Results Labs 04/14/24 10:48 04/14/24 10:48 Labs: Laboratory Results - last 24 hr 04/14/24 04/14/24 04/14/24 10:48 11:01 13:33 MCV 59.0 L MCH 17.3 L MCHC 29.3 L RDW 21.8 H Plt Count 351 MPV Not Reportable Immature Gran % (Auto) 0.3 Neut % (Auto) 62.6 Lymph % (Auto) 26.7 [place] % (Auto) 6.7 Eos % (Auto) 3.3 Baso % (Auto) 0.4 Lymph # (Auto) 3.1 [place] # (Auto) 0.8 Eos # (Auto) 0.4 Baso # (Auto) 0.1 Abs Immat Gran (auto) 0.03 Absolute Neuts (auto) 7.2 Absolute Nucleated RBC 0.000 Nucleated RBC % (auto) 0.0 ESR 23 H PT 13.0 H INR 1.1 APTT 32.2 Anion Gap 9 L Estim Creat Clear Calc 136.3 Estimated GFR > 60 Random Glucose 94 Lactic Acid 2.1 H* Lactic Acid F/U @ 2Hr 1.4 Calcium 9.0 Magnesium 2.0 Total Bilirubin 0.4 AST 17 ALT 14 Alkaline Phosphatase 81 C-Reactive Protein 1.34 H Total Protein 7.6 Albumin 3.8 Imaging Radiologist's Impressions: Impressions Venous Duplex 04/14/24 11:54 IMPRESSION: No evidence of deep venous thrombosis involving the right upper extremity. Electronically signed by: Mil Rehman MD 04/14/2024 01:15 PM EST Assessment and Plan (1) PICC line infection: Status: Acute Plan 24 yo presenting with PICC line redness, discharge, and pain. PICC line placed on 04/01/24 for 6 weeks of IV iron. PICC line infection US, negative for DVT line removed, sent for culture empiric coverage with vanco and zosyn- will continue zosyn. vanco reaction, d/c'd & replaced with doxy 100mg IV BID Vancomycin reaction treated with iv solumedrol and benadryl in ED symptoms resolved Lactic acidosis no sepsis ? unknown resolved Iron deficiency Anemia followed by Dr Anguiano Hematology consult placed- ?iron infusions DVT prophylaxis with early ambulation CODE status: full Quality Stroke Does the patient have a stroke diagnosis?: No VTE Prior VTE?: No VTE Risk Level:: Medical - moderate - high VTE Device Contraindication: Treatment Not Indicated VTE Drug Contraindication: Treatment Not Indicated
[2024-04-14 16:50] VITALS: BP 116/59; PULSE 107; RESP 16; TEMP 36.6; O2SAT 98
[2024-04-14] MEDS: 0.9 % Sodium Chloride Flush 3 ML SYRINGE IVFLUSH (17:08)
[2024-04-14 20:48] VITALS: BP 117/70; PULSE 103; RESP 16; TEMP 36.1; O2SAT 97
--- NOTE | 2024-04-14 20:55 | PC.NURSE ---
Pt is calm but reporting anxiety. Does report baseline aNXIety when she is not with her child. Has a friend to talk to on phone. Is sipping water. Room darkened. Right upper arm dressing is CDI. NAD. awaits bed assignment and orders for Abx.
--- NOTE | 2024-04-14 22:28 | PHA.PROG ---
Admission Date/Time: April 14, 2024 15:10 Indication: Other - PICC line infection Weight in k kg Adjusted body weight in Kg: [place] body weight in Kg: Obesity Dosing Indication % IBW: BMI 52.1 Serum Creatinine - Last 168 Hours 04/14/24 10:48 Creatinine 0.78 Estimated CrCl and GFR - Last 168 Hours 04/14/24 10:48 Estim Creat Clear Calc 136.3 Estimated GFR > 60 Vancomycin Loading Dose: 2000mg X1 Current Vancomycin Dosing Regimen: 1250 mg Q12H Vancomycin Monitoring using AUC goal of 400 - 600 range with trough as surrogate marker: 512 Date and Time for next Vancomycin Level to be drawn: 04/15/24 @2100 Pharmacist Comments on Vancomycin Plan:pt had reaction to loading dose, provider aware, asked to order over double the usual time so times changed to reflect that. Predicted trough for dosin.2. Provider also supposed to order bendryl PRN prior to infusions. Left note on paper for RPh's to be aware. Vancomycin dosing will take advantage of [employer] as a clinical decision support tool that uses Bayesian modeling to calculate individual patient's pharmacokinetic parameters and forecast the patient's drug concentration time course with the target goal AUC 24 range of 400 - 600 mg/L/hr.
[2024-04-14 23:50] VITALS: BP 132/64; PULSE 100; RESP 16; TEMP 36.5; O2SAT 100
[2024-04-15] MEDS: diphenhydrAMINE HCL 50 MG/ML VIAL IVPUSH (01:31)
[2024-04-15] MEDS: vancomycin HCL 1,250 MG in 0.9 % Sodium Chloride 250 ML 83.33 MG IV ×2 (01:34→13:13)
[2024-04-15] MEDS: 0.9 % Sodium Chloride Flush 3 ML SYRINGE IVFLUSH ×2 (01:34→09:05)
[2024-04-15 04:06] VITALS: BP 109/63; PULSE 77; RESP 16; TEMP 36.8; O2SAT 98
[2024-04-15] MEDS: Piperacillin Sodium/Tazobactam 3.375 GM in 0.9 % Sodium Chloride 50 ML IV ×2 (04:51→09:28)
[2024-04-15 05:07] LABS: Basophils Percent Auto 0.1 % (0-2); Red Cell Distribution Width 21.5 % (11.0-16.0); SCAN SMEAR FLAG 1
[2024-04-15 05:10] LABS: Hemoglobin 8.7 g/dl (12.0-16.0); Imm Gran Abs Auto 0.08 X10*3/uL (0.00-0.03); Imm Gran Pct Auto 0.5 % (0.0-0.4); Lymphocytes Absolute Auto 1.8 X10*3/uL (1.2-4.9); Lymphocytes Percent Auto 10.6 % (20-40); MANUAL DIFF FLAG SCAN; Mean Corpuscular Volume 58.7 fL (80.0-98.0); Monocytes Absolute Auto 0.8 X10*3/uL (0.1-1.2); Monocytes Percent Auto 4.3 % (2-11); Neutrophils Absolute Auto 14.6 x10*3/uL (2.0-8.3); Neutrophils Percent Auto 84.5 % (45-73); PLT ABN DIST 1; Platelet Count 381 X10*3/uL (160-400); Red Blood Count 5.11 X10*6/uL (4.20-5.50); White Blood Count 17.3 X10*3/uL (4.8-10.8)
[2024-04-15 05:31] LABS: Anion Gap 12 (12-20); Blood Urea Nitrogen 10 mg/dL (9-16); Calcium 8.8 mg/dL (8.4-10.2); Carbon Dioxide 21 mmol/L (22-29); Chloride 109 mmol/L (96-108); Creatinine Clr Calc Pharmacy 143.7; Estimated Glomerular Filt Rate > 60; Glucose Random 135 mg/dL (60-115); Potassium 4.4 mmol/L (3.3-5.1); Sodium 138 mmol/L (135-145)
[2024-04-15 05:36] LABS: SLIDE REVIEW VERIFIED
[2024-04-15 06:25] VITALS: BP 118/72; PULSE 86; RESP 16; TEMP 37.2; O2SAT 97
--- NOTE | 2024-04-15 07:54 | PC.NURSE ---
report given to SYDNEY Fuentes in overflow.
--- NOTE | 2024-04-15 08:08 | P.CNHO_ITS ---
Subjective - Subjective Chief complaint: Consult for: 1. Anemia. 2. PICC line infection. Patient: known to practice within the last 3 years Consult date: 04/15/24 Requesting Physician: Altagracia Castañeda. Primary Care Provider: Elaina Pan NP Family Provider: Elaina Pan. Medical Summary: DIAGNOSIS: 1. PICC LINE EXIT SITE INFECTION. 2. ANEMIA. HPI - Consult Narrative Reason for consult: Consult for: Infected PICC line. Narrative: Keke Jimenez is a 23 year old lady, with a history of anemia. She had a PICC line placed on 04/01 for IV iron supplementation. She presented for redness, discharge and pain at the PICC line site. She denies any fever, chills, N/V. She felt it would resolve on its own with time. It didn't, so she came in to ED on 04/03 , but left AMA because she had her daughter. However came back in yesterday since the redness and pain had not resolved. It looked infected, since it started draining and thought it could be getting worse. Database: CBC: WBC 11.5, HGB 9.3, HCT 31.7, PLT 351. Ultrasound of the upper extremity: No evidence of deep venous thrombosis involving the right upper extremity. PAST MEDICAL HISTORY: 1. Pelvic inflammatory disease. SURGICAL HISTORY: 1. Appendicectomy. 2. . SOCIAL HISTORY: Denies smoking nor alcohol use. Review of Systems - Constitutional Reports system reviewed and no additional complaints, except as documented, Reports fatigue, Reports lack of energy, Denies fever(s), Denies malaise, Denies weight loss - Eyes Reports system reviewed and no additional complaints, except as documented - ENT Reports system reviewed and no additional complaints, except as documented - Cardiovascular Reports system reviewed and no additional complaints, except as documented - Respiratory Reports no additional respiratory complaints - Gastrointestinal Reports system reviewed and no additional complaints, except as documented - Genitourinary Reports no additional female genitourinary complaints - Musculoskeletal Reports system reviewed and no additional complaints, except as documented - Integumentary/Breasts Skin/Breast: Reports no additional skin complaints - Neurologic Reports as per HPI, Reports hearing normal, Denies dizziness, Denies headache(s), Denies loss of vision, Denies numbness, Denies tingling - Psychiatric Reports system reviewed and no additional complaints, except as documented - Endocrine Reports no additional endocrine complaints - Hematologic/Lymphatic Reports system reviewed and no additional complaints, except as documented - Allergic/Immunologic Reports system reviewed and no additional complaints, except as documented Oncology Screenings - ECOG Performance Status ECOG Performance Status: 0 [facility] Medical History: Medical History (Last Reviewed 04/15/24 @ 12:14 by Jennifer Curry MD) Acute pelvic inflammatory disease Anemia Cervical cancer screening Gonorrhea No known health problems Obesity, morbid, BMI 40.0-49.9 Uses control Functional capacity: independent ambulation Patient : No Surgical History: Surgical History (Last Reviewed 04/15/24 @ 12:14 by Jennifer Curry MD) History of appendectomy History of Social History: Social History (Last Reviewed 04/15/24 @ 12:14 by Jennifer Curry MD) Living Situation History: Household Members: Children Housing: House Do you presently have visiting nurse or other home services: No Tobacco History: Patient Tobacco Use Status: Never used Tobacco Substance Use History: Substance Use Type: Marijuana Occupation Assessmet: service: No Home Medications and Allergies Current Medications: Current Medications Acetaminophen (Acetaminophen 325 Mg Tablet) 650 mg PO Q6H PRN PRN Reason: Pain, Mild (Pain Scale 1-3), fever or headache Calcium Carbonate (Calcium Carbonate 750 Mg Tab.Chew) 750 mg PO Q4H PRN PRN Reason: Heartburn Piperacillin Sod/Tazobactam (Sod 3.375 gm/ Sodium Chloride) 50 mls @ 100 mls/hr IV Q6H [facility] Last Infusion: 04/15/24 07:09 Dose: Infused Vancomycin HCl 1,250 mg/ (Sodium Chloride) 250 mls @ 83.333 mls/hr IV Q12H [facility] Last Infusion: 04/15/24 04:55 Dose: Infused Magnesium Hydroxide (Milk Of Magnesia 30 Ml Oral.Susp) 30 ml PO DAILY PRN PRN Reason: Constipation Melatonin (Melatonin 3 Mg Tablet) 6 mg PO BEDTIME PRN PRN Reason: Insomnia Ondansetron HCl (Ondansetron Hcl 4 Mg/2 Ml Vial) 4 mg IVPUSH Q8H PRN PRN Reason: Nausea and Vomiting Pharmacy Consult (Consult Rx Vancomycin Dosing) 1 each MISCELLANE DAILY PRN PRN Reason: Consult order Sodium Chloride (0.9 % Sodium Chloride Flush 3 Ml Syringe) 3 ml IVFLUSH QSHIFT [facility] Last Admin: 04/15/24 01:34 Dose: 3 ml Allergies Allergy/AdvReac Type Severity Reaction Status Date / Time vancomycin AdvReac Unknown Flushing Verified 04/18/24 16:42 Physical Exam Vital signs: Vital Signs Temp 98.9 F 04/15/24 06:25 Pulse 86 04/15/24 06:25 Resp 16 04/15/24 06:25 BP 118/72 04/15/24 06:25 Pulse Ox 97 04/15/24 06:25 O2 Del Method Room Air 04/15/24 06:25 Intake & Output 04/14/24 04/15/24 04/15/24 18:59 06:59 18:59 Intake Total 195.833 / 495.833 300 / 495.833 50 / 50 Balance 195.833 / 495.833 300 / 495.833 50 / 50 Intake: Intake, IV Amount 195.833 / 495.833 300 / 495.833 50 / 50 Piperacillin Sodium/Tazobactam 50 / 100 50 / 100 50 / 50 3.375 gm In 0.9 % Sodium Chloride 50 ml @ 100 mls/hr IV Q6H [facility] Rx#:[id number] vancomycin HCL 1,250 mg In 0.9 250 / 250 % Sodium Chloride 250 ml @ 83. 333 mls/hr IV Q12H [facility] Rx#: [id number] vancomycin/NS 2,000 mg In 500 145.833 / 145.833 0 / 145.833 ml @ 250 mls/hr IV ONCE ONE Rx# :[id number] Other: Weight 121 kg Weight 121 kg - Constitutional Present: moderate distress - Routine HEENT Exam Head: Present: normal inspection, normocephalic Eye: Present: normal appearance ENT: Present: mucous membranes moist - Routine Neck Exam Present: supple - Routine Respiratory Exam Present: CTAB - Routine Cardiovascular Exam Cardiovascular: Present: S1, S2 - Routine Abdominal Exam Present: soft, nontender - Routine Extremities Exam Present: tenderness. Absent: nontender Comments: Redness and drainage from the PICC line site. Hem/Onc Consult Result - Labs CBC & Chem 7: 04/15/24 04:59 04/16/24 04:07 Labs: Short CBC 04/14/24 04/15/24 Range/Units 10:48 04:59 WBC 11.5 H 17.3 H (4.8-10.8) X10*3/uL Hgb 9.3 L 8.7 L (12.0-16.0) g/dl Hct 31.7 L 30.0 L (37.0-47.0) % Plt Count 351 381 (160-400) X10*3/uL BMP 04/14/24 04/15/24 10:48 04:59 Sodium 138 138 Potassium 4.0 4.4 Chloride 106 109 H Carbon Dioxide 27 21 L BUN 11 10 Creatinine 0.78 0.74 Calcium 9.0 8.8 Liver Function 04/14/24 Range/Units 10:48 Total Bilirubin 0.4 (0.0-1.0) mg/dL AST 17 (5-31) U/L ALT 14 (0-31) U/L Alkaline Phosphatase 81 (39-117) U/L Albumin 3.8 (3.5-5.0) g/dL Assessment and Plan Patient Active problem list reviewed?: Yes (1) PICC line infection Status: Resolved Assessment and plan: 23-year-old lady with a history of anemia. She had a PICC line placed to facilitate IV iron. Unfortunately that got infected. Patient finally came back in to have it checked. The PICC line has been pulled. She has been zamudio cultured. She has been started on IV antibiotics. Zosyn and initially, vancomycin. However developed a reaction to vanc so was switched to doxycycline. PLAN: To continue antibiotics till cultures come back. Will adjust according to the sensitivities. Can give the IV iron while she is here, to correct her anemia. Will give Venofer. Thank You for the consult, CC: Elaina Pan. - Time Spent With Patient Time Spent with Patient (in minutes): 30
--- NOTE | 2024-04-15 12:05 | P.CNID_ITS ---
History of Present Illness Data of Consult Service Date: 04/15/24 Requesting physician: Altagracia Castañeda Primary Care Provider: Elaina Pan NP HPI Reason for consult: right arm erythema She presents to ER 04/03 due to pain chest She had PICC line placed for IV iron infusions 2 days earlier She represents with pain and redness and swelling with chills. She has no DVT by report. She has staph aureus from PICC line tip which was removed. She has blood cultures pending. Review of Systems 2 Review of Systems: Yes all other systems are reviewed and are negative PMFSH Past Medical History Medical History Obesity, morbid, BMI 40.0-49.9 Gonorrhea Anemia Uses control Cervical cancer screening Acute pelvic inflammatory disease No known health problems Family History Family history: reviewed and not pertinent Surgical History Surgical History History of History of appendectomy Social History Social History Household Members: Family Housing: Apartment Do you presently have visiting nurse or other home services: No Alcohol intake: current Alcohol intake frequency: holidays/special occasions only Patient Tobacco Use Status: Never used Tobacco Smoked in Last 30 Days: No Use of substances other than those prescribed or required for medical reasons: Yes Substance Use Type: Marijuana Substance Use Frequency: Daily Advance Directives: No Advance Directives Information Provided: No Nutrition Risks: No Nutritional Risk Patient : No service: No Meds Allergies Allergy/AdvReac Type Severity Reaction Status Date / Time vancomycin AdvReac Unknown Flushing Verified 04/14/24 15:33 Active Medications: Current Medications Acetaminophen (Acetaminophen 325 Mg Tablet) 650 mg PO Q6H PRN PRN Reason: Pain, Mild (Pain Scale 1-3), fever or headache Calcium Carbonate (Calcium Carbonate 750 Mg Tab.Chew) 750 mg PO Q4H PRN PRN Reason: Heartburn Vancomycin HCl 1,250 mg/ (Sodium Chloride) 250 mls @ 83.333 mls/hr IV Q12H [facility] Last Infusion: 04/15/24 04:55 Dose: Infused Magnesium Hydroxide (Milk Of Magnesia 30 Ml Oral.Susp) 30 ml PO DAILY PRN PRN Reason: Constipation Melatonin (Melatonin 3 Mg Tablet) 6 mg PO BEDTIME PRN PRN Reason: Insomnia Ondansetron HCl (Ondansetron Hcl 4 Mg/2 Ml Vial) 4 mg IVPUSH Q8H PRN PRN Reason: Nausea and Vomiting Pharmacy Consult (Consult Rx Vancomycin Dosing) 1 each MISCELLANE DAILY PRN PRN Reason: Consult order Sodium Chloride (0.9 % Sodium Chloride Flush 3 Ml Syringe) 3 ml IVFLUSH QSHIFT [facility] Last Admin: 04/15/24 09:05 Dose: 3 ml Home Medications ?Medication ?Instructions ?Recorded ?Confirmed ?Last Taken ?Type No Known Home Meds 04/14/24 04/14/24 Unknown History Physical Exam 2 Vital Signs: Vital Signs: Last Vital Signs Temp 98.9 F 04/15/24 06:25 Pulse 86 04/15/24 06:25 Resp 16 04/15/24 06:25 BP 118/72 04/15/24 06:25 Pulse Ox 97 04/15/24 06:25 O2 Del Method Room Air 04/15/24 06:25 BMI result Body Mass Index 52.1 Const: General: cooperative HEENT: Head: Yes normal to inspection Face and sinus: Yes normal facial exam Mouth: Normal oral and palatal mucosa present Teeth and gingiva: d entition normal Eyes: General: appearance normal, both eyes and all related structures P upils: Equal, round and reactive pupils present Resp: Effort & Inspection: normal respiratory effort Cardio: Rate: regular rate Rhythm: regular rhythm GI: Palpation (GI): Soft to palpation and nontender : General: Yes no CVA tenderness Back/Spine/Pelvis: Back: no CVA tenderness Skin: General skin exam: no rashes or lesions noted Neuro: General: moves all extremities Cranial nerves: Yes Equal, round and reactive pupils present Extrem: Other: mild swelling RUE ,no spreading cellulitis Psych: Appearance: grossly normal Results Labs 04/15/24 04:59 04/15/24 04:59 Labs: Short CBC 04/15/24 Range/Units 04:59 WBC 17.3 H (4.8-10.8) X10*3/uL Hgb 8.7 L (12.0-16.0) g/dl Hct 30.0 L (37.0-47.0) % Plt Count 381 (160-400) X10*3/uL BMP 12/03/24 04:59 Sodium 138 Potassium 4.4 Chloride 109 H Carbon Dioxide 21 L BUN 10 Creatinine 0.74 Calcium 8.8 Microbiology Microbiology Results: Microbiology 04/14/24 13:00 Catheter Tip - Other Catheter Tip Culture - Preliminary Staphylococcus aureus 04/14/24 12:59 Arm Right Gram Stain - Final 04/14/24 12:59 Arm Right Routine Culture - Preliminary Staphylococcus aureus Assessment and Plan (1) PICC line infection: Status: Acute (2) Microcytic hypochromic anemia: Status: Acute Plan Since line tip staph aureus would give IV Vancomycin pending identity of staph. She reported scalp itch with first dose. Would stop piperacillin/tazobactam. Await blood cultures and if negative po antibiotic for 14 d based on staph sensitivity. Would ask Hematology if she can receive IV daily of infusion and not have PICC line since only gets infusion weekly.
[2024-04-15 13:42] VITALS: BP 119/54; PULSE 93; RESP 18; TEMP 36.2; O2SAT 97
--- NOTE | 2024-04-15 13:42 | PC.NURSE ---
had a conversation with TORIE Frias about pt's reaction to vanco yesterday. Vanco today is ordered at a slower rate. No benedryl ordered at this time. will cont to monitor for reaction symptoms
--- NOTE | 2024-04-15 13:49 | HO.PM.IMPN ---
Subjective Subjective Date of Service: 04/15/24 Review of Systems Follow up picc line infection no fever, chills, pain Physical Exam Vital Signs: Vital Signs: Last Vital Signs Temp 97.2 F 04/15/24 13:42 Pulse 93 04/15/24 13:42 Resp 18 04/15/24 13:42 BP 119/54 L 04/15/24 13:42 Pulse Ox 97 04/15/24 13:42 O2 Del Method Room Air 04/15/24 13:42 BMI result Body Mass Index 52.1 Appearing in no acute distress lung sounds are clear to auscultation heart regular rate rhythm, clear S1, S2 positive bowel sounds, abdomen is soft, nontender neuro patient is alert x3, no focal deficits Objective Data Active Medications Acetaminophen (Acetaminophen 325 Mg Tablet) 650 mg PO Q6H PRN PRN Reason: Pain, Mild (Pain Scale 1-3), fever or headache Calcium Carbonate (Calcium Carbonate 750 Mg Tab.Chew) 750 mg PO Q4H PRN PRN Reason: Heartburn Vancomycin HCl 1,250 mg/ (Sodium Chloride) 250 mls @ 83.333 mls/hr IV Q12H [facility] Last Admin: 04/15/24 13:13 Dose: 83.33 mls/hr Documented By: KIMBER Magnesium Hydroxide (Milk Of Magnesia 30 Ml Oral.Susp) 30 ml PO DAILY PRN PRN Reason: Constipation Melatonin (Melatonin 3 Mg Tablet) 6 mg PO BEDTIME PRN PRN Reason: Insomnia Ondansetron HCl (Ondansetron Hcl 4 Mg/2 Ml Vial) 4 mg IVPUSH Q8H PRN PRN Reason: Nausea and Vomiting Pharmacy Consult (Consult Rx Vancomycin Dosing) 1 each MISCELLANE DAILY PRN PRN Reason: Consult order Sodium Chloride (0.9 % Sodium Chloride Flush 3 Ml Syringe) 3 ml IVFLUSH QSHIFT [facility] Last Admin: 04/15/24 09:05 Dose: 3 ml Documented By: KIMBER Labs 04/15/24 04:59 04/15/24 04:59 Labs: Laboratory Results - last 24 hr 04/14/24 04/15/24 13:33 04:59 MCV 58.7 L MCH 17.0 L MCHC 29.0 L RDW 21.5 H Plt Count 381 MPV Not Reportable Immature Gran % (Auto) 0.5 H Neut % (Auto) 84.5 H Lymph % (Auto) 10.6 L [place] % (Auto) 4.3 Eos % (Auto) 0.0 Baso % (Auto) 0.1 Lymph # (Auto) 1.8 [place] # (Auto) 0.8 Eos # (Auto) 0.0 Baso # (Auto) 0.0 Abs Immat Gran (auto) 0.08 H Absolute Neuts (auto) 14.6 H Absolute Nucleated RBC 0.000 Nucleated RBC % (auto) 0.0 Smear Tech's Comments VERIFIED Anion Gap 12 Estim Creat Clear Calc 143.7 Estimated GFR > 60 Random Glucose 135 H Lactic Acid F/U @ 2Hr 1.4 Calcium 8.8 Microbiology Microbiology Results: Microbiology 04/14/24 11:01 Blood Culture - Preliminary Blood - Venous No growth after 24 hours. 04/14/24 10:48 Blood Culture - Preliminary Blood - Venous No growth after 24 hours. 04/14/24 13:00 Catheter Tip Culture - Preliminary Catheter Tip - Other Staphylococcus aureus 04/14/24 12:59 Gram Stain - Final Arm Right Routine Culture - Preliminary Staphylococcus aureus Assessment and Plan (1) PICC line infection: Status: Acute Plan 24 yo presenting with PICC line redness, discharge, and pain. PICC line placed on 04/01/24 for 6 weeks of IV iron. PICC line infection Catheter tip positive for Staphylococcus aureus US, negative for DVT empiric coverage with vanco ID following follow final cx Vancomycin reaction treated with iv solumedrol and benadryl in ED Patient had 2 g and was infused within less than 2 hours, likely reason for reaction symptoms resolved, continue vancomycin Lactic acidosis. Resolved no sepsis Iron deficiency Anemia followed by Dr Anguiano Iron infusion today DVT prophylaxis with early ambulation Attending Dr. Honeycutt CODE status: full Quality Stroke Does the patient have a stroke diagnosis?: No VTE Prior VTE?: No VTE Risk Level:: Medical - moderate - high VTE Device Contraindication: Treatment Not Indicated VTE Drug Contraindication: Treatment Not Indicated
--- NOTE | 2024-04-15 14:19 | P.CDIM_ITS ---
PROVIDER RESPONSE TEXT: To clarify, the appropriate diagnosis supported by the clinical indicators: Acute QUERY TEXT: PHYSICIAN'S DOCUMENTATION REQUEST Date of Query: 04/15/2024 10:45 AM EST Patient Name: CHAZ LACKEY Admit Date: 04/14/2024 Dear Altagracia Castañeda [employer], A review of the medical record indicates additional documentation may be needed. Please review below and update the documentation accordingly. Clinical Indicators: LA 2.1 Per H&P 04/14/24: Lactic acidosis no sepsis ? unknown resolved Clarify which of the following accurately represents the acuity of the lactic acidosis. Possible options might include: Acute Acute on chronic Compensated Chronic stable condition Remission Other (explain) Clinically unable to determine (explain) Thank you, Karina Lala RN Use of terms such as suspected, likely, concern for, or probable (associated with a specific diagnosi s that is being evaluated, monitored, or treated as if it exists) are acceptable and can be coded in the inpatient se tting, when documented at the time of discharge. Please use your independent medical judgment in providing your response. THIS QUERY IS PART OF THE PERMANENT MEDICAL RECORD
[2024-04-15 20:00] VITALS: BP 117/69; PULSE 82; RESP 18; TEMP 36.6; O2SAT 99
[2024-04-15 21:32] LABS: Vancomycin Random 13.3 mcg/mL (15-20)
[2024-04-15] MEDS: Melatonin 3 MG TABLET 6 MG PO (23:08)
[2024-04-16] MEDS: vancomycin HCL 1,250 MG in 0.9 % Sodium Chloride 250 ML 83.33 MG IV (00:52)
[2024-04-16] MEDS: 0.9 % Sodium Chloride Flush 3 ML SYRINGE IVFLUSH (00:53)
[2024-04-16 05:04] LABS: Estimated Glomerular Filt Rate > 60
[2024-04-16 06:00] VITALS: BP 114/64; PULSE 72; RESP 18; TEMP 36.7; O2SAT 97
--- NOTE | 2024-04-16 10:00 | PC.NURSE ---
patient has been resting quietly in over flow bed 2, alert and oriented x4, ambulatory, able to make needs known. patient picc line wound redressed, noted that wound has closed, no redness/swelling or dressing noted. patient denies pain.
[2024-04-16] MEDS: cephALEXin 500 MG CAPSULE PO (10:24)
[2024-04-16 10:37] VITALS: BP 124/78; PULSE 84; RESP 18; TEMP 36.9; O2SAT 96
--- NOTE | 2024-04-16 11:22 | PM.DS ---
DS: Providers Provider Date of Service: 04/16/24 Date of admission: 04/14/24 15:10 Date of discharge: 04/16/24 Primary care physician: Elaina Pan NP Consults: 04/14/24 15:18 Consult to Hematology / Oncology Routine Consulting [place] [facility] Reason for consultation: anemia, known to office 04/15/24 09:00 Consult to Infectious Diseases Routine Consulting Provider: [facility] Reason for consultation: catheter tip with staph aureus from picc line DS: Diagnosis Discharge Diagnosis (1) PICC line infection: Status: Acute DS: Summary Hospital Course Hospital Course: from initial hpi: 23 yo female with PMH of chronic iron deficiency anemia, morbid obesity, who had a PICC line placed on 04/01 for IV iron supplementation who is presenting for redness, discharge and pain at the PICC line site. She denies any fever, chills, N/V, reports she has figured it would resolve on its own with time. The symptoms persisted so she came in to ED on 04/03 , however left AMA because she had her daughter. Decided to come back in today because the redness and pain had not resolved and felt it was looking infected due to having discharge and thought maybe it could be getting worse. hospital course: Patient was admitted for cellulitis associated with infected PICC line. PICC line was removed and tip grew MSSA. Blood cultures were negative. Patient was treated with IV vancomycin. Was seen by infectious disease who recommended 2 weeks of p.o. antibiotics will be transitioned to Keflex 500 mg q.8. Cellulitis and pain resolved. For chronic iron deficiency anemia we will continue with IV iron infusions but will need intermittent IV placement as opposed to a PICC line. For morbid obesity weight loss recommended. Time Attestation Discharge Coordination Time (in mins): 33 Quality: Safe Use of Opioids Does Pt have an Active Cancer Diagnosis on the Problem List?: No Quality: Stroke Does the patient have a stroke diagnosis?: No Physical Exam Vital Signs: Vital Signs: Last Vital Signs Temp 98.5 F 04/16/24 10:37 Pulse 84 04/16/24 10:37 Resp 18 04/16/24 10:37 BP 124/78 04/16/24 10:37 Pulse Ox 96 04/16/24 10:37 O2 Del Method Room Air 04/16/24 10:37 BMI result Body Mass Index 52.1 General: AO X 3, no acute distress Resp: CTA bilateral, no accessory muscles used CVS: S1,S2,RRR GI: soft, non tender, non distended Neuro: motor grossly intact, alert Psych: appropriate affect, appropriate insight DS: Data Data Completed and Pending Labs on day of discharge: Laboratory Results - last 24 hr 04/15/24 04/16/24 21:09 04:07 Creatinine 0.77 Estim Creat Clear Calc 138.0 Estimated GFR > 60 Random Vancomycin 13.3 L Preliminary micro results at discharge 04/14/24 11:01 Blood Culture - Preliminary Blood - Venous No growth after 24 hours. 04/14/24 10:48 Blood Culture - Preliminary Blood - Venous No growth after 24 hours. Discharge Plan Discharge Anticipated Discharge Date/Time: 04/16/24 11:21 Patient Disposition: Home, Self-Care Discharge Diagnosis: picc infection, cellulitis Referrals: Elaina Pan, [employer] [Primary Care Provider] - 1 Week Discharge Medications: New cephalexin 500 mg Capsule 500 mg PO Q8H Qty: 36 0RF Discharge Orders: Discharge Order (Routine); Ordered 04/16/24 Ordered By: Gideon Dumont Diet: Advance to usual diet Activity on Discharge: As tolerated Stand Alone Forms: Patient Portal Discharge page Print Language: Yoruba Care Plan Goals: Manage infection Health Concerns: MSSA PICC line infection Plan of Treatment: Continue 12 more days of Keflex Follow-up with hematology for iron infusions Assessment: See above
--- NOTE | 2024-04-16 11:39 | MHC.CM.PN ---
PT DCD HOME SELF CARE PRIOR TO BEING SEEN BY CM
--- NOTE | 2024-04-16 11:44 | MHC.CM.PN ---
PT DD HOME SELF CARE
[2024-04-16 14:58] VITALS: BP 134/63; PULSE 86; RESP 18; TEMP 36.4; O2SAT 99
--- NOTE | 2024-04-16 15:12 | PC.NURSE ---
patient remains resting in bed, resp even and unlabored. patient has family at the bedside visiting. no signs fo acute distress
[2024-04-16 15:40] VITALS: BP 134/63; PULSE 86; RESP 18; TEMP 36.4; O2SAT 99
== END 2024-04-16 15:36 | disposition home or self-care (01) | DRG 721 ==
LOC: HO.ED 13:36 → HO.EDOVER 15:17
PROVIDERS: Internal Medicine; Physician Assistant Medical; Admitting Provider Nurse Practitioner Acute Care; Emergency Provider Emergency Medicine; PCP Nurse Practitioner Primary Care; Visit Provider Internal Medicine
DX: T80.212A Local infection due to central venous catheter, initial encounter (principal); E87.21 Acute metabolic acidosis; E66.01 Morbid (severe) obesity due to excess calories; L03.113 Cellulitis of right upper limb; D50.9 Iron deficiency anemia, unspecified; Z71.6 Tobacco abuse counseling; Z68.43 Body mass index [BMI] 50.0-59.9, adult; B95.61 Methicillin susceptible Staphylococcus aureus infection as the cause of diseases classified elsewhere
CPT/HCPCS: 36415; 80048; 80053; 80202; 82565; 83605; 83735; 85025; 85610; 85652; 85730; 86140; 87040; 87070; 87071; 87077; 87186; 87205; 93971; 99285; J1200; J1756; J2543; J2919; J3370; J3371

== ENCOUNTER → 2024-04-14 15:10 | Outpatient (BNV) | payer MEDICAID, SELFPAY | PROVIDERS: Admitting Provider Nurse Practitioner Acute Care; Emergency Provider Emergency Medicine; PCP Nurse Practitioner Primary Care; Visit Provider Nurse Practitioner Acute Care | DX: T80.219A Unspecified infection due to central venous catheter, initial encounter (principal) | CPT/HCPCS: 99223; 99232; 99239 ==

== ENCOUNTER → 2024-04-14 15:10 | Outpatient (BNV) | payer MEDICAID, SELFPAY | PROVIDERS: Admitting Provider Nurse Practitioner Acute Care; Emergency Provider Emergency Medicine; PCP Nurse Practitioner Primary Care; Visit Provider Internal Medicine Medical Oncology | DX: D64.9 Anemia, unspecified (principal) | CPT/HCPCS: 99222 ==

== ENCOUNTER → 2024-04-14 15:10 | Outpatient (BNV) | payer MEDICAID, SELFPAY | PROVIDERS: Admitting Provider Nurse Practitioner Acute Care; Emergency Provider Emergency Medicine; PCP Nurse Practitioner Primary Care; Visit Provider Internal Medicine | DX: T80.219A Unspecified infection due to central venous catheter, initial encounter (principal); D50.9 Iron deficiency anemia, unspecified | CPT/HCPCS: 99222 ==

== ENCOUNTER 2024-04-18 16:19 | Inpatient (IN) | payer MEDICAID, SELFPAY ==
--- NOTE | ~2024-04-18 | US_ITS ---
EXAMINATION: US TRIPLEX UPPER EXTREMITY, LEFT CLINICAL INFORMATION: MARCIANO swelling COMPARISON: None available. TECHNIQUE: Color-flow triplex imaging with spectral analysis and compression Doppler was performed on the left upper extremity. FINDINGS: The left internal jugular, subclavian, and axillary veins are patent and free of thrombus. The imaged segment of the left brachiocephalic vein is patent. Spectral doppler waveforms are normal. The brachial, basilic, cephalic, radial, and ulnar veins are patent and compressible. US/US venous duplex UE LT IMPRESSION: No evidence of deep venous thrombosis involving the left upper extremity. Electronically signed by: Jeanine Okeefe MD 04/18/2024 07:08 PM ANNA RP
[2024-04-18 16:38] VITALS: BP 148/92; PULSE 102; RESP 20; TEMP 37.3; O2SAT 100; BMI 50.3
--- NOTE | 2024-04-18 18:13 | ED_ITS ---
HPI - Skin/Abscess/Foreign Bdy General Chief complaint: Skin/Abscess/Foreign Body Stated complaint: L arm swelling, seen recently Time Seen by Provider: 04/18/24 21:24 History of Present Illness ED Provider: Roxana DORSEY narrative: The patient is a 23-year-old female. She has a history of chronic anemia. She also is significantly obese with a BMI of 50. This complicated iron infusions and so on April 01 last month she was given a PICC line in her right arm to help facilitate treatments of her anemia. Unfortunately she developed an infection in the right arm at the site of the PICC line and was hospitalized from April 14 through April 16. She had a wound culture sent and also a culture from the tip of the PICC line. Both of these cultures grew Staphylococcus aureus which was MSSA. She was discharged on cephalexin 500 mg q.i.d.. During the hospitalization the patient had had a left antecubital fossa IV. At the time that she was discharged from the hospital she had some pain near the left antecubital fossa. This is gotten worse and last night she had a temperature of 104 degrees. She has an area of redness under the left distal upper arm which is very tender. She came to the emergency department for evaluation of these problems. Related Data Previous Rx's ?Medication ?Instructions ?Recorded cephalexin 500 mg capsule 500 mg PO Q8H #36 caps 04/16/24 Allergies Allergy/AdvReac Type Severity Reaction Status Date / Time vancomycin AdvReac Unknown Flushing Verified 04/18/24 16:42 Review of Systems 2 Review of Systems: Yes all other systems are reviewed and are negative PMFSH Past Medical History Medical History Obesity, morbid, BMI 40.0-49.9 Gonorrhea Anemia Uses control Cervical cancer screening Acute pelvic inflammatory disease No known health problems Surgical History History of History of appendectomy Social History Social History Household Members: Family Housing: Apartment Do you presently have visiting nurse or other home services: No Alcohol intake: current Alcohol intake frequency: does not drink Patient Tobacco Use Status: Never used Tobacco Smoked in Last 30 Days: No Use of substances other than those prescribed or required for medical reasons: No Substance Use Type: Marijuana Advance Directives: No Advance Directives Information Provided: No service: No Physical Exam 2 Vital Signs: Vital Signs: Last Vital Signs Temp 98.7 F 04/18/24 23:32 Pulse 99 04/18/24 23:32 Resp 16 04/18/24 23:32 BP 113/59 L 04/18/24 23:32 Pulse Ox 99 04/18/24 23:32 O2 Del Method Room Air 04/18/24 23:32 BMI result Body Mass Index 50.3 Const: Other: The patient is a 23-year-old woman who was awake and alert. She seems to have a lot of discomfort related to her left arm. She has a nontoxic demeanor. HEENT: Other: Face is symmetrical. Mucous membranes moist. Eyes: General: appearance normal, both eyes and all related structures Neck: Neck: Yes full ROM Resp: Effort & Inspection: normal respiratory effort Auscultation: clear to auscultation bilaterally Cardio: Rate: regular rate Rhythm: regular rhythm Heart sounds: S1 normal heart sound present and S2 normal heart sound present GI: Other: Abdomen is soft and nontender Skin: Other: Skin shows a fairly well demarcated area of erythema the medial aspect of the distal left medial upper arm Neuro: Other: The patient is awake and alert with a normal mental status. Cranial nerves are intact. She has intact strength and sensation in her extremities except to the degree to which her left arm is affected by pain. Extrem: Other: The patient has an area of swelling and erythema to the medial aspect of the left distal upper arm. She is exquisitely tender. No fluctuance. Course Course Course Narrative: This is an RME done by PATRICK Araujo: Additional HPI, ROS, PE not included below will be deferred to primary provider. 23-year-old female presents with left upper extremity swelling she reports that she was discharged from the hospital in the 4th she had an IV in that region, she reports since then she has been having severe pain and arm has become significantly swollen when compared to the other arm. Denies chest pain or shortness of breath at this time. Left upper extremity appears to have thrombophlebitis however will rule out clot. Medications Administered Discontinued Medications Generic Name Dose Route Start Last Admin Trade Name Freq PRN Reason Stop Dose Admin Vancomycin HCl 2,000 mg in 500 mls @ 250 mls/hr 04/18/24 23:10 04/18/24 23:42 Vancomycin/Ns IV 04/19/24 01:09 166.7 mls/hr ONCE ONE Administration Medical Decision Making Medical Decision Making [facility] Narrative: The patient was hospitalized a few days ago for an infection related to a PICC line that has been in her right arm. Cultures of the wound and the tip of the PICC line grew MSSA and the patient has been on cephalexin 500 mg q.i.d.. She returns to the hospital stating that she had had a fever last night with a temperature of a 104 degrees that she has had worsening left arm pain and swelling just above a left antecubital IV site that was accessed during her last hospitalization. Clinically she seems to have a soft tissue skin infection of the left upper arm. She has an elevated white count. She reports a fever at home. She has been on oral cephalexin. He has been her fever and elevated white count and her degree of pain I think hospitalization on IV vancomycin is reasonable. The patient reports that she developed flushing when she last received vancomycin. Vancomycin will be infused slowly. Lab Data 04/18/24 18:20 04/18/24 18:20 Labs: Lab Results 04/18/24 04/18/24 Range/Units 18:20 23:16 WBC 16.0 H (4.8-10.8) X10*3/uL RBC 5.70 H (4.20-5.50) X10*6/uL Hgb 9.9 L (12.0-16.0) g/dl Hct 34.0 L (37.0-47.0) % MCV 59.6 L (80.0-98.0) fL MCH 17.4 L (27.0-33.0) pg MCHC 29.1 L (31.0-35.0) g/dl RDW 23.5 H (11.0-16.0) % Plt Count 405 H (160-400) X10*3/uL MPV Not Reportable Immature Gran % (Auto) 0.6 H (0.0-0.4) % Neut % (Auto) 74.0 H (45-73) % Lymph % (Auto) 19.5 L (20-40) % [place]ley % (Auto) 3.8 (2-11) % Eos % (Auto) 1.8 (0-4) % Baso % (Auto) 0.3 (0-2) % Lymph # (Auto) 3.1 (1.2-4.9) X10*3/uL [place]ley # (Auto) 0.6 (0.1-1.2) X10*3/uL Eos # (Auto) 0.3 (0.0-0.4) X10*3/uL Baso # (Auto) 0.1 (0.0-0.2) X10*3/uL Abs Immat Gran (auto) 0.09 H (0.00-0.03) X10*3/uL Absolute Neuts (auto) 11.8 H (2.0-8.3) x10*3/uL Absolute Nucleated RBC 0.000 (0.0-0.012) X10*3/uL Nucleated RBC % (auto) 0.0 (0.0-0.2) /100WBC Smear Tech's Comments VERIFIED PT 13.7 H (10.9-12.4) SEC INR 1.2 H (0.9-1.1) Sodium 139 (135-145) mmol/L Potassium 3.9 (3.3-5.1) mmol/L Chloride 108 (96-108) mmol/L Carbon Dioxide 23 (22-29) mmol/L Anion Gap 12 (12-20) BUN 14 (9-16) mg/dL Creatinine 0.74 (0.5-1.4) mg/dL Estim Creat Clear Calc 146.0 Estimated GFR > 60 Random Glucose 119 H (60-115) mg/dL Lactic Acid 1.6 (0.5-2.0) mmol/L Calcium 9.7 D (8.4-10.2) mg/dL Magnesium 2.1 (1.6-2.6) mg/dL Total Bilirubin 0.3 (0.0-1.0) mg/dL AST 16 (5-31) U/L ALT 12 (0-31) U/L Alkaline Phosphatase 82 (39-117) U/L C-Reactive Protein 4.31 H (< or = 0.50) mg/dL Total Protein 8.2 H (6.5-8.0) g/dL Albumin 4.2 (3.5-5.0) g/dL Beta HCG, Quant < 2 mIU/mL Discharge Plan Discharge Clinical Impression: Left arm cellulitis Patient Disposition: Admitted As Inpatient
[2024-04-18 18:25] LABS: Basophils Absolute Auto 0.1 X10*3/uL (0.0-0.2); Basophils Percent Auto 0.3 % (0-2); Imm Gran Pct Auto 0.6 % (0.0-0.4); MANUAL DIFF FLAG SCAN; Mean Corpuscular Hemoglobin 17.4 pg (27.0-33.0); SCAN SMEAR FLAG 1
[2024-04-18 18:27] LABS: Eosinophils Absolute Auto 0.3 X10*3/uL (0.0-0.4); Eosinophils Percent Auto 1.8 % (0-4); Hemoglobin 9.9 g/dl (12.0-16.0); Imm Gran Abs Auto 0.09 X10*3/uL (0.00-0.03); Lymphocytes Absolute Auto 3.1 X10*3/uL (1.2-4.9); Lymphocytes Percent Auto 19.5 % (20-40); Mean Corpuscular HGB Conc 29.1 g/dl (31.0-35.0); Monocytes Absolute Auto 0.6 X10*3/uL (0.1-1.2); Monocytes Percent Auto 3.8 % (2-11); Neutrophils Absolute Auto 11.8 x10*3/uL (2.0-8.3); Platelet Count 405 X10*3/uL (160-400); Red Cell Distribution Width 23.5 % (11.0-16.0)
[2024-04-18 18:29] LABS: Mean Corpuscular Volume 59.6 fL (80.0-98.0); PLT ABN DIST 1
[2024-04-18 18:31] LABS: INTERNATIONAL NORM RATIO 1.2 (0.9-1.1); Prothrombin Time 13.7 SEC (10.9-12.4)
[2024-04-18 18:47] LABS: SLIDE REVIEW VERIFIED
[2024-04-18 18:48] LABS: Alanine Aminotransferase 12 U/L (0-31); Albumin Level 4.2 g/dL (3.5-5.0); Alkaline Phosphatase 82 U/L (39-117); Anion Gap 12 (12-20); Aspartate Amino Transferase 16 U/L (5-31); Bilirubin Total 0.3 mg/dL (0.0-1.0); Blood Urea Nitrogen 14 mg/dL (9-16); Calcium 9.7 mg/dL (8.4-10.2); Carbon Dioxide 23 mmol/L (22-29); Chloride 108 mmol/L (96-108); Estimated Glomerular Filt Rate > 60; Glucose Random 119 mg/dL (60-115); Magnesium 2.1 mg/dL (1.6-2.6); Potassium 3.9 mmol/L (3.3-5.1); Sodium 139 mmol/L (135-145); Total Protein 8.2 g/dL (6.5-8.0)
[2024-04-18 21:15] VITALS: BP 120/57; PULSE 102; RESP 16; TEMP 37.3; O2SAT 100
[2024-04-18 22:14] LABS: C Reactive Protein 4.31 mg/dL (< or = 0.50)
[2024-04-18 22:23] LABS: HCG Quantitative < 2 mIU/mL
[2024-04-18 23:32] VITALS: BP 113/59; PULSE 99; RESP 16; TEMP 37.1; O2SAT 99
[2024-04-18 23:39] LABS: Lactic Acid 1.6 mmol/L (0.5-2.0)
[2024-04-18] MEDS: vancomycin/NS 2,000 MG/500 ML PLAST..BAG 166.7 MG IV (23:42)
--- NOTE | 2024-04-18 23:43 | PC.NURSE ---
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 will slow infusion of vanco and monitor reaction per MD. defer on benadryl per MD as pt stated it can be sedative for her.
--- NOTE | 2024-04-19 00:26 | P.HPHOSP_ITS ---
History of Present Illness Date of Service: 04/19/24 Attending physician on admission: Trina Narayan Chief Complaint: Left arm pain Keke Jimenez is a 23 years old woman with past medical history significant for obesity, asthma and anemia (treated with IV iron) presents to the emergency department complaining of worsening left arm pain that has been getting worse over the last 24 hours. There is associated redness, swelling and fever (104). She was recently discharged from the hospital after her PICC line became infected. During this last hospitalization the PICC line was removed and she was treated with IV vancomycin. The tip of the PICC line grew MSSA. No bacteremia was identified. She was discharged with a course of Ceftin which she has been taking. She did not report any headache, dizziness, or palpitations. She did report some shortness on breath. Bedside ultrasound was performed by ED and no abscesses were identified. In the ED, she was found to have minimal tachycardia. Max temperature was 99.1. Blood pressure, respiratory rate and oxygen saturation are normal. Blood workup showed leukocytosis of 16.0 (better that prior), hemoglobin of 9.9 and platelets 405. CRP is 4.31. There are no electrolyte imbalances. Renal function is normal. There is no lactic acidosis. test is negative. Venous ultrasound of the left arm was performed today showed no DVT. ED tx: Vancomycin 2 g IV Review of Systems 2 Review of Systems: All 12 systems were reviewed and normal except as noted in HPI. [facility] Medical History Obesity, morbid, BMI 40.0-49.9 Gonorrhea Anemia Uses control Cervical cancer screening Acute pelvic inflammatory disease No known health problems Surgical History History of History of appendectomy Social History Household Members: Family Housing: Apartment Do you presently have visiting nurse or other home services: No Alcohol intake: current Alcohol intake frequency: does not drink Patient Tobacco Use Status: Never used Tobacco Smoked in Last 30 Days: No Use of substances other than those prescribed or required for medical reasons: No Substance Use Type: Marijuana Advance Directives: No Advance Directives Information Provided: No service: No Meds Allergies Allergy/AdvReac Type Severity Reaction Status Date / Time vancomycin AdvReac Unknown Flushing Verified 04/18/24 16:42 Active Medications: Current Medications Vancomycin HCl (Vancomycin/Ns) 2,000 mg in 500 mls @ 250 mls/hr IV ONCE ONE Stop: 04/19/24 01:09 Last Admin: 04/18/24 23:42 Dose: 166.7 mls/hr Ibuprofen (Ibuprofen 600 Mg Tablet) 600 mg PO Q6H PRN PRN Reason: arm pain Physical Exam 2 Vital Signs and Narrative: Vital Signs: Last Vital Signs Temp 98.7 F 04/18/24 23:32 Pulse 99 04/18/24 23:32 Resp 16 04/18/24 23:32 BP 113/59 L 04/18/24 23:32 Pulse Ox 99 04/18/24 23:32 O2 Del Method Room Air 04/18/24 23:32 BMI result Body Mass Index 50.3 Constitutional - Awake and Alert, No apparent distress. Cooperative. Obese. HEENT - PER, EOMI Heart - S1S2, RRR, No murmurs. Lungs - Normal lung expansion, Normal respiratory effort, No respiratory distress, CTA bilaterally Abdomen - NT / ND; +BS; No rebound or guarding Extremities: Left arm: erythema, increased warmth, tenderness and edema. See picture below. Musculoskeletal - Normal inspection, normal ROM Skin - Warm/Dry Neurological - Alert & oriented x3. Psychological - Appropriate affect Results Labs 04/18/24 18:20 04/18/24 18:20 Labs: Laboratory Results - last 24 hr 04/18/24 04/18/24 18:20 23:16 MCV 59.6 L MCH 17.4 L MCHC 29.1 L RDW 23.5 H Plt Count 405 H MPV Not Reportable Immature Gran % (Auto) 0.6 H Neut % (Auto) 74.0 H Lymph % (Auto) 19.5 L [place] % (Auto) 3.8 Eos % (Auto) 1.8 Baso % (Auto) 0.3 Lymph # (Auto) 3.1 [place] # (Auto) 0.6 Eos # (Auto) 0.3 Baso # (Auto) 0.1 Abs Immat Gran (auto) 0.09 H Absolute Neuts (auto) 11.8 H Absolute Nucleated RBC 0.000 Nucleated RBC % (auto) 0.0 Smear Tech's Comments VERIFIED PT 13.7 H INR 1.2 H Anion Gap 12 Estim Creat Clear Calc 146.0 Estimated GFR > 60 Random Glucose 119 H Lactic Acid 1.6 Calcium 9.7 D Magnesium 2.1 Total Bilirubin 0.3 AST 16 ALT 12 Alkaline Phosphatase 82 C-Reactive Protein 4.31 H Total Protein 8.2 H Albumin 4.2 Beta HCG, Quant < 2 Imaging Radiologist's Impressions: Impressions Venous Duplex 04/18/24 18:32 IMPRESSION: No evidence of deep venous thrombosis involving the left upper extremity. Electronically signed by: Jeanine Okeefe MD 04/18/2024 07:08 PM [facility] Assessment and Plan (1) Left arm cellulitis: Status: Acute (2) Microcytic hypochromic anemia: Status: Acute Plan Keke Jimenez is a 23 years old woman with past medical history significant for obesity, asthma and anemia (treated with IV iron) * Worsening left arm cellulitis related to PICC line placement -failed outpatient tx; left upper extremity venous ultrasound was negative for DVT. Admit to hospitalist service. Continue empiric IV antibiotic therapy with vancomycin. Blood cultures obtained -will follow results. * Obesity. BMI 50.3 kg/m2. Weight loss. * Chronic anemia. Hemoglobin stable. Continue to monitor. Follow as outpatient with Dr. Anguiano. DVT prophylaxis: Lovenox Code status: Full Patient will need hospitalization for at least 2 midnights for left arm cellulitis treatment with IV antibiotic after failing outpatient treatment. Quality Stroke Does the patient have a stroke diagnosis?: No VTE Prior VTE?: No VTE Risk Level:: Medical - moderate - high VTE Device Contraindication: Treatment Not Indicated VTE Drug Contraindication: N/A - Med Ordered
--- NOTE | 2024-04-19 01:50 | PC.NURSE ---
Addendum entered by Jaime Phoenix 04/19/24 02:57: pt medicated per jul and infusion slowed per jul. Original Note: pt reports itching no hives/redness noted. MD made aware stated will order benadryl.
[2024-04-19] MEDS: diphenhydrAMINE HCL 50 MG/ML VIAL IVPUSH (02:40)
[2024-04-19] MEDS: Ibuprofen 600 MG TABLET PO ×4 (02:40→19:45)
--- NOTE | 2024-04-19 03:44 | MHC.EDTECH ---
97.8 oral temp 115/63 99% o2 sat 90 heart rate
[2024-04-19 03:55] VITALS: BP 118/58; PULSE 88; RESP 18; TEMP 36.2; O2SAT 98
[2024-04-19 04:03] VITALS: BMI 50.3
--- NOTE | 2024-04-19 04:44 | PC.NURSE ---
patient was complaining of 10/10 arm pain and said the ibuprofen she received in the ED did not help. Dr. Varghese notified and order PRN oxycodone 5mg. When I went to administer med patient was resting with her eyes closed and when I called her name she opened her eyes and stared at me. I then asked her to verify if she was still having 10/10 pain and she nodded her head yes so I told her she had oxycodone ordered and if she would like to try that but she shook her head no and continued to stare at me then closed her eyes and did not answer me when I questioned her again.
[2024-04-19 07:30] LABS: MANUAL DIFF FLAG NO
[2024-04-19 07:48] LABS: Basophils Percent Auto 0.3 % (0-2); Eosinophils Absolute Auto 0.3 X10*3/uL (0.0-0.4); Eosinophils Percent Auto 2.2 % (0-4); Hematocrit 29.9 % (37.0-47.0); Hemoglobin 8.7 g/dl (12.0-16.0); Imm Gran Abs Auto 0.06 X10*3/uL (0.00-0.03); Imm Gran Pct Auto 0.5 % (0.0-0.4); Lymphocytes Percent Auto 25.6 % (20-40); Mean Corpuscular HGB Conc 29.1 g/dl (31.0-35.0); Mean Corpuscular Hemoglobin 17.4 pg (27.0-33.0); Monocytes Absolute Auto 0.8 X10*3/uL (0.1-1.2); Neutrophils Absolute Auto 7.5 x10*3/uL (2.0-8.3); Neutrophils Percent Auto 64.4 % (45-73); Platelet Count 345 X10*3/uL (160-400); Red Cell Distribution Width 23.3 % (11.0-16.0); White Blood Count 11.7 X10*3/uL (4.8-10.8)
[2024-04-19 07:51] VITALS: BP 108/71; PULSE 73; RESP 18; TEMP 36.1; O2SAT 96
[2024-04-19 07:51] LABS: Mean Corpuscular Volume 59.8 fL (80.0-98.0)
[2024-04-19] MEDS: ceFAZolin Sodium 1 GM VIAL IVPUSH ×3 (08:10→23:43)
[2024-04-19] MEDS: 0.9 % Sodium Chloride Flush 3 ML SYRINGE IVFLUSH ×2 (08:10→16:15)
[2024-04-19] MEDS: Enoxaparin Sodium 40 MG/0.4 ML SYRINGE SUBCUT (08:11)
--- NOTE | 2024-04-19 08:16 | PHA.MEDREC ---
Pharmacy Consult ? Medication Reconciliation Pharmacy has completed the medication reconciliation.
--- NOTE | 2024-04-19 09:15 | P.PNIM_ITS ---
Subjective Subjective Date of Service: 04/19/24 Interval History: lue pain and erythema Physical Exam 2 Vital Signs: Vital Signs: Last Vital Signs Temp 96.9 F 04/19/24 07:51 Pulse 73 04/19/24 07:51 Resp 18 04/19/24 07:51 BP 108/71 04/19/24 07:51 Pulse Ox 96 04/19/24 07:51 O2 Del Method Room Air 04/19/24 07:51 BMI result Body Mass Index 50.3 rue no signs of cellulitis (site of previous infection from last admission) LUE patch of erythema, warmth, tenderness Objective Data Active Medications Acetaminophen (Acetaminophen 325 Mg Tablet) 975 mg PO Q6H PRN PRN Reason: Pain, Mild (Pain Scale 1-3), fever or headache Cefazolin Sodium (Cefazolin Sodium 1 Gm Vial) 1 gm IVPUSH Q8H [facility] Last Admin: 04/19/24 08:10 Dose: 1 gm Documented By: LORY Enoxaparin Sodium (Enoxaparin Sodium 40 Mg/0.4 Ml Syringe) 40 mg SUBCUT Q24H [facility] Last Admin: 04/19/24 08:11 Dose: 40 mg Documented By: LORY Ibuprofen (Ibuprofen 600 Mg Tablet) 600 mg PO Q6H [facility] Stop: 04/19/24 20:01 Last Admin: 04/19/24 08:13 Dose: 600 mg Documented By: LORY Oxycodone HCl (Oxycodone Hcl Immed Release 5 Mg Tablet) 5 mg PO Q4H PRN PRN Reason: Pain, Severe (Pain Scale 7-10) Sodium Chloride (0.9 % Sodium Chloride Flush 3 Ml Syringe) 3 ml IVFLUSH QSHIFT [facility] Last Admin: 04/19/24 08:10 Dose: 3 ml Documented By: LORY Labs 04/19/24 07:07 04/18/24 18:20 Labs: Laboratory Results - last 24 hr 04/18/24 04/18/24 04/19/24 18:20 23:16 07:07 MCV 59.6 L 59.8 L MCH 17.4 L 17.4 L MCHC 29.1 L 29.1 L RDW 23.5 H 23.3 H Plt Count 405 H 345 MPV Not Reportable Not Reportable Immature Gran % (Auto) 0.6 H 0.5 H Neut % (Auto) 74.0 H 64.4 Lymph % (Auto) 19.5 L 25.6 [place] % (Auto) 3.8 7.0 Eos % (Auto) 1.8 2.2 Baso % (Auto) 0.3 0.3 Lymph # (Auto) 3.1 3.0 [place] # (Auto) 0.6 0.8 Eos # (Auto) 0.3 0.3 Baso # (Auto) 0.1 0.0 Abs Immat Gran (auto) 0.09 H 0.06 H Absolute Neuts (auto) 11.8 H 7.5 Absolute Nucleated RBC 0.000 0.000 Nucleated RBC % (auto) 0.0 0.0 Smear Tech's Comments VERIFIED PT 13.7 H INR 1.2 H Anion Gap 12 Estim Creat Clear Calc 146.0 Estimated GFR > 60 Random Glucose 119 H Lactic Acid 1.6 Calcium 9.7 D Magnesium 2.1 Total Bilirubin 0.3 AST 16 ALT 12 Alkaline Phosphatase 82 C-Reactive Protein 4.31 H Total Protein 8.2 H Albumin 4.2 Beta HCG, Quant < 2 Assessment and Plan (1) Left arm cellulitis: Status: Acute Plan 23F PMH morbid obesity, chronic iron deficiency anemia, mild intermittent asthma presented with LUE cellulitis LUE cellulitis this is new infection, PICC line cellulitis site was RUE and has resolved no evidence of MRSA, will change to iv ancef monitor, follow up cultures morbid obesity weight loss recommended chronic iron deficiency anemia follow up hematology as outpatient dvt prophylaxis - lovenox full code reason for continued hospitalization:iv abx for better bioavailability Quality Stroke Does the patient have a stroke diagnosis?: No VTE Prior VTE?: No VTE Risk Level:: Medical - moderate - high VTE Device Contraindication: Treatment Not Indicated VTE Drug Contraindication: N/A - Med Ordered
--- NOTE | 2024-04-19 10:54 | MHC.CM.PN ---
MET WITH PT WHO IS IDEPEDENT HAS A RIDE HOME DC PLAN HOME NO SERVIES
[2024-04-19 11:58] VITALS: BP 105/55; PULSE 81; RESP 16; TEMP 36.6; O2SAT 100
[2024-04-19 15:54] VITALS: BP 112/58; PULSE 81; RESP 16; TEMP 36.1; O2SAT 100
[2024-04-19 19:37] VITALS: BP 115/59; PULSE 75; RESP 16; TEMP 36.6; O2SAT 98
[2024-04-19 23:47] VITALS: BP 135/63; PULSE 83; RESP 16; TEMP 37.2; O2SAT 98
[2024-04-20] MEDS: Melatonin 3 MG TABLET 6 MG PO
[2024-04-20] MEDS: 0.9 % Sodium Chloride Flush 3 ML SYRINGE IVFLUSH ×4 (00:01→23:09)
[2024-04-20 03:45] VITALS: BP 109/64; PULSE 67; RESP 16; TEMP 36.3; O2SAT 96
[2024-04-20 07:14] LABS: Hematocrit 30.1 % (37.0-47.0); Hemoglobin 8.8 g/dl (12.0-16.0); Mean Corpuscular HGB Conc 29.2 g/dl (31.0-35.0); Mean Corpuscular Hemoglobin 17.6 pg (27.0-33.0); Red Cell Distribution Width 23.9 % (11.0-16.0)
[2024-04-20 07:16] LABS: Platelet Count 338 X10*3/uL (160-400); Red Blood Count 5.01 X10*6/uL (4.20-5.50)
[2024-04-20 07:17] LABS: Mean Corpuscular Volume 60.1 fL (80.0-98.0); PLT ABN DIST 1
[2024-04-20 07:23] LABS: Anion Gap 13 (12-20); Blood Urea Nitrogen 12 mg/dL (9-16); Calcium 9.2 mg/dL (8.4-10.2); Carbon Dioxide 23 mmol/L (22-29); Chloride 107 mmol/L (96-108); Creatinine Clr Calc Pharmacy 150.1; Estimated Glomerular Filt Rate > 60; Glucose Random 93 mg/dL (60-115); Potassium 4.8 mmol/L (3.3-5.1); Sodium 138 mmol/L (135-145)
[2024-04-20] MEDS: ceFAZolin Sodium 1 GM VIAL IVPUSH ×3 (07:38→23:08)
[2024-04-20 07:56] VITALS: BP 115/59; PULSE 68; RESP 18; TEMP 36.4; O2SAT 99
--- NOTE | 2024-04-20 08:56 | HO.PM.IMPN ---
Subjective Subjective Date of Service: 04/20/24 Interval History: lue pain and erythema Physical Exam Vital Signs: Vital Signs: Last Vital Signs Temp 97.5 F 04/20/24 07:56 Pulse 68 04/20/24 07:56 Resp 18 04/20/24 07:56 BP 115/59 L 04/20/24 07:56 Pulse Ox 99 04/20/24 07:56 O2 Del Method Room Air 04/20/24 07:56 BMI result Body Mass Index 50.3 rue no signs of cellulitis (site of previous infection from last admission) LUE patch of erythema, warmth, tenderness Objective Data Active Medications Acetaminophen (Acetaminophen 325 Mg Tablet) 975 mg PO Q6H PRN PRN Reason: Pain, Mild (Pain Scale 1-3), fever or headache Cefazolin Sodium (Cefazolin Sodium 1 Gm Vial) 1 gm IVPUSH Q8H [facility] Last Admin: 04/20/24 07:38 Dose: 1 gm Documented By: LROY Enoxaparin Sodium (Enoxaparin Sodium 40 Mg/0.4 Ml Syringe) 40 mg SUBCUT Q24H [facility] Last Admin: 04/19/24 08:11 Dose: 40 mg Documented By: LORY Melatonin (Melatonin 3 Mg Tablet) 6 mg PO BEDTIME PRN PRN Reason: Insomnia Last Admin: 04/20/24 00:00 Dose: 6 mg Documented By: PEDRO Oxycodone HCl (Oxycodone Hcl Immed Release 5 Mg Tablet) 5 mg PO Q4H PRN PRN Reason: Pain, Severe (Pain Scale 7-10) Sodium Chloride (0.9 % Sodium Chloride Flush 3 Ml Syringe) 3 ml IVFLUSH QSHIFT [facility] Last Admin: 04/20/24 07:38 Dose: 3 ml Documented By: LORY Labs 04/20/24 05:40 04/20/24 06:22 Labs: Laboratory Results - last 24 hr 04/20/24 04/20/24 05:40 06:22 MCV 60.1 L MCH 17.6 L MCHC 29.2 L RDW 23.9 H Plt Count 338 MPV Not Reportable Absolute Nucleated RBC 0.000 Nucleated RBC % (auto) 0.0 Anion Gap 13 Estim Creat Clear Calc 150.1 Estimated GFR > 60 Random Glucose 93 Calcium 9.2 Microbiology Microbiology Results: Microbiology 04/18/24 23:16 Blood Culture - Preliminary Blood - Venous No growth after 24 hours. 04/18/24 23:16 Blood Culture - Preliminary Blood - Venous No growth after 24 hours. Assessment and Plan (1) Left arm cellulitis: Status: Acute Plan 23F PMH morbid obesity, chronic iron deficiency anemia, mild intermittent asthma presented with LUE cellulitis LUE cellulitis this is new infection, PICC line cellulitis site was RUE and has resolved continue iv ancef monitor, follow up cultures morbid obesity weight loss recommended chronic iron deficiency anemia follow up hematology as outpatient dvt prophylaxis - lovenox full code reason for continued hospitalization:iv abx for better bioavailability Quality Stroke Does the patient have a stroke diagnosis?: No VTE Prior VTE?: No VTE Risk Level:: Medical - moderate - high VTE Device Contraindication: Treatment Not Indicated VTE Drug Contraindication: N/A - Med Ordered
[2024-04-20] MEDS: oxyCODONE HCl Immed Release 5 MG TABLET PO ×2 (09:41→23:23)
[2024-04-20] MEDS: Enoxaparin Sodium 40 MG/0.4 ML SYRINGE SUBCUT (09:42)
[2024-04-20 12:00] VITALS: BP 117/60; PULSE 85; RESP 18; TEMP 36.6; O2SAT 98
[2024-04-20 15:31] VITALS: BP 130/68; PULSE 85; RESP 18; TEMP 36.4; O2SAT 98
[2024-04-20 19:02] VITALS: BP 122/64; PULSE 83; RESP 20; TEMP 36.7; O2SAT 98
--- NOTE | 2024-04-20 23:00 | ECG_ITS ---
Test Reason : cp Blood Pressure : / mmHG Vent. Rate : 081 BPM Atrial Rate : 081 BPM P-R Int : 154 ms QRS Dur : 084 ms QT Int : 370 ms P-R-T Axes : 017 015 009 degrees QTc Int : 429 ms Normal sinus rhythm Normal ECG No previous ECGs available Referred By: Trina Narayan Electronically Signed By:NANCY PEREZ MD
[2024-04-21] VITALS: BP 130/76; PULSE 79; RESP 18; TEMP 36.9; O2SAT 97
[2024-04-21] MEDS: Albuterol/Iprat 2.5/0.5MG 3 ML AMPUL.NEB INHALE (02:26)
[2024-04-21 02:30] VITALS: PULSE 76; RESP 18; O2SAT 98
[2024-04-21 04:00] VITALS: BP 102/56; PULSE 77; RESP 16; TEMP 37.2; O2SAT 99
[2024-04-21 07:16] VITALS: BP 120/60; PULSE 65; RESP 14; TEMP 37.1; O2SAT 98
[2024-04-21] MEDS: 0.9 % Sodium Chloride Flush 3 ML SYRINGE IVFLUSH (08:24)
[2024-04-21] MEDS: ceFAZolin Sodium 1 GM VIAL IVPUSH (08:24)
[2024-04-21] MEDS: Enoxaparin Sodium 40 MG/0.4 ML SYRINGE SUBCUT (08:27)
--- NOTE | 2024-04-21 08:49 | P.DS_ITS ---
DS: Providers Provider Date of Service: 04/21/24 Date of admission: 04/19/24 00:23 Date of discharge: 04/21/24 Primary care physician: Elaina Pan NP DS: Diagnosis Discharge Diagnosis (1) Left arm cellulitis: Status: Acute DS: Summary Hospital Course Hospital Course: from initial hpi: 23 years old woman with past medical history significant for obesity, asthma and anemia (treated with IV iron) presents to the emergency department complaining of worsening left arm pain that has been getting worse over the last 24 hours. There is associated redness, swelling and fever (104). She was recently discharged from the hospital after her right upper extremity PICC line became infected. During this last hospitalization the PICC line was removed and she was treated with IV vancomycin. The tip of the PICC line grew MSSA. No bacteremia was identified. She was discharged with a course of Ceftin which she has been taking. She did not report any headache, dizziness, or palpitations. She did report some shortness on breath. Bedside ultrasound was performed by ED and no abscesses were identified. In the ED, she was found to have minimal tachycardia. Max temperature was 99.1. Blood pressure, respiratory rate and oxygen saturation are normal. Blood workup showed leukocytosis of 16.0 (better that prior), hemoglobin of 9.9 and platelets 405. CRP is 4.31. There are no electrolyte imbalances. Renal function is normal. There is no lactic acidosis. test is negative. Venous ultrasound of the left arm was performed today showed no DVT. ED tx: Vancomycin 2 g IV hospital course: Patient was admitted for left upper extremity cellulitis. Likely due to previous peripheral IV (not PICC line, that was in the other arm), was treated with IV Ancef and erythema and pain significantly improved. Will be discharged on 5 more days of doxycycline and can continue previous Keflex course. Cultures were negative. For morbid obesity this is likely contributing to her frequency of cellulitis and weight loss is strongly encouraged. For chronic iron deficiency anemia we will continue follow with Hematology as outpatient for intermittent IV iron. Time Attestation Discharge Coordination Time (in mins): 32 Quality: Safe Use of Opioids Does Pt have an Active Cancer Diagnosis on the Problem List?: No Quality: Stroke Does the patient have a stroke diagnosis?: No Physical Exam Vital Signs: Vital Signs: Last Vital Signs Temp 98.7 F 04/21/24 07:16 Pulse 65 12/09/24 07:16 Resp 14 04/21/24 07:16 BP 120/60 04/21/24 07:16 Pulse Ox 98 04/21/24 07:16 O2 Del Method Room Air 04/21/24 07:16 BMI result Body Mass Index 50.3 improved lue cellulitis DS: Data Data Completed and Pending Labs on day of discharge: Preliminary micro results at discharge 04/18/24 23:16 Blood Culture - Preliminary Blood - Venous No growth after 48 hours. 04/18/24 23:16 Blood Culture - Preliminary Blood - Venous No growth after 48 hours. Discharge Plan Discharge Anticipated Discharge Date/Time: 04/21/24 08:48 Patient Disposition: Home, Self-Care Discharge Diagnosis: lue cellulitis Referrals: Elaina Pan, DIE STORAGE CLERK [Primary Care Provider] - 1 Week Discharge Medications: New doxycycline monohydrate 100 mg capsule 100 mg PO BID Qty: 10 0RF Discharge Orders: Discharge Order (Routine); Ordered 04/21/24 Ordered By: Gideon Dumont Diet: Advance to usual diet Activity on Discharge: As tolerated Stand Alone Forms: Patient Portal Discharge page Print Language: Citizen Of [place] Care Plan Goals: recovery Health Concerns: lue cellulitis, morbid obesity Plan of Treatment: conitnue keflex and doxy, weight loss Assessment: see above
--- NOTE | 2024-04-21 09:18 | MHC.CM.PN ---
Patient is discharged to home today selfcare. She has arranged for a ride home.
== END 2024-04-21 10:15 | disposition home or self-care (01) | DRG 383 ==
LOC: HO.ED 04-19 00:35 → HO.EDOVER 04-19 00:39 → HO.S3 04-19 02:05
PROVIDERS: Physician Assistant; Admitting Provider Internal Medicine; Emergency Provider Emergency Medicine; PCP Nurse Practitioner Primary Care; Visit Provider Internal Medicine
DX: L03.114 Cellulitis of left upper limb (principal); Z68.43 Body mass index [BMI] 50.0-59.9, adult; E66.01 Morbid (severe) obesity due to excess calories; D50.9 Iron deficiency anemia, unspecified
CPT/HCPCS: 36415; 80048; 80053; 83605; 83735; 84702; 85025; 85027; 85610; 86140; 87040; 93005; 93971; 94640; 99285; J0690; J1200; J1650; J3370

== ENCOUNTER 2024-04-19 00:23 | Outpatient (BNV) | payer MEDICAID, SELFPAY | END 2024-04-20 23:00 | PROVIDERS: Admitting Provider Internal Medicine; Emergency Provider Emergency Medicine; PCP Nurse Practitioner Primary Care; Visit Provider Internal Medicine Cardiovascular Disease | DX: R07.9 Chest pain, unspecified (principal) | CPT/HCPCS: 93010 ==

== ENCOUNTER → 2024-04-19 00:23 | Outpatient (BNV) | payer MEDICAID, SELFPAY | PROVIDERS: Admitting Provider Internal Medicine; Emergency Provider Emergency Medicine; PCP Nurse Practitioner Primary Care; Visit Provider Internal Medicine | DX: L03.114 Cellulitis of left upper limb (principal) | CPT/HCPCS: 99223; 99232; 99239 ==

== ENCOUNTER 2024-05-28 13:38 | Outpatient (REF) | payer MEDICAID, SELFPAY | END 2024-05-28 13:39 | disposition home or self-care (01) | LOC: HO.LNP 13:38 | PROVIDERS: Visit Provider Advanced Practice Midwife | DX: Z13.89 Encounter for screening for other disorder (principal) | CPT/HCPCS: 87491; 87591; 87661 ==

== ENCOUNTER 2024-05-28 15:41 | Outpatient (REF) | payer MEDICAID, SELFPAY ==
[2024-05-29 10:57] LABS: HPV 16,18/45 See PAP report
[2024-05-30 20:32] LABS: Trichomonas (NAAT) NOT DETECTED (NOT DETECTED)
[2024-05-30 20:59] LABS: C. trachomatis RNA TMA NOT DETECTED (NOT DETECTED); N. gonorrhoeae RNA TMA NOT DETECTED (NOT DETECTED)
== END 2024-05-28 15:42 | disposition home or self-care (01) ==
LOC: HO.LNP 15:41
PROVIDERS: Visit Provider Advanced Practice Midwife
DX: Z12.4 Encounter for screening for malignant neoplasm of cervix (principal); Z11.3 Encounter for screening for infections with a predominantly sexual mode of transmission
CPT/HCPCS: 87491; 87591; 87626; 87661; 88175

== ENCOUNTER → 2024-08-01 09:47 | Day surgery (SDC) | payer MEDICAID, SELFPAY ==
--- OUTSIDE RECORDS SUMMARY | 2024-07-16 18:23 | XMS_ITS | Encounter Summary ---
Author Organization [employer] Address [address] [place] [address] Care Team Providers Care Cutter And Presser Name Role Phone Elaina Pan JHOANA Primary Care Provider [phone] Encounter Details Date Type Department Care Team ([facility] st Contact Info) Description 07/02/2024 10:45 AM EST Office Visit [facility] OPTOMETRY [address] [place] [address] Myopia, bilateral (Primary Dx) Social History Tobacco Use Types Packs/Day Years Used Date Smoking Tobacco: Never Smokeless Tobacco: Never Alcohol Use Standard Drinks/Week Comments Never 0 (1 standard drink = 0.6 oz pur e alcohol) Depression Answer Date Recorded Patient Health Questionnaire-9 Score 5 08/29/2023 Patient Health Questionnaire-9 Score 5 08/29/2023 Last PHQ-9: Questionnaire Data Not on file 0 08/29/2023 Housing Stability Answer Date Recorded What is your housing situation today? I have bryon muñoz 03/07/[address] you li ve. Do you have problems with any of the following? None of the above 03/07/2023 Food Insecurity Answer Date Recorded Within the past 12 months, y ou worried that your food would run out before you got money to buy more: Never True 03/07/2023 Within the past 12 months,th e food you bought just didn't last and you didn't have enough money to get more: Never True Transportation Answer Date Recorded In the past 12 months, has l ack of transportation kept you from medical appts, meetings, work or from getting things needed for daily living? No 03/07/2023 Utilities Answer Date Recorded In the past 12 months, has t he electric, gas, oil or water company threatened to shut off services in your home? No 03/07/2023 Depression Answer Date Recorded Patient Health Questionnaire-2 Score 0 08/29/2023 Internet Access Answer Date Recorded Internet Access Q1 Yes 04/15/2024 Internet Access Q2 Not on file 04/15/2024 Comments No Sex and Gender Information Value Date Recorded Sex Assigned at Female 03/13/2022 10:17 AM EDT Legal Sex Female 10:17 AM EDT Gender Identity Female 03/13/2022 10:17 AM EDT Sexual Orientation Straight 08/29/2023 11 :30 AM EDT documented as of this encounter Progress Notes * Trisha Torrez OD - 07/02/2024 10:45 AM EST MH glasses were dispensed. documented in this encounter Plan of Treatment Upcoming Encounters Date Type Department Care Team (Late st Contact Info) Description 07/25/2024 9:00 AM EDT Office Visit [facility] [address] [place] [address] Shante Calles, OD [address] [place] [address] 08/06/2024 9:30 AM EDT Office Visit [facility] ADULT DENTAL [address] [place] [address] Marjorie Patel, DDS [address] [place] [address] 08/07/2024 9:15 AM EDT Office Visit [facility] [address] [place] [address] Elaina Pan ANP [address] [place] [address] 11/10/2024 8:00 AM EDT Office Visit [facility] [address] [place] [address] Early, Tanya documented as of this encounter Visit Diagnoses Diagnosis Myopia, bilateral- Primary documented in this encounter Additional Health Concerns Assessment Noted Time PHQ-9 Depression Total Score: 5 08/29/19 24 11:06 AM EDT documented as of this encounter Care Teams Cutter And Presser Relationship Specialty Start Date End Date Elaina Pan ANP [address] [place] [address] PCP - General Family Medicine 02/20/23 Vero Zamora Poultry Farm WorkerSoda Clerk 05/29/24 documented as of this encounter
--- OUTSIDE RECORDS SUMMARY | 2024-07-16 18:23 | XMS_ITS | Encounter Summary ---
Author Organization [employer] Address [address] [place] [address] Care Team Providers Care Vocational Rehabilitation Administrator Name Role Phone Elaina Pan Primary Care Provider [phone] Reason for Visit * Reason Comments Care Coordination Outreach Encounter Details Date Type Department Care Team (Latest Contact Info) Description 07/15/2024 Patient Outreach [facility] [address] [place] [address] Elaina Pan ANP [address] [place] [address] Care Coordination (Outreach) Social History Tobacco Use Types Packs/Day Years [...] as of this encounter Progress Notes * Valarie Lira - 07/15/2024 3:51 PM EST CHW Valarie Lira placed outbound call to patient to follow up on SDOH needs. Patient's name, and address confirmed. Patient states is doing well. No further questions or concerns. CHW reinforced direct contact information or CM for any additional questions or concerns and extended clinic hours on Mondays and Wednesdays, and Walk-In Urgent Care Located in [facility] of [facility]. Patient provided with after-hours line for [facility], , which offer night time triage service and option to transfer to tool liaison provider if needed. Patient verbalizes understanding, and able to repeat back to auto service writer. A follow up call willbe placed within 10 days, patient agrees with plan. documented in this encounter Plan of Treatment Upcoming Encounters Date Type Department Care Team (Late st Contact Info) Description 07/25/2024 9:00 AM EDT Office Visit [facility] OPTOMETRY [address] [place] [address] Shante Calles, OD [address] [place] [address] 08/06/2024 9:30 AM EDT Office Visit [facility] ADULT DENTAL [address] [place] [address] Marjorie Patel DDS [address] [place] [address] 08/07/2024 9:15 AM EDT Office Visit [facility] MEDICINE [address] [place] [address] Elaina Pan ANP [address] [place] [address] 11/10/2024 8:00 AM EDT Office Visit [facility] ADULT DENTAL [address] [place], [place] [phone] Tanya Early documented as of this encounter Visit Diagnoses Not on filedocumented in this encounter Additional Health Concerns Assessment Noted Time PHQ-9 Depression Total Score: 5 08/29/19 24 11:06 AM EDT documented as of this encounter Care Teams Vocational Rehabilitation Administrator Relationship Specialty Start Date End Date Elaina Pan ANP [address] [place] [address] PCP - General Family Medicine 02/20/23 Vero Zamora Flavoring Oil FiltererCombat Rifle Crewmember 05/29/24 documented as of this encounter
--- OUTSIDE RECORDS SUMMARY | 2024-07-16 18:23 | XMS_ITS | Encounter Summary ---
Author Organization [employer] Address [address] [place] [address] Care Team Providers Care Java Tech Name Role Phone Maxim Elaina ELY Primary Care Provider [phone] Encounter Details Date Type Department Care Team ([facility] Contact Info) Description 06/17/2024 Telephone [facility] [address] [place], [place] [phone] Shante Calles, OD [address] [place] [address] Social History Tobacco Use Types Packs/Day Years [...] AM EDT documented as of this encounter Miscellaneous Notes * Telephone Encounter - Shante Calles, JAMIN - 06/17/2024 10:13 AM EST Called and spoke with patient to notify of normal MRI findings to investigate cause of optic nerve swelling. Advised patient that she is being referred [place] [facility] [place] for idiopathic [place] hypertension workup. All questions were answered. documented in this encounter Plan of Treatment Upcoming Encounters Date Type Department Care Team (Late st Contact Info) Description 07/25/2024 9:00 AM EDT Office Visit [facility] [address] [place] [address] Shante Calles, JAMIN [address] [place] [address] 08/06/2024 9:30 AM EDT Office Visit [facility] AD[facility] D[facility] [address] [place] [address] Marjorie Patel, DDS [address] [place] [address] 08/07/2024 9:15 AM EDT Office Visit [facility] [address] [place] [address] Elaina Pan ANP [address] [place] [address] 11/10/2024 8:00 AM EDT Office Visit [facility] [address] [facility] [place] [address] Tanya Early documented as of this encounter Visit Diagnoses Not on filedocumented in this encounter Additional Health Concerns Assessment Noted Time PHQ-9 Depression Total Score: 5 08/29/19 24 11:06 AM EDT documented as of this encounter Care Teams Java Tech Relationship Specialty Start Date End Date Elaina Pan ANP [address] [facility] [place] [address] PCP - General Family Medicine 02/20/23 Vero Zamora Perioperative AssistantTobacco Sampler 05/29/24 documented as of this encounter
--- OUTSIDE RECORDS SUMMARY | 2024-07-16 18:23 | XMS_ITS | Clinical Summary ---
Author Organization [employer] Address [address] [facility] [address] [place] [address] Care Team Providers Care Loin Trimmer Name Role Phone Sanya Ludwig JHOANA Primary Care Provider [phone] Allergies Active Allergy Reactions Criticality Noted Date Comments Vancomycin 04/14/2024 Other Reaction(s): Flushing felt hot and itchy all over felt hot and itchy all over Medications * This document contains information received from the source organization and may not represent a complete record from that organization. Tirzepatide-Weight Management (Zepbound) 2.5 MG/0.5ML solution auto-injectorIndic ations:Class 3 severe obesity with serious comorbidity and body mass index (BMI) of 45.0 to 49.9 in adult, unspecified obesity type (CMS/FORMERLY [facility]) Inject 0.5 mL (2.5 mg) under the skin 1 (one) time per week. 2 mL 05/21/19 25 Active Additional Information Patient not taking.Reported on 07/10/2024 olopatadine (Pataday) 0.2 % ophthalmic solutionIndication s:Other chronic allergic conjunctivitis of both eyes Administer 1 drop into both eyes Once per day. 2.5 mL 5 05/27/19 25 Active Additional Information Patient not taking.Reported on 07/10/2024 amoxicillin (Amoxil) 500 MG capsule Take 1 capsule (500 mg) by mouth every 8 (eight) hours for 7 days. 21 capsule 06/10/19 25 06/17/ 025 ibuprofen 800 MG tablet Take 1 tablet (800 mg) by mouth every 8 (eight) hours if needed for mild pain for up to 10 days. 15 tablet 06/10/19 25 025 acetaminophen (Tylenol 8 Hour) 650 MG ER tablet Take 1 tablet (650 mg) by mouth every 8 (eight) hours if needed for moderate pain for up to 10 days. Do not crush, chew, or split. 15 tablet 06/10/19 25 025 Hospital, Clinic, or Other Facility Administered Medication Ordered Dose Route Frequency Start Date End Date Status lidocaine 2 % gelIndications:Encounter for insertion of intrauterine contraceptive device (IUD) TOP As needed 05/28/2024 Active Active Problems Problem Noted Date Diagnosed Date Abnormal glucose tolerance test 06/10/2024 Acute pelvic inflammatory disease 06/10/2024 Anemia in 06/10/2024 Cervical cancer screening 06/10/2024 Gonorrhea 06/10/2024 History of appendectomy 06/10/2024 History of 06/10/2024 History of inadequate care 06/10/2024 Intractable pain 06/10/2024 Left arm cellulitis 06/10/2024 Microcytic hypochromic anemia 06/10/2024 PICC line infection 06/10/2024 care following delivery 05/15 06/10/2024 Uses control 06/10/2024 Hip pain, left 06/10/2024 Obesity in 06/10/2024 Obesity, morbid, BMI 40.0-49.9 06/10/2024 Bronchitis 06/10/2024 Chest pain of unknown etiology 04/03/2024 Health care maintenance 08/30/2023 Assessment & Plan (08/30/2023 3:08 PM EDT): -Annual exam done 08/2023 -Contraception : nexplanon -pap smear never-pt will check w her LICENSED NURSING ASSISTANT at [facility] to have test done ,otherwise can have it done here at clinic. -vaccines Hep Ax2, hep Bx3, HPV x3, meningococcal vaccinex2, MMRx2, COVID 19x3- Refuse booster today but will think about it , varicellax2, tdap 12/2022 ,Flu vaccine 04/2023 -labs x annual exam -will RTC in fasting-pt agreed to have STI testing including HIV to have for baseline ,will do Tb test requested--pt has already apt w her PCP in 2 weeks ,can follow lab results then Anemia 04/25/2023 04/25/2023 Assessment & Plan (08/30/2023 3:07 PM EDT): hx of anemia -states here periods last for 4 days ,use pads every hour but because wants to keep clean ,per pt there is no heavy periods -Continue iron per pt taking BID and advised to resume vit C - reports her sister hx of colon ca at early age and denies menorrhagia -will check anemia labs and sent for FOB if + will need GI referral Gestational HTN 04/25/2023 04/25/2023 Anxiety 10/19/2022 History of depression 10/19/2022 Assessment & Plan (08/30/2023 3:07 PM EDT): depression/anxiety PHQ 6, no SI, NAOMIE 9 ,no hallucinations , no shwetha -pt can now wait today but states ok to received a call from -I requested to call pt -f w PCP Insomnia 10/19/2022 Migraine 10/19/2022 Iron deficiency anemia 04/18/2022 Eczema 03/05/2018 Morbid obesity 10/09/2012 Assessment & Plan (08/30/2023 3:07 PM EDT): Morbid obesity BMI 50.6 Gaining weight for last year per pt Denies symptoms of sleep apnea -Advised pt to improve diet and exercise,discussed healthy life style -discussed retail team leader referral -referred today -will need to discuss w PCP at next apt about options as GLP1 and possible bariatric surgery referral if pt is interested Resolved Problems Problem Noted Date Diagnosed Date Resolved Date Chest wall discomfort 04/03/20242023 Assessment & Plan (04/03/2024 3:28 PM EST): PICC line placed on 04/01/24. Post placement CXR without read in [facility] system. Since been having chest discomfort radiating into arm. Worse with coughing or laughing. Given chest pain, pt was told to flush line and has no supplies and denies knowing how to flush it. We called IR but not available at this time. -EKG 04/03/24 normal. -Advised to go to ER to get CXR to confirm placemen and instructions/supplies or flushing after confirmed placement -Pt agrees with plan and will self transport to the ER. Pharyngitis 10/19/2022 05/09/2024 URI (upper respiratory infection) 10/19/2022 05/09/2024 Encounters Date Type Department Care Team Description 07/15/2024 Patient Outreach [facility] [address] [place] [address] Sanya Ludwig ANP Care Coordination (Outreach) 07/10/2024 10:30 AM EST Office Visit [facility] D[facility] [address] [place] [address] Marjorie Patel DDS Encounter for dental examination (Primary Dx); Dental caries; Dental calculus; Dental plaque; Diastema 07/07/2024 Telephone [facility] [address] [place] [phone] Danny Snider, CATHY No Show 07/02/2024 10:45 AM EST Office Visit [facility] [address] [place] [address] Myopia, bilateral (Primary Dx) 07/02/2024 Travel 06/17/2024 Telephone [facility] [address] [place] [address] Shante Calles, OD 06/13/2024 Patient Outreach [facility] [address] [place] [address] Sanya Ludwig ANP Care Coordination (Outreach) 06/10/2024 1:00 PM EST Office Visit [facility] [address] [place] [address] Marjorie Patel DDS Dental caries (Primary Dx) 05/29/2024 Telephone [facility] [address] [place] [phone] Sanya Ludwig ANP Care Coordination (ICP care plan) 05/29/2024 Patient Outreach [facility] [address] [place] [address] Sanya Ludwig ANP Care Coordination (Outreach) 05/28/2024 11:00 AM EST Procedure Visit [facility] [address] [place] [address] Danny Snider CNM Encounter for insertion of intrauterine contraceptive device (IUD) (Primary Dx); Nexplanon removal; Routine cervical smear; Screening examination for venereal disease 05/28/2024 Travel 05/27/2024 9:00 AM EST Office Visit [facility] [address] [place] [address] Tarka Shante, OD Optic papillitis of both eyes (Primary Dx); Other chronic allergic conjunctivitis of both eyes; Myopia, bilateral 05/27/2024 Travel 05/22/2024 Telephone [facility] [address] [place] [address] Jess Brooks RNwafer fabricator 05/19/2024 Patient Outreach [facility] [address] [place] [address] Sanya Ludwig ANP Care Coordination (Outreach) 05/15/2024 Telephone [facility] [address] [place] [address] [phone] Sanya Ludwig ANP Appointment Request 05/09/2024 10:30 AM EST Office Visit [facility] [address] [place] [phone] Sanya Ludwig ANP Insomnia, unspecified type (Primary Dx); Iron deficiency anemia, unspecified iron deficiency anemia type; Blurry vision, bilateral; Class 3 severe obesity with serious comorbidity and body mass index (BMI) of 45.0 to 49.9 in adult, unspecified obesity type (CMS/FORMERLY [facility]); Hospital discharge follow-up 05/09/2024 Travel 05/05/2024 Patient Outreach [facility] [address] [place] [address] Sanya Ludwig ANP Care Coordination (Outreach) 04/25/2024 Patient Outreach [facility] [address], [place] [phone] Sanya Ludwig ANP Care Coordination (Outreach) 04/22/2024 Telephone [facility] [address], [place] [phone] Paola Lyons RN Care Coordination (C3CM initial assessment/ enrollment) 04/21/2024 Telephone [facility] [address] [place] [address] Kortney Finch RN Hospital Follow-up 04/18/2024 Orders Only GENERIC EXTERNAL DATA DEPARTMENT Provider, Generic External Data 04/18/2024 Patient Outreach [facility] [address] [place] [address] Sanya Ludwig ANP Care Coordination (Outreach) 04/17/2024 Patient Outreach [facility] [address] [place] [address] Sanya Ludwig ANP Transition Of Care (Tcm) (HDF unscheduled, SDOH was unable to reach LVM) from Last 3 Months Immunizations Name Administration Dates Next Due DTaP 12/27/2006, 4,2002,08/26,2002 HPV 9-Valent 12/14/2015 HPV, Quadrivalent 12/14/2015,07/07/2014,10/10/19 13 Hep A, Unspecified 12/14/2015,07/07/2014 Hep A, ped/adol, 2 dose 12/14/2015,07/07/2014 Hep B, Adolescent or Pediatric 2002,2002,2002 Hib (HbOC) 2002,2002,2002 IPV 12/27/2006, 3,2002,07/23 Influenza injectable quadriv alent preservative free 04/25/2023,07/29/2019,03/05/2018,03/13 Influenza, IIV3, injectable 07/29/2019, 8 Influenza, Injectable, MDCK, preservative free 12/21/2023 MMR 12/27/2006,06/02/2003 Meningococcal ACWY, unspecified 07/29/2019,07/07 Meningococcal MCV4P ACYW-135 07/29/2019,07/07/19 15 PPD Test 09/19/2023 Pfizer Covid-19 Vaccine 12+ 05/09/2024 Pneumococcal Conjugate PCV 7 2002,08/27/19 03,2002 Tdap 12/29/2022,07/07/2014 Varicella 12/27/2006,06/02/2003 Family History Medical History Relation Name Comments Diabetes Maternal Grandmother colon ca in childhood ??? Sister Relation Name Status Comments Maternal Grandmother Sister Social History Tobacco Use Types Packs/Day Years Used Date Smoking Tobacco: Never Smokeless Tobacco: Never Tobacco Cessation:Counseling Given: Not Answered Alcohol Use Standard Drinks/Week Comments Never 0 [...] Orientation Straight 08/29/2023 11 :30 AM EDT Last Filed Vital Signs Vital Sign Reading Time Taken Comments Blood Pressure 150/89 05/28/2024 11:10 AM EST Pulse 87 05/28/2024 11:10 AM EST Temperature 36.6 ??C (97.8 ??F) 05/28/2024 11:[address] Respiratory Rate 16 05/28/2024 11:10 AM EST Oxygen Saturation 98% 05/28/2024 11:10 AM EST Inhaled Oxygen Concentration - - Weight 113 kg (250 lb) 05/09/2024 10:23 AM EST Height 154.9 cm (5' 1 ) 05/28/2024 11:10 AM EST Body Mass Index 48.82 04/18/2024 11:13 AM EST Plan of Treatment Upcoming Encounters Date Type Department Care Team (Late st Contact Info) Description 07/25/2024 9:00 AM EDT Office Visit [facility] [address] [place] [address] Shante Calles, OD [address] [place] [address] 08/06/2024 9:30 AM EDT Office Visit [facility] [address] [place] [address] Carmina-Marjorie Osorio, DDS [address] [place] [address] 08/07/2024 9:15 AM EDT Office Visit [facility] [address] [place] [address] Sanya Ludwig, ANP [address] [place] [address] 11/10/2024 8:00 AM EDT Office Visit [facility] [address] [place] [address] Tanya Early Health Maintenance Due Date Last Done Comments Alcohol/Substance Use Screening 2014 Dental Prophylaxis 01/20/2016 07/19/2015, 03/13/2013 Depression Screening 08/28/2024 08/29/2023, 08/29/19 24 Dental Oral Exam 01/08/2025 07/10/2024, 11/2015, 03/13/2013 SDOH Screening 04/15/2025 04/15/2024 Chlamydia and Gonorrhea Screening 05/28/2025 05/28/2024, 12/18/2023, 09/10/2023 Family Planning (PISQ) 05/28/2025 05/28/2024 Pap Smear 05/28/2025 05/28/2024 Tobacco Screening 07/10/2025 07/10/2024 Dental X-Ray: Bitewings 07/11/2025 07/10/19 25, 07/19/2015, 03/13/2013, Additional history exists Dental X-Ray: Full Mouth 07/11/2027 07/10/2024, 05/15 Lipid Panel 09/09/2028 09/10/2023 DTaP/Tdap/Td Vaccines (8 - Td or Tdap) 12/29/2032 12/29/2022, 07/07/2014, 12/27/2006, Additional history exists Zoster Vaccines (1 of 2) 2052 RSV Patients and Patients Aged 60 years or older (1 - 1-dose 75+ series) 2077 HIB Vaccines Aged Out 2002, 08/12, 2002 No longer eligible based on patient's age to complete this topic Hepatitis B Vaccines Completed 2002, 2002, 2002 Pneumococcal Vaccine: Pediatrics (0 to 5 Years) and At-Risk Patients (6 to 49) Years) Aged Out 2002, 2002, 2002 No longer eligible based on patient's age to complete this topic IPV Vaccines Completed 12/27/2006, 01/12, 2002, Additional history exists HPV Vaccines Completed 12/14/2015, 0806/2015, 07/07/2014, Additional history exists Hepatitis A Vaccines Completed 12/14/2015, 12/14/2015, 07/07/2014, Additional history exists Meningococcal Vaccine Completed 07/29/2019 , 07/29/2019, 07/07/2014, Additional history exists HIV Screening Completed 09/10/2023 Hepatitis C Screening Completed 09/10/2023 Influenza Vaccine Completed 12/21/2023, , 07/29/2019, Additional history exists COVID-19 Vaccine Completed 05/09/2024, , 10/03/2020, Additional history exists RSV under 20 months Aged Out No longe r eligible based on patient's age to complete this topic Rotavirus Vaccines Aged Out No longer eligible based on patient's age to complete this topic Procedures Procedure Name Priority Date/Time Associated Diagnosis Comments CASE PRESENTATION, DETAILED AND EXTENSIVE TREATMENT PLANNING Routine 07/10/2024 10:30 AM EST INTRAORAL - COMPLETE SERIES OF RADIOGRAPHIC IMAGES Routine 07/10/2024 10:30 AM EST COMPREHENSIVE ORAL EVALUATION - NEW OR ESTABLISHED PATIENT Routine 07/10/2024 10:30 AM EST 29 ROOT CANAL Routine 07/10/2024 12:00 AM EST 29 PREFABRICATED POST AND CORE IN ADDITION TO CROWN Routine 07/10/2024 12:00 AM EST 16 EXTRACTION Routine 07/10/2024 12:00 AM EST 29 STAINLESS STEEL CROWN Routine 07/10/2024 12:00 AM EST 1 EXTRACTION Routine 07/10/2024 12:00 AM EST 15 EXTRACTION Routine 07/10/2024 12:00 AM EST 15 EXTRACTION Routine 07/10/2024 12:00 AM EST 16 EXTRACTION Routine 07/10/2024 12:00 AM EST PANORAMIC RADIOGRAPHIC IMAGE Routine 06/10/2024 1:00 PM EST Dental caries CASE PRESENTATION, DETAILED AND EXTENSIVE TREATMENT PLANNING Routine 06/10/2024 1:00 PM EST Dental caries PALLIATIVE (EMERGENCY) TREATMENT OF DENTAL PAIN - MINOR PROCEDURE Routine 06/10/2024 1:00 PM EST Dental caries CHLAMYDIA/N. GONORRHOEAE AND T. VAGINALIS RNA, QUAL,TMA Routine 05/28/2024 3:41 PM EST Screening examination for venereal disease PAP SMEAR Routine 05/28/2024 3:41 PM EST Routine cervical smear LICENSED NURSING ASSISTANT INSERTION/REMOVAL OF CONTRACEPTIVE CAPSULE Routine 05/28/2024 12:00 PM EST Nexplanon removal POCT , URINE Routine 05/28/2024 11:43 AM EST Encounter for insertion of intrauterine contraceptive device (IUD) OCT, OPTIC NERVE - OU - BOTH EYES Routine 05/27/2024 12:23 PM EST Optic papillitis of both eyes LACTIC ACID Routine 04/18/2024 11:16 PM EST US DOPPLER EXT UPPER VENOUS LEFT Routine 04/18/2024 6:32 PM EST HCG, TOTAL, QN Routine 04/18/2024 6:20 PM EST C-REACTIVE PROTEIN Routine 04/18/2024 6: 20 PM EST MAGNESIUM Routine 04/18/2024 6:20 PM EST COMPREHENSIVE METABOLIC PANEL Routine 04/18/2024 6:20 PM EST SLIDE REVIEW Routine 04/18/2024 6:20 PM EST PROTHROMBIN TIME-INR Routine 04/18/2024 6:20 PM EST CBC WITH AUTO DIFFERENTIAL Routine 04/18/2024 6:20 PM EST HEPATITIS C AB W/REFL TO HCV RNA, QN, PCR Routine 09/10/2023 2:03 PM EDT Annual physical exam HIV 1/2 ANTIGEN/ANTIBODY, FOURTH GENERATION W/RFL Routine 09/10/2023 2:03 PM EDT Annual physical exam LIPID PANEL, STANDARD Routine 09/10/2023 2:03 PM EDT Annual physical exam PROPHYLAXIS - CHILD Routine 07/19/2015 1 2:00 AM EST from Last 3 Months or Most Recently Relevant to Health Maintenance Results * STI testing add on (NG, CT, Trich) (05/28/2024 3:41 PM EST) Trichomonas (NAAT) NOT DETECTED NOT DETECTED [facility] Comment:The analytical perfo rmance characteristics of thisassay have been determined by [employer]. Themodifications have not been cleared or approved bythe FDA. This assay has been validated pursuant to theIA regulations and is used for clinical purposes.For additional information, please refer tohttp://education.[employer]/faq/Trichomonastma(This link is being provided for information/educational purposes only.)THIS TEST WAS PERFORMED AT:[facility] [facility] [place] [phone] JOHNSON MD CTNG Ref Lab NOT DETECTED NOT DETECTED [facility] NG Ref Lab NOT DETECTED NOT DETECTED [facility] ThinPrep?? vial Cervix uteri structure / Unknown 05/28/2024 3:41 PM EST 05/29/2024 8:50 AM EST Danny Snider CNM LAB CYTOLOGY ORDERABLES F inal Result [facility] [address] [place] [phone] * Pap Smear (05/28/2024 3:41 PM EST) Swab Cervix uteri structure / Unknown 05/28/2024 3:41 PM EST 05/29/2024 8:50 AM EST Narrative [facility] - 06/08/2024 8:25 PM EST ----- ------- Name: JimenezEjmitch ? Age/Sex: 24/F ? : 2000 Unit#: [id number] ?? Attend Dr: DANNY SNIDER CNM ?Re05/28/24 ?Status: DEP REF ? Location: HO.LNP ?Disch: ? ----- ------- SPEC : [id number] ?RECD: 05/29/24 ? STATUS: ??SOUT ? REQ NUM: [id number] ? BECKA: 05/28/24-1541 ? SUBM DR: DANNY SNIDER CNM ? ENTERED: ??05/29/24 ?SP TYPE: Pap Smr ?OTHR DR: ? ORDERED: ??Pap Smear, PAP path review ? Interpretation ?? General Category: ?? Epithelial cell abnormality. ?? Adequacy: ?Endocervical component present. ?? Interpretation: ?Atypical squamous cells of undetermined significance. ?Abundant blood present. ?Coccobacilli consistent with shift in vaginal destiny. ? HPV High Risk: ??Positive ? HPV Genotyping 16: ??Negative ?? HPV Genotyping 18: ??Negative ?Clinical Information LMP: [id number] Previous PAP test: Unknown date/findings ? Material Received ?? ThinPrep-Cervical ----- ------- Signed (signature on file) Dory [place] 06/08/242024 ? ----- ------- ? END OF REPORT ? us Danny Snider CNM LAB CYTOLOGY ORDERABLES F inal Result [facility] [address] [place] [phone] * Insertion/Removal of Contraceptive Capsule (05/28/2024 12:00 PM EST) Danny Newton CNM - 05/28/2024 12:00 PM EST Danny Snider CNM ? 05/28/2024 ??2:23 PM Insertion/Removal of Contraceptive Capsule Date/Time: 05/28/2024 12:00 PM Performed by: Danny Snider CNM Authorized by: Danny Snider CNM ?? Confirmed correct patient, procedure, site, and patient consented: Yes ?? Participating Staff: ??Danny Snider CNM Participating Staff: ??Karen Issa RN Consent: ??Consent obtained: ??Verbal and written ??Consent given by: ??Patient ??Procedural risks and benefits discussed: Yes ?Patient questions answered: yes ?Patient agrees, verbalizes understanding, and wants to proceed: yes ?Educational handouts given: yes ?Instructions and paperwork completed: yes ?? Indication: ??Indication: presence of non-biodegradable drug delivery implant ?? Pre-procedure: ??Pre-procedure timeout performed: yes ?Prepped with: povidone-iodine ?Local anesthetic: 2% 2ml lidocaine. ??The site was cleaned and prepped in a sterile fashion: yes ?? Procedure: ??Procedure: ??Removal ??Small stab incision was made in arm: yes ?Left/right: ??Left ??Site was closed with steri-strips and pressure bandage applied: yes ?? Danny Snider CNM IN CLINIC/BEDSIDE ORDERAB LES Final Result * POCT Urine (05/28/2024 11:43 AM EST) Preg Test, Ur Negative Negative, Indeterminate, None Detected, Invalid, Specimen unsatisfactory for evaluation, Weakly Positive QC Media Lot # [id number] Lot# Expiration Date [id number] Urine 05/28/2024 11:4 3 AM EST Danny Snider CNM POINT OF CARE TEST ENTER/ EDIT ORDERABLES Final Result * OCT, Optic Nerve - OU - Both Eyes (05/27/2024 12:23 PM EST) Narrative Shante Calles, OD - 05/27/2024 12:23 PM EST OCT OPTIC NERVE INTERPRETATION Optical Coherence Tomography Interpretation Report Reliability: OD: 63 (good quality image) OS: 53 (good quality image) Measurements: Avg RNFL thickness OD: ??113 microns OS: ??120 microns Test findings: OD: Thick RNFL from 5-8 o'clock, 0.00 cup volume identified, mild upturning of bruchs nasally, no drusen visible OS: Thick RNFL from 5-6 o'clock, 0.00 cup volume identified, no drusen visible Impression and Plan: Optic nerve elevation both eyes (OU) - papilledema suspect. Ordering MRI and RTC for VF us Shante Calles OD OPHTH TOMOGRAPHY Final Result * Lactic Acid (04/18/2024 11:16 PM EST) Lactic Acid 1.6 0.5 - 2.0 mmol/L [facility] 04/18/2024 11:1 6 PM EST 04/18/2024 11:21 PM EST us Generic External Data Provider LAB BLOOD ORDERAB LES Final Result [facility] [address] [place] [address] [phone] * US DOPPLER EXT UPPER VENOUS LEFT (04/18/2024 6:32 PM EST) Anatomical Region Laterality Modality Body Ultrasound 04/18/2024 6:32 PM EST Narrative 04/18/2024 7:11 PM EST ? [facility] ?[address] ?[place] [address] ? Ultrasound Report ? Signed ? Patient: Jimenez,Jaymara ?MR#: [id number] ?? 06 ? : 2000 ?Acct:[id number] ? Age/Sex: 23 / F ?ADM Date: 12/06/24 ? Loc: HO.ED ? Attending Dr: ? Ordering Physician: Van,Susanita PA ?? Date of Service: 04/18/24 ?? Procedure(s): US venous duplex UE LT ?? Accession Number(s): [id number] ? cc: Kvng Araujo; SANYA LUDWIG NP ? EXAMINATION: ?? US TRIPLEX UPPER EXTREMITY, LEFT ? CLINICAL INFORMATION: ?? MARCIANO swelling ? COMPARISON: ?? None available. ? TECHNIQUE: ?? Color-flow triplex imaging with spectral analysis and compression ?? Doppler was performed on the left upper extremity. ? FINDINGS: ?? The left internal jugular, subclavian, and axillary veins are patent ?? and free of thrombus. The imaged segment of the left brachiocephalic ?? vein is patent. Spectral doppler waveforms are normal. ? The brachial, basilic, cephalic, radial, and ulnar veins are patent and ?? compressible. ? US/US venous duplex UE LT ?? IMPRESSION: ?? No evidence of deep venous thrombosis involving the left upper ?? extremity. ? Electronically signed by: ??Jeanine Okeefe MD ??04/18/2024 07:08 PM EST ? Dictated By: ?Jeanine Okeefe MD ? Signed By: ?<Electronically signed by Jeanine Okeefe MD in OV> ? 04/18/24 1908 ? DD/ 1832 ? TD/TT: 04/18/24 1841 ? Document Review Specialist: PN ? Procedure Note Jass Lentz - 04/18/2024 [place] [phone] Ultrasound Report Signed Patient: Keke JimenezMR#: [id number] 06 : 2000Acct:[id number] Age/Sex: 23 M Date: 04/18/24 Loc: HO.ED Attending Dr: Ordering Physician: Kvng Araujo Date of Service: 04/18/24 Procedure(s): US venous duplex UE LT Accession Number(s): [id number] cc: Kvng Araujo; SANYA LUDWIG NP EXAMINATION: US TRIPLEX UPPER EXTREMITY, LEFT CLINICAL INFORMATION: MARCIANO swelling COMPARISON: None available. TECHNIQUE: Color-flow triplex imaging with spectral analysis and compression Doppler was performed on the left upper extremity. FINDINGS: The left internal jugular, subclavian, and axillary veins are patent and free of thrombus. The imaged segment of the left brachiocephalic vein is patent. Spectral doppler waveforms are normal. The brachial, basilic, cephalic, radial, and ulnar veins are patent and compressible. US/US venous duplex UE LT IMPRESSION: No evidence of deep venous thrombosis involving the left upper extremity. Electronically signed by: Jeanine Okeefe MD 04/18/2024 07:08 PM EST Dictated By: Jeanine Okeefe MD Signed By: <Electronically signed by Jeanine Okeefe MD in OV> 04/18/24 1908 DD/ 183 TD/TT: 04/18/24 184 Document Review Specialist: PN [facility] External Provider IMG US PROCEDURES Edited Result - Final * Slide Review (04/18/2024 6:20 PM EST) Slide Review VERIFIED [facility] 04/18/2024 6:20 PM EST 04/18/2024 6:23 PM EST Generic External Data Provider LAB BLOOD ORDERAB LES Final Result [facility] [address] [place] [phone] * (ABNORMAL) CBC auto differential (04/18/2024 6:20 PM EST) White Blood Count 16.0(H) 4.8 - 10.8 X10*3/uL [facility] Red Blood Count 5.70(H) 4.20 - 5.50 X10*6/uL [facility] Hemoglobin 9.9(L) 12.0 - 16.0 g/dl [facility] Hematocrit 34.0(L) 37.0 - 47.0 % [facility] Mean Corpuscular Volume 59.6(L) 80.0 - 98.0 fL [facility] Mean Corpuscular Hemoglobin 17.4(L) 27.0 - 33.0 pg [facility] Mean Corpuscular HGB Conc 29.1(L) 31.0 - 35.0 g/dl [facility] Red Cell Distribution Width 23.5(H) 11.0 - 16.0 % [facility] Platelet Count 405(H) 160 - 400 X10*3/uL [facility] Neutrophils Percent Auto 74.0(H) 45 - 73 % [facility] Imm Gran Pct Auto 0.6(H) 0.0 - 0.4 % [facility] Lymphocytes Percent Auto 19.5(L) 20 - 40 % [facility] Monocytes Percent Auto 3.8 2 - 11 % [facility] Eosinophils Percent Auto 1.8 0 - 4 % [facility] Basophils Percent Auto 0.3 0 - 2 % [facility] NRBC Pct Auto 0.0 0.0 - 0.2 /100WBC [facility] Neutrophils Absolute Auto 11.8(H) 2.0 - 8.3 x10*3/uL [facility] Imm Gran Abs Auto 0.09(H) 0.00 - 0.03 X10*3/uL [facility] Lymphocytes Absolute Auto 3.1 1.2 - 4.9 X10*3/uL [facility] Monocytes Absolute Auto 0.6 0.1 - 1.2 X10*3/uL [facility] Eosinophils Absolute Auto 0.3 0.0 - 0.4 X10*3/uL [facility] Basophils Absolute Auto 0.1 0.0 - 0.2 X10*3/uL [facility] NRBC Abs Auto 0.000 0.0 - 0.012 X10*3/uL [facility] 04/18/2024 6:20 PM EST 04/18/2024 6:23 PM EST us Generic External Data Provider LAB BLOOD ORDERAB LES Edited Result - Final [facility] [address] [place] [phone] * (ABNORMAL) Prothrombin Time-INR (04/18/2024 6:20 PM EST) Prothrombin Time 13.7(H) 10.9 - 12.4 SEC [facility] INTERNATIONAL NORM RATIO 1.2(H) 0.9 - 1.1 [facility] Comment:INTERNATIONAL NORMAL IZED RATIO (INR) REFERENCE RANGES Reference RangeFor patients not on anticoagulant therapy: 0.9 - 1.1INR ranges for oral anticoagulanttherapy:For prevention and treatment of venous thrombosis and pulmonary embolism: 2.0 - 3.0For acute myocardial infarction with aspirin therapy: 2.0 - 3.0For acute myocardial infarction without aspirin therapy: 3.0 - 4.0For patients with mechanical prosthetic heart valves: 2.5 - 3.5 04/18/2024 6:20 PM EST 04/18/2024 6:23 PM EST Generic External Data Provider LAB BLOOD ORDERAB LES Final Result Performing Organization Address City/[facility]/ZIP Co de Phone Number [facility] [address] [place] [phone] * (ABNORMAL) C-reactive Protein (04/18/2024 6:20 PM EST) C Reactive Protein 4.31(H) < or = 0.50 mg/dL [facility] 04/18/2024 6:20 PM EST 04/18/2024 6:23 PM EST [employer] External Data Provider LAB BLOOD ORDERAB LES Final Result Performing Organization Address City/[facility]/ZIP Co de Phone Number [facility] [address] [place] [phone] * hCG, Total, Quantitative (04/18/2024 6:20 PM EST) HCG Quantitative <2 mIU/mL [facility] Comment:Weeks post LMP Appro ximate hCG(Last Menstrual Period) Range (mIU/ml)3 - 4 weeks 9 - 1304 - 5 weeks 75 - 2,6005 - 6 weeks 850 - 20,8006 - 7 weeks 4000 - 100,2007 - 12 weeks 11,500 - 289,90255 - 16 weeks 18,300 - 137,97328 - 29 weeks (2nd trimester) 1,400 - 53,70097 - 41 weeks (3rd trimester) 940 - 60,000The Eldridge B- hCG assay is used for the early detection ofpregnancy; it cannot be used to diagnose any conditionunrelated to . If a B-hCG level is not supportedby the clinical evidence, results should be confirmed by analternative method (qualitative urine hCG, for example). 04/18/2024 6:20 PM EST 04/18/2024 6:23 PM EST Generic External Data Provider LAB BLOOD ORDERAB LES Final Result Performing Organization Address [facility]/ZIP Co de Phone Number [facility] [address] [place] [address] [phone] * Magnesium (04/18/2024 6:20 PM EST) Magnesium 2.1 1.6 - 2.6 mg/dL [facility] 04/18/2024 6:20 PM EST 04/18/2024 6:23 PM EST Generic External Data Provider LAB BLOOD ORDERAB LES Final Result Performing Organization Address [facility] Co de Phone Number [facility] [address] [place] [phone] * (ABNORMAL) Comprehensive Metabolic Panel (04/18/2024 6:20 PM EST) Sodium 139 135 - 145 mmol/L [facility] Potassium 3.9 3.3 - 5.1 mmol/L [facility] Chloride 108 96 - 108 mmol/L [facility] Carbon Dioxide 23 22 - 29 mmol/L [facility] Anion Gap 12 12 - 20 [facility] Urea Nitrogen (BUN) 14 9 - 16 mg/dL [facility] Creatinine, Serum 0.74 0.5 - 1.4 mg/dL [facility] Creatinine Clr Calc Pharmacy 146.0 [facility] Comment:Provided height and weight: 154.94 cm,120.7 kg.eGFR (calculated from the MDRD study equation) and eCrCl(calculated from the Cockcroft-Gault equation) are based ondifferent parameters and may not yield comparable results.If eCrCl result is absurd, please check patient'sheight/weight. Estimated Glomerular Filt Rate >60 [facility] Comment:Chronic Kidney Disea se: Estimated GFR < 60 mL/min/1.69m3Ycdppl Kidney Disease: Estimated GFR < 15 mL/min/1.73m2 Glucose 119(H) 60 - 115 mg/dL [facility] Calcium 9.7 8.4 - 10.2 mg/dL [facility] Bilirubin, Total 0.3 0.0 - 1.0 mg/dL [facility] Aspartate Amino Transferase 16 5 - 31 U/L [facility] Alanine Aminotransferase 12 0 - 31 U/L [facility] Total Protein 8.2(H) 6.5 - 8.0 g/dL [facility] Albumin Level 4.2 3.5 - 5.0 g/dL [facility] Alkaline Phosphatase 82 39 - 117 U/L [facility] 04/18/2024 6:20 PM EST 04/18/2024 6:23 PM EST us Generic External Data Provider LAB BLOOD ORDERAB LES Final Result [facility] [address] [place] [phone] * Hepatitis C Antibody with Reflex to HCV, RNA, Quantitative, Real-Time PCR (09/10/2023 2:03 PM EDT) Hepatitis C Antibody Nonreactive Nonreactive [facility] Comment:Antibodies to HCV no t detected; does not exclude early acuteHCV infection. Blood Venous blood specimen / Unknown 09/10/2023 2:03 PM EDT 09/10/2023 4:08 PM EDT us Virginia Lira MD LAB BLOOD ORDERAB LES Final Result Performing Organization Address [facility]/ZIP Co de Phone Number [facility] [address] [place] [phone] [phone] * HIV-1/2 Antigen and Antibodies, Fourth Generation, with Reflexes (09/10/2023 2:03 PM EDT) HIV AB/AG Nonreactive Nonreactive [facility] Comment:HIV-1 p24 Ag and/or HIV-1/HIV-2 Ab not detected.A test result that is nonreactive does not exclude thepossibility of exposure to or infection with HIV-1 and/orHIV-2. Nonreactive results in this assay for individualswith prior exposure to HIV-1 and/or HIV-2 may be due toantigen and antibody levels that are below the limit ofdetection of this assay.The Proficiencynig4interactive HIV Ag/Ab Combo assay result andsupplemental assay results should be interpreted inconjunction with the patient's clinical presentation,history and other laboratory results. If the results areinconsistent with clinical evidence, additional testing issuggested to confirm the result. Blood Venous blood specimen / Unknown 09/10/2023 2:03 PM EDT 09/10/2023 4:08 PM EDT us Virginia Lira MD LAB BLOOD ORDERAB LES Final Result Performing Organization Address [facility]/ZIP Co de Phone Number [facility] [address] [place] [phone] * (ABNORMAL) Lipid Panel, Standard (09/10/2023 2:03 PM EDT) Triglycerides 153(H) <150 mg/dL [facility] Comment:Desirable Triglyceri de: less than 150 mg/dLBorderline High Triglyceride 150-199 mg/dLHigh Triglyceride: 200-499 mg/dLVery High Triglyceride: greater than or equal to 5OO mg/dL Cholesterol 148 <200 mg/dL [facility] Comment:Desirable Cholestero l: less than 200 mg/dLBorderline High Cholesterol: 200-239 mg/dLHigh Cholesterol: greater than 239 mg/dL LDL Cholesterol Calculated 76 <100 mg/dL [facility] Comment:Desirable LDL: less than 100 mg/dLNear Optimal/Above Optimal LDL: 110- 129 mg/dLBorderline High LDL: 130-159 mg/dLHigh LDL: 160-189 mg/dLVery High LDL: greater than or equal to 190 mg/dL HDL Cholesterol 42 >40 mg/dL [facility] Comment:Desirable HDL: great er than 40 mg/dL Note: This HDL assay may give artificially low results in patients with liver disease. Blood Venous blood specimen / Unknown 09/10/2023 2:03 PM EDT 09/10/2023 4:08 PM EDT Virginia Lira MD LAB BLOOD ORDERAB LES Final Result [facility] [address] [place] [phone] [phone] from Last 3 Months or Most Recently Relevant to Health Maintenance Insurance [facility] C3 DENTAL-[facility] MEDICAID STAND ADULT Care Teams Loin Trimmer Relationship Specialty Start Date End Date Sanya Ludwig ANP [address] [place] [phone] PCP - General Family Medicine 02/20/23 Vero Zamora Route Delivery ClerkErgonomics Consultant 05/29/24
--- OUTSIDE RECORDS SUMMARY | 2024-07-16 18:23 | XMS_ITS | Clinical Summary ---
Author Organization [facility] it Address [address] [place] [address] Care Team Providers Care Game Designer/Creative Director Name Role Phone Unavailable Primary Care Provider Unavailabl e Social History Tobacco Use Types Packs/Day Years Used Date Smoking Tobacco: Never Assessed Comments Unknown Sex and Gender Information Value Date Recorded Sex Assigned at Not on file Legal Sex Female 4:35 AM EST Gender Identity Not on file Sexual Orientation Not on file Plan of Treatment Health Maintenance Due Date Last Done Comments Gonorrhea/Chlamydia Screening 2002 HPV Vaccines (1 - 3-dose series) 2017 Meningococcal B Vacine (1 of 2 - Standard) 2018 DTaP,Tdap,and Td Vaccines (1 - Tdap) 2021 Hepatitis B Vaccines (1 of 3 - 19+ 3-dose series) 2021 Cervical Cancer Screening: P ap Smear 2023 COVID-19 Vaccine (2023-2 5 season) 2024 Influenza Vaccine (#1) 2024 HIB Vaccines Aged Out No longer eligi ble based on patient's age to complete this topic Hepatitis A Vaccines Aged Out No long er eligible based on patient's age to complete this topic IPV Vaccines Aged Out No longer eligi ble based on patient's age to complete this topic MMR Vaccines Aged Out No longer eligi ble based on patient's age to complete this topic Meningococcal ACWY Vaccine Aged Out N o longer eligible based on patient's age to complete this topic Pneumococcal Vaccine: Pediat rics (0 to 5 Years) and At-Risk Patients (6 to 64 Years) Aged Out No longer eligible b ased on patient's age to complete this topic RSV Immunization Patients Un kyle 20 months Aged Out No longer eligible b ased on patient's age to complete this topic Varicella Vaccines Aged Out No longer eligible based on patient's age to complete this topic
--- OUTSIDE RECORDS SUMMARY | 2024-07-16 18:23 | XMS_ITS | Encounter Summary ---
Author Organization [employer] Address [address] [facility] [address]t [place] [address] Care Team Providers Care Swimming Instructor Name Role Phone Elaina Pan JHOANA Primary Care Provider [phone] Encounter Details Date Type Department Care Team (Latest Contact Info) Description 07/02/2024 Travel Social History Tobacco Use Types Packs/Day Years [...] AM EDT documented as of this encounter Plan of Treatment Upcoming Encounters Date Type Department Care Team (Late st Contact Info) Description 07/25/2024 9:00 AM EDT Office Visit [facility] OPTOMETRY [address] [place] [address] TarShante hunt, OD [address] [place] [address] 08/06/2024 9:30 AM EDT Office Visit [facility] ADULT DENTAL [address] [place] [address] Carmina-Marjorie Osorio, DDS [address] [place] [address] 08/07/2024 9:15 AM EDT Office Visit [facility] MEDICINE [address] [place] [address] Elaina Pan ANP [address] [place] [address] 11/10/2024 8:00 AM EDT Office Visit [facility] ADULT DENTAL [address] [place] [address] Tanya Early documented as of this encounter Visit Diagnoses Not on filedocumented in this encounter Additional Health Concerns Assessment Noted Time PHQ-9 Depression Total Score: 5 08/29/19 24 11:06 AM EDT documented as of this encounter Care Teams Swimming Instructor Relationship Specialty Start Date End Date Elaina Pan ANP [address] [place] [phone] PCP - General Family Medicine 02/20/23 Vero Zamora ComedianBarber Shop Operator 05/29/24 documented as of this encounter
--- OUTSIDE RECORDS SUMMARY | 2024-07-16 18:23 | XMS_ITS | Encounter Summary ---
Author Organization [employer] Address [address] [facility] [address]t [place] [address] Care Team Providers Care Trimmer Buffing Wheel Name Role Phone Elaina Pan JHOANA Primary Care Provider [phone] Reason for Visit * Reason Comments Dental Exam Patient presents tod ay for a dental exam Encounter Details Date Type Department Care Team (Late st Contact Info) Description 07/10/2024 10:30 AM EST Office Visit [facility] ADULT DENTAL [address] [place] [address] Marjorie Patel, DDS [address] [place], [place] [phone] Encounter for dental examination (Primary Dx); Dental caries; Dental calculus; Dental plaque; Diastema Social History Tobacco Use Types Packs/Day Years [...] as of this encounter Progress Notes * Marjorie Patel DDS - 07/10/2024 10:30 AM EST Dental procedures in this visit D0150 - COMPREHENSIVE ORAL EVALUATION - NEW OR ESTABLISHED PATIENT (Completed) Service provider: Marjorie Patel DDS Billing provider: Marjorie Patel DDS D0210 - INTRAORAL - COMPLETE SERIES OF RADIOGRAPHIC IMAGES (Completed) Service provider: Marjorie Patel DDS Billing provider: Marjorie Patel DDS [id number] - CASE PRESENTATION, DETAILED AND EXTENSIVE TREATMENT PLANNING (Completed) Service provider: Marjorie Patel DDS Billing provider: Marjorie Patel DDS Patient ID: Keke Jimenez is a 24 y.o. female. Time Out: Timeout Date: 07/10/24, Timeout Time: 1038 (time out for dental exam) Location: [facility] Tooth: Maxilla and Mandible Procedure: Exam and X-rays Verified the above with patient, child care center assistant director, and provider. Confirmed via patient's chart, intraorally and by radiographs. Winch Driver: not applicable Chief Complaint Patient presents with Dental Exam Patient presents today for a dental exam Medical Hx: Vitals: unknown if currently . Past Medical History: Diagnosis Date Acute pelvic inflammatory disease 06/10/2024 Anemia 04/25/2023 Bronchitis 06/10/2024 Gestational HTN 04/25/2023 Insomnia 10/19/2022 PICC line infection 06/10/2024 Medications: Outpatient Encounter Medications as of 07/10/2024 Medication Sig Dispense Refill olopatadine (Pataday) 0.2 % ophthalmic solution Administer 1 drop into both eyes Once per day. (Patient not taking: Reported on 07/10/2024) 2.5 mL 5 Tirzepatide-Weight Management (Zepbound) 2.5 MG/0.5ML solution auto-injector Inject 0.5 mL (2.5 mg)under the skin 1 (one) time per week. (Patient not taking: Reported on 07/10/2024) 2 mL 0 Facility-Administered Encounter Medications as of 07/10/2024 Medication Dose Route Frequency Provider Last Rate Last Admin lidocaine 2 % gel Topical PRN Heather Pino CNM Given at 05/28/24 1120 Objective HPI Soft Tissue Exam No findings documented this visit Head and Neck Exam: Lymph Nodes, Lips, Palate, Buccal Mucosa, Floor of Mouth, Tongue, Tonsils, Alveolar Ridges, Oropharynx, Salivary Ducts, and Vestibules - nos significant findings observed OCS: negative Dental Exam Radiographic Interpretation: Associated radiographs for today's visit were reviewed and finding(s) were discussed with the patient. Findings include: caries, plaque, missing teeth, calculus. Hard Tissue Exam: Decay noted - see charting and treatment plan Reference tooth chart for additional findings. Oral Cancer Risk: Low Risk Oral Hygiene Instructions: Afton two times daily, modified hopper technique, Floss daily, Soft bristle toothbrush, Afton Tongue Caries Risk Assessment: Medium- one risk factor Assessment/Plan PAD and perio eval Alok RPD Patient tolerated procedure well, all questions answered and expressed understanding. Dismissed in good condition. NV: alok Physician'S Assistant: Jonnie Sullivan/KOURTNEY Scott student Dentist: Marjorie Patel DDS documented in this encounter Plan of Treatment Upcoming Encounters Date Type Department Care Team (Late st Contact Info) Description 07/25/2024 9:00 AM EDT Office Visit [facility] OPTOMETRY [address] [place] [address] Shante Calles, OD [address] [place] [address] 08/06/2024 9:30 AM EDT Office Visit [facility] ADULT DENTAL [address] [place] [address] Marjorie Patel, DDS [address] [place] [address] 08/07/2024 9:15 AM EDT Office Visit [facility] MEDICINE [address] [place] [address] Elaina Pan, ANP [address] [place] [address] 11/10/2024 8:00 AM EDT Office Visit [facility] ADULT DENTAL [address] [place] [address] Tanya Early Scheduled Orders Name Type Priority Associated Diagnoses Orde r Schedule 19 BOSSMAN 19 BOSSMAN RESIN-BASED COMPOSITE - 2 SURF, POSTERIOR Dental Routine [address] arting 07/10/2024 18 O 18 O RESIN-BASED COMPOSITE - 1 SURF, POSTERIOR Dental Routine [address] arting 07/10/2024 2 LO 2 LO RESIN-BASED COMPOSITE - 2 SURF, POSTERIOR Dental Routine [address] arting 07/10/2024 PROPHYLAXIS - ADULT Dental Routine 1 Occ urrences starting 07/10/2024 14,15 14,15 MAXILLARY PARTIAL DENTURE - RESIN BASE (INCLUDING, RETENTIVE/CLASPING MATERIALS, RESTS, AND TEETH) Dental Routine [address] arting 07/10/2024 DENTURE IMPRESSION Dental Routine 1 Occu rrences starting 07/10/2024 WAX TRY IN Dental Routine 1 Occurrences starting 07/10/2024 documented as of this encounter Procedures Procedure Name Priority Date/Time Associated Diagnosis Comments INTRAORAL - COMPLETE SERIES OF RADIOGRAPHIC IMAGES Routine 07/10/2024 10:30 AM EST COMPREHENSIVE ORAL EVALUATION - NEW OR ESTABLISHED PATIENT Routine 07/10/2024 10:30 AM EST CASE PRESENTATION, DETAILED AND EXTENSIVE TREATMENT PLANNING Routine 07/10/2024 10:30 AM EST 29 STAINLESS STEEL CROWN Routine 025 12:00 AM EST 29 PREFABRICATED POST AND CORE IN ADDITION TO CROWN Routine 07/10/2024 12:00 AM EST 16 EXTRACTION Routine 07/10/2024 12:00 AM EST 1 EXTRACTION Routine 07/10/2024 12:00 AM EST 15 EXTRACTION Routine 07/10/2024 12:00 AM EST 15 EXTRACTION Routine 07/10/2024 12:00 AM EST 16 EXTRACTION Routine 07/10/2024 12:00 AM EST 29 ROOT CANAL Routine 07/10/2024 12:00 AM EST documented in this encounter Visit Diagnoses Diagnosis Encounter for dental examination- Primary Dental caries Unspecified dental caries Dental calculus Accretions on teeth Dental plaque Accretions on teeth Diastema Unspecified anomaly of tooth position documented in this encounter Additional Health Concerns Assessment Noted Time PHQ-9 Depression Total Score: 5 08/29/19 24 11:06 AM EDT documented as of this encounter Care Teams Trimmer Buffing Wheel Relationship Specialty Start Date End Date Elaina Pan ANP [address] [place] [phone] PCP - General Family Medicine 02/20/23 Vero Zamora School Boat DriverPaddock Judge 05/29/24 documented as of this encounter
--- OUTSIDE RECORDS SUMMARY | 2024-07-16 18:23 | XMS_ITS | Encounter Summary ---
Author Organization [employer] Address [address] [facility] [address] [place] [address] Care Team Providers Care Family Program Specialist Name Role Phone Pan Elaina ELY Primary Care Provider [phone] Reason for Visit * Reason Onset Date Comments No Show 07/07/2024 Encounter Details Date Type Department Care Team ([facility] Contact Info) Description 07/07/2024 Telephone [facility] MEDICINE [address] [place] [address] Heather Pino CNM [address] [place] [address] No Show Social History Tobacco Use Types Packs/Day Years [...] Description 07/25/2024 9:00 AM EDT Office Visit [facility] OPTOMETRY [address] [place] [address] TarkaShante, OD [address] [place] [address] 08/06/2024 9:30 AM EDT Office Visit [facility] ADULT DENTAL [address] [place] [address] Grewal-Osorio, Marjorie, DDS [address] [place] [address] 08/07/2024 9:15 AM EDT Office Visit [facility] MEDICINE [address] [place] [address] Elaina Pan, JHOANA [address] [place] [address] 11/10/2024 8:00 AM EDT Office Visit [facility] ADULT DENTAL [address] [place] [address] Tanya Early documented as of this encounter Visit Diagnoses Not on filedocumented in this encounter Additional Health Concerns Assessment Noted Time PHQ-9 Depression Total Score: 5 04/17/20 24 11:06 AM EDT documented as of this encounter Care Teams Family Program Specialist Relationship Specialty Start Date End Date Elaina Pan ANP [address] [place] [address] PCP - General Family Medicine 02/20/23 Vero Zamora Mortgage Loan SpecialistDurable Medical Equipment Technician 05/29/24 documented as of this encounter
--- OUTSIDE RECORDS SUMMARY | 2024-07-16 18:23 | XMS_ITS | Encounter Summary ---
Author Organization [employer] Address [address] [place] [address] [address] [place] [address] Care Team Providers Care Creping Machine Operator Name Role Phone Maxim Elaina ELY Primary Care Provider [phone] Reason for Referral * Consultation (Urgent) - Closed Specialty Diagnoses / Procedures Referred By Damon scott Referred To Contact Neurology Diagnoses Optic papillitis of both eyes Lakshmi Calles, OD [address] [place] [address] Phone: tel: fax: Shahbaz Perez MD [address] [place] [address] Phone: tel: fax: Referral ID Status Reason Start Date Expiration Date V isits Requested Visits Authorized [id number] Closed Specialty Services Required 06/16/2024 06/16/2025 1 1 * Imaging (Urgent) - Pending Review Specialty Diagnoses / Procedures Referred By Damon scott Referred To Contact Radiology Diagnoses Optic papillitis of both eyes Procedures MRI BRAIN AND ORBITS W WO CONTRAST Lakshmi Calles, OD [address] [place] [address] Phone: tel: fax: [facility] [address] [facility], [address] [place] [address] Phone: tel: fax: Referral ID Status Reason Start Date Expiration Date V isits Requested Visits Authorized [id number] Pending Review 05/28/2024 05/28/2025 1 1 * Imaging (Urgent) - Canceled Specialty Diagnoses / Procedures Referred By Damon t Referred To Contact Radiology Diagnoses Optic papillitis of both eyes Procedures Mr Brain w/ and w/o Contrast Lakshmi Calles, OD [address] [place] [address] Phone: tel: fax: [facility] [address] [place] [address], [address] [place] [address] Phone: tel: fax: Referral ID Status Reason Start Date Expiration Date V isits Requested Visits Authorized [id number] Canceled 05/27/2024 05/27/2025 1 1 Encounter Details Date Type Department Care Team (Latest Contact Info) Description 05/27/2024 9:00 AM EST Office Visit [facility] [address] [place] [address] Lakshmi Calles, OD [address] [place] [address] Optic papillitis of both eyes (Primary Dx); Other chronic allergic conjunctivitis of both eyes; Myopia, bilateral Social History Tobacco Use Types Packs/Day Years [...] the past 12 months, has t he [employer], gas, oil or water company threatened to [...] as of this encounter Progress Notes * Lakshmi Calles, JAMIN - 05/27/2024 9:00 AM EST Eye Care Progress Note Patient ID: Keke Jimenez is a 24 y.o. female. HPI Patient was referred by PCP for headaches and blurry vision both eyes (OU). Pt suffers from migraines x 2 years. (+) pulsatile tinnitus, (+) headaches most days of the week, (+) orthostatic hypotension Patient reports blurry vision at distance both eyes (OU) Patient also notes itchy eyes both eyes (OU). Today is the patient's first eye exam. Last edited by Lakshmi Calles, OD on 05/27/2024 12:24 PM. Current Outpatient Medications Medication Sig Dispense Refill olopatadine (Pataday) 0.2 % ophthalmic solution Administer 1 drop into both eyes Once per day. 2.5 mL 5 Tirzepatide-Weight Management (Zepbound) 2.5 MG/0.5ML solution auto-injector Inject 0.5 mL (2.5 mg)under the skin 1 (one) time per week. 2 mL 0 No current facility-administered medications for this visit. History reviewed. No pertinent past medical history. Past Surgical History: Procedure Laterality Date APPENDECTOMY SECTION, UNSPECIFIED IR CVC NONTUNNELED 04/03/2024 IR CVC INSERT PERIPHERAL Family History Problem Relation Name Age of Onset Other (colon ca in childhood ???) Sister Diabetes Maternal Grandmother Tobacco Use: Low Risk (05/27/2024) Tobacco Smoking Tobacco Use: Never Smokeless Tobacco Use: Never Passive Exposure: Not on file No Known Allergies ROS Positive for: Eyes Negative for: Constitutional, Gastrointestinal, Neurological, Skin, Genitourinary, Musculoskeletal,HENT, Endocrine, Cardiovascular, Respiratory, Psychiatric, Allergic/Imm, Heme/Lymph Last edited by Lakshmi Calles, JAMIN on 05/27/2024 8:50 AM. Base Eye Exam Visual Acuity (Snellen - Linear) Right Left Dist sc 20/60 20/60 Dist ph sc 20/40+2 20/25 -2 Tonometry (iCare , 9:01 AM) Right Left Pressure 19 19 Pupils Pupils APD Right PERRL None Left PERRL None Visual Arevalo Left Right Full Full Extraocular Movement Right Left Full Full Neuro/Psych Oriented x3: Yes Dilation Both eyes: 1.0% tropicamide @ 12:09 PM Additional Tests Color Right Left Ishihara Slit Lamp and Fundus Exam External Exam Right Left External Normal Normal Slit Lamp Exam Right Left Lids/Lashes Clean and clear Clean and clear Conjunctiva/Sclera 1+ papillae UL/LL 1+ papillae UL/LL Cornea Clear Clear Anterior Chamber Deep and quiet, angles open gr 4 Deep and quiet, angles open gr 4 Iris Flat, round Flat, round Lens Clear Clear Fundus Exam Right Left Vitreous Clear Clear Disc Elevated, indistinct margins superior and inferior, some BV obscruation superiorly, (-) TIP CEMENTER Elevated, indistinct margins 360, some BV obscruation superiorly, (-) TIP CEMENTER C/D Ratio Vertical 0.05 0.05 C/D Ratio Horizontal 0.05 0.05 Macula Flat, even pigmentation Flat, even pigmentation Vessels AV 2/3, normal course and caliber AV 2/3, normal course and caliber Periphery No holes/tears/detachments 360 No holes/tears/detachments 360 Refraction Manifest Refraction (Subjective) Sphere Cylinder [place] Dist VA Right -0.75 Sphere 20/30 Left -0.75 -0.25 090 20/30 Final Rx Sphere Cylinder [place] Right -0.75 Sphere Left -0.75 -0.25 090 Expiration Date: 05/27/2025 Assessment and Plan Diagnoses and all orders for this visit: 1. Optic papillitis of both eyes - Suspected papilledema both eyes (OU) - Elevated optic nerves with indistinct margins, blood vessel obscuration and (- ) TIP CEMENTER - Patient is symptomatic for daily migraines, pulsatile tinnitus and orthostatic hypotension; patient fits demographic for IIH - MRI of brain and orbit with and without contrast ordered urgently - OCT, Optic Nerve - OU - Both Eyes 2. Other chronic allergic conjunctivitis of both eyes - Symptomatic for itching, papillae present upper lid (UL)/lower lid (LL) - Rx'd Pataday 1gtt every day PRN. Also recommended use of cool compresses - olopatadine (Pataday) 0.2 % ophthalmic solution; Administer 1 drop into both eyes Once per day. - RTC if symptoms persist or worsen 3. Myopia, bilateral - Dispensed spec Rx. Advised patient that she should not be driving at night uncorrected RTC 2 months for baseline visual field (VF) or sooner PRN Lakshmi Calles, OD 05/27/2024, 2:41 PM documented in this encounter Miscellaneous Notes * Addendum Note - Lakshmi Calles, OD - 05/27/2024 9:00 AM ESTAddended by: LAKSHMI CALLES on: 05/28/2024 12:00 PM Modules accepted: Orders * Addendum Note - Lakshmi Calles, OD - 05/27/2024 9:00 AM ESTAddended by: LAKSHMI CALLES on: 06/16/2024 04:20 PM Modules accepted: Orders documented in this encounter Plan of Treatment Upcoming Encounters Date Type Department Care Team (Late st Contact Info) Description 07/25/2024 9:00 AM EDT Office Visit [facility] [address] [place] [address] Lakshmi Calles, OD [address] [place] [address] 08/06/2024 9:30 AM EDT Office Visit [facility] ADULT DENTAL [address] [place] [address] Grewal-Osorio, Marjorie, DDS [address] [place] [address] 08/07/2024 9:15 AM EDT Office Visit [facility] MEDICINE [address] [place] [address] Pan, Elaina, ANP [address] [place] [address] 11/10/2024 8:00 AM EDT Office Visit [facility] ADULT DENT[facility] [address] [place] [address] Tanya Early Scheduled Orders Name Type Priority Associated Diagnoses Orde r Schedule Mr Brain w/ and w/o Contrast Imaging Urgent Optic papillitis of both eyes Expected: 05/27/2024, Expires: 06/10/2025 MRI BRAIN AND ORBITS W WO CONTRAST Imaging Urgent Optic papillitis of both eyes Expected: 05/28/2024, Expires: 06/14/2024 Scheduled Referrals Name Type Priority Associated Diagnoses Orde r Schedule Referral to Neurology Outpatient Referral Urgent Optic papillitis of both eyes Expected: 06/16/2024 (Approximate), Expires: 06/16/2025 documented as of this encounter Procedures Procedure Name Priority Date/Time Associated Diagnosis Comments OCT, OPTIC NERVE - OU - BOTH EYES Routine 05/27/2024 12:23 PM EST Optic papillitis of both eyes documented in this encounter Results * OCT, Optic Nerve - OU - Both Eyes (05/27/2024 12:23 PM EST) Narrative Lakshmi Calles, OD - 05/27/2024 12:23 PM EST [...] suspect. Ordering MRI and RTC for VF Lakshmi Calles OD OPHTH TOMOGRAPHY Final Result documented in this encounter Visit Diagnoses Diagnosis Optic papillitis of both eyes- Primary Other chronic allergic conjunctivitis of both eyes Myopia, bilateral documented in this encounter Additional Health Concerns Assessment Noted Time PHQ-9 Depression Total Score: 5 08/29/19 24 11:06 AM EDT documented as of this encounter Care Teams Creping Machine Operator Relationship Specialty Start Date End Date Elaina Pna ANP [address] [place] [id number] PCP - General Family Medicine 02/20/23 Vero Zamora Hose WrapperAnimal Assisted Therapist 05/29/24 documented as of this encounter
--- NOTE | ~2024-08-01 | FL_ITS ---
EXAMINATION: XR LUMBAR PUNCTURE CLINICAL INFORMATION: Idiopathic Intracraniel Hypertension COMPARISON: None available. TECHNIQUE: Following explaining fluoroscopy-guided lumbar puncture procedure, benefits in risk, a written consent was obtained. Patient was placed prone on fluoroscopy table and optimal site was selected under fluoroscopy and marked on the skin at the L5-S1 disc level. 1% lidocaine was administered (side. A 20-gauge long 6 Brazilian needle was inserted from the skin intrathecally at L5-S1 disc level. After observing CSF return following removal of stylet patient was quickly placed in left lateral decubitus view and opening CSF pressure was obtained. Subsequently fluid was collected in 4 test tubes and sent to lab. Postprocedure stylet was reintroduced and needle withdrawn. Complete hemostasis achieved at puncture site. Sterile Band-Aid applied postprocedure. Patient tolerated procedure extremely well. FINDINGS: On is single prone images the vertebral heights, alignment and disc heights are preserved. Opening CSF pressure measured 29 cm of water. Approximately 19.5 mL of clear CSF fluid was collected and sent to lab as per referring physician's orders. FLUOROSCOPY TIME: 41 seconds DOSE AREA PRODUCT: 1390 uGy-m2 (microgray-meter squared) FL/FL guided lumbar puncture LP IMPRESSION: Successful fluoroscopy-guided lumbar vertebra performed without immediate complications. Electronically signed by: Tone Goldstein MD 08/01/2024 04:05 PM EDT
[2024-08-01 09:58] VITALS: BMI 54.9
[2024-08-01 10:14] LABS: UPreg QC Valid YES; Urine Pregnancy NEGATIVE (NEGATIVE)
[2024-08-01 10:27] LABS: MANUAL DIFF FLAG NO
[2024-08-01 10:33] LABS: INTERNATIONAL NORM RATIO 1.1 (0.9-1.1); Prothrombin Time 12.8 SEC (10.9-12.4)
[2024-08-01 10:41] LABS: Basophils Percent Auto 0.5 % (0-2); Eosinophils Absolute Auto 0.2 X10*3/uL (0.0-0.4); Eosinophils Percent Auto 2.7 % (0-4); Hematocrit 32.5 % (37.0-47.0); Imm Gran Abs Auto 0.02 X10*3/uL (0.00-0.03); Imm Gran Pct Auto 0.2 % (0.0-0.4); Lymphocytes Absolute Auto 2.9 X10*3/uL (1.2-4.9); Lymphocytes Percent Auto 35.4 % (20-40); Mean Corpuscular HGB Conc 30.8 g/dl (31.0-35.0); Mean Corpuscular Hemoglobin 19.4 pg (27.0-33.0); Monocytes Absolute Auto 0.5 X10*3/uL (0.1-1.2); Monocytes Percent Auto 5.9 % (2-11); Neutrophils Absolute Auto 4.5 x10*3/uL (2.0-8.3); Neutrophils Percent Auto 55.3 % (45-73); Platelet Count 344 X10*3/uL (160-400); Red Blood Count 5.15 X10*6/uL (4.20-5.50); Red Cell Distribution Width 20.9 % (11.0-16.0); White Blood Count 8.1 X10*3/uL (4.8-10.8)
[2024-08-01 10:42] LABS: Mean Corpuscular Volume 63.1 fL (80.0-98.0)
[2024-08-01 11:40] VITALS: BP 126/70; PULSE 71; RESP 16; TEMP 36.6; O2SAT 98
[2024-08-01] MEDS: Acetaminophen 325 MG TABLET 650 MG PO (11:53)
[2024-08-01 12:10] VITALS: BP 117/72; PULSE 73; RESP 16; O2SAT 98
[2024-08-01 12:20] LABS: CSF Appearance Clear, Colorless; CSF Tube # 1
[2024-08-01 12:28] LABS: Glucose CSF 58 mg/dL; Total Protein CSF 27.1 mg/dL (15-45)
[2024-08-01 12:40] VITALS: BP 125/85; PULSE 71; RESP 16; O2SAT 98
[2024-08-01 13:06] LABS: Appearance CSF CLEAR; CSF Tube # 4; Color CSF COLORLESS; Lymphocytes CSF 100 %; Red Blood Cell CSF 0 MM*3; White Blood Cell CSF 2 MM*3
[2024-08-01 13:10] VITALS: BP 122/82; PULSE 74; RESP 16; TEMP 36.2; O2SAT 98
== END | disposition home or self-care (01) ==
PROVIDERS: Psychiatry & Neurology Neurology; Radiology Diagnostic Radiology; PCP Nurse Practitioner Primary Care; Visit Provider Physician Assistant Surgical
PROC: 009U3ZZ Drainage of Spinal Canal, Percutaneous Approach (ICD-10-PCS; CPT 62270; principal; 2024-08-01 11:00)
DX: G93.2 Benign intracranial hypertension (principal); R51.9 Headache, unspecified; E66.9 Obesity, unspecified; Z68.39 Body mass index [BMI] 39.0-39.9, adult; Z88.1 Allergy status to other antibiotic agents
CPT/HCPCS: 36415; 62328; 81025; 82945; 84157; 85025; 85610; 87015; 87070; 87205; 89051; J2003

== ENCOUNTER → 2024-08-01 11:01 | Outpatient (BNV) | payer MEDICAID, SELFPAY | PROVIDERS: PCP Nurse Practitioner Primary Care; Visit Provider Radiology Diagnostic Radiology | DX: G93.2 Benign intracranial hypertension (principal) | CPT/HCPCS: 62328 ==

== ENCOUNTER 2024-08-13 09:06 | Emergency (ER) | payer MEDICAID, SELFPAY ==
--- NOTE | 2024-08-13 09:13 | ECG_ITS ---
Test Reason : chest pain Blood Pressure : */* mmHG Vent. Rate : 97 BPM Atrial Rate : 97 BPM P-R Int : 132 ms QRS Dur : 74 ms QT Int : 338 ms P-R-T Axes : -2 15 5 degrees QTcB Int : 429 ms Normal sinus rhythm with sinus arrhythmia Normal ECG When compared with ECG of 20-Apr-2024 23:22, No significant change was found Referred By: Generic ED Physician Electronically Signed By: WILL PIKE
[2024-08-13 09:23] VITALS: BP 139/65; PULSE 95; RESP 12; TEMP 36.6; O2SAT 93; BMI 54.0
[2024-08-13 10:13] LABS: Alanine Aminotransferase 7 U/L (0-31); Albumin Level 3.9 g/dL (3.5-5.0); Alkaline Phosphatase 74 U/L (39-117); Anion Gap 12 (12-20); Aspartate Amino Transferase 18 U/L (5-31); Bilirubin Total 0.5 mg/dL (0.0-1.0); Blood Urea Nitrogen 10 mg/dL (9-16); Calcium 9.1 mg/dL (8.4-10.2); Carbon Dioxide 21 mmol/L (22-29); Chloride 108 mmol/L (96-108); Creatinine Clr Calc Pharmacy 145.8; Estimated Glomerular Filt Rate > 60; Glucose Random 138 mg/dL (60-115); Potassium 3.9 mmol/L (3.3-5.1); Sodium 137 mmol/L (135-145); Total Protein 7.6 g/dL (6.5-8.0)
--- NOTE | 2024-08-13 10:34 | ED.URI ---
HPI - URI/Sore Throat General Chief Complaint: Upper Respiratory Symptoms Stated Complaint: Chest Pain, Coughing, Asthma, Fever Time Seen by Provider: 08/13/24 10:18 Source: patient Mode of arrival: ambulatory Limitations: no limitations History of Present Illness HPI Narrative: This is a 24 years old the patient with a history of asthma presented to the emergency department complaining of cough congestion wheezing since yesterday she is also complaining of headache she had spinal tap done by IR on August 01 for idiopathic intracranial hypertension. MD elicited complaint: cough Pertinent past history: other (Asthma, chronic headache) Onset (ago): day(s) (2) Consistency: constant Severity: moderate Description of mucous: clear Able to tolerate fluids by mouth: Yes Exacerbating factors: nothing Relieving factors: nothing Associated symptoms: denies other symptoms Related Data Previous Rx's ?Medication ?Instructions ?Recorded albuterol sulfate 90 mcg/actuation 1 inh inhalation QID PRN shortness 08/13/24 aerosol inhaler of breath or wheezing #6.7 grams zxdhefndfs-wbjyhhbaejbjr-izbtfvtn 1 cap PO Q8H PRN headache #10 caps 08/13/24 50 mg-300 mg-40 mg capsule (Fioricet) prednisone 20 mg tablet 60 mg (3 x 20 mg) PO DAILY #12 tabs 08/13/24 Allergies Allergy/AdvReac Type Severity Reaction Status Date / Time vancomycin AdvReac Unknown Flushing Verified 08/13/24 09:24 Review of Systems Constitutional: Constitutional: Reports no additional constitutional complaints Cardiovascular: Cardiovascular: Reports no additional cardiovascular complaints Musculoskeletal: Musculoskeletal: Reports no additional musculoskeletal complaints PMFSH Past Medical History [facility] Narrative: Asthma Medical History Migraine Obesity, morbid, BMI 40.0-49.9 Cervical cancer screening Uses control Gonorrhea Anemia Acute pelvic inflammatory disease No known health problems Surgical History History of appendectomy History of Social History Social History Household Members: Children Housing: House Do you presently have visiting nurse or other home services: No Alcohol intake: current Alcohol intake frequency: does not drink Patient Tobacco Use Status: Never used Tobacco Smoked in Last 30 Days: No Use of substances other than those prescribed or required for medical reasons: Yes Substance Use Type: Marijuana Advance Directives: No Advance Directives Information Provided: Yes Do you have a plan to hurt others: No Plan Patient : No service: No Physical Exam Vital Signs: Vital Signs: Last Vital Signs Temp 98.2 F 08/13/24 12:00 Pulse 101 H 08/13/24 12:00 Resp 19 08/13/24 12:00 BP 131/76 08/13/24 12:00 Pulse Ox 98 08/13/24 12:00 O2 Del Method Room Air 08/13/24 12:00 BMI result Body Mass Index 54.0 No acute distress comfortable in the stretcher vital signs stable Const: General: cooperative Nutritional Appearance: average body habitus Orientation/consciousness: patient oriented x3 Limitations: no limitations HEENT: Head: Yes normal to inspection General nose exam: Normal external nose present Face and sinus: Yes normal facial exam Throat: Yes posterior oropharynx normal Neck: Neck: Yes normal visual inspection Chest: Chest palpation & inspection: normal inspection of the chest Resp: Effort & Inspection: normal respiratory effort Auscultation: wheezes Cardio: Jugular venous distension: no JVD Rate: regular rate Rhythm: regular rhythm GI: Inspection: Yes normal to inspection Palpation (GI): Soft to palpation, not firm and nontender Auscultation: normal bowel sounds : General: Yes no CVA tenderness Back/Spine/Pelvis: Back: no CVA tenderness Skin: General skin exam: no rashes or lesions noted and elasticity normal Rashes: no rashes Neuro: General: patient oriented x3 Course Reevaluation(s) Reevaluation #1: Patient is feeling much better, lungs are now clear, headache also his better labs okay viral panel negative I think at this point we could discharge the patient home Time: 12:29 Medications Administered Discontinued Medications Generic Name Dose Route Start Last Admin Trade Name Freq PRN Reason Stop Dose Admin Acetaminophen/Butalbital/Caffeine 1 tab 08/13/24 11:21 08/13/24 11:29 Butalb/Acetamin/Caff 50/325/40 Tablet PO 08/13/24 11:22 1 tab ONCE ONE Administration Albuterol Sulfate 2.5 mg 08/13/24 11:08 08/13/24 11:09 Albuterol Sulfate (0.083%) 2.5 Mg/3 Ml Vial.Neb INHALE 08/13/24 11:09 2.5 mg ONCE ONE Administration Medical Decision Making Medical Decision Making [facility] Narrative: Patient is here with 2 complaints one is shortness of breath wheezing of the other one is headache will check blood work administer bronchodilator and analgesia Differential Diagnosis Differential Diagnoses: The differential diagnosis associated with the presentation includes Asthma exacerbation/migraine headache/post spinal headache Admission/Observation Consideration of admission/observation: Escalation of care including admission/observation considered Lab Data [facility] Lab Attestation statement: I reviewed the patient's lab results. 08/13/24 10:34 08/13/24 09:55 Labs: Lab Results 08/13/24 08/13/24 08/13/24 Range/Units 09:52 09:55 10:34 WBC 7.7 (4.8-10.8) X10*3/uL RBC 5.29 (4.20-5.50) X10*6/uL Hgb 10.2 L (12.0-16.0) g/dl Hct 33.5 L (37.0-47.0) % MCV 63.3 L (80.0-98.0) fL MCH 19.3 L (27.0-33.0) pg MCHC 30.4 L (31.0-35.0) g/dl RDW 21.2 H (11.0-16.0) % Plt Count 261 (160-400) X10*3/uL MPV Not Reportable Immature Gran % (Auto) 0.5 H (0.0-0.4) % Neut % (Auto) 62.2 (45-73) % Lymph % (Auto) 25.2 (20-40) % [place] % (Auto) 11.2 H (2-11) % Eos % (Auto) 0.5 (0-4) % Baso % (Auto) 0.4 (0-2) % Lymph # (Auto) 1.9 (1.2-4.9) X10*3/uL [place] # (Auto) 0.9 (0.1-1.2) X10*3/uL Eos # (Auto) 0.0 (0.0-0.4) X10*3/uL Baso # (Auto) 0.0 (0.0-0.2) X10*3/uL Abs Immat Gran (auto) 0.04 H (0.00-0.03) X10*3/uL Absolute Neuts (auto) 4.8 (2.0-8.3) x10*3/uL Absolute Nucleated RBC 0.000 (0.0-0.012) X10*3/uL Nucleated RBC % (auto) 0.0 (0.0-0.2) /100WBC Sodium 137 (135-145) mmol/L Potassium 3.9 (3.3-5.1) mmol/L Chloride 108 (96-108) mmol/L Carbon Dioxide 21 L (22-29) mmol/L Anion Gap 12 (12-20) BUN 10 (9-16) mg/dL Creatinine 0.74 (0.5-1.4) mg/dL Estim Creat Clear Calc 145.8 Estimated GFR > 60 Random Glucose 138 H (60-115) mg/dL Calcium 9.1 (8.4-10.2) mg/dL Total Bilirubin 0.5 (0.0-1.0) mg/dL AST 18 (5-31) U/L ALT 7 (0-31) U/L Alkaline Phosphatase 74 (39-117) U/L Total Protein 7.6 (6.5-8.0) g/dL Albumin 3.9 (3.5-5.0) g/dL Urine Color Urine Appearance Urine pH (5.0-9.0) Ur Specific Magnolia (1.005-1.025) Urine Protein (Neg-Trace) mg/dL Urine Glucose (UA) (Negative) mg/dL Urine Ketones (Negative) mg/dL Urine Blood (Negative) Urine Nitrite (Negative) Ur Leukocyte Esterase (Negative) Urine RBC (0-2) /HPF Urine WBC (0-5) /HPF Ur Squamous Epith Cells (0-2) /HPF Urine Bacteria (None Seen) Hyaline Casts (0-2) /LPF Influenza Type A (PCR) NEGATIVE (Negative) Influenza Type B (PCR) NEGATIVE (Negative) RSV RNA Qual (PCR) NEGATIVE (Negative) SARS-CoV-2 RNA (RT-PCR) NEGATIVE (Negative) 08/13/24 Range/Units 11:19 WBC (4.8-10.8) X10*3/uL RBC (4.20-5.50) X10*6/uL Hgb (12.0-16.0) g/dl Hct (37.0-47.0) % MCV (80.0-98.0) fL MCH (27.0-33.0) pg MCHC (31.0-35.0) g/dl RDW (11.0-16.0) % Plt Count (160-400) X10*3/uL MPV Immature Gran % (Auto) (0.0-0.4) % Neut % (Auto) (45-73) % Lymph % (Auto) (20-40) % [place] % (Auto) (2-11) % Eos % (Auto) (0-4) % Baso % (Auto) (0-2) % Lymph # (Auto) (1.2-4.9) X10*3/uL [place] # (Auto) (0.1-1.2) X10*3/uL Eos # (Auto) (0.0-0.4) X10*3/uL Baso # (Auto) (0.0-0.2) X10*3/uL Abs Immat Gran (auto) (0.00-0.03) X10*3/uL Absolute Neuts (auto) (2.0-8.3) x10*3/uL Absolute Nucleated RBC (0.0-0.012) X10*3/uL Nucleated RBC % (auto) (0.0-0.2) /100WBC Sodium (135-145) mmol/L Potassium (3.3-5.1) mmol/L Chloride (96-108) mmol/L Carbon Dioxide (22-29) mmol/L Anion Gap (12-20) BUN (9-16) mg/dL Creatinine (0.5-1.4) mg/dL Estim Creat Clear Calc Estimated GFR Random Glucose (60-115) mg/dL Calcium (8.4-10.2) mg/dL Total Bilirubin (0.0-1.0) mg/dL AST (5-31) U/L ALT (0-31) U/L Alkaline Phosphatase (39-117) U/L Total Protein (6.5-8.0) g/dL Albumin (3.5-5.0) g/dL Urine Color Yellow Urine Appearance Clear Urine pH 6.0 (5.0-9.0) Ur Specific [place]olia 1.025 (1.005-1.025) Urine Protein Negative (Neg-Trace) mg/dL Urine Glucose (UA) Negative (Negative) mg/dL Urine Ketones Negative (Negative) mg/dL Urine Blood Negative (Negative) Urine Nitrite Negative (Negative) Ur Leukocyte Esterase Negative (Negative) Urine RBC 0-2 (0-2) /HPF Urine WBC 0-5 (0-5) /HPF Ur Squamous Epith Cells 0-2 (0-2) /HPF Urine Bacteria Trace (None Seen) Hyaline Casts 0-2 (0-2) /LPF Influenza Type A (PCR) (Negative) Influenza Type B (PCR) (Negative) RSV RNA Qual (PCR) (Negative) SARS-CoV-2 RNA (RT-PCR) (Negative) Discharge Plan Discharge Clinical Impression: Asthma exacerbation Qualifiers: Asthma severity: mild Asthma persistence: unspecified Qualified Code(s): J45.901 - Unspecified asthma with (acute) exacerbation Headache Qualifiers: Headache type: unspecified Headache chronicity pattern: chronic headache Intractability: not intractable Qualified Code(s): R51.9 - Headache, unspecified Patient Disposition: Home, Self-Care Instructions: Asthma (DC), General Headache (ED) Additional Instructions: Follow-up with your primary care physician also you should call your neurologist Dr. Perez for follow-up for your headache Prescriptions: New albuterol sulfate 90 mcg/actuation HFA aerosol inhaler 1 inh inhalation QID MDD wheezing PRN (Reason: shortness of breath or wheezing) Qty: 6.7 0RF bicsurzsei-jsfvxqdrgyuuk-menc [Fioricet] 50-300-40 mg capsule 1 cap PO Q8H PRN (Reason: headache) Qty: 10 0RF prednisone 20 mg tablet 60 mg PO DAILY Qty: 12 0RF Referrals: Elaina Pan BED AND BREAKFAST INNKEEPER [Primary Care Provider] - 2 days Print Language: Romanian
[2024-08-13 10:37] LABS: Influenza A PCR NEGATIVE (Negative); Influenza B PCR NEGATIVE (Negative); Resp Syncy Virus RNA Qual PCR NEGATIVE (Negative); SARS COV2 PCR INHOUSE NEGATIVE (Negative)
[2024-08-13 10:38] LABS: MANUAL DIFF FLAG NO
[2024-08-13 10:42] LABS: Basophils Percent Auto 0.4 % (0-2); Eosinophils Percent Auto 0.5 % (0-4); Hematocrit 33.5 % (37.0-47.0); Hemoglobin 10.2 g/dl (12.0-16.0); Imm Gran Abs Auto 0.04 X10*3/uL (0.00-0.03); Imm Gran Pct Auto 0.5 % (0.0-0.4); Lymphocytes Absolute Auto 1.9 X10*3/uL (1.2-4.9); Lymphocytes Percent Auto 25.2 % (20-40); Mean Corpuscular HGB Conc 30.4 g/dl (31.0-35.0); Mean Corpuscular Hemoglobin 19.3 pg (27.0-33.0); Mean Corpuscular Volume 63.3 fL (80.0-98.0); Monocytes Absolute Auto 0.9 X10*3/uL (0.1-1.2); Monocytes Percent Auto 11.2 % (2-11); Neutrophils Absolute Auto 4.8 x10*3/uL (2.0-8.3); Neutrophils Percent Auto 62.2 % (45-73); Platelet Count 261 X10*3/uL (160-400); Red Blood Count 5.29 X10*6/uL (4.20-5.50); Red Cell Distribution Width 21.2 % (11.0-16.0); White Blood Count 7.7 X10*3/uL (4.8-10.8)
--- NOTE | 2024-08-13 11:05 | PC.NURSE ---
Report received from SYDNEY Blake. Taken over care at this time.
[2024-08-13 11:09] VITALS: PULSE 81; RESP 18; O2SAT 98
[2024-08-13] MEDS: Albuterol Sulfate (0.083%) 2.5 MG/3 ML VIAL.NEB INHALE (11:09)
[2024-08-13] MEDS: Butalb/Acetamin/Caff 50/325/40 TABLET 1 TAB PO (11:29)
[2024-08-13 11:33] LABS: Bacteria Urine Trace (None Seen); Hyaline Casts Urine 0-2 /LPF (0-2); RBC Urine 0-2 /HPF (0-2); Squamous Epithelial Cell Urine 0-2 /HPF (0-2); WBC Urine 0-5 /HPF (0-5)
[2024-08-13 11:34] VITALS: O2SAT 93
[2024-08-13 11:37] LABS: Appearance Urine Clear; Color Urine Yellow; Glucose Urine UA Negative (Negative); Leukocyte Esterase Urine Negative (Negative); Nitrite Urine Negative (Negative); Specific Gravity - Urine 1.025 (1.005-1.025); Urine Blood Negative (Negative); Urine Ketones Negative (Negative); Urine Protein Negative (Neg-Trace)
[2024-08-13 12:00] VITALS: BP 131/76; PULSE 101; RESP 19; TEMP 36.8; O2SAT 98
--- OUTSIDE RECORDS SUMMARY | 2024-08-13 13:01 | XMS_ITS | Encounter Summary ---
Author Organization [employer] Address [address] [facility] [address] [place] [address] Care Team Providers Care Adjunct Instructor In Economics Name Role Phone Elaina Pan JHOANA Primary Care Provider [phone] Encounter Details Date Type Department Care Team (Late st Contact Info) Description 08/13/2024 Orders Only GENERIC EXTERNAL DATA DEPARTMENT Provider, Generic External Data Social History Tobacco Use Types Packs/Day Years [...] Care Team (Late st Contact Info) Description 09/11/2024 3:00 PM EDT Office Visit [facility] [address] [place] [address] Marjorie Patel, DDS [address] [place] [address] 10/23/2024 9:15 AM EDT Office Visit [facility] [address] [place] [address] Elaina Pan, ANP [address] [place] [address] 11/10/2024 8:00 AM EDT Office Visit [facility] [address] [place] [address] Tanya Early documented as of this encounter Procedures Procedure Name Priority Date/Time Associated Diagnosis Comments URINALYSIS, COMPLETE, WITH REFLEX TO CULTURE Routine 08/13/2024 11:19 AM EDT CBC WITH AUTO DIFFERENTIAL Routine 08/13/2024 10:34 AM EDT COMPREHENSIVE METABOLIC PANEL Routine 08/13/2024 9:55 AM EDT SARS COV2/INFLUENZA A/B AND RSV RNA QL NAAT Routine 08/13/2024 9:52 AM EDT documented in this encounter Results * Urinalysis, Complete, with Reflex to Culture (08/13/2024 11:19 AM EDT) Color Urine Yellow [facility] Appearance Urine Clear [facility] PH 6.0 5.0 - 9.0 [facility] Glucose Urine UA Negative Negative mg/dL [facility] Urine Blood Negative Negative [facility] Specific [place] - Urine 1.025 1.005 - 1.025 [facility] Urine Protein Negative Neg-Trace mg/dL [facility] Urine Ketones Negative Negative mg/dL [facility] Nitrite Urine Negative Negative [facility] Leukocyte Esterase Urine Negative Negative [facility] RBC Urine 0-2 0 - 2 /HPF [facility] Urine WBC 0-5 0 - 5 /HPF [facility] Urine Squamous Epithelial Cell 0-2 0 - 2 /HPF [facility] Urine Bacteria Trace None Seen [facility] Hyaline Casts, Urine 0-2 0 - 2 /LPF [facility] 08/13/2024 11:1 9 AM EDT 08/13/2024 11:26 AM EDT Narrative [facility] - 08/13/2024 11:37 AM EDT [id number], Clean Catch us Generic External Data Provider LAB URINE ORDERAB LES Final Result [facility] [address] [place] [phone] * (ABNORMAL) CBC auto differential (08/13/2024 10:34 AM EDT) White Blood Count 7.7 4.8 - 10.8 X10*3/uL [facility] Red Blood Count 5.29 4.20 - 5.50 X10*6/uL [facility] Hemoglobin 10.2(L) 12.0 - 16.0 g/dl [facility] Hematocrit 33.5(L) 37.0 - 47.0 % [facility] Mean Corpuscular Volume 63.3(L) 80.0 - 98.0 fL [facility] Mean Corpuscular Hemoglobin 19.3(L) 27.0 - 33.0 pg [facility] Mean Corpuscular HGB Conc 30.4(L) 31.0 - 35.0 g/dl [facility] Red Cell Distribution Width 21.2(H) 11.0 - 16.0 % [facility] Platelet Count 261 160 - 400 X10*3/uL [facility] Neutrophils Percent Auto 62.2 45 - 73 % [facility] Imm Gran Pct Auto 0.5(H) 0.0 - 0.4 % [facility] Lymphocytes Percent Auto 25.2 20 - 40 % [facility] Monocytes Percent Auto 11.2(H) 2 - 11 % [facility] Eosinophils Percent Auto 0.5 0 - 4 % [facility] Basophils Percent Auto 0.4 0 - 2 % [facility] NRBC Pct Auto 0.0 0.0 - 0.2 /100WBC [facility] Neutrophils Absolute Auto 4.8 2.0 - 8.3 x10*3/uL [facility] Imm Gran Abs Auto 0.04(H) 0.00 - 0.03 X10*3/uL [facility] Lymphocytes Absolute Auto 1.9 1.2 - 4.9 X10*3/uL [facility] Monocytes Absolute Auto 0.9 0.1 - 1.2 X10*3/uL [facility] Eosinophils Absolute Auto 0.0 0.0 - 0.4 X10*3/uL [facility] Basophils Absolute Auto 0.0 0.0 - 0.2 X10*3/uL [facility] NRBC Abs Auto 0.000 0.0 - 0.012 X10*3/uL [facility] 08/13/2024 10:3 4 AM EDT 08/13/2024 10:37 AM EDT us Generic External Data Provider LAB BLOOD ORDERAB LES Final Result [facility] [address] [place] [phone] * (ABNORMAL) Comprehensive Metabolic Panel (08/13/2024 9:55 AM EDT) Sodium 137 135 - 145 mmol/L [facility] Potassium 3.9 3.3 - 5.1 mmol/L [facility] Chloride 108 96 - 108 mmol/L [facility] Carbon Dioxide 21(L) 22 - 29 mmol/L [facility] Anion Gap 12 12 - 20 [facility] Urea Nitrogen (BUN) 10 9 - 16 mg/dL [facility] Creatinine, Serum 0.74 0.5 - 1.4 mg/dL [facility] Creatinine Clr Calc Pharmacy 145.8 [facility] Comment:Provided height and weight: 152.4 cm,125.4 kg.eGFR (calculated from the MDRD study equation) and eCrCl(calculated from the Cockcroft-Gault equation) are based ondifferent parameters and may not yield comparable results.If eCrCl result is absurd, please check patient'sheight/weight. Estimated Glomerular Filt Rate >60 [facility] Comment:Chronic Kidney Disea se: Estimated GFR < 60 mL/min/[id number] Kidney Disease: Estimated GFR < 15 mL/min/1.73m2 Glucose 138(H) 60 - 115 mg/dL [facility] Calcium 9.1 8.4 - 10.2 mg/dL [facility] Bilirubin, Total 0.5 0.0 - 1.0 mg/dL [facility] Aspartate Amino Transferase 18 5 - 31 U/L [facility] Alanine Aminotransferase 7 0 - 31 U/L [facility] Total Protein 7.6 6.5 - 8.0 g/dL [facility] Albumin Level 3.9 3.5 - 5.0 g/dL [facility] Alkaline Phosphatase 74 39 - 117 U/L [facility] 08/13/2024 9:55 AM EDT 08/13/2024 9:57 AM EDT us Generic External Data Provider LAB BLOOD ORDERAB LES Final Result Performing Organization Address [facility] Co de Phone Number [facility] [address] [place] [phone] [phone] * SARS-CoV-2 RNA, Influenza A/B, and RSV RNA, Ql NAAT (08/13/2024 9:52 AM EDT) Influenza A PCR NEGATIVE Negative [facility] Influenza B PCR NEGATIVE Negative [facility] Resp Syncy Virus RNA Qual PCR NEGATIVE Negative [facility] SARS COV2 PCR NEGATIVE Negative [facility] Comment:All test results mus t be correlated with clinical findings.Negative results do not preclude SARS-CoV2, influenza Avirus, influenza B virus and/or RSV infectionand should not be used as the sole basis for treatment orother patient management decisions. Negative results must becombined with clinical observations, patient history, andepidemiological information.This test has not been evaluated for monitoring treatment ofinfection.This test has been authorized by the FDA under an EmergencyUse Authorization (EUA) for use by authorized laboratories.Testing performed on the [employer] GeneXpert utilizingreal-time RT-PCR.All SARS CoV2 and positive influenza A/B results arereported to [facility]. 08/13/2024 9:52 AM EDT 08/13/2024 9:57 AM EDT Generic External Data Provider LAB MICROBIOLOGY - GENERAL ORDERABLES Final Result Performing Organization Address City/[facility]/ZIP Co de Phone Number [facility] [address] [place] [phone] documented in this encounter Visit Diagnoses Not on filedocumented in this encounter Additional Health Concerns Assessment Noted Time PHQ-9 Depression Total Score: 5 08/29/19 24 11:06 AM EDT documented as of this encounter Care Teams Adjunct Instructor In Economics Relationship Specialty Start Date End Date Elaina Pan ANP [address] [place] [phone] PCP - General Family Medicine 02/20/23 Vero Zamora Sulphate TesterPrecision Optical Goods Worker 05/29/24 documented as of this encounter
--- OUTSIDE RECORDS SUMMARY | 2024-08-13 13:02 | XMS_ITS | Encounter Summary ---
Author Organization [employer] Address [address] [facility] [address] [place] [address] Care Team Providers Care Attendant Sales Name Role Phone Elaina Pan Primary Care Provider [phone] Reason for Visit * Reason Onset Date Comments Prior Auth Prescription 08/08/2024 Zepbound Encounter Details Date Type Department Care Team ([facility] st Contact Info) Description 08/08/2024 Telephone [facility] [address] [place] [address] Elaina Pan ANP [address] [place] [address] Prior Auth Prescription (Zepbound) Social History Tobacco Use Types Packs/Day Years [...] encounter Miscellaneous Notes * Telephone Encounter - Trina Polanco - 08/13/2024 10:14 AM EDT PA Approval for Zepbound received and scanned into media. * Telephone Encounter - Trina Polanco - 08/12/2024 10:22 AM EDT PA for Zepbound signed and faxed to [employer]. Confirmation received and sent to scan. If patient calls to check status on above, please advise them to contact Pharmacy . * Telephone Encounter - Trina Polanco - 08/08/2024 10:05 AM EDT [facility] on [facility] desk for review and signature. * Telephone Encounter - Trina Polanco - 08/08/2024 10:05 AM EDT ----- Message from Elaina Pan sent at 08/07/2024 9:50 AM EDT ----- Please re-submit PA for zepbound documented in this encounter Plan of Treatment Upcoming Encounters Date Type Department Care Team (Late st Contact Info) Description 09/11/2024 3:00 PM EDT Office Visit [facility] [address] [place] [address] Marjorie Patel DDS [address] [place] [address] 10/23/2024 9:15 AM EDT Office Visit [facility] [address] [place] [phone] Elaina Pan ANP [address] [place] [phone] 11/10/2024 8:00 AM EDT Office Visit [facility] [address] [place] [address] Tanya Early documented as of this encounter Visit Diagnoses Not on filedocumented in this encounter Additional Health Concerns Assessment Noted Time PHQ-9 Depression Total Score: 5 08/29/19 24 11:06 AM EDT documented as of this encounter Care Teams Attendant Sales Relationship Specialty Start Date End Date Elaina Pan ANP [address] [place] [phone] PCP - General Family Medicine 02/20/23 Vero Zamora Open Claims RepresentativeAnesthesiology Teacher 05/29/24 documented as of this encounter
--- OUTSIDE RECORDS SUMMARY | 2024-08-13 13:02 | XMS_ITS | Clinical Summary ---
Author Organization [employer] Address [address] [facility] [address] [place] [address] Care Team Providers Care Environmental Planning Engineer Name Role Phone Sanya Ludwig JHOANA Primary Care Provider [phone] Allergies Active Allergy Reactions Criticality Noted Date Comments Vancomycin 04/14/2024 Other Reaction(s): Flushing felt hot and itchy all over felt hot and itchy all over Medications * This document contains information received from the source organization and may not represent a complete record from that organization. Tirzepatide-Weigh t Management (Zepbound) 2.5 MG/0.5ML solution auto-injectorIndi cations:Class 3 severe obesity with serious comorbidity and body mass index (BMI) of 45.0 to 49.9 in adult, unspecified obesity type ([facility]) Inject 0.5 mL (2.5 mg) under the skin 1 (one) time per week. 2 mL 025 Active albuterol 108 (90 Base) MCG/ACT inhalerIndication s:Mild intermittent asthma in adult without complication Inhale 2 puffs every 6 (six) hours if needed for wheezing or shortness of breath. 18 g 1 025 2025 Active Blood Pressure kitIndications:El evated blood pressure reading without diagnosis of hypertension 1 each 2 times daily. 1 kit 025 2025 Active Tirzepatide-Weigh t Management (Zepbound) 2.5 MG/0.5ML solution auto-injectorIndi cations:Class 3 severe obesity with serious comorbidity and body mass index (BMI) of 45.0 to 49.9 in adult, unspecified obesity type ([facility]) Inject 0.5 mL (2.5 mg) under the skin 1 (one) time per week. 2 mL 025 2024 Discontinued(R eorder (will not trigger notification to Pharmacy)) olopatadine (Pataday) 0.2 % ophthalmic solutionIndicatio ns:Other chronic allergic conjunctivitis of both eyes Administer 1 drop into both eyes Once per day. 2.5 mL 5 025 2024 Discontinued(T herapy completed) Hospital, Clinic, or Other Facility Administered Medication Ordered Dose Route Frequency Start Date End Date Status lidocaine 2 % gelIndications:Encounter for insertion of intrauterine contraceptive device (IUD) TOP As needed 05/28/2024 Active Active Problems Problem Noted Date Diagnosed Date Pseudotumor cerebri 08/07/2024 Overview (08/07/2024): following w/ ophth and neurology, has had LP Abnormal glucose tolerance test 06/10/2024 Acute pelvic inflammatory disease 06/10/2024 Cervical cancer screening 06/10/2024 Gonorrhea 06/10/2024 History of appendectomy 06/10/2024 History of 06/10/2024 History of inadequate care 06/10/2024 Intractable pain 06/10/2024 Left arm cellulitis 06/10/2024 Microcytic hypochromic anemia 06/10/2024 PICC line infection 06/10/2024 care following delivery 05/15 Uses control 06/10/2024 Hip pain, left 06/10/2024 Obesity, morbid, BMI 40.0-49.9 06/10/2024 Bronchitis 06/10/2024 Chest pain of unknown etiology 04/03/2024 Health care maintenance 08/30/2023 Assessment & Plan (08/30/2023 3:08 PM EDT): -Annual exam done 08/2023 -Contraception : nexplanon -pap smear never-pt will check w her IN SCHOOL SUSPENSION COORDINATOR at [facility] to have test done ,otherwise can have [...] FOB if + will need GI referral Anxiety 10/19/2022 History of depression 10/19/2022 Assessment [...] diet and exercise,discussed healthy life style -discussed bottle blowing machine tender referral -referred today -will need to discuss w PCP at next apt about options as GLP1 and possible bariatric surgery referral if pt is interested Resolved Problems Problem Noted Date Diagnosed Date Resolved Date Anemia in 06/10/2024 08/08/19 25 06/10/2024 08/07/2024 Obesity in 06/10/2024 025 Chest wall discomfort 04/03/20242023 Assessment & Plan (04/03/2024 3:28 PM EST): PICC line placed on 04/01/24. Post placement CXR without read in [facility] system. Since been having chest discomfort radiating [...] and will self transport to the ER. Gestational HTN 04/25/2023 04/25/2023 08/07/2024 Pharyngitis 10/19/2022 05/09/2024 URI (upper respiratory infection) 10/19/2022 05/09/2024 Encounters Date Type Department Care Team Description 08/13/2024 Orders Only GENERIC EXTERNAL DATA DEPARTMENT Provider, Generic External Data 08/08/2024 Telephone [facility] [address] [place] [phone] Sanya Ludwig ANP Prior Auth Prescription (Zepbound) 08/07/2024 9:15 AM EDT Office Visit [facility] [address] [place] [phone] Sanya Ludwig ANP Pseudotumor cerebri (Primary Dx); Class 3 severe obesity with serious comorbidity and body mass index (BMI) of 50.0 to 59.9 in adult, unspecified obesity type (CMS/HCC); Iron deficiency anemia due to chronic blood loss; Dietary counseling; Exercise counseling; Elevated blood pressure reading without diagnosis of hypertension; Class 3 severe obesity with serious comorbidity and body mass index (BMI) of 45.0 to 49.9 in adult, unspecified obesity type (CMS/HCC); Mild intermittent asthma in adult without complication 08/07/2024 Travel 08/06/2024 9:30 AM EDT Office Visit [facility] [address] [place] [address] Marjorie Patel, DDS Dental caries (Primary Dx) 08/01/2024 Orders Only GENERIC EXTERNAL DATA DEPARTMENT Provider, Generic External Data 07/28/2024 Patient Outreach [facility] [address] [place] [address] Sanay Ludwig ANP Care Coordination (Outreach) 07/28/2024 Telephone [facility] [address] [place] [address] Sanya Ludwig ANP Care Coordination ([facility] program graduation- LVM) 07/25/2024 Population Health Risk Score Community [facility] (C3) [address] [phone] Provider, Population Health Generic 07/25/2024 Telephone [facility] [address] [place] [address] Shante Calles, OD 07/15/2024 Patient Outreach [facility] [address] [place] [address] Sanya Ludwig ANP Care Coordination (Outreach) 07/10/2024 10:30 AM EST Office Visit [facility] [address] [place] [address] Marjorie Patel DDS Encounter for dental examination (Primary Dx); Dental caries; Dental calculus; Dental plaque; Diastema 07/07/[address] [address] Danny Snider, [facility] No Show 07/02/2024 10:45 AM EST Office Visit [facility] [address] Myopia, bilateral (Primary Dx) 07/02/2024 Travel 06/17/2024 Telephone [facility] [address] [place] [phone] Shante Calles, OD 06/13/2024 Patient Outreach [facility] [address] [place] [address] Sanya Ludwig ANP Care Coordination (Outreach) 06/10/2024 1:00 PM EST Office Visit [facility] [address] [place] [address] Marjorie Patel DDS Dental caries (Primary Dx) 05/29/2024 Telephone [facility] [address] [place] [phone] Sanya Ludwig ANP Care Coordination (ICP care plan) 05/29/2024 Patient Outreach [facility] [address] [place] [address] Sanya Ludwig ANP Care Coordination (Outreach) 05/28/2024 11:00 AM EST Procedure Visit [facility] [address] [place] [address] Danny Snider CNM Encounter for insertion of intrauterine contraceptive device (IUD) (Primary Dx); Nexplanon removal; Routine cervical smear; Screening examination for venereal disease 05/28/2024 Travel 05/27/2024 9:00 AM EST Office Visit [facility] [address] [place] [address] AnthonykaShante, OD Optic papillitis of both eyes (Primary Dx); Other chronic allergic conjunctivitis of both eyes; Myopia, bilateral 05/27/2024 Travel 05/22/2024 Telephone [facility] [address] [place] [address] Jess Ambrocio RNpreschool program director 05/19/2024 Patient Outreach [facility] [address] [place] [address] Sanya Ludwig ANP Care Coordination (Outreach) 05/15/2024 Telephone [facility] [address] [place] [address] Sanya Ludwig ANP Appointment Request from Last 3 Months Immunizations Name Administration [...] Sign Reading Time Taken Comments Blood Pressure 130/82 08/07/2024 9:48 AM EDT Pulse 83 08/07/2024 9:11 AM EDT Temperature 33.3 ??C (92 ??F) 08/07/2024 9:11 AM EDT Respiratory Rate 20 08/07/2024 9:11 AM EDT Oxygen Saturation 98% 08/07/2024 9:11 AM EDT Inhaled Oxygen Concentration - - Weight 127 kg (280 lb 9.6 oz) 08/07/2024 9:11 AM EDT Height 152.4 cm (5') 08/07/2024 9:11 AM EDT Body Mass Index 54.8 08/07/2024 9:11 AM EDT Plan of Treatment Upcoming Encounters Date Type Department Care Team (Late st Contact Info) Description 09/11/2024 3:00 PM EDT Office Visit [facility] [address] [place] [address] Marjorie Patel DDS [address] [place] [address] 10/23/2024 9:15 AM EDT Office Visit [facility] [address] [place] [address] Sanya Ludwig ANP [address] [place] [address] 11/10/2024 8:00 AM EDT Office Visit [facility] [address] [place] [address] Tanya Early Health Maintenance Due Date Last Done Comments Alcohol/Substance Use Screening 2014 Dental Prophylaxis 01/20/2016 07/19/2015, 03/13/2013 Pneumococcal Vaccine: Pediatrics (0 to 5 Years) and At-Risk Patients (6 to 49) Years) (1 of 2 - PCV) 2021 2002, 2002, 2002 Depression Screening 08/28/2024 08/29/2023, 08/29/19 Dental Oral Exam 01/08/2025 07/10/2024, 11/2015, 03/13/2013 SDOH Screening 04/15/2025 04/15/2024 Chlamydia and Gonorrhea Screening 05/28/2025 05/28/2024, 12/18/2023, 09/10/2023 Family Planning (PISQ) 05/28/2025 05/28/2024 Pap Smear 05/28/2025 05/28/2024 Dental X-Ray: Bitewings 07/11/2025 07/10/19 25, 07/19/2015, 03/13/2013, Additional history exists Tobacco Screening 08/07/2025 08/07/2024 Dental X-Ray: Full Mouth 07/11/2027 07/10/2024, 05/15 [...] Hepatitis B Vaccines Completed 2002, 2002, 2002 IPV Vaccines Completed 12/27/2006, 01/12, 2002, Additional [...] QL NAAT Routine 08/13/2024 9:52 AM EDT CASE PRESENTATION, DETAILED AND EXTENSIVE TREATMENT PLANNING Routine 08/06/2024 9:30 AM EDT Dental caries 19 BOSSMAN RESIN-BASED COMPOSITE - 2 SURF, POSTERIOR Routine 08/06/2024 9:30 AM EDT Dental caries CSF CELL COUNT WITH DIFFERENTIAL Routine 08/01/2024 11:23 AM EDT TOTAL PROTEIN CSF Routine 08/01/2024 11: 23 AM EDT GLUCOSE, CSF Routine 08/01/2024 11:23 AM EDT GRAM STAIN Routine 08/01/2024 11:23 AM EDT FL GUIDED LUMBAR PUNCTURE LP Routine 08/01/2024 11:01 AM EDT CBC WITH AUTO DIFFERENTIAL Routine 08/01/2024 10:21 AM EDT PROTHROMBIN TIME-INR Routine 08/01/2024 10:21 AM EDT HCG, QL, URINE Routine 08/01/2024 10:00 AM EDT CASE PRESENTATION, DETAILED AND EXTENSIVE TREATMENT PLANNING [...] 05/28/2024 3:41 PM EST Routine cervical smear IN SCHOOL SUSPENSION COORDINATOR INSERTION/REMOVAL OF CONTRACEPTIVE CAPSULE Routine 05/28/2024 12:00 PM EST Nexplanon removal POCT , URINE Routine 05/28/2024 11:43 AM EST Encounter for insertion of intrauterine contraceptive device (IUD) OCT, OPTIC NERVE - OU - BOTH EYES Routine 05/27/2024 12:23 PM EST Optic papillitis of both eyes HEPATITIS C AB W/REFL TO HCV RNA, [...] Recently Relevant to Health Maintenance Results * Urinalysis, Complete, with Reflex to Culture (08/13/2024 11:19 AM EDT) Color Urine Yellow [facility] Appearance Urine Clear [facility] PH 6.0 5.0 - 9.0 [facility] Glucose Urine UA Negative Negative mg/dL [facility] Urine Blood Negative Negative [facility] Specific [place] - Urine 1.025 1.005 - 1.025 [facility] Urine Protein Negative Neg-Trace mg/dL [facility] Urine Ketones Negative Negative mg/dL [facility] Nitrite Urine Negative Negative [facility] Leukocyte Esterase Urine Negative Negative [facility] RBC Urine 0-2 0 - 2 /HPF [facility] Urine WBC 0-5 0 - 5 /HPF [facility] Urine Squamous Epithelial Cell 0-2 0 - 2 /HPF [facility] Urine Bacteria Trace None Seen [facility] Hyaline Casts, Urine 0-2 0 - 2 /LPF [facility] 08/13/2024 11:1 9 AM EDT 08/13/2024 11:26 AM EDT Narrative [facility] - 08/13/2024 11:37 AM EDT [id number], Clean Catch us Generic External Data Provider LAB URINE ORDERAB LES Final Result [facility] [address], [place] [phone] * (ABNORMAL) CBC auto differential (08/13/2024 10:34 AM EDT) Only the most recent of2 resultswithin the time period is included. White Blood Count 7.7 4.8 - 10.8 X10*3/uL [facility] Red Blood Count 5.29 4.20 - 5.50 X10*6/uL [facility] Hemoglobin 10.2(L) 12.0 - 16.0 g/dl [facility] Hematocrit 33.5(L) 37.0 - 47.0 % [facility] Mean Corpuscular Volume 63.3(L) 80.0 - 98.0 fL [facility] Mean Corpuscular Hemoglobin 19.3(L) 27.0 - 33.0 pg [facility] Mean Corpuscular HGB Conc 30.4(L) 31.0 - 35.0 g/dl [facility] Red Cell Distribution Width 21.2(H) 11.0 - 16.0 % [facility] Platelet Count 261 160 - 400 X10*3/uL [facility] Neutrophils Percent Auto 62.2 45 - 73 % [facility] Imm Gran Pct Auto 0.5(H) 0.0 - 0.4 % [facility] Lymphocytes Percent Auto 25.2 20 - 40 % [facility] Monocytes Percent Auto 11.2(H) 2 - 11 % [facility] Eosinophils Percent Auto 0.5 0 - 4 % [facility] Basophils Percent Auto 0.4 0 - 2 % [facility] NRBC Pct Auto 0.0 0.0 - 0.2 /100WBC [facility] Neutrophils Absolute Auto 4.8 2.0 - 8.3 x10*3/uL [facility] Imm Gran Abs Auto 0.04(H) 0.00 - 0.03 X10*3/uL [facility] Lymphocytes Absolute Auto 1.9 1.2 - 4.9 X10*3/uL [facility] Monocytes Absolute Auto 0.9 0.1 - 1.2 X10*3/uL [facility] Eosinophils Absolute Auto 0.0 0.0 - 0.4 X10*3/uL [facility] Basophils Absolute Auto 0.0 0.0 - 0.2 X10*3/uL [facility] NRBC Abs Auto 0.000 0.0 - 0.012 X10*3/uL [facility] 08/13/2024 10:3 4 AM EDT 08/13/2024 10:37 AM EDT us Generic External Data Provider LAB BLOOD ORDERAB LES Final Result [facility] [address] [place] [phone] * (ABNORMAL) Comprehensive Metabolic Panel (08/13/2024 9:55 AM EDT) Sodium 137 135 - 145 mmol/L [facility] Potassium 3.9 3.3 - 5.1 mmol/L [facility] Chloride 108 96 - 108 mmol/L [facility] Carbon Dioxide 21(L) 22 - 29 mmol/L [facility] Anion Gap 12 12 - 20 [facility] Urea Nitrogen (BUN) 10 9 - 16 mg/dL [facility] Creatinine, Serum 0.74 0.5 - 1.4 mg/dL [facility] Creatinine Clr Calc Pharmacy 145.8 [facility] Comment:Provided height and weight: 152.4 cm,125.4 kg.eGFR (calculated from the MDRD study equation) and eCrCl(calculated from the Cockcroft-Gault equation) are based ondifferent parameters and may not yield comparable results.If eCrCl result is absurd, please check patient'sheight/weight. Estimated Glomerular Filt Rate >60 [facility] Comment:Chronic Kidney Disea se: Estimated GFR < 60 mL/min/[id number] Kidney Disease: Estimated GFR < 15 mL/min/1.73m2 Glucose 138(H) 60 - 115 mg/dL [facility] Calcium 9.1 8.4 - 10.2 mg/dL [facility] Bilirubin, Total 0.5 0.0 - 1.0 mg/dL [facility] Aspartate Amino Transferase 18 5 - 31 U/L [facility] Alanine Aminotransferase 7 0 - 31 U/L [facility] Total Protein 7.6 6.5 - 8.0 g/dL [facility] Albumin Level 3.9 3.5 - 5.0 g/dL [facility] Alkaline Phosphatase 74 39 - 117 U/L [facility] 08/13/2024 9:55 AM EDT 08/13/2024 9:57 AM EDT us Generic External Data Provider LAB BLOOD ORDERAB LES Final Result [facility] [address] [place] [phone] * SARS-CoV-2 RNA, Influenza A/B, and RSV RNA, Ql NAAT (08/13/2024 9:52 AM EDT) Influenza A PCR NEGATIVE Negative [facility] Influenza B PCR NEGATIVE Negative [facility] Resp Syncy Virus RNA Qual PCR NEGATIVE Negative [facility] SARS COV2 PCR NEGATIVE Negative [facility] Comment:All test results mus t be [...] use by authorized laboratories.Testing performed on the [employer] GeneXpert utilizingreal-time RT-PCR.All SARS CoV2 and positive influenza A/B results arereported to [facility]. 08/13/2024 9:52 AM EDT 08/13/2024 9:57 AM EDT Generic External Data Provider LAB MICROBIOLOGY - GENERAL ORDERABLES Final Result Performing Organization Address [facility] Co de Phone Number [facility] [address] [place] [phone] * Total Protein CSF (08/01/2024 11:23 AM EDT) Total Protein CSF 27.1 15 - 45 mg/dL [facility] 08/01/2024 11:2 3 AM EDT 08/01/2024 11:55 AM EDT Generic External Data Provider LAB BODY FLUIDS A ND STOOLS ORDERABLES Final Result Performing Organization Address [facility] de Phone Number [facility] [address] [place] [phone] * Gram stain (08/01/2024 11:23 AM EDT) 08/01/2024 11:2 3 AM EDT 08/01/2024 11:55 AM EDT Comment:CSF Narrative [facility] - 08/04/2024 8:37 AM EDT Gram stain results: No polys or organisms seen CSF Volume CSF volume mL CSF Volume 4.5 Appearance Appearance Appearance Clear CSF Culture No growth after 3 days. Specimen Source: Cerebrospinal Fluid Generic External Data Provider LAB MICROBIOLOGY - GENERAL ORDERABLES Final Result Performing Organization Address [facility] de Phone Number [facility] [address] [place] [phone] * CSF cell count with differential (08/01/2024 11:23 AM EDT) Appearance CSF CLEAR [facility] CSF Tube Number 4 [facility] CSF Volume 5.0 ML [facility] CSF Color COLORLESS [facility] CSF White Blood Cell 2 MM*3 [facility] Comment:Body Fluid WBC is a total nucleated cell count.When a differential is performed, the specimen isconcentrated by cytocentrifugation. This sometimes resultsin the number of cells in the differential being greaterthan the actual cell count performed on thenon-concentrated specimen. CSF Red Blood Cell 0 MM*3 [facility] Comment:The reference interv al(s) and other method performancespecifications are unavailable for this body fluid.Comparison of the result with concentration in the blood,serum, or plasma is recommended. LYMPHOCYTES %, CSF 100 % [facility] 08/01/2024 11:2 3 AM EDT 08/01/2024 11:55 AM EDT Generic External Data Provider LAB BODY FLUIDS A ND STOOLS ORDERABLES Final Result Performing Organization Address [facility] Co de Phone Number [facility] [address] [place] [phone] * Glucose, CSF (08/01/2024 11:23 AM EDT) CSF Appearance Clear, Colorless [facility] CSF Tube Number 1 [facility] Glucose CSF 58 mg/dL [facility] 08/01/2024 11:2 3 AM EDT 08/01/2024 11:55 AM EDT Generic External Data Provider LAB BODY FLUIDS A ND STOOLS ORDERABLES Final Result Performing Organization Address [facility] Co de Phone Number [facility] [address] [place] [phone] * FL guided lumbar puncture LP (08/01/2024 11:01 AM EDT) Anatomical Region Laterality Modality Abdomen Radiographic Lisa ging 08/01/2024 11:0 1 AM EDT Narrative 08/01/2024 4:08 PM EDT ? [facility] ?[address] ?[place] [address] ? Fluoroscopy Report ? Signed ? Patient: Jimenez,Jaymara ?MR#: [id number] ?? 06 ? : 2000 ?Acct:[id number] ? Age/Sex: 24 / F ?ADM Date: 08/01/24 ? Loc: HO.SSS ? Attending Dr: Jono Lee PA ? Ordering Physician: Shahbaz Perez MD ?? Date of Service: 08/01/24 ?? Procedure(s): FL guided lumbar puncture LP ?? Accession Number(s): [id number] ? cc: Shahbaz Perez MD; SANYA LUDWIG NP ? EXAMINATION: ?? XR LUMBAR PUNCTURE ? CLINICAL INFORMATION: ?? Idiopathic ??Intracraniel Hypertension ? COMPARISON: ?? None available. ? TECHNIQUE: ?? Following explaining fluoroscopy-guided lumbar puncture procedure, ?? benefits in risk, a written consent was obtained. Patient was placed ?? prone on fluoroscopy table and optimal site was selected under ?? fluoroscopy and marked on the skin at the L5-S1 disc level. 1% ?? lidocaine was administered (side. A 20-gauge long 6 Mauritanian needle was ?? inserted from the skin intrathecally at L5-S1 disc level. After ?? observing CSF return following removal of stylet patient was quickly ?? placed in left lateral decubitus view and opening CSF pressure was ?? obtained. ??Subsequently fluid was collected in 4 test tubes and sent to ?? lab. Postprocedure stylet was reintroduced and needle withdrawn. ?? Complete hemostasis achieved at puncture site. Sterile Band-Aid applied ?? postprocedure. Patient tolerated procedure extremely well. ? FINDINGS: ?? On is single prone images the vertebral heights, alignment and disc ?? heights are preserved. ? Opening CSF pressure measured 29 cm of water. ? Approximately 19.5 mL of clear CSF fluid was collected and sent to lab ?? as per referring physician's orders. ? FLUOROSCOPY TIME: ?? 41 seconds ? DOSE AREA PRODUCT: ?? 1390 uGy-m2 (microgray-meter squared) ? FL/FL guided lumbar puncture LP ?? IMPRESSION: ?? Successful fluoroscopy-guided lumbar vertebra performed without ?? immediate complications. ? Electronically signed by: ??Tone Goldstein MD ??08/01/2024 04:05 PM EDT RP ? Dictated By: ?Angelita,Tone Guerrier MD ? Signed By: ?<Electronically signed by Tone Goldstein MD in OV> ?08/01/24 1605 ? DD/ 1101 ? TD/TT: 08/01/24 1131 ? Billing Auditor: SOFIA ? Procedure Note Donotuseinterpreter, Image - 08/01/[address] [address] Fluoroscopy Report Signed Patient: Keke JimenezMR#: [id number] 06 : 2000Acct:[id number] Age/Sex: Date: 08/01/24 Loc: .[facility] Attending Dr: Jono NGUYEN Ordering Physician: Shahbaz Perez MD Date of Service: 08/01/24 Procedure(s): FL guided lumbar puncture LP Accession Number(s): [id number] cc: Shahbaz Perez MD; SANYA LUDWIG NP EXAMINATION: XR LUMBAR PUNCTURE CLINICAL INFORMATION: Idiopathic Intracraniel Hypertension COMPARISON: None available. TECHNIQUE: Following explaining fluoroscopy-guided lumbar puncture procedure, benefits in risk, a written consent was obtained. Patient was placed prone on fluoroscopy table and optimal site was selected under fluoroscopy and marked on the skin at the L5-S1 disc level. 1% lidocaine was administered (side. A 20-gauge long 6 Mauritanian needle was inserted from the skin intrathecally at L5-S1 disc level. After observing CSF return following removal of stylet patient was quickly placed in left lateral decubitus view and opening CSF pressure was obtained. Subsequently fluid was collected in 4 test tubes and sent to lab. Postprocedure stylet was reintroduced and needle withdrawn. Complete hemostasis achieved at puncture site. Sterile Band-Aid applied postprocedure. Patient tolerated procedure extremely well. FINDINGS: On is single prone images the vertebral heights, alignment and disc heights are preserved. Opening CSF pressure measured 29 cm of water. Approximately 19.5 mL of clear CSF fluid was collected and sent to lab as per referring physician's orders. FLUOROSCOPY TIME: 41 seconds DOSE AREA PRODUCT: 1390 uGy-m2 (microgray-meter squared) FL/FL guided lumbar puncture LP IMPRESSION: Successful fluoroscopy-guided lumbar vertebra performed without immediate complications. Electronically signed by: Tone Goldstein MD 08/01/2024 04:05 PM EDT RP Dictated By: Tone Goldstein MD Signed By: <Electronically signed by Tone Goldstein MD in OV> 08/01/24 1605 DD/ 1101 TD/TT: 08/01/24 1131 Billing Auditor: SOF[facility] External Provider IMG FLU OROSCOPY PROCEDURES Final Result * (ABNORMAL) Prothrombin Time-INR (08/01/2024 10:21 AM EDT) Prothrombin Time 12.8(H) 10.9 - 12.4 SEC [facility] INTERNATIONAL NORM RATIO 1.1 0.9 - 1.1 [facility] Comment:INTERNATIONAL NORMAL IZED RATIO (INR) REFERENCE RANGES Reference RangeFor patients not on anticoagulant therapy: 0.9 - 1.1INR ranges for oral anticoagulanttherapy:For prevention and treatment of venous thrombosis and pulmonary embolism: 2.0 - 3.0For acute myocardial infarction with aspirin therapy: 2.0 - 3.0For acute myocardial infarction without aspirin therapy: 3.0 - 4.0For patients with mechanical prosthetic heart valves: 2.5 - 3.5 08/01/2024 10:2 1 AM EDT 08/01/2024 10:26 AM EDT Generic External Data Provider LAB BLOOD ORDERAB LES Final Result [facility] [address] [place] [phone] * HCG, Qualitative, Urine (08/01/2024 10:00 AM EDT) Urine NEGATIVE NEGATIVE [facility] Comment:This test was develo ped to detect early . Falsenegative results may occur after the 5th - 7th week ofpregnancy when using this test method. If clinicallyindicated, consider a serum hCG. 08/01/2024 10:0 0 AM EDT 08/01/2024 10:09 AM EDT us Generic External Data Provider LAB URINE ORDERAB LES Final Result Performing Organization Address [facility] Co de Phone Number [facility] [address] [place] [phone] * STI testing add on (NG, CT, Trich) (05/28/2024 3:41 PM EST) Trichomonas (NAAT) NOT DETECTED NOT DETECTED [facility] Comment:The analytical perfo rmance characteristics of thisassay have been determined by [employer]. Themodifications have not been cleared or approved bythe FDA. This assay has been validated pursuant to theCLIA regulations and is used for clinical purposes.For additional information, please refer tohttp://education.[employer]/faq/Trichomonastma(This link is being provided for information/educational purposes only.)THIS TEST WAS PERFORMED AT:[employer] [place] [phone] JOHNSON MD CTNG Ref Lab NOT DETECTED NOT DETECTED [facility] NG Ref Lab NOT DETECTED NOT DETECTED [facility] ThinPrep?? vial Cervix uteri structure / Unknown 05/28/2024 3:41 PM EST 05/29/2024 8:50 AM EST us Danny DAVIS LAB CYTOLOGY ORDERABLES F inal Result Performing Organization Address [facility] Co de Phone Number [facility] [address] [place] [phone] * Pap Smear (05/28/2024 3:41 PM EST) Swab Cervix uteri structure / Unknown 05/28/2024 3:41 PM EST 05/29/2024 8:50 AM EST Narrative [facility] - 06/08/2024 8:25 PM EST ----- ------- Name: JimenezBucklashay ? Age/Sex: 24/F ? : 2000 Unit#: [id number] ?? Attend Dr: DANNY SNIDER CNM ?Re05/28/24 ?Status: DEP REF ? Location: HO.LNP ?Disch: ? ----- ------- SPEC : [id number] ?RECD: 05/29/24-849 ? STATUS: ??SOUT ? REQ NUM: [id number] ? BECKA: 05/28/24-1540 ? SUBM DR: DANNY SNIDER CNM ? ENTERED: ??05/29/24-855 ?SP TYPE: Pap Smr ?OTHR : ? ORDERED: ??Pap Smear, PAP path review ? Interpretation ?? General Category: ?? Epithelial cell abnormality. ?? Adequacy: ?Endocervical component present. ?? Interpretation: ?Atypical squamous cells of undetermined significance. ?Abundant blood present. ?Coccobacilli consistent with shift in vaginal destiny. ? HPV High Risk: ??Positive ? HPV Genotyping 16: ??Negative ?? HPV Genotyping 18: ??Negative ?Clinical Information LMP: [id number] Previous PAP test: Unknown date/findings ? Material Received ?? ThinPrep-Cervical ----- ------- Signed (signature on file) Dory Luisa 06/08/242024 ? ----- ------- ? END OF REPORT ? Danny Snider CNM LAB CYTOLOGY ORDERABLES F inal Result [facility] [address] [place] [phone] * Insertion/Removal of Contraceptive Capsule (05/28/2024 12:00 [...] and pressure bandage applied: yes ?? Danny Rizzardini CNM IN CLINIC/BEDSIDE ORDERAB LES Final Result * POCT Urine (05/28/2024 11:43 AM EST) Preg Test, Ur Negative Negative, Indeterminate, None Detected, Invalid, Specimen unsatisfactory for evaluation, Weakly Positive QC Media Lot # [id number] Lot# Expiration Date [id number] Urine 05/28/2024 11:4 3 AM EST Danny DAVIS POINT OF CARE TEST ENTER/ EDIT ORDERABLES [...] suspect. Ordering MRI and RTC for VF Result [facility] Shante Calles OD OPHTH TOMOGRAPHY Final Result * Hepatitis C Antibody with Reflex to HCV, RNA, Quantitative, Real-Time PCR (09/10/2023 2:03 PM EDT) Hepatitis C Antibody Nonreactive Nonreactive [facility] Comment:Antibodies to HCV no t detected; does not exclude early acuteHCV infection. Blood Venous blood specimen / Unknown 09/10/2023 2:03 PM EDT 09/10/2023 4:08 PM EDT Virginia Lira MD LAB BLOOD ORDERAB LES Final Result [facility] [address] [place] [address] [phone] * HIV-1/2 Antigen and Antibodies, Fourth Generation, with Reflexes (09/10/2023 2:03 PM EDT) Pathologist [facility] HIV AB/AG Nonreactive Nonreactive [facility] Comment:HIV-1 p24 Ag and/or HIV-1/HIV-2 Ab not detected.A test result that is nonreactive does not exclude thepossibility of exposure to or infection with HIV-1 and/orHIV-2. Nonreactive results in this assay for individualswith prior exposure to HIV-1 and/or HIV-2 may be due toantigen and antibody levels that are below the limit ofdetection of this assay.The [employer] HIV Ag/Ab Combo assay result andsupplemental assay results should be interpreted inconjunction with the patient's clinical presentation,history and other laboratory results. If the results areinconsistent with clinical evidence, additional testing issuggested to confirm the result. Blood Venous blood specimen / Unknown 09/10/2023 2:03 PM EDT 09/10/2023 4:08 PM EDT us Virginia Lira MD LAB BLOOD ORDERAB LES Final Result [facility] [address] [place] [phone] * (ABNORMAL) Lipid Panel, Standard (09/10/2023 2:03 PM EDT) [facility] Triglycerides 153(H) <150 mg/dL [facility] Comment:Desirable Triglyceri de: less than 150 mg/dLBorderline High Triglyceride 150-199 mg/dLHigh Triglyceride: 200-499 mg/dLVery High Triglyceride: greater than or equal to 5OO mg/dL Cholesterol 148 <200 mg/dL [facility] Comment:Desirable Cholestero l: less than 200 mg/dLBorderline High Cholesterol: 200-239 mg/dLHigh Cholesterol: greater than 239 mg/dL LDL Cholesterol Calculated 76 <100 mg/dL [facility] Comment:Desirable LDL: less than 100 mg/dLNear Optimal/Above Optimal LDL: 110- 129 mg/dLBorderline High LDL: 130-159 mg/dLHigh LDL: 160-189 mg/dLVery High LDL: greater than or equal to 190 mg/dL HDL Cholesterol 42 >40 mg/dL [facility] Comment:Desirable HDL: great er than 40 mg/dL Note: This HDL assay may give artificially low results in patients with liver disease. Blood Venous blood specimen / Unknown 09/10/2023 2:03 PM EDT 09/10/2023 4:08 PM EDT us Virginia Lira MD LAB BLOOD ORDERAB LES Final Result 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
--- OUTSIDE RECORDS SUMMARY | 2024-08-13 13:02 | XMS_ITS | Clinical Summary ---
Author Organization [facility] it Address [address] [place] [phone] Care Team Providers Care Bulb Assembler Name Role Phone Unavailable Primary Care Provider [...]
[2024-08-13 13:09] VITALS: BP 131/76; PULSE 101; RESP 19; TEMP 36.8; O2SAT 98
== END 2024-08-13 13:12 | disposition home or self-care (01) ==
PROVIDERS: Emergency Provider Emergency Medicine; PCP Nurse Practitioner Primary Care
DX: J45.901 Unspecified asthma with (acute) exacerbation (principal); R07.89 Other chest pain; R05.9 Cough, unspecified; R50.9 Fever, unspecified; R51.9 Headache, unspecified; Z03.818 Encounter for observation for suspected exposure to other biological agents ruled out
CPT/HCPCS: 0241U; 80053; 81001; 85025; 93005; 94640; 99284; 99285

== ENCOUNTER → 2024-08-13 09:13 | Outpatient (BNV) | payer MEDICAID, SELFPAY | PROVIDERS: Emergency Provider Emergency Medicine; PCP Nurse Practitioner Primary Care; Visit Provider Internal Medicine | DX: R07.9 Chest pain, unspecified (principal) | CPT/HCPCS: 93010 ==

== ENCOUNTER → 2024-09-12 08:06 | Outpatient (BNVA) | payer MEDICAID, SELFPAY | PROVIDERS: PCP Nurse Practitioner Primary Care; Visit Provider Surgery ==